=== PATIENT | female | born 1935 | race Caucasian/White ===

== ENCOUNTER → 2017-04-16 14:45 | Outpatient (CLI) | payer MEDICARE, OTHER, SELFPAY ==
[2017-04-16 14:51] LABS: Microscopic, Urine URINE MICROSCOPIC (MICROSCOPIC)
--- NOTE | 2017-04-16 15:05 | XR_ITS ---
XR acute abdomen series Ordering Physician: Sea Martinez Patient Age: 81 years: Female HISTORY: ITS.REASON: EPIGASTRIC PAIN, N/V/D TECHNIQUE: Flat and upright views of abdomen with upright chest COMPARISON :2 view chest October 2016. Also CT abdomen pelvis 12/14/2014 FINDINGS : CHEST: Lungs appears stable and clear with no active disease heart normal size previous median sternotomy. Tortuous aorta. Minimal linear scarring left CP angle. No free air beneath the diaphragm eventration towards the medial left hemidiaphragm again noted Abdomen FLAT AND UPRIGHT post surgical changes in region of stomach numerous clips and stable elements here. Reflect previous gastric stapling bypass surgery. Nonspecific bowel gas pattern. No bowel dilatation or obstruction. Only minimal gas in large and small bowel. Minimal stool throughout the colon. Postsurgical changes at pelvis likely from previous hysterectomy. Numerous phleboliths at the pelvis. Degenerative changes spine most evident L4/5 but no organomegaly. No significant renal calculi IMPRESSION: No acute findings Nonspecific bowel gas pattern. With minimal minimal gas large and small bowel Postsurgical changes region of stomach. Cholecystectomy. Hysterectomy. Lungs clear no active disease
[2017-04-16 15:15] LABS: Appearance,Urine CLEAR (Clear); Blood, Urine Negative (Negative); Color,Urine YELLOW (Yellow); Glucose,Urine (UA) Negative (Negative); Ketones,Urine 1+ (Negative); Leukocyte Esterase,Urine Negative (Negative); Nitrate,Urine Negative (Negative); Protein,Urine 1+ (Negative); Specific Gravity, Urine 1.025 (1.005-1.030)
[2017-04-16 15:17] LABS: Basophils % 0.2 % (0.1-2.0); Eosinophils # 0.2 K/mm3 (0.0-0.4); Eosinophils % 2.7 % (0.1-12.0); Hematocrit 41.5 % (37.0-47.0); Hemoglobin 13.8 g/dL (12.2-16.2); Lymphocytes # 1.4 K/mm3 (0.7-4.5); Lymphocytes % 24.9 K/mm3 (10-50); Mean Corpuscular HGB Conc 33.1 g/dL (31.8-35.4); Mean Corpuscular Hemoglobin 30.4 pg (27.0-31.2); Mean Corpuscular Volume 91.6 fl (81-99); Mean Platelet Volume 7.7 fl (7.4-10.4); Monocytes # 0.4 K/mm3 (0.1-1.0); Neutrophils # 3.7 K/mm3 (1.8-7.8); Neutrophils % 65.1 % (37.0-80.0); Platelet Count 308 K/mm3 (142-424); Red Blood Count 4.53 M/mm3 (4.20-5.40); Red Cell Distribution Width 13.9 % (11.5-17.5); White Blood Count 5.8 K/mm3 (4.8-10.8)
[2017-04-16 15:18] LABS: Bilirubin,Urine 2+ (Negative)
[2017-04-16 15:30] LABS: Anion Gap 13.7 mEq/L (5-15); Blood Urea Nitrogen 19 mg/dL (7-18); Carbon Dioxide 29 mmol/L (21.0-32.0); Chloride 102 mmol/L (98-107); Creatinine,Serum 1.26 mg/dL (0.55-1.02); Estimated Glomerular Filt Rate 41 ml/min (>60); GFR (African American) 50 ML/MIN (>60); Glucose 111 mg/dL (74-106); Potassium 4.7 mmoL/L (3.5-5.1); Sodium 140 mmol/L (136-145)
[2017-04-16 15:34] LABS: RBC,Urine Occasional #/hpf (0-3)
== END ==
PROVIDERS: PCP Internal Medicine; Visit Provider Internal Medicine
DX: R10.13 Epigastric pain (principal); R11.2 Nausea with vomiting, unspecified; R19.7 Diarrhea, unspecified
CPT/HCPCS: 36415; 74021; 80048; 81001; 85025

== ENCOUNTER → 2017-04-26 15:31 | Outpatient (POV) | payer MEDICARE, OTHER, SELFPAY | PROVIDERS: Family Provider Internal Medicine; PCP Internal Medicine; Visit Provider Dermatology | DX: Z00.00 Encounter for general adult medical examination without abnormal findings (principal) ==

== ENCOUNTER → 2017-06-19 12:06 | Outpatient (CLI) | payer MEDICARE, OTHER, SELFPAY ==
--- NOTE | 2017-06-19 12:29 | XR_ITS ---
XR chest 2V HISTORY: ITS.REASON: COUGH, SOA, CHEST PAIN ORDERING PHYSICIAN: Sea Martinez PATIENT AGE: 81 years COMPARISON: 11/10/2016 FINDINGS: Prior CABG. Normal heart size.. The lungs are clear without infiltrates, suspicious nodules, or pleural effusions. Minimal fibrotic changes are present in the left lung base No acute bony abnormalities. IMPRESSION: No change with no acute finding
[2017-06-19 12:30] LABS: Basophils % 0.6 % (0.1-2.0); Eosinophils # 0.2 K/mm3 (0.0-0.4); Eosinophils % 4.1 % (0.1-12.0); Hematocrit 38.4 % (37.0-47.0); Hemoglobin 12.1 g/dL (12.2-16.2); Lymphocytes # 1.2 K/mm3 (0.7-4.5); Lymphocytes % 21.6 K/mm3 (10-50); Mean Corpuscular HGB Conc 31.6 g/dL (31.8-35.4); Mean Corpuscular Hemoglobin 29.6 pg (27.0-31.2); Mean Corpuscular Volume 93.6 fl (81-99); Mean Platelet Volume 7.9 fl (7.4-10.4); Monocytes # 0.3 K/mm3 (0.1-1.0); Monocytes % 5.9 % (1.7-9.3); Neutrophils # 3.6 K/mm3 (1.8-7.8); Neutrophils % 67.7 % (37.0-80.0); Platelet Count 321 K/mm3 (142-424); Red Cell Distribution Width 14.2 % (11.5-17.5); White Blood Count 5.4 K/mm3 (4.8-10.8)
[2017-06-19 12:57] LABS: Troponin I < 0.02 ng/ml (0.00-0.06)
== END ==
PROVIDERS: Visit Provider Internal Medicine
DX: R05 Cough (principal); R06.02 Shortness of breath; R07.9 Chest pain, unspecified
CPT/HCPCS: 36415; 71046; 84484; 85025; 93005

== ENCOUNTER 2017-09-29 08:52 | Observation (INO) ==
[2017-09-29 09:09] LABS: Basophils % 0.5 % (0.1-2.0); Eosinophils # 0.2 K/mm3 (0.0-0.4); Eosinophils % 4.4 % (0.1-12.0); Hematocrit 33.9 % (37.0-47.0); Hemoglobin 10.8 g/dL (12.2-16.2); Lymphocytes # 1.7 K/mm3 (0.7-4.5); Mean Corpuscular HGB Conc 31.9 g/dL (31.8-35.4); Mean Corpuscular Hemoglobin 27.8 pg (27.0-31.2); Mean Corpuscular Volume 87.3 fl (81-99); Mean Platelet Volume 7.2 fl (7.4-10.4); Monocytes # 0.3 K/mm3 (0.1-1.0); Monocytes % 5.8 % (1.7-9.3); Neutrophils # 2.8 K/mm3 (1.8-7.8); Neutrophils % 55.4 % (37.0-80.0); Platelet Count 315 K/mm3 (142-424); Red Blood Count 3.88 M/mm3 (4.20-5.40); Red Cell Distribution Width 15.6 % (11.5-17.5); White Blood Count 5.1 K/mm3 (4.8-10.8)
--- NOTE | 2017-09-29 09:12 | Emergency Department Note ---
ED Disposition Clinical Impression: Unstable angina, CAD (coronary artery disease), Renal insufficiency Disposition: Still a Patient Condition on Discharge: Fair Referrals: Sea Martinez [Primary Care Provider] - - Critical Care Critical Care Time: No Attestation: On 09/29/17, the high probability of a clinically significant, sudden or life threatening deterioration of the following system(s) required my full and direct attention, intervention and personal management. The time I documented below is in addition to time spent performing reported procedures but includes the following listed in this critical care notation. Medical Decision Making - Robert Inquiry Pt receiving controlled substance: No Robert was queried for this patient: No Vital Signs: 09/29/17 08:52 09/29/17 09:14 09/29/17 09:56 Temperature 97.7 F Temperature Source Oral Pulse Rate [Apical] 94 H 86 82 Respiratory Rate 18 18 18 Blood Pressure [Left Arm] 134/72 137/73 126/71 Blood Pressure Mean [Left Arm] 92 94 89 Blood Pressure Source [Left Arm] Automatic Cuff Automatic Cuff Automatic Cuff Blood Pressure Position [Left Arm] Sitting Sitting Sitting 02 Sat by Pulse Oximetry 94 L 94 L 96 Oxygen Delivery Method Room Air Room Air Room Air 09/29/17 10:17 09/29/17 11:04 Temperature Temperature Source Pulse Rate [Apical] 88 83 Respiratory Rate 18 18 Blood Pressure [Left Arm] 131/76 128/72 Blood Pressure Mean [Left Arm] 94 90 Blood Pressure Source [Left Arm] Automatic Cuff Automatic Cuff Blood Pressure Position [Left Arm] Sitting Sitting 02 Sat by Pulse Oximetry 97 98 Oxygen Delivery Method Room Air Room Air - Lab Data Lab Results 09/29/17 08:50: WBC 5.1, RBC 3.88 L, Hgb 10.8 L, Hct 33.9 L, MCV 87.3, MCH 27.8 , MCHC 31.9, RDW 15.6, Plt Count 315, MPV 7.2 L, Neut % (Auto) 55.4, Lymph % ( Auto) 34.0, [place] % (Auto) 5.8, Eos % (Auto) 4.4, Baso % (Auto) 0.5, Neut # (Auto ) 2.8, Lymph # (Auto) 1.7, [place] # (Auto) 0.3, Eos # (Auto) 0.2, Baso # (Auto) 0.0 09/29/17 08:50: D-Dimer 1830 H* 09/29/17 08:50: Sodium 137, Potassium 4.3, Chloride 103, Carbon Dioxide 29, Anion Gap 5.0, BUN 16, Creatinine 1.26 H, Estimated Creat Clear 44, Estimated GFR 41 L, Est GFR ( Amer) 50 L, Glucose 116 H, Calcium 8.9, Total Bilirubin 0.4, AST 15, ALT 13, Alkaline Phosphatase 55, Total Creatine Kinase 34 , CK-MB (CK-2) 0.6, CK-MB (CK-2) Rel Index 1.8, Troponin I < 0.02, Total Protein 7.0, Albumin 2.9 L, Globulin 4.1 H, Albumin/Globulin Ratio 0.7 L 09/29/17 08:50: B-Natriuretic Peptide 231 H Result diagrams: 09/29/17 08:50 09/29/17 08:50 Orders (Tests/Meds): ED MEDICATIONS Discontinued Medications Generic Name Dose Route Start Last Admin Trade Name Waylonq PRN Reason Stop Dose Admin Enoxaparin Sodium 80 mg 09/29/17 09:04 09/29/17 09:10 Lovenox 80mg/0.8ml Syringe SQ 09/29/17 09:05 80 mg ONCE ONE Administration Famotidine 20 mg 09/29/17 09:04 09/29/17 09:10 Pepcid 20mg/2ml Vial IV 09/29/17 09:05 20 mg ONCE ONE Administration Sodium Chloride 1,000 mls @ 500 mls/hr 09/29/17 09:15 09/29/17 09:08 Sod Chlor 0.9% 1000ml Bag IV 09/29/17 11:14 500 mls/hr .Q2H LIZBET Administration Iopamidol 75 ml 09/29/17 10:50 09/29/17 10:50 [id number]; 75ml Vial IV 09/29/17 10:51 75 ml ONCE ONE Administration Nitroglycerin 0.5 gm 09/29/17 09:04 09/29/17 09:56 Nitroglycerin 1 Inch Oint Udp TD 09/29/17 09:05 0.5 gm ONCE ONE Administration Sodium Chloride 10 ml 09/29/17 10:50 09/29/17 10:50 Rad-Saline Flush 10ml Syringe IV 09/29/17 10:51 10 ml ONCE ONE Administration ORDERS Category Date Time Status ECG Request by /Nse Stat Y 09/29/17 09:00 Ordered - Radiology Data #1 Image(s): Chest Image Reviewed: Yes I reviewed the patient's radiology image Preliminary Findings: Abnormal Portable CXR: Postop changes bibasilar atelectasis versus infiltrates - CT Data CT Scan: Chest Time Received: 11:[address] Reviewed: Yes: I have viewed the radiologist's interpretation Preliminary Findings: Normal/NAD - ECG Data Tracing #1 Normal sinus rhythm 92/min left atrial enlargement right bundle branch block stable since the EKG done in this facility on November 10, 2016. ECG initial impression date: 09/29/17 ECG initial impression time: 08:55 Normal Sinus Rhythm: No Medical Decision Narrative: 919 Dr. Bergeron her illusionist was notified of her presence in the ED. the patient started on nitroglycerin paste and Lovenox with resolution of her chest pain. She underwent elevated d-dimer and she was given a CT scan with contrast that was negative for PE. I spoke with Dr. Bergeron regarding her receiving 2 doses of IV dye and her advanced did renal insufficiency. I spoke with Dr. Schwartz should be admitted for unstable angina and renal insufficiency. Chest Pain HPI - General Chief Complaint: Chest Pain Stated Complaint: chest pain Time Seen by Provider: 09/29/17 08:55 Mode of Arrival: EMS Limitations: No Limitations Description of Symptoms (Recalled from ER Triage Doc. by RN): Pt reports woke up with pressure like pain in middle of chest radiating to her back. Pt reports pain made her feel SOA. Pt reports she had a heart cath of this week and had [address] Bergeron. Pt reports also has a hx of a CABG. Pt reports she took 2 SL Nitroglycerin [employer] that pt reports helped her CP, states pain was initially a 10/10 but is now 2/10 - History of Present Illness HPI narrative: 81 years old white female with long-standing history of coronary artery disease she is status post CABG in 2001. September 26 she developed retrosternal chest pain she contacted her music manager Dr. Bergeron who brought her for a heart cath in September 27 with a stenting of the ostium of the left main due to interval loss of the left internal mammary artery to the LAD accompanied by severe ostial left main artery stenosis. The saphenous vein graft was patent and her ejection fraction was normal with normal left ventricular end-diastolic pressure. She was discharged with aspirin Brilinta and anti-hyperlipidemic drugs and recommendations for cardiac rehab. She started her aspirin Brilinta yesterday 09/28/17. Today she was awakened by retrosternal pressure type pain rated 8/10 radiating to her back associated with shortness of breath but no palpitations. She has no nausea no vomiting no hemoptysis or hematemesis, no coffee-ground emesis, no melanotic stool, no bleeding per rectum. She took her nitroglycerin with reduction of the pain to 2 /10 and resolution of the shortness of breath. EMS was contacted obtained an EKG with normal sinus left atrial enlargement right bundle branch block which seems unchanged from her prior EKG on November 10, 2016. I reviewed the patient cardiac catheterization reviewed her old EKG and started her on IV fluids 500 ml, Lovenox and nitroglycerin paste. MD complaint: chest pain indicative of cardiac Onset (ago): hour(s) (one hour ago.) Time: 08:00 Duration: constant Activity at onset: during rest, awoke with symptoms Pain location: substernal Severity: moderate Severity scale (1-10): 8 Quality: dull, similar to prior [place], other Pain radiation: back Relieving factors: nitroglycerin Exacerbating factors: nothing Context: recent surgery Associated symptoms: dyspnea Risk Factors for CAD: Hypertension, Hypercholesterolemia Treatments prior to or on arrival for Cardiac Chest Pain: aspirin, oxygen - Related Data Home Medications Medication Instructions Recorded Confirmed celecoxib 200 mg capsule 200 mg PO DAILY cap 09/26/17 levothyroxine 50 mcg tablet 50 mcg PO DAILY tab 09/26/17 lorazepam 1 mg tablet 1 mg PO TID PRN tab 09/26/17 melatonin 10 mg tablet 10 mg PO HS 09/26/17 pantoprazole 40 mg tablet,delayed 40 mg PO DAILY tab 09/26/17 release ranitidine 300 mg tablet 300 mg PO BID PRN tab 09/26/17 ranolazine ER 500 mg 500 mg PO BID tab 09/26/17 tablet,extended release,12 hr Previous Rx's Medication Instructions Recorded amlodipine 5 mg tablet 5 mg PO DAILY #30 tab 09/26/17 atorvastatin 40 mg tablet 40 mg PO DAILY #30 tab 09/26/17 ondansetron HCl 4 mg tablet 4 mg PO BID PRN #30 tab 09/28/17 Allergies Allergy/AdvReac Type Severity Reaction Status Date / Time meperidine Allergy Unknown Verified 09/29/17 09:05 Sulfa (Sulfonamide Allergy Unknown Verified 09/29/17 09:05 Antibiotics) trimethoprim Allergy Unknown Verified 09/29/17 09:05 [facility] History I have reviewed the patient's past medical history: Yes Medical History: Reports:: Anxiety, Gastroesophageal Reflux Disease(GERD), Hypertension Denies:: Cancer, Diabetes Mellitus Type 1, Diabetes Mellitus Type 2, Internal Pacemaker, MRSA, Seizures Other Medical History: Reports: Hypothyroidism Other Surgeries: Yes: Appendectomy, CABG (2004), Cholecystectomy, Tubal Ligation , Other (ankle sx). No: Pacemaker Amputation: No - Social History Smoking Status: Former smoker Tobacco Type: cigarettes Alcohol Intake: never Alcohol Intake Frequency:: other Substance Use Type: denies use Occupational Status: retired Housing: house Household Members: significant other - Psychiatric History Expresses thoughts of harming self/others: None Suicide Plan Description: No Plan Pschychiatric History:: Reports:: Anxiety Family Hx:: Coronary Artery Disease ROS Obtained: Yes All systems reviewed & no additional complaints Physical Exam - General General appearance: alert, in no apparent distress - Head Head exam: atraumatic, normocephalic, normal inspection - Eye Eye exam: Present: normal appearance, PERRL, EOMI. Absent: scleral icterus, nystagmus - ENT ENT exam: Present: normal exam, normal oropharynx, mucous membranes moist, TM's normal bilaterally, normal external ear exam - Neck Neck exam: Present: normal inspection, full ROM, trachea midline. Absent: meningismus, lymphadenopathy - Chest Chest inspection: Present: normal inspection, symmetric chest wall rise. Absent : tenderness - Respiratory Respiratory exam: Present: other (Fine bibasilar crepitations bilaterally, does not resolve by coughing, in no acute distress.). Absent: respiratory distress - Cardiovascular Cardiovascular exam: Present: regular rate, normal rhythm, normal heart sounds, other (Distant heart sounds.). Absent: JVD - Abdominal Exam Abdominal exam: Present: soft, normal bowel sounds, other (Normal right groin Angiocath side, with a strong bilateral femoral pulsations.). Absent: distention, tenderness, guarding, rebound, rigidity, Harley's sign, tenderness at McBurney's Point - External exam: Present: normal external exam - Extremities Exam Extremities exam: Present: normal inspection, full ROM, normal capillary refill , other (Equal bilateral dorsalis pedis pulsation.). Absent: tenderness, pedal edema, joint swelling, calf tenderness - Back Exam Back exam: Present: normal inspection. Absent: tenderness, CVA tenderness (R), CVA tenderness (L), vertebral tenderness - Neurological Exam Neurological exam: Present: alert, oriented X3, CN II-XII intact, motor sensory deficit, reflexes normal - Psychiatric Psychiatric exam: Present: normal affect, normal mood - Skin Skin exam: Present: warm, dry, intact, normal color - Lymphatic Lymphatic Findings: no adenopathy
[2017-09-29 09:21] LABS: Creatine Kinase 34 U/L (26-192); Sodium 137 mmol/L (136-145)
[2017-09-29 09:22] LABS: Alanine Aminotransferase 13 U/L (12-78); Albumin Level 2.9 gm/dL (3.4-5.0); Albumin/Globulin Ratio 0.7 (1.1-1.8); Alkaline Phosphatase 55 U/L (46-116); Aspartate Amino Transferase 15 U/L (15-37); Bilirubin,Total 0.4 mg/dL (0.2-1.0); Blood Urea Nitrogen 16 mg/dL (7-18); Calcium 8.9 mg/dL (8.5-10.1); Carbon Dioxide 29 mmol/L (21.0-32.0); Chloride 103 mmol/L (98-107); Globulin 4.1 gm/dl (1.3-3.2); Glucose 116 mg/dL (74-106); Potassium 4.3 mmoL/L (3.5-5.1)
--- NOTE | 2017-09-29 12:59 | History & Physical Report ---
*Admission Date: 09/29/17 *Chief complaint: chest pain *History of present illness: Ms. Floyd is a 81-year-old female with extensive medical history of coronary artery disease status post CABG in 2004, unstable angina, heart cath within the past 3 days, right bundle branch block, and obstructive sleep apnea who presents with episode of chest pain that woke her from sleep this morning. On initial presentation to the ER EKG is stable with comparison to old studies, troponins negative, chest pain resolved with nitroglycerin. He remained hemodynamically stable. Decision to admit based on need for serial troponins, history of renal insufficiency with significant contrast load over the past few days, and to assess for rebound angina. Cardiology consulted in the emergency room, following along. Of note, she was just seen in cardiology clinic on the first because of her unstable angina. She had not had any interventions since her CABG in 2004. She presented because she has been having chest pain, progressive dyspnea with exertion, and worsening exercise intolerance. [facility] History Medical History: Reports:: Anxiety, Gastroesophageal Reflux Disease(GERD), Hypertension Denies:: Cancer, Diabetes Mellitus Type 1, Diabetes Mellitus Type 2, Internal Pacemaker, MRSA, Seizures Other Medical History: Reports: Hypothyroidism Other Surgeries: Yes: Appendectomy, CABG (2004), Cholecystectomy, Tubal Ligation , Other (ankle sx). No: Pacemaker Amputation: No - *Social History Smoking Status: Former smoker Tobacco Type: cigarettes Alcohol Intake: never Alcohol Intake Frequency:: other Substance Use Type: denies use Occupational Status: retired Housing: house Household Members: significant other - Psychiatric History Expresses thoughts of harming self/others: None Suicide Plan Description: No Plan Pschychiatric History:: Reports:: Anxiety *Family Hx:: Coronary Artery Disease Review of Systems - Review of Systems Review of systems:: pertinent systems reviewed and negative unless documented below Meds Home Medications Medication Instructions Recorded Confirmed Type celecoxib 200 mg capsule 200 mg PO DAILY cap 09/26/17 09/29/17 History levothyroxine 50 mcg tablet 50 mcg PO DAILY tab 09/26/17 09/29/17 History lorazepam 1 mg tablet 1 mg PO TID PRN tab 09/26/17 09/29/17 History melatonin 10 mg tablet 10 mg PO HS 09/26/17 09/29/17 History pantoprazole 40 mg tablet,delayed 40 mg PO DAILY tab 09/26/17 09/29/17 History release ranitidine 300 mg tablet 300 mg PO BID PRN tab 09/26/17 09/29/17 History ranolazine ER 500 mg 500 mg PO BID tab 09/26/17 09/29/17 History tablet,extended release,12 hr Allergies Allergy/AdvReac Type Severity Reaction Status Date / Time meperidine Allergy Unknown Verified 09/29/17 09:05 Sulfa (Sulfonamide Allergy Unknown Verified 09/29/17 09:05 Antibiotics) trimethoprim Allergy Unknown Verified 09/29/17 09:05 Exam Vital signs and Labs for Last 24 Hours: Temp Pulse Resp BP Pulse Ox 98.1 F 91 H 18 172/66 94 L 09/29/17 12:55 09/29/17 12:55 09/29/17 12:55 09/29/17 12:55 09/29/17 12:55 Laboratory Results - last 24 hr 09/29/17 08:50: WBC 5.1, RBC 3.88 L, Hgb 10.8 L, Hct 33.9 L, MCV 87.3, MCH 27.8 , MCHC 31.9, RDW 15.6, Plt Count 315, MPV 7.2 L, Neut % (Auto) 55.4, Lymph % ( Auto) 34.0, [place] % (Auto) 5.8, Eos % (Auto) 4.4, Baso % (Auto) 0.5, Neut # (Auto ) 2.8, Lymph # (Auto) 1.7, [place] # (Auto) 0.3, Eos # (Auto) 0.2, Baso # (Auto) 0.0 09/29/17 08:50: D-Dimer 1830 H* 09/29/17 08:50: Sodium 137, Potassium 4.3, Chloride 103, Carbon Dioxide 29, Anion Gap 5.0, BUN 16, Creatinine 1.26 H, Estimated Creat Clear 44, Estimated GFR 41 L, Est GFR ( Amer) 50 L, Glucose 116 H, Calcium 8.9, Total Bilirubin 0.4, AST 15, ALT 13, Alkaline Phosphatase 55, Total Creatine Kinase 34 , CK-MB (CK-2) 0.6, CK-MB (CK-2) Rel Index 1.8, Troponin I < 0.02, Total Protein 7.0, Albumin 2.9 L, Globulin 4.1 H, Albumin/Globulin Ratio 0.7 L 09/29/17 08:50: B-Natriuretic Peptide 231 H I & O for Last 24 hours: Intake & Output 09/26/17 09/27/17 09/28/17 09/29/17 23:59 23:59 23:59 23:59 Weight 76.884 kg - *Routine HEENT Exam Head: Present: normocephalic, atraumatic Eye: Present: EOMI, PERRL ENT: Present: mucous membranes moist - *Routine Neck Exam Present: supple. Absent: JVD, lymphadenopathy - *Routine Respiratory Exam Present: CTA bilaterally. Absent: prolonged expiratory phase, rales - *Routine Cardiovascular Exam Present: RRR, Normal S1, Normal S2. Absent: murmur - *Routine Abdominal Exam Present: soft, normoactive bowel sounds. Absent: tenderness - *Routine Rectal Exam Patient deferred: visual exam - *Routine Exam Patient deferred: external exam - *Routine Extremities Exam Present: edema (1+ edema to knee bilaterally). Absent: cyanosis - *Routine Skin Exam Present: intact. Absent: cyanosis, erythema - *Routine Neurological Exam Present: alert, oriented X3, CN II-XII intact - Routine Psychiatric Exam Present: normal affect, cooperative H&P: Result - Labs Labs: Short CBC 09/29/17 Range/Units 08:50 WBC 5.1 (4.8-10.8) K/mm3 Hgb 10.8 L (12.2-16.2) g/dL Hct 33.9 L (37.0-47.0) % Plt Count 315 (142-424) K/mm3 BMP 09/29/17 08:50 Sodium 137 Potassium 4.3 Chloride 103 Carbon Dioxide 29 BUN 16 Creatinine 1.26 H Glucose 116 H Calcium 8.9 Cardiac Enzymes 09/29/17 Range/Units 08:50 Total Creatine Kinase 34 (26-192) U/L CK-MB (CK-2) 0.6 (0.0-3.6) ng/ml Troponin I < 0.02 (0.00-0.06) ng/ml Liver Function 09/29/17 Range/Units 08:50 Total Bilirubin 0.4 (0.2-1.0) mg/dL AST 15 (15-37) U/L ALT 13 (12-78) U/L Alkaline Phosphatase 55 (46-116) U/L Albumin 2.9 L (3.4-5.0) gm/dL Assessment and Plan (1) CAD (coronary artery disease) Current visit: Yes Status: Acute Category: Medical Code(s): I25.10 - Atherosclerotic heart disease of [place] coronary artery without angina pectoris (2) Renal insufficiency Current visit: Yes Status: Acute Category: Medical Code(s): N28.9 - Disorder of kidney and ureter, unspecified Monitor kidney function with morning labs, due to contrast loads over the past 3 days at risk for contrast-induced nephropathy/RAYO Gentle fluid rehydration (3) Unstable angina Current visit: Yes Status: Acute Category: Medical Code(s): I20.0 - Unstable angina Serial troponin Resume DAPT therapy Taking home medications, awaiting to bring to bedside Nitro as needed for chest pain Monitor on telemetry Cardiology consulted, appreciate recommendations (4) Obstructive sleep apnea Current visit: Yes Status: Acute Category: Medical Code(s): G47.33 - Obstructive sleep apnea (adult) (pediatric) Resume home CPAP, use home settings, while sleeping
--- NOTE | 2017-09-29 13:26 | Pharmacy Consult Notes ---
[facility] Pharmacy VTE Monitoring - Patient Demographics Admission date: 09/29/17 Report Date: 09/29/17 Time: 13:25 Allergies/Adverse Reactions: Patient Allergies meperidine Allergy (Unknown, Verified 09/29/17 09:05) Sulfa (Sulfonamide Antibiotics) Allergy (Unknown, Verified 09/29/17 09:05) trimethoprim Allergy (Unknown, Verified 09/29/17 09:05) Height: 1.52 m Weight: 76.884 kg Patient Problems: Current Active Problems Unstable angina (Acute) CAD (coronary artery disease) (Acute) Renal insufficiency (Acute) - VTE Risk Labs: VTE Related Lab Results Hgb 10.8 g/dL (12.2-16.2) L 09/29/17 08:50 Hct 33.9 % (37.0-47.0) L 09/29/17 08:50 Plt Count 315 K/mm3 (142-424) 09/29/17 08:50 BUN 16 mg/dL (7-18) 09/29/17 08:50 Creatinine 1.26 mg/dL (0.55-1.02) H 09/29/17 08:50 Estimated Creat Clear 44 mL/min (0-300) 09/29/17 08:50 - Prophylaxis VTE Prophylaxis Ordered?: Yes Types of VTE Prophylaxis: TEDS Knee High Location of Applied Device: Bilateral Lower Extremeties - VTE Diagnosis Confirmed Treatment or plan recommended: Continue Current Treatment
[2017-09-30 07:17] LABS: Anion Gap 12.7 mEq/L (5-15); Calcium 8.8 mg/dL (8.5-10.1); Potassium 4.7 mmoL/L (3.5-5.1)
[2017-09-30 07:18] LABS: Basophils % 0.5 % (0.1-2.0); Eosinophils # 0.2 K/mm3 (0.0-0.4); Eosinophils % 6.3 % (0.1-12.0); Hematocrit 30.6 % (37.0-47.0); Lymphocytes # 1.1 K/mm3 (0.7-4.5); Mean Corpuscular HGB Conc 32.7 g/dL (31.8-35.4); Mean Corpuscular Hemoglobin 28.2 pg (27.0-31.2); Mean Corpuscular Volume 86.4 fl (81-99); Mean Platelet Volume 7.2 fl (7.4-10.4); Monocytes # 0.3 K/mm3 (0.1-1.0); Neutrophils % 53.4 % (37.0-80.0); Platelet Count 255 K/mm3 (142-424); Red Blood Count 3.54 M/mm3 (4.20-5.40); Red Cell Distribution Width 15.6 % (11.5-17.5); White Blood Count 3.8 K/mm3 (4.8-10.8)
--- NOTE | 2017-09-30 11:16 | Discharge Summary ---
General - General Admission date:: 09/29/17 Discharge date: 09/30/17 HPI HPI: Ms. Floyd is a 81-year-old female with extensive medical history of coronary artery disease status post CABG in 2004, unstable angina, heart cath within the past 3 days, right bundle branch block, and obstructive sleep apnea who presents with episode of chest pain that woke her from sleep this morning. On initial presentation to the ER EKG is stable with comparison to old studies, troponins negative, chest pain resolved with nitroglycerin. He remained hemodynamically stable. Decision to admit based on need for serial troponins, history of renal insufficiency with significant contrast load over the past few days, and to assess for rebound angina. Cardiology consulted in the emergency room, following along. Of note, she was just seen in cardiology clinic on the first because of her unstable angina. She had not had any interventions since her CABG in 2004. She presented because she has been having chest pain, progressive dyspnea with exertion, and worsening exercise intolerance. Hospital Course Hospital Course: Ms. Floyd was admitted for observation and serial troponins. Over 24 hours she had no further episodes of angina. Troponins remained negative. She is monitored on telemetry with no events. Continued on her home medication regimen including her dual antiplatelet therapy. Remained hemodynamically stable. Discharged home with instructions to follow-up with cardiology this week. Given a refill of nitroglycerin in case acute episodes of angina occur. Objective Vital signs: Temp Pulse Resp BP Pulse Ox 97.8 F 89 20 146/68 94 L 09/30/17 08:00 09/30/17 08:00 09/30/17 08:00 09/30/17 08:00 09/30/17 08:00 - *Routine HEENT Exam Head: Present: normocephalic, atraumatic Eye: Present: EOMI ENT: Present: mucous membranes moist - *Routine Neck Exam Present: supple. Absent: lymphadenopathy - *Routine Respiratory Exam Present: CTA bilaterally. Absent: prolonged expiratory phase, rales, crackles - *Routine Cardiovascular Exam Present: RRR, Normal S1, Normal S2. Absent: murmur - *Routine Abdominal Exam Present: soft, normoactive bowel sounds. Absent: tenderness - *Routine Rectal Exam Patient deferred: visual exam - *Routine Exam Comments: Right groin with no bruit at site of recent heart cath sheath. No bleeding or erythema. - *Routine Extremities Exam Present: edema. Absent: cyanosis, clubbing - *Routine Skin Exam Present: intact. Absent: cyanosis - *Routine Neurological Exam Present: alert, oriented X3, CN II-XII intact - Routine Psychiatric Exam Present: normal affect, cooperative Results Labs on day of discharge: Labs from last 24 hours 09/30/17 09/30/17 09/30/17 06:15 06:15 00:25 WBC 3.8 L D RBC 3.54 L Hgb 10.0 L Hct 30.6 L MCV 86.4 MCH 28.2 MCHC 32.7 RDW 15.6 Plt Count 255 MPV 7.2 L Neut % (Auto) 53.4 Lymph % (Auto) 30.0 [place] % (Auto) 8.0 Eos % (Auto) 6.3 Baso % (Auto) 0.5 Neut # (Auto) 2.0 Lymph # (Auto) 1.1 [place] # (Auto) 0.3 Eos # (Auto) 0.2 Baso # (Auto) 0.0 Sodium 141 Potassium 4.7 Chloride 107 Carbon Dioxide 26 Anion Gap 12.7 BUN 11 D Creatinine 1.03 H Estimated Creat Clear 54 Estimated GFR 52 L Est GFR ( Amer) 63 D Glucose 93 Calcium 8.8 Troponin I < 0.02 09/29/17 09/29/17 18:20 13:15 WBC RBC Hgb Hct MCV MCH MCHC RDW Plt Count MPV Neut % (Auto) Lymph % (Auto) [place] % (Auto) Eos % (Auto) Baso % (Auto) Neut # (Auto) Lymph # (Auto) [place] # (Auto) Eos # (Auto) Baso # (Auto) Sodium Potassium Chloride Carbon Dioxide Anion Gap BUN Creatinine Estimated Creat Clear Estimated GFR Est GFR ( Amer) Glucose Calcium Troponin I < 0.02 < 0.02 DS: Diagnosis - Discharge Diagnosis (1) CAD (coronary artery disease) Status: Acute (2) Renal insufficiency Status: Acute (3) Unstable angina Status: Acute (4) Obstructive sleep apnea Status: Acute Discharge Plan - Patient Discharge Instructions ACTIVITY: Continue current activity, Ambulate as tolerated DIET: continue same diet - Follow up Plan Follow up with: Sea Martinez [Primary Care Provider] - 1 week Richard Bergeron MD [Staff Physician] - 1 week Disposition: Home, Self-Long Term Medications: Home Medications Medication Instructions Recorded Confirmed Type celecoxib 200 mg capsule 200 mg PO DAILYP PRN cap 09/26/17 09/30/17 History levothyroxine 50 mcg tablet 50 mcg PO DAILY tab 09/26/17 09/29/17 History lorazepam 1 mg tablet 1 mg PO TID PRN tab 09/26/17 09/29/17 History melatonin 10 mg tablet 10 mg PO HS 09/26/17 09/29/17 History pantoprazole 40 mg tablet,delayed 40 mg PO DAILY tab 09/26/17 09/29/17 History release ranolazine ER 500 mg 500 mg PO BID tab 09/26/17 09/29/17 History tablet,extended release,12 hr Prescriptions/Medication Reconciliation: New Aspirin [Aspirin 81mg chewable tab] 81 mg PO DAILY tab.chew Celecoxib [CeleBREX 100mg Capsule] 200 mg PO DAILY capsule Ticagrelor [Brilinta 90mg Tablet] 90 mg PO BID tablet Nitroglycerin [Nitrostat] 0.3 mg SL Q5MINP PRN 5 Days #30 tab.subl PRN Reason: Chest Pain Continue pantoprazole 40 mg tablet,delayed release 40 mg PO DAILY tab ranolazine ER 500 mg tablet,extended release,12 hr 500 mg PO BID tab melatonin 10 mg tablet 10 mg PO HS lorazepam 1 mg tablet 1 mg PO TID PRN tab PRN Reason: Anxiety amlodipine 5 mg tablet 5 mg PO DAILY #30 tab ondansetron HCl 4 mg tablet 4 mg PO BID PRN #30 tab PRN Reason: nausea and vomiting levothyroxine 50 mcg tablet 50 mcg PO DAILY tab atorvastatin 40 mg tablet 40 mg PO DAILY #30 tab Discontinued celecoxib 200 mg capsule 200 mg PO DAILYP PRN cap PRN Reason: ARTHRITIS - Additional Information Additional Information: If has further episodes of chest pain unresponsive to nitroglycerin please call 911 and come to the ER immediately.
== END 2017-09-30 13:00 | disposition home or self-care (01) ==
LOC: 2ND 08:52 → ER 08:52 → 2ND 12:40
PROVIDERS: ADMIT Internal Medicine Adolescent Medicine; ATTEND Internal Medicine Adolescent Medicine

== ENCOUNTER → 2017-10-08 12:09 | Outpatient (CLI) | payer MEDICARE, OTHER, SELFPAY | PROVIDERS: Visit Provider Physician Assistant | DX: R00.0 Tachycardia, unspecified (principal); I25.10 Atherosclerotic heart disease of native coronary artery without angina pectoris | CPT/HCPCS: 93225 ==

== ENCOUNTER → 2017-10-19 10:04 | Outpatient (CLI) | payer MEDICARE, OTHER, SELFPAY ==
--- NOTE | 2017-10-19 10:06 | US_ITS ---
US Arterial Ankle Brachial Ind History: ITS.REASON: Claudication claudication, rest pain, previous smoker ORDERING PHYSICIAN: Richard Bergeron MD PATIENT AGE: 81 years TECHNIQUE: Segmental pressures obtained of both right and left leg. These are compared to brachial blood pressure to yield index at each level sampled including summary ELISA. The data sheets from the procedure are available in PACS FINDINGS Rest study only performed today No prior studies available for comparison. Blood pressures reported are in millimeters mercury. RIGHT LEG ELISA = 1.0. RIGHT LEG TBI=.6 Brachial BP: 133 Thigh BP: 138 Calf BP: 135 Ankle PT: 127 Ankle DP : 133 Digit =77 LEFT LEG ELISA = 1.1 LEFT LEG TBI= .7 Brachial BPD: 128 Thigh BP: 128 Calf BP: 141 Ankle PT:139 Ankle DP: 123 Digit = 86 Pulses and waveforms: Normal IMPRESSION: The ABIs as reported above are within normal limits. Waveforms and pulses are also unremarkable. The TBIs are low which may indicate small vessel disease
== END ==
PROVIDERS: Family Provider Internal Medicine; PCP Internal Medicine; Visit Provider Internal Medicine
DX: I73.9 Peripheral vascular disease, unspecified (principal)
CPT/HCPCS: 93922

== ENCOUNTER → 2017-12-31 12:02 | Outpatient (CLI) | payer MEDICARE, OTHER, SELFPAY ==
[2017-12-31 12:20] LABS: Basophils % 0.7 % (0.1-2.0); Eosinophils # 0.2 K/mm3 (0.0-0.4); Eosinophils % 4.1 % (0.1-12.0); Hematocrit 35.3 % (37.0-47.0); Hemoglobin 10.6 g/dL (12.2-16.2); Lymphocytes # 1.2 K/mm3 (0.7-4.5); Mean Corpuscular HGB Conc 30.1 g/dL (31.8-35.4); Mean Corpuscular Hemoglobin 27.1 pg (27.0-31.2); Mean Platelet Volume 8.6 fl (7.4-10.4); Monocytes # 0.3 K/mm3 (0.1-1.0); Monocytes % 7.5 % (1.7-9.3); Neutrophils # 2.6 K/mm3 (1.8-7.8); Neutrophils % 60.8 % (37.0-80.0); Platelet Count 306 K/mm3 (142-424); Red Blood Count 3.92 M/mm3 (4.20-5.40); Red Cell Distribution Width 16.4 % (11.5-17.5); White Blood Count 4.3 K/mm3 (4.8-10.8)
[2017-12-31 14:39] LABS: Blood Urea Nitrogen 15 mg/dL (7-18); Calcium 8.7 mg/dL (8.5-10.1); Carbon Dioxide 29 mmol/L (21.0-32.0); Chloride 102 mmol/L (98-107); Estimated Glomerular Filt Rate 39 ml/min (>60); GFR (African American) 48 ML/MIN (>60); Glucose 127 mg/dL (74-106); Sodium 138 mmol/L (136-145)
[2018-01-02 12:37] LABS: Folate 10.8 ng/mL (>3.0)
[2018-01-04 09:25] LABS: Vitamin B1 99.8 nmol/L (66.5-200.0)
== END ==
PROVIDERS: Visit Provider Urology
DX: I25.118 Atherosclerotic heart disease of native coronary artery with other forms of angina pectoris (principal); R53.1 Weakness; R06.02 Shortness of breath
CPT/HCPCS: 36415; 80048; 82746; 84425; 85025

== ENCOUNTER → 2018-01-04 07:57 | Outpatient (CLI) | payer MEDICARE, OTHER, SELFPAY ==
--- NOTE | 2018-01-04 07:58 | CA_ITS ---
PROCEDURE: 2-D M-mode and color Doppler study INDICATIONS FOR THE TEST: Chest pain COPD Heart Murmur Tobacco Smoking Palpitations FatigueX Syncope Edema HypertensionXDiabetes Mellitus Rheumatic Fever SOBXDOE Obesity HyperlipidemiaX Family History HD Additional History CAD,CABG, PATIENT INFORMATION HEIGHT: 60 WEIGHT:164 GENDER: Female B/P:134/76 2-D/M-MODE INTERPRETATION: 2-D MEASUREMENTS OBSERVED VALUES IN CMS Right Ventricular Dimension (RVDd) 2.2 Interventricular Septum (Thickness)(IVsd) .9 Left Ventricular Internal Dimensions(LVIDd) 4.8 Left Ventricular Posterior Wall (Thickness)(LVPWd) 1.0 Aortic Root 3.5 Aortic Cusp Separation 1.9 Left Atrial Dimensions (LAD) 4.5 2D 1. Left atrium is mildly enlarged, left ventricle is normal size, visually estimated ejection fraction 50%, with no regional wall motion abnormality, there is abnormal septal motion. 2. The right atrium and right ventricle are mildly enlarged with normal contractility. 3. The aortic valve is minimally thickened and fibrosed. 4. The mitral and tricuspid valve leaflets are minimally thickened. 5. The pulmonic valve is poorly visualized. 6. No significant pericardial effusion noted. DOPPLER INTERROGATION: Doppler interrogation of the aortic, mitral and tricuspid valvular presence of mild mitral and tricuspid regurgitation, tricuspid regurgitation jet velocity is inadequate for calculation of the right ventricular systolic pressure, grade 1 diastolic dysfunction seen with tissue Doppler evidence of raised left atrial pressure. CONCLUSION: 1. Mildly enlarged left atrium, normal left ventricular size, visually estimated ejection fraction 50% with no regional wall motion abnormality, there is abnormal septal motion. Grade 1 diastolic dysfunction seen with tissue Doppler evidence of raised left atrial pressure. 2. Mildly enlarged right ventricle with normal contractility. 3. Mild mitral and tricuspid regurgitation 4. No significant pericardial effusion noted.
== END ==
PROVIDERS: PCP Internal Medicine; Visit Provider Internal Medicine
DX: R06.02 Shortness of breath (principal)
CPT/HCPCS: 93306

== ENCOUNTER → 2018-06-20 09:18 | Outpatient (CLI) | payer MEDICARE, OTHER, SELFPAY ==
[2018-06-20 09:48] LABS: Basophils % 0.4 % (0.1-2.0); Eosinophils # 0.2 K/mm3 (0.0-0.4); Eosinophils % 3.1 % (0.1-12.0); Hematocrit 31.4 % (37.0-47.0); Hemoglobin 9.5 g/dL (12.2-16.2); Lymphocytes # 1.2 K/mm3 (0.7-4.5); Lymphocytes % 18.5 % (10-50); Mean Corpuscular HGB Conc 30.2 g/dL (31.8-35.4); Mean Corpuscular Hemoglobin 24.9 pg (27.0-31.2); Mean Corpuscular Volume 82.6 fl (81-99); Mean Platelet Volume 7.5 fl (7.4-10.4); Monocytes # 0.4 K/mm3 (0.1-1.0); Monocytes % 6.8 % (1.7-9.3); Neutrophils # 4.6 K/mm3 (1.8-7.8); Neutrophils % 71.2 % (37.0-80.0); Platelet Count 316 K/mm3 (142-424); Red Blood Count 3.81 M/mm3 (4.20-5.40); Red Cell Distribution Width 17.6 % (11.5-17.5); White Blood Count 6.4 K/mm3 (4.8-10.8)
[2018-06-20 11:04] LABS: Alanine Aminotransferase 13 U/L (12-78); Albumin Level 3.2 gm/dL (3.4-5.0); Alkaline Phosphatase 57 U/L (46-116); Anion Gap 11.6 mEq/L (5-15); Aspartate Amino Transferase 13 U/L (15-37); Bilirubin,Total 0.3 mg/dL (0.2-1.0); Blood Urea Nitrogen 9 mg/dL (7-18); Calcium 9.3 mg/dL (8.5-10.1); Carbon Dioxide 30 mmol/L (21.0-32.0); Chloride 103 mmol/L (98-107); Creatinine,Serum 1.02 mg/dL (0.55-1.02); Estimated Glomerular Filt Rate 52 ml/min (>60); Ferritin 19 ng/mL (8-388); GFR (African American) 63 ML/MIN (>60); Globulin 3.3 gm/dl (1.3-3.2); Glucose 90 mg/dL (74-106); Potassium 4.6 mmoL/L (3.5-5.1); Sodium 140 mmol/L (136-145); Total Protein,Serum 6.5 gm/dL (6.4-8.2)
[2018-06-21 08:20] LABS: Iron 33 ug/dL (27-139); Iron Saturation 9 % (15-55); UIBC 339 ug/dL (118-369)
[2018-06-22 06:41] LABS: Folate >20.0 ng/mL (>3.0); Vitamin B12 370 pg/mL (232-1245)
[2018-06-22 06:42] LABS: Vitamin D 25 Hydroxy 26.3 ng/mL (30.0-100.0)
== END ==
PROVIDERS: Visit Provider Internal Medicine Medical Oncology
DX: D50.9 Iron deficiency anemia, unspecified (principal)
CPT/HCPCS: 36415; 80053; 82607; 82652; 82728; 82746; 83540; 83550; 83735; 85025

== ENCOUNTER 2018-07-01 11:49 | Outpatient (CLI) | payer MEDICARE, OTHER, SELFPAY ==
[2018-07-01 12:00] VITALS: BP 121/65; PULSE 65; RESP 18; TEMP 36.3; O2SAT 94
[2018-07-01 12:40] VITALS: BP 107/52; PULSE 77; RESP 16; TEMP 36.5; O2SAT 93
== END 2018-07-01 13:34 | disposition home or self-care (01) ==
LOC: INF 11:49
PROVIDERS: Visit Provider Internal Medicine Medical Oncology
DX: D50.9 Iron deficiency anemia, unspecified (principal)
CPT/HCPCS: 96365

== ENCOUNTER 2018-07-08 11:45 | Outpatient (CLI) | payer MEDICARE, OTHER, SELFPAY ==
[2018-07-08 11:58] VITALS: BP 132/81; PULSE 104; RESP 18
[2018-07-08 12:32] VITALS: BP 137/75; PULSE 99; RESP 18
== END 2018-07-08 12:34 | disposition home or self-care (01) ==
LOC: INF 11:45
PROVIDERS: Visit Provider Internal Medicine Medical Oncology
DX: D50.9 Iron deficiency anemia, unspecified (principal); T45.4X5A Adverse effect of iron and its compounds, initial encounter
CPT/HCPCS: 96365; J1439

== ENCOUNTER 2019-05-25 17:21 | Observation (INO) ==
[2019-05-25 18:08] LABS: Microscopic, Urine URINE MICROSCOPIC (MICROSCOPIC)
[2019-05-25 18:20] LABS: Basophils % 0.2 % (0.1-2.0); Eosinophils # 0.2 K/mm3 (0.0-0.4); Eosinophils % 1.1 % (0.1-12.0); Hemoglobin 13.3 g/dL (12.2-16.2); Lymphocytes # 1.3 K/mm3 (0.7-4.5); Lymphocytes % 9.2 % (10-50); Mean Corpuscular HGB Conc 32.5 g/dL (31.8-35.4); Mean Corpuscular Volume 92.5 fl (81-99); Monocytes # 0.5 K/mm3 (0.1-1.0); Monocytes % 3.5 % (1.7-9.3); Neutrophils # 12.3 K/mm3 (1.8-7.8); Neutrophils % 86.1 % (37.0-80.0); Platelet Count 242 K/mm3 (142-424); Red Blood Count 4.43 M/mm3 (4.20-5.40); Red Cell Distribution Width 14.1 % (11.5-17.5); White Blood Count 14.3 K/mm3 (4.8-10.8)
[2019-05-25 18:23] LABS: Albumin Level 3.8 g/dl (3.5-5.0); Albumin/Globulin Ratio 1.2 (1.1-1.8); Anion Gap 10.1 mEq/L (5-15); Bilirubin,Total 0.5 mg/dl (0.2-1.3); Calcium 9.5 mg/dl (8.4-10.2); Globulin 3.1 g/dL (1.3-3.2); Total Protein,Serum 6.9 g/dl (6.3-8.2)
[2019-05-25 18:39] LABS: Appearance,Urine CLEAR (Clear); Bilirubin,Urine Negative (Negative); Blood, Urine TRACE-I (Negative); Color,Urine YELLOW (Yellow); Glucose,Urine (UA) Negative (Negative); Ketones,Urine Negative (Negative); Leukocyte Esterase,Urine 1+ (Negative); PH,Urine 7.5 (5.0-8.5); Protein,Urine TRACE (Negative); Specific Gravity, Urine 1.015 (1.005-1.030)
[2019-05-25 18:43] LABS: WBC,Urine 50-100 #/hpf (0-3)
[2019-05-25 18:45] LABS: Eosinophils % 2 % (0-3); Lymphocytes % 7 % (10-50); Neutrophils % 82 % (42-76); RBC Morphology Normal; Total Cells Counted 100
--- NOTE | 2019-05-25 18:47 | Emergency Department Note ---
ED Disposition Clinical Impression: Weakness, SIRS (systemic inflammatory response syndrome) Fever Qualifiers: Fever type: unspecified Qualified Code(s): R50.9 - Fever, unspecified UTI (urinary tract infection) Qualifiers: Urinary tract infection type: site unspecified Hematuria presence: without hematuria Qualified Code(s): N39.0 - Urinary tract infection, site not specified Disposition: Admitted as Observation Condition on Discharge: Fair Referrals: Sea Martinez [Primary Care Provider] - Time of Disposition: 20:18 - Critical Care Critical Care Time: No Attestation: On 05/25/19, the high probability of a clinically significant, sudden or life threatening deterioration of the following system(s) required my full and direct attention, intervention and personal management. The time I documented below is in addition to time spent performing reported procedures but includes the following listed in this critical care notation. Medical Decision Making - Robert Inquiry Pt receiving controlled substance: No Vital Signs: 05/25/19 17:22 Temperature 100.1 F H Temperature Source Oral Pulse Rate [Left Radial] 127 H Respiratory Rate 18 Blood Pressure [Right Arm] 129/93 H Blood Pressure Mean [Right Arm] 105 Blood Pressure Position [Right Arm] Sitting 02 Sat by Pulse Oximetry 92 L Oxygen Delivery Method Room Air - Lab Data Lab results reviewed: Yes: I reviewed the patient's lab results. Lab Results 05/25/19 17:50: WBC 14.3 H, RBC 4.43, Hgb 13.3, Hct 41.0, MCV 92.5, MCH 30.0, MCHC 32.5, RDW 14.1, Plt Count 242, MPV 8.0, Neut % (Auto) 86.1 H, Lymph % (Auto) 9.2 L, [place] % (Auto) 3.5, Eos % (Auto) 1.1, Baso % (Auto) 0.2, Neut # (Auto) 12.3 H, Lymph # (Auto) 1.3, [place] # (Auto) 0.5, Eos # (Auto) 0.2, Baso # (Auto) 0.0, Total Counted 100, Neutrophils % (Manual) 82 H, Band Neutrophils % 9.0 H, Lymphocytes % (Manual) 7 L, Eosinophils % (Manual) 2, Platelet Estimate Normal, RBC Morphology Normal 05/25/19 17:50: Sodium 134 L, Potassium 4.1, Chloride 98, Carbon Dioxide 30, Anion Gap 10.1, BUN 11, Creatinine 1.00, Estimated Creat Clear 55, Estimated GFR 53 L, Est GFR ( Amer) 64, Glucose 144 H, Calcium 9.5, Total Bilirubin 0.5, AST 22, ALT 12, Alkaline Phosphatase 55, Total Protein 6.9, Albumin 3.8, Globulin 3.1, Albumin/Globulin Ratio 1.2, Amylase 59 05/25/19 17:50: Lactate 1.2 05/25/19 17:50: Urine Color Yellow, Urine Appearance Clear, Urine pH 7.5, Ur Specific [place] 1.015, Urine Protein Trace, Urine Glucose (UA) Negative, Urine Ketones Negative, Urine Blood Trace-i, Urine Nitrate Negative, Urine Bilirubin Negative, Urine Urobilinogen 1.0, Ur Leukocyte Esterase 1+ A, Urine RBC 3-5, Urine WBC 50-100 05/25/19 17:50: Troponin I 0.02, Lipase 171 05/25/19 17:50: Group A Strep Rapid Negative 05/25/19 17:50: Influenza Type A Ag Negative, Influenza Type B Ag Negative Result diagrams: 05/25/19 17:50 05/25/19 17:50 Orders (Tests/Meds): ED MEDICATIONS Generic Name Dose Route Start Last Admin Trade Name Freq PRN Reason Stop Dose Admin Sodium Chloride 1,000 mls @ 250 mls/hr 05/25/19 19:00 Sod Chlor 0.9% 1000ml Bag IV 06/24/19 18:59 .Q4H LIZBET Discontinued Medications Generic Name Dose Route Start Last Admin Trade Name Freq PRN Reason Stop Dose Admin Ceftriaxone Sodium 1 gm/ 50 mls @ 100 mls/hr 05/25/19 18:48 05/25/19 19:04 Sodium Chloride IV 05/25/19 19:17 100 mls/hr ONCE STA Administration Protocol Ioversol 75 ml 05/25/19 19:58 05/25/19 19:59 Rad-Optiray 350 150ml Vial IV 05/25/19 19:59 75 ml ONCE ONE Administration Ioversol 75 ml 05/25/19 19:58 Rad-Optiray 350 100ml Vial IV 05/25/19 19:59 ONCE ONE Protocol Sodium Chloride 10 ml 05/25/19 19:58 05/25/19 19:59 Rad-Saline Flush 10ml Syringe IV 05/25/19 19:59 10 ml ONCE ONE Administration Sodium Chloride 10 ml 05/25/19 19:58 Rad-Saline Flush 10ml Syringe IV 05/25/19 19:59 ONCE ONE ORDERS Category Date Time Status CT abdomen pelvis w con Stat Cat Scan 05/25/19 18:41 Taken Troponin I Q3H Lab 05/25/19 21:15 Ordered Troponin I Q3H Lab 05/26/19 00:15 Ordered Blood Culture Stat Micro 05/25/19 17:50 Received Strep Screen Confirmation Stat Micro 05/25/19 17:50 Received Urine Culture Stat Micro 05/25/19 17:50 Received - Radiology Data #1 Image(s): Chest Image Reviewed: Yes I reviewed the patient's radiology results XR CHEST PORTABLE CLINICAL HISTORY: cough and fever COMPARISON: [facility] CT angio chest from 09/29/2017 CXR1VP XR chest portable from 09/29/2017 CXR1VP XR chest portable from 09/30/2017 XR CHEST PORTABLE from 11/22/2018 FINDINGS: This is a somewhat poor inspiratory effort however lung cunningham are clear of infiltrate. There is aortic tortuosity but no cardiomegaly. There are sternal wire sutures seen likely from previous CABG. 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 IMPRESSION: No acute findings. Dictated by: Dr. Joel Cotton MD 05/25/2019 19:13 - ECG Data Tracing #1 EKG shows sinus tachycardia with a heart rate of 105 bpm, normal P waves, normal HI interval, wide QRS pattern, RBBB, nonspecific ST-T changes. - Physician Consults Physician Consulted: Dr. Keith Time: 20:00 Reason -: Admission Comment/Response: Discussed with Dr. Keith regarding the patient and plan to get the patient admitted to the floor for urinary tract infection/SIRS/Generalized weakness - Reevaluation(s) Time: 20:14 Reevaluation #1: She has been stable throughout the course of stay in the emergency department. Her heart rate decreased and temperature decreased. Discussed the lab findings and the x-ray finding with the patient. Plan to admit the patient to the floor for IV antibiotics and further management. General Adult HPI - General Chief complaint: Fever Stated complaint: fever,sore throat,cough,KAUFMAN,weakness Time Seen by Provider: 05/25/19 17:30 Mode of Arrival: Ambulatory Limitations: No Limitations Description of Symptoms (Recalled from ER Triage Doc. by RN): to ed per pvt car with c/o fever of 102, sorethroat, nausea, vomiting, abd pain, cough, generalized weakness x 2 days. pt denies sick contacts. cpta tylenol 30mins [employer] - History of Present Illness HPI narrative: 83-year-old female presents to the emergency department with chief complaint of having fever, sore throat, congestion, having some lower abdominal discomfort since yesterday. She states she was not feeling well last night when she was sleeping. She has a CPAP machine at night that she uses on a daily basis. She states she had to wake up in the middle of the night for shortness of breath. - Related Data Home Medications Medication Instructions Recorded Confirmed levothyroxine 50 mcg tablet 50 mcg PO DAILY tab 09/26/17 05/25/19 lorazepam 1 mg tablet 1 mg PO TID PRN tab 09/26/17 05/25/19 melatonin 10 mg tablet 10 mg PO HS 09/26/17 05/25/19 pantoprazole 40 mg tablet,delayed 40 mg PO DAILY tab 09/26/17 05/25/19 release Aspirin [Aspirin 81mg chewable 81 mg PO DAILY 07/01/18 05/25/19 tab] Isosorbide Mononitrate [Imdur 60mg 60 mg PO DAILY 05/25/19 05/25/19 ER tablet] Rosuvastatin Calcium 5 mg PO DAILY 05/25/19 05/25/19 Previous Rx's Medication Instructions Recorded ondansetron HCl 4 mg tablet 4 mg PO BID PRN #30 tab 09/28/17 Nitroglycerin [Nitrostat] 0.3 mg SL Q5MINP PRN 5 Days #30 09/30/17 tab.subl clopidogrel 75 mg tablet 75 mg PO AM #90 tab 10/01/18 metoprolol succinate 25 mg 25 mg PO DAILY #90 tab 10/01/18 tablet,extended release 24 hr Allergies Allergy/AdvReac Type Severity Reaction Status Date / Time meperidine Allergy Unknown Verified 04/28/19 13:45 Sulfa (Sulfonamide Allergy Unknown Verified 04/28/19 13:45 Antibiotics) trimethoprim Allergy Unknown Verified 04/28/19 13:45 carisoprodol [From Soma] Allergy Verified 04/28/19 13:45 atorvastatin [From Lipitor] AdvReac Intermediate stomach Verified 04/28/19 13:45 [facility] History - Hepatitis A Screen Drug use history?: No High risk sexual behaviors?: No History of sexually transmitted infection?: No Currently employed?: No Childcare worker?: No Do you have indoor plumbing?: Yes Do you have electricity?: Yes Attestation statement:: This patient has been screened for Hepatitis A risk factors. I have reviewed the patient's past medical history: Yes Medical History: Reports:: Anxiety, Coronary Artery Disease, Gastroesophageal Reflux Disease(GERD), Hypertension Denies:: Cancer, Diabetes Mellitus Type 1, Diabetes Mellitus Type 2, Internal Pacemaker, MRSA, Seizures Other Medical History: Reports: Hypothyroidism Other Surgeries: Yes: Appendectomy, CABG, Cardiac Catheterization, Cholecystectomy, Coronary Stent, Tubal Ligation, Other (ankle sx). No: Pacemaker Amputation: No Fractures: Yes (right ankle) - Social History Smoking Status: Former smoker Tobacco Type: cigarettes Alcohol Intake: never Alcohol Intake Frequency:: other Substance Use Type: denies use Occupational Status: other Housing: house Household Members: spouse - Psychiatric History Pschychiatric History:: Reports:: Anxiety Family Hx:: Coronary Artery Disease ROS Obtained: Yes All systems reviewed & no additional complaints Physical Exam - General General appearance: alert, in no apparent distress - Head Head exam: atraumatic, normocephalic, normal inspection - Eye Eye exam: Present: normal appearance, PERRL, EOMI - ENT ENT exam: Present: normal exam, normal oropharynx, mucous membranes moist, normal external ear exam - Neck Neck exam: Present: normal inspection, full ROM, trachea midline - Chest Chest inspection: Present: normal inspection, symmetric chest wall rise. Absent: tenderness - Respiratory Respiratory exam: Present: normal lung sounds bilaterally. Absent: respiratory distress - Cardiovascular Cardiovascular exam: Present: regular rate, normal rhythm. Absent: JVD - Abdominal Exam Abdominal exam: Present: soft, tenderness, normal bowel sounds. Absent: distention, guarding Abdominal tenderness: Present: LLQ, suprapubic, moderate - Extremities Exam Extremities exam: Present: normal inspection, full ROM, normal capillary refill. Absent: calf tenderness - Back Exam Back exam: Present: normal inspection, full ROM. Absent: tenderness - Neurological Exam Neurological exam: Present: alert, oriented X3, CN II-XII intact - Psychiatric Psychiatric exam: Present: normal affect, normal mood - Skin Skin exam: Present: warm, dry, intact, normal color
[2019-05-26 06:42] LABS: Basophils % 0.4 % (0.1-2.0); Eosinophils # 0.2 K/mm3 (0.0-0.4); Eosinophils % 4.5 % (0.1-12.0); Hematocrit 37.5 % (37.0-47.0); Lymphocytes # 1.4 K/mm3 (0.7-4.5); Lymphocytes % 27.5 % (10-50); Mean Corpuscular HGB Conc 32.1 g/dL (31.8-35.4); Mean Corpuscular Volume 94.4 fl (81-99); Mean Platelet Volume 7.8 fl (7.4-10.4); Monocytes # 0.3 K/mm3 (0.1-1.0); Monocytes % 5.3 % (1.7-9.3); Neutrophils # 3.3 K/mm3 (1.8-7.8); Neutrophils % 62.3 % (37.0-80.0); Platelet Count 203 K/mm3 (142-424); Red Blood Count 3.97 M/mm3 (4.20-5.40); Red Cell Distribution Width 14.3 % (11.5-17.5); White Blood Count 5.2 K/mm3 (4.8-10.8)
[2019-05-26 07:10] LABS: Anion Gap 6.8 mEq/L (5-15); Calcium 8.8 mg/dl (8.4-10.2)
--- NOTE | 2019-05-26 07:41 | Pharmacy Consult Notes ---
[facility] Pharmacy VTE Monitoring - Patient Demographics Admission date: 05/25/19 Report Date: 05/26/19 Time: 07:40 Allergies/Adverse Reactions: Patient Allergies meperidine Allergy (Unknown, Verified 04/28/19 13:45) Sulfa (Sulfonamide Antibiotics) Allergy (Unknown, Verified 04/28/19 13:45) trimethoprim Allergy (Unknown, Verified 04/28/19 13:45) carisoprodol [From Soma] Allergy (Verified 04/28/19 13:45) atorvastatin [From Lipitor] Adverse Reaction (Intermediate, Verified 04/28/19 13:45) stomach Height: 1.52 m Weight: 77.763 kg Patient Problems: Current Active Problems Fever (Acute) Weakness (Acute) UTI (urinary tract infection) (Acute) SIRS (systemic inflammatory response syndrome) (Acute) - VTE Risk Labs: VTE Related Lab Results Hgb 12.0 g/dL (12.2-16.2) L 05/26/19 06:28 Hct 37.5 % (37.0-47.0) 05/26/19 06:28 Plt Count 203 K/mm3 (142-424) 05/26/19 06:28 BUN 12 mg/dl (7-17) 05/26/19 06:28 Creatinine 0.90 mg/dl (0.52-1.04) 05/26/19 06:28 Estimated Creat Clear 54 mL/min (50-200) 05/26/19 06:28 Was VTE Risk Assessment Performed: Yes VTE Score: 7 VTE Risk Level: Moderate Risk Clinical Trial Participant: No - Prophylaxis VTE Prophylaxis Ordered?: Yes Types of VTE Prophylaxis: TEDS Knee High
--- NOTE | 2019-05-26 07:44 | History & Physical Report ---
*Admission Date: 05/26/19 *Chief complaint: Weakness and fever *History of present illness: 83-year-old white female who suffers from some functional decline issues and some chronic medical problems who over the past 3 or 4 days has had increasing fevers along with dysuria. The fevers and weakness became intolerable and she presented to the emergency department last night where she was diagnosed with urinary tract infection and minor criteria for Sirs. She was admitted to hospital for IV fluids and antibiotics. This morning she already says she feels better and wishes to be discharged home. [facility] History I have reviewed the patient's past medical history: Yes Medical History: Reports:: Anxiety, Coronary Artery Disease, Gastroesophageal Reflux Disease(GERD), Hypertension Denies:: Cancer, Diabetes Mellitus Type 1, Diabetes Mellitus Type 2, Internal Pacemaker, MRSA, Seizures *Have you ever received a pneumonia vaccine?: Yes *Have you received a flu vaccine this season?: Yes Other Medical History: Reports: Hypothyroidism, Thyroid Disease Laterality Cases: Right: Total Knee Replacement Other Surgeries: Yes: Appendectomy, CABG, Cardiac Catheterization, Cholecystectomy, Coronary Stent, Tubal Ligation, Other (ankle sx). No: Pacemaker Amputation: No Fractures: Yes (right ankle) - *Social History Educational Level: Completed High School Smoking Status: Former smoker Tobacco Type: cigarettes Smoking End Date: 30 YEARS AGO Alcohol Intake: never Alcohol Intake Frequency:: other Substance Use Type: denies use *Occupational Status:: retired Housing: apartment Household Members: significant other *Travel in the last 8 weeks: None - Psychiatric History Pschychiatric History:: Reports:: Anxiety Family Hx:: Heart Attack Review of Systems - Review of Systems Review of systems:: pertinent systems reviewed and negative unless documented b [employer] Home Medications Medication Instructions Recorded Confirmed Type levothyroxine 50 mcg tablet 50 mcg PO DAILY tab 09/26/17 05/25/19 History lorazepam 1 mg tablet 1 mg PO TID PRN tab 09/26/17 05/25/19 History melatonin 10 mg tablet 10 mg PO HS 09/26/17 05/25/19 History pantoprazole 40 mg tablet,delayed 40 mg PO DAILY tab 09/26/17 05/25/19 History release ondansetron HCl 4 mg tablet 4 mg PO BID PRN #30 tab 09/28/17 05/25/19 Rx Nitroglycerin [Nitrostat] 0.3 mg SL Q5MINP PRN 5 Days #30 09/30/17 05/25/19 Rx tab.subl Aspirin [Aspirin 81mg chewable 81 mg PO DAILY 07/01/18 05/25/19 History tab] clopidogrel 75 mg tablet 75 mg PO AM #90 tab 10/01/18 05/25/19 Rx metoprolol succinate 25 mg 25 mg PO DAILY #90 tab 10/01/18 05/25/19 Rx tablet,extended release 24 hr Isosorbide Mononitrate [Imdur 60mg 60 mg PO DAILY 05/25/19 05/25/19 History ER tablet] Rosuvastatin Calcium 5 mg PO DAILY 05/25/19 05/25/19 History Allergies Allergy/AdvReac Type Severity Reaction Status Date / Time meperidine Allergy Unknown Verified 04/28/19 13:45 Sulfa (Sulfonamide Allergy Unknown Verified 04/28/19 13:45 Antibiotics) trimethoprim Allergy Unknown Verified 04/28/19 13:45 carisoprodol [From Soma] Allergy Verified 04/28/19 13:45 atorvastatin [From Lipitor] AdvReac Intermediate stomach Verified 04/28/19 13:45 Exam Vital signs and Labs for Last 24 Hours: Temp Pulse Resp BP Pulse Ox 98.0 F 83 17 117/60 95 05/26/19 04:00 05/26/19 04:00 05/26/19 04:00 05/26/19 04:00 05/26/19 04:00 Laboratory Results - last 24 hr 05/25/19 17:50: WBC 14.3 H, RBC 4.43, Hgb 13.3, Hct 41.0, MCV 92.5, MCH 30.0, MCHC 32.5, RDW 14.1, Plt Count 242, MPV 8.0, Neut % (Auto) 86.1 H, Lymph % (Auto) 9.2 L, [place] % (Auto) 3.5, Eos % (Auto) 1.1, Baso % (Auto) 0.2, Neut # (Auto) 12.3 H, Lymph # (Auto) 1.3, [place] # (Auto) 0.5, Eos # (Auto) 0.2, Baso # (Auto) 0.0, Total Counted 100, Neutrophils % (Manual) 82 H, Band Neutrophils % 9.0 H, Lymphocytes % (Manual) 7 L, Eosinophils % (Manual) 2, Platelet Estimate Normal, RBC Morphology Normal 05/25/19 17:50: Sodium 134 L, Potassium 4.1, Chloride 98, Carbon Dioxide 30, Anion Gap 10.1, BUN 11, Creatinine 1.00, Estimated Creat Clear 55, Estimated GFR 53 L, Est GFR ( Amer) 64, Glucose 144 H, Calcium 9.5, Total Bilirubin 0.5, AST 22, ALT 12, Alkaline Phosphatase 55, Total Protein 6.9, Albumin 3.8, Globulin 3.1, Albumin/Globulin Ratio 1.2, Amylase 59 05/25/19 17:50: Lactate 1.2 05/25/19 17:50: Urine Color Yellow, Urine Appearance Clear, Urine pH 7.5, Ur Specific [place] 1.015, Urine Protein Trace, Urine Glucose (UA) Negative, Urine Ketones Negative, Urine Blood Trace-i, Urine Nitrate Negative, Urine Bilirubin Negative, Urine Urobilinogen 1.0, Ur Leukocyte Esterase 1+ A, Urine RBC 3-5, Urine WBC 50-100 05/25/19 17:50: Troponin I 0.02, Lipase 171 05/25/19 17:50: Group A Strep Rapid Negative 05/25/19 17:50: Influenza Type A Ag Negative, Influenza Type B Ag Negative 05/25/19 21:20: Troponin I 0.02 05/26/19 06:28: WBC 5.2 D, RBC 3.97 L, Hgb 12.0 L, Hct 37.5, MCV 94.4, MCH 30.3, MCHC 32.1, RDW 14.3, Plt Count 203, MPV 7.8, Neut % (Auto) 62.3, Lymph % (Auto) 27.5, [place] % (Auto) 5.3, Eos % (Auto) 4.5, Baso % (Auto) 0.4, Neut # (Auto) 3.3, Lymph # (Auto) 1.4, [place] # (Auto) 0.3, Eos # (Auto) 0.2, Baso # (Auto) 0.0 05/26/19 06:28: Sodium 137, Potassium 3.8, Chloride 102, Carbon Dioxide 32 H, Anion Gap 6.8, BUN 12, Creatinine 0.90, Estimated Creat Clear 54, Estimated GFR 60, Est GFR ( Amer) 73, Glucose 95 D, Calcium 8.8 I & O for Last 24 hours: Intake & Output 05/23/19 05/24/19 05/25/19 05/26/19 11:59 11:59 11:59 11:59 Intake Total 420 / 420 Output Total 300 / 300 Balance 120 / 120 Weight 171 lb 7 oz - *Routine HEENT Exam Head: Present: normocephalic Eye: Present: EOMI, PERRL ENT: Present: mucous membranes moist - *Routine Neck Exam Present: supple. Absent: lymphadenopathy - *Routine Respiratory Exam Present: CTA bilaterally - *Routine Cardiovascular Exam Present: RRR - *Routine Abdominal Exam Present: soft, normoactive bowel sounds. Absent: tenderness - *Routine Extremities Exam Present: edema (1+, at baseline per patient). Absent: cyanosis, clubbing - *Routine Skin Exam Present: warm. Absent: rash - *Routine Neurological Exam Present: alert, oriented X3 Assessment and Plan (1) SIRS (systemic inflammatory response syndrome) Current visit: Yes Status: Acute Category: Medical Code(s): R65.10 - Systemic inflammatory response syndrome (SIRS) of non-infectious origin without acute organ dysfunction (2) UTI (urinary tract infection) Current visit: Yes Status: Acute Qualifiers: Urinary tract infection type: site unspecified Hematuria presence: without hematuria Qualified Code(s): N39.0 - Urinary tract infection, site not specified Category: Medical Code(s): N39.0 - Urinary tract infection, site not specified - Assessment and plan all Dx Assessment and Plan for all problems:: Patient seems to be improving after 1 dose of Rocephin. Continue this therapy. PT/OT evaluation for home safety evaluation. Possible discharge this afternoon on empiric therapy if cleared by PT and OT.
--- NOTE | 2019-05-26 13:05 | Discharge Summary ---
General - General Admission date:: 05/25/19 Discharge date: 05/26/19 HPI HPI: 83-year-old white female who suffers from some functional decline issues and some chronic medical problems who over the past 3 or 4 days has had increasing fevers along with dysuria. The fevers and weakness became intolerable and she presented to the emergency department last night where she was diagnosed with urinary tract infection and minor criteria for Sirs. She was admitted to hospital for IV fluids and antibiotics. This morning she already says she feels better and wishes to be discharged home. Hospital Course Hospital Course: Patient was admitted, found to have urinary tract infection-culture pending at the time of discharge. Did very nicely with a dose of ceftriaxone. This morning she felt much better and wished to be discharged home. PT and OT evaluation were done and patient did well, but PT/OT did recommend that patient would be a good candidate for a home health evaluation. Patient be discharged home today with cephalosporin coverage for UTI while culture results are pending. 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 Objective Vital signs: Temp Pulse Resp BP Pulse Ox 98.0 F 87 20 104/57 L 94 L 05/26/19 08:00 05/26/19 08:00 05/26/19 08:00 05/26/19 08:00 05/26/19 08:00 no acute distress - *Routine HEENT Exam Head: Present: normocephalic Eye: Present: EOMI, PERRL ENT: Present: mucous membranes moist - *Routine Neck Exam Present: supple - *Routine Respiratory Exam Present: CTA bilaterally - *Routine Cardiovascular Exam Present: RRR - *Routine Abdominal Exam Present: soft, normoactive bowel sounds. Absent: tenderness - *Routine Extremities Exam Absent: cyanosis, clubbing, edema - *Routine Skin Exam Present: warm. Absent: rash - Detailed Eye Exam Eyelids: Bilateral normal inspection Results Labs on day of discharge: Labs from last 24 hours 05/26/19 05/26/19 05/25/19 06:28 06:28 21:20 WBC 5.2 D RBC 3.97 L Hgb 12.0 L Hct 37.5 MCV 94.4 MCH 30.3 MCHC 32.1 RDW 14.3 Plt Count 203 MPV 7.8 Neut % (Auto) 62.3 Lymph % (Auto) 27.5 [place] % (Auto) 5.3 Eos % (Auto) 4.5 Baso % (Auto) 0.4 Neut # (Auto) 3.3 Lymph # (Auto) 1.4 [place] # (Auto) 0.3 Eos # (Auto) 0.2 Baso # (Auto) 0.0 Total Counted Neutrophils % (Manual) Band Neutrophils % Lymphocytes % (Manual) Eosinophils % (Manual) Platelet Estimate RBC Morphology Sodium 137 Potassium 3.8 Chloride 102 Carbon Dioxide 32 H Anion Gap 6.8 BUN 12 Creatinine 0.90 Estimated Creat Clear 54 Estimated GFR 60 Est GFR ( Amer) 73 Glucose 95 D Lactate Calcium 8.8 Total Bilirubin AST ALT Alkaline Phosphatase Troponin I 0.02 Total Protein Albumin Globulin Albumin/Globulin Ratio Amylase Lipase Urine Color Urine Appearance Urine pH Ur Specific [place] Urine Protein Urine Glucose (UA) Urine Ketones Urine Blood Urine Nitrate Urine Bilirubin Urine Urobilinogen Ur Leukocyte Esterase Urine RBC Urine WBC Influenza Type A Ag Influenza Type B Ag Group A Strep Rapid 05/25/19 05/25/19 05/25/19 17:50 17:50 17:50 WBC RBC Hgb Hct MCV MCH MCHC RDW Plt Count MPV Neut % (Auto) Lymph % (Auto) [place] % (Auto) Eos % (Auto) Baso % (Auto) Neut # (Auto) Lymph # (Auto) [place] # (Auto) Eos # (Auto) Baso # (Auto) Total Counted Neutrophils % (Manual) Band Neutrophils % Lymphocytes % (Manual) Eosinophils % (Manual) Platelet Estimate RBC Morphology Sodium Potassium Chloride Carbon Dioxide Anion Gap BUN Creatinine Estimated Creat Clear Estimated GFR Est GFR ( Amer) Glucose Lactate Calcium Total Bilirubin AST ALT Alkaline Phosphatase Troponin I 0.02 Total Protein Albumin Globulin Albumin/Globulin Ratio Amylase Lipase 171 Urine Color Urine Appearance Urine pH Ur Specific [place] Urine Protein Urine Glucose (UA) Urine Ketones Urine Blood Urine Nitrate Urine Bilirubin Urine Urobilinogen Ur Leukocyte Esterase Urine RBC Urine WBC Influenza Type A Ag Negative Influenza Type B Ag Negative Group A Strep Rapid Negative 05/25/19 05/25/19 05/25/19 17:50 17:50 17:50 WBC RBC Hgb Hct MCV MCH MCHC RDW Plt Count MPV Neut % (Auto) Lymph % (Auto) [place] % (Auto) Eos % (Auto) Baso % (Auto) Neut # (Auto) Lymph # (Auto) [place] # (Auto) Eos # (Auto) Baso # (Auto) Total Counted Neutrophils % (Manual) Band Neutrophils % Lymphocytes % (Manual) Eosinophils % (Manual) Platelet Estimate RBC Morphology Sodium 134 L Potassium 4.1 Chloride 98 Carbon Dioxide 30 Anion Gap 10.1 BUN 11 Creatinine 1.00 Estimated Creat Clear 55 Estimated GFR 53 L Est GFR ( Amer) 64 Glucose 144 H Lactate 1.2 Calcium 9.5 Total Bilirubin 0.5 AST 22 ALT 12 Alkaline Phosphatase 55 Troponin I Total Protein 6.9 Albumin 3.8 Globulin 3.1 Albumin/Globulin Ratio 1.2 Amylase 59 Lipase Urine Color Yellow Urine Appearance Clear Urine pH 7.5 Ur Specific [place] 1.015 Urine Protein Trace Urine Glucose (UA) Negative Urine Ketones Negative Urine Blood Trace-i Urine Nitrate Negative Urine Bilirubin Negative Urine Urobilinogen 1.0 Ur Leukocyte Esterase 1+ A Urine RBC 3-5 Urine WBC 50-100 Influenza Type A Ag Influenza Type B Ag Group A Strep Rapid 05/25/19 17:50 WBC 14.3 H RBC 4.43 Hgb 13.3 Hct 41.0 MCV 92.5 MCH 30.0 MCHC 32.5 RDW 14.1 Plt Count 242 MPV 8.0 Neut % (Auto) 86.1 H Lymph % (Auto) 9.2 L [place] % (Auto) 3.5 Eos % (Auto) 1.1 Baso % (Auto) 0.2 Neut # (Auto) 12.3 H Lymph # (Auto) 1.3 [place] # (Auto) 0.5 Eos # (Auto) 0.2 Baso # (Auto) 0.0 Total Counted 100 Neutrophils % (Manual) 82 H Band Neutrophils % 9.0 H Lymphocytes % (Manual) 7 L Eosinophils % (Manual) 2 Platelet Estimate Normal RBC Morphology Normal Sodium Potassium Chloride Carbon Dioxide Anion Gap BUN Creatinine Estimated Creat Clear Estimated GFR Est GFR ( Amer) Glucose Lactate Calcium Total Bilirubin AST ALT Alkaline Phosphatase Troponin I Total Protein Albumin Globulin Albumin/Globulin Ratio Amylase Lipase Urine Color Urine Appearance Urine pH Ur Specific [place] Urine Protein Urine Glucose (UA) Urine Ketones Urine Blood Urine Nitrate Urine Bilirubin Urine Urobilinogen Ur Leukocyte Esterase Urine RBC Urine WBC Influenza Type A Ag Influenza Type B Ag Group A Strep Rapid DS: Diagnosis - Discharge Diagnosis (1) SIRS (systemic inflammatory response syndrome) Status: Resolved (2) UTI (urinary tract infection) Status: Acute Discharge Plan - Patient Discharge Instructions ACTIVITY: Continue current activity DIET: continue same diet Patient Instructions: DI for Urinary Tract Infection (UTI) - Follow up Plan Follow up with: Sea Martinez [Primary Care Provider] - 06/02/19 2:10 pm Unknown provider or service follow up:: 05/26/19 13:06 Recommended home health evaluation for PT/OT/nursing evaluation/home safety evaluation, [id number] evaluation date today, patient cannot leave the house except for significant difficulty because of balance issues and chronic pain Disposition: Home Health Service Home Medications: Home Medications Medication Instructions Recorded Confirmed Type lorazepam 1 mg tablet 1 mg PO TID PRN tab 09/26/17 05/25/19 History melatonin 10 mg tablet 10 mg PO HS 09/26/17 05/25/19 History pantoprazole 40 mg tablet,delayed 40 mg PO DAILY tab 09/26/17 05/25/19 History release ondansetron HCl 4 mg tablet 4 mg PO BID PRN #30 tab 09/28/17 05/25/19 Rx Nitroglycerin [Nitrostat] 0.3 mg SL Q5MINP PRN 5 Days #30 09/30/17 05/25/19 Rx tab.subl Aspirin [Aspirin 81mg chewable 81 mg PO DAILY 07/01/18 05/25/19 History tab] clopidogrel 75 mg tablet 75 mg PO AM #90 tab 10/01/18 05/25/19 Rx metoprolol succinate 25 mg 25 mg PO DAILY #90 tab 10/01/18 05/25/19 Rx tablet,extended release 24 hr Isosorbide Mononitrate [Imdur 60mg 60 mg PO HS 05/25/19 05/26/19 History ER tablet] Rosuvastatin Calcium 5 mg PO DAILY 05/25/19 05/25/19 History Cefdinir [Omnicef 300mg Capsule] 300 mg PO BID #14 cap 05/26/19 Rx Levothyroxine Sodium 75 mcg PO DAILY 05/26/19 05/26/19 History [Levothyroxine 75mcg (0.075mg) Tab] Prescriptions/Medication Reconciliation: New Cefdinir [Omnicef 300mg Capsule] 300 mg PO BID #14 cap Continued pantoprazole 40 mg tablet,delayed release 40 mg PO DAILY tab melatonin 10 mg tablet 10 mg PO HS lorazepam 1 mg tablet 1 mg PO TID PRN tab PRN Reason: Anxiety ondansetron HCl 4 mg tablet 4 mg PO BID PRN #30 tab PRN Reason: nausea and vomiting clopidogrel 75 mg tablet 75 mg PO AM #90 tab metoprolol succinate 25 mg tablet,extended release 24 hr 25 mg PO DAILY #90 tab Nitroglycerin [Nitrostat] 0.3 mg SL Q5MINP PRN 5 Days #30 tab.subl PRN Reason: Chest Pain Aspirin [Aspirin 81mg chewable tab] 81 mg PO DAILY Rosuvastatin Calcium 5 mg PO DAILY Isosorbide Mononitrate [Imdur 60mg ER tablet] 60 mg PO HS Levothyroxine Sodium [Levothyroxine 75mcg (0.075mg) Tab] 75 mcg PO DAILY - Problem Reconciliation Problems Reviewed?: Yes
--- NOTE | 2019-05-27 08:10 | Electrocardiograph Report ---
APPROVED REPORT Exam: Resting ECG HR:106 bpm ECG Measurements Heart Rate 106 AXES DE 130 P 20 QRSd 110 QRS -22 QT 346 T-4 QTc 459 <Conclusion> Sinus tachycardia with premature atrial complexes Right bundle branch block Inferior infarct, age undetermined Abnormal ECG Electronically signed by : Reagan Hsieh, 05/27/2019 08:10:25
== END 2019-05-26 13:48 | disposition home health service (06) ==
LOC: ER 17:21 → 2ND 17:21
PROVIDERS: ADMIT Emergency Medicine; ATTEND Internal Medicine Adolescent Medicine
CPT/HCPCS: 36415; 71010; 71045; 74177; 80048; 80053; 81001; 82150; 83605; 83690; 84484; 85007; 85025; 87040; 87086; 87275; 87276; 87430; 93005; 96374; 97162; 99285; G0378; Q9967

== ENCOUNTER → 2019-08-23 11:27 | Outpatient (CLI) | payer MEDICARE, OTHER, SELFPAY ==
[2019-08-23 12:23] LABS: Basophils % 0.5 % (0.1-2.0); Eosinophils # 0.3 K/mm3 (0.0-0.4); Eosinophils % 3.4 % (0.1-12.0); Hemoglobin 14.4 g/dL (12.2-16.2); Lymphocytes # 2.3 K/mm3 (0.7-4.5); Lymphocytes % 27.4 % (10-50); Mean Corpuscular HGB Conc 31.9 g/dL (31.8-35.4); Mean Corpuscular Hemoglobin 31.3 pg (27.0-31.2); Mean Corpuscular Volume 98.1 fl (81-99); Mean Platelet Volume 7.7 fl (7.4-10.4); Monocytes # 0.5 K/mm3 (0.1-1.0); Monocytes % 5.5 % (1.7-9.3); Neutrophils # 5.4 K/mm3 (1.8-7.8); Neutrophils % 63.1 % (37.0-80.0); Platelet Count 308 K/mm3 (142-424); Red Blood Count 4.59 M/mm3 (4.20-5.40); Red Cell Distribution Width 14.1 % (11.5-17.5); White Blood Count 8.5 K/mm3 (4.8-10.8)
[2019-08-23 13:15] LABS: Alanine Aminotransferase 12 U/L (12-78); Albumin/Globulin Ratio 1.4 (1.1-1.8); Alkaline Phosphatase 50 U/L (38-126); Anion Gap 10.5 mEq/L (5-15); Aspartate Amino Transferase 26 U/L (14-36); Bilirubin,Total 0.4 mg/dl (0.2-1.3); Blood Urea Nitrogen 15 mg/dl (7-17); Calcium 9.6 mg/dl (8.4-10.2); Carbon Dioxide 35 mmol/L (22.0-30.0); Chloride 94 mmol/L (98-107); Estimated Glomerular Filt Rate 48 ml/min (>60); GFR (African American) 58 ML/MIN (>60); Globulin 2.8 g/dL (1.3-3.2); Glucose 92 mg/dl (74-100); Potassium 4.5 mmoL/L (3.5-5.1); Sodium 135 mmol/L (136-145); Total Protein,Serum 6.8 g/dl (6.3-8.2)
[2019-08-23 13:45] LABS: Thyroid Stimulating Hormone 2.16 uIU/mL (0.465-4.68)
== END ==
PROVIDERS: Visit Provider Internal Medicine
DX: H81.10 Benign paroxysmal vertigo, unspecified ear (principal); I25.10 Atherosclerotic heart disease of native coronary artery without angina pectoris; E03.9 Hypothyroidism, unspecified; E78.5 Hyperlipidemia, unspecified; N39.0 Urinary tract infection, site not specified; D64.9 Anemia, unspecified
CPT/HCPCS: 80053; 84443; 85025

== ENCOUNTER 2019-10-17 15:25 | Emergency (ER) | payer MEDICARE, OTHER, SELFPAY ==
[2019-10-17 15:28] VITALS: BP 141/69; PULSE 90; RESP 17; TEMP 36.9; O2SAT 91; BMI 35.2
--- NOTE | 2019-10-17 15:42 | XR_ITS ---
PROCEDURE: XR CHEST 2V CLINICAL HISTORY: soa Shortness of air COMPARISON: CT AGCHEST CT angio chest from 09/29/2017 CR [id number] XR chest portable from 09/30/2017 CR XR CHEST PORTABLE from 11/22/2018 CR XR CHEST PORTABLE from 05/25/2019 FINDINGS: Prior CABG. Normal heart size. Atelectatic changes or fibrotic changes are present in the left lower lobe. The remaining lungs are clear. There is some eventration of the right hemidiaphragm anteriorly. No acute bony abnormalities. IMPRESSION: Chronic changes are present in the left lower lobe consistent with atelectasis versus fibrosis or chronic infiltrate Dictated by: Raul Tabor MD 10/17/2019 17:07 Raul Tabor MD in [place] 10/17/2019 17:07
[2019-10-17 16:23] LABS: Basophils % 0.5 % (0.1-2.0); Eosinophils # 0.3 K/mm3 (0.0-0.4); Eosinophils % 4.6 % (0.1-12.0); Hematocrit 40.1 % (37.0-47.0); Hemoglobin 13.3 g/dL (12.2-16.2); Lymphocytes # 2.3 K/mm3 (0.7-4.5); Lymphocytes % 37.8 % (10-50); Mean Corpuscular HGB Conc 33.3 g/dL (31.8-35.4); Mean Platelet Volume 7.5 fl (7.4-10.4); Monocytes # 0.3 K/mm3 (0.1-1.0); Monocytes % 5.7 % (1.7-9.3); Neutrophils # 3.1 K/mm3 (1.8-7.8); Neutrophils % 51.4 % (37.0-80.0); Platelet Count 274 K/mm3 (142-424); Red Blood Count 4.31 M/mm3 (4.20-5.40); Red Cell Distribution Width 14.3 % (11.5-17.5)
[2019-10-17 16:27] LABS: Chloride 99 mmol/L (98-107)
[2019-10-17 16:28] LABS: Potassium 4.1 mmoL/L (3.5-5.1); Sodium 137 mmol/L (136-145)
[2019-10-17 16:30] LABS: Alanine Aminotransferase 10 U/L (12-78); Alkaline Phosphatase 39 U/L (38-126); Aspartate Amino Transferase 25 U/L (14-36); Bilirubin,Total 0.4 mg/dl (0.2-1.3); Blood Urea Nitrogen 13 mg/dl (7-17); Creatinine Clearance Estimated 57 mL/min (50-200); Estimated Glomerular Filt Rate 53 ml/min (>60); GFR (African American) 64 ML/MIN (>60)
[2019-10-17 16:31] LABS: Albumin Level 3.8 g/dl (3.5-5.0); Albumin/Globulin Ratio 1.3 (1.1-1.8); Anion Gap 11.1 mEq/L (5-15); Calcium 9.9 mg/dl (8.4-10.2); Carbon Dioxide 31 mmol/L (22.0-30.0); Globulin 2.9 g/dL (1.3-3.2); Glucose 136 mg/dl (74-100); Lactic Acid 0.9 mmol/L (0.7-2.1); Total Protein,Serum 6.7 g/dl (6.3-8.2)
[2019-10-17 16:48] VITALS: BP 130/67; PULSE 80; O2SAT 93
[2019-10-17 16:49] LABS: Troponin I 0.01 ng/ml (0.00-0.034)
--- NOTE | 2019-10-17 17:26 | [facility].EDGENADL ---
ED Disposition Clinical Impression: Sinus pressure, Malaise, Atypical chest pain Dyspnea Qualifiers: Dyspnea type: unspecified Qualified Code(s): R06.00 - Dyspnea, unspecified Disposition: Home, Self-Care Condition on Discharge: Good Instructions: DI for Sinus Headache, DI for Atypical Chest Pain, DI for Shortness of Breath Additional Instructions: Call back to the emergency department in 2 days to get your COVID 19 test results. See your primary care doctor in the office, call Sunday to make appointment. See Dr. Bergeron, your softball umpire, as soon as possible. Call on Sunday to make appointment. Additional instructions for CHEST PAIN: See your physician as soon as possible for further evaluation. Return immediately if worsening chest pain, vomiting, shortness of breath, fever, coughing of blood. Additional instructions for SHORTNESS OF BREATH: See your physician as soon as possible for further evaluation. Return immediately if worsening shortness of breath or if vomiting, chest pain, fever, coughing of blood, or passing out. Prescriptions: predniSONE [Prednisone 20mg Tab] 20 mg PO BID #10 tab Transmission Status: Received by [facility] Referrals: Sea Martinez [Primary Care Provider] - - Critical Care Critical Care Time: No Attestation: On 10/17/19, the high probability of a clinically significant, sudden or life threatening deterioration of the following system(s) required my full and direct attention, intervention and personal management. The time I documented below is in addition to time spent performing reported procedures but includes the following listed in this critical care notation. Medical Decision Making - Medical Records Medical records reviewed: Yes: I reviewed the patient's medical records. - Robert Inquiry Pt receiving controlled substance: No Vital Signs: 10/17/19 15:28 10/17/19 16:48 10/17/19 18:27 Temperature 98.5 F 98.1 F Temperature Source Oral Pulse Rate 87 Pulse Rate [Right] 90 80 Respiratory Rate 17 17 Blood Pressure 123/87 Blood Pressure [Right Arm] 141/69 H 130/67 Blood Pressure Mean [Right Arm] 93 88 Blood Pressure Source [Right Arm] Automatic Cuff Blood Pressure Position [Right Arm] Supine 02 Sat by Pulse Oximetry 91 L 93 L Oxygen Delivery Method Room Air - Lab Data Lab results reviewed: Yes: I reviewed the patient's lab results. Lab Results 10/17/19 16:09: WBC 6.0, RBC 4.31, Hgb 13.3, Hct 40.1, MCV 93.0, MCH 31.0, MCHC 33.3, RDW 14.3, Plt Count 274, MPV 7.5, Neut % (Auto) 51.4, Lymph % (Auto) 37.8, [place] % (Auto) 5.7, Eos % (Auto) 4.6, Baso % (Auto) 0.5, Neut # (Auto) 3.1, Lymph # (Auto) 2.3, [place] # (Auto) 0.3, Eos # (Auto) 0.3, Baso # (Auto) 0.0 10/17/19 16:09: Sodium 137, Potassium 4.1, Chloride 99, Carbon Dioxide 31 H, Anion Gap 11.1, BUN 13, Creatinine 1.00, Estimated Creat Clear 57, Estimated GFR 53 L, Est GFR ( Amer) 64, Glucose 136 H, Calcium 9.9, Total Bilirubin 0.4, AST 25, ALT 10 L, Alkaline Phosphatase 39, Troponin I 0.01, Total Protein 6.7, Albumin 3.8, Globulin 2.9, Albumin/Globulin Ratio 1.3 10/17/19 16:09: Lactate 0.9 10/17/19 16:09: Urine Color Yellow, Urine Appearance Clear, Urine pH 5.5, Ur Specific [place] 1.025, Urine Protein Negative, Urine Glucose (UA) Negative, Urine Ketones Negative, Urine Blood Trace-i, Urine Nitrate Negative, Urine Bilirubin Negative, Urine Urobilinogen 0.2, Ur Leukocyte Esterase Negative, Urine RBC Occasional, Urine WBC None, Ur Squamous Epith Cells Occasional, Urine Bacteria None Result diagrams: 10/17/19 16:09 10/17/19 16:09 Orders (Tests/Meds): ED MEDICATIONS Discontinued Medications Generic Name Dose Route Start Last Admin Trade Name Freq PRN Reason Stop Dose Admin Methylprednisolone Sodium Succinate 125 mg 10/17/19 18:04 10/17/19 18:30 Solu-Medrol 125mg/2ml Vial IV 10/17/19 18:05 125 mg ONCE ONE Administration ORDERS Category Higinio
[2019-10-17 17:40] LABS: Microscopic, Urine URINE MICROSCOPIC (MICROSCOPIC)
[2019-10-17 17:41] LABS: Appearance,Urine CLEAR (Clear); Blood, Urine TRACE-I (Negative); Color,Urine YELLOW (Yellow); Glucose,Urine (UA) Negative (Negative); Ketones,Urine Negative (Negative); Leukocyte Esterase,Urine Negative (Negative); Nitrate,Urine Negative (Negative); PH,Urine 5.5 (5.0-8.5); Protein,Urine Negative (Negative); Specific Gravity, Urine 1.025 (1.005-1.030); Urobilinogen,Urine 0.2 EU/dl (0.2)
--- NOTE | 2019-10-17 17:42 | ECG_ITS ---
APPROVED REPORT Exam: Resting ECG HR:73 bpm ECG Measurements Heart Rate 73 AXES LA 132 P -15 QRSd 118 QRS -23 QT 408 T -15 QTc 449 <Conclusion> Normal sinus rhythm Right bundle branch block Cannot rule out Anterior infarct, age undetermined Abnormal ECG Electronically signed by : Reagan Hsieh, 10/18/2019 05:51:34
[2019-10-17 17:51] LABS: Bilirubin,Urine Negative (Negative); RBC,Urine Occasional #/hpf (0-3); Squamous Epithelial Cell,Urine Occasional #/hpf (0-5)
[2019-10-17 18:27] VITALS: BP 123/87; PULSE 87; RESP 17; TEMP 36.7; O2SAT 100
[2019-10-19 09:40] LABS: Covid-19 Nasal PCR Sendout UK Not Detected
== END 2019-10-17 18:27 | disposition home or self-care (01) ==
PROVIDERS: Emergency Provider Emergency Medicine; PCP Internal Medicine
DX: R07.89 Other chest pain (principal); R53.1 Weakness; Z95.1 Presence of aortocoronary bypass graft; I10 Essential (primary) hypertension; I25.10 Atherosclerotic heart disease of native coronary artery without angina pectoris; K21.9 Gastro-esophageal reflux disease without esophagitis; Z79.899 Other long term (current) drug therapy; Z90.49 Acquired absence of other specified parts of digestive tract; Z87.891 Personal history of nicotine dependence
CPT/HCPCS: 71046; 80053; 81001; 83605; 84484; 85025; 87040; 93005; 96374; 99284; U0003

== ENCOUNTER → 2019-10-28 13:55 | Outpatient (CLI) | payer MEDICARE, OTHER, SELFPAY ==
--- NOTE | 2019-10-28 14:03 | XR_ITS ---
PROCEDURE: XR CHEST 2V CLINICAL HISTORY: dyspnea, crackles in right lung COMPARISON: CT AGCHEST CT angio chest from 09/29/2017 CR XR CHEST PORTABLE from 11/22/2018 CR XR CHEST PORTABLE from 05/25/2019 CR XR CHEST 2V from 10/17/2019 FINDINGS: The cardiomediastinal silhouette and pulmonary vascularity are within normal limits. There has been a prior median sternotomy. Atelectatic changes are once again noted in the left lung base and slightly worse. There is some patchy density in the right infrahilar region suggesting an area of atelectasis or infiltrate. Mild thoracic kyphosis IMPRESSION: 1. Slight increased left basilar atelectasis.. 2. Patchy infiltrate in the right infrahilar region Dictated by: Raul Tabor MD 10/28/2019 15:20 Raul Tabor MD in [place] 10/28/2019 15:20
== END ==
PROVIDERS: PCP Internal Medicine; Visit Provider Physician Assistant
DX: G47.33 Obstructive sleep apnea (adult) (pediatric); I11.9 Hypertensive heart disease without heart failure; I25.118 Atherosclerotic heart disease of native coronary artery with other forms of angina pectoris; R06.02 Shortness of breath; R09.89 Other specified symptoms and signs involving the circulatory and respiratory systems; E78.49 Other hyperlipidemia
CPT/HCPCS: 71046

== ENCOUNTER 2019-12-09 15:12 | Emergency (ER) | payer MEDICARE, OTHER, SELFPAY ==
[2019-12-09 15:32] VITALS: BP 131/90; PULSE 96; RESP 19; TEMP 36.6; O2SAT 98; BMI 34.5
--- NOTE | 2019-12-09 15:40 | HMH.EDUTC ---
[facility] [place] Disposition Clinical Impression: Encounter for laboratory testing for COVID-19 virus Disposition: Home, Self-Care Condition on Discharge: Good Instructions: Preventing the Spread of Coronavirus Discharge Instructions Additional Instructions: You was tested for today for COVID19 your test result should be back later this evening, you may call back later this evening to see if your test results are back and the result You was given a handout with instructions for Self Quarantine and Self isolation for while you wait on test results and what to do if they are positive Follow up with Family Doctor if needed Straight to ER if any life threatening symptoms Referrals: Sea Martinez [Primary Care Provider] - As needed Time of Disposition: 15:42 Medical Decision Making - Robert Inquiry Pt receiving controlled substance: No Robert was queried for this patient: No Vital Signs: 12/09/19 15:32 Temperature 97.8 F Temperature Source Oral Pulse Rate [Right Brachial] 96 H Respiratory Rate 19 Blood Pressure [Right Arm] 131/90 Blood Pressure Mean [Right Arm] 103 Blood Pressure Source [Right Arm] Automatic Cuff Blood Pressure Position [Right Arm] Sitting 02 Sat by Pulse Oximetry 98 Oxygen Delivery Method Room Air Orders (Tests/Meds): ORDERS Category Date Time Status Covid-19 Nasal PCR ([facility]) Routine Lab 12/09/19 15:30 Received [facility] [place] HPI - General Stated complaint: cough,SOB,KAUFMAN Time Seen by Provider: 12/09/19 15:41 Mode of Arrival: Ambulatory Source of Information: Patient Limitations: No Limitations Description of Symptoms (Recalled from Triage Doc. by RN): PATIENT REQUESTING COVID TEST. 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 and they told her that she may need to get checked for the COVID so she came down to get checked States that she isnt having any symptoms other than her seasonal allergies but wanted to get checked to be safe - Related Data Home Medications Medication Instructions Recorded Confirmed lorazepam 1 mg tablet 1 mg PO TID PRN tab 09/26/17 12/09/19 melatonin 10 mg tablet 10 mg PO HS 09/26/17 12/09/19 pantoprazole 40 mg tablet,delayed 40 mg PO DAILY tab 09/26/17 12/09/19 release Aspirin [Aspirin 81mg chewable 81 mg PO DAILY 07/01/18 12/09/19 tab] Levothyroxine Sodium 75 mcg PO DAILY 05/26/19 12/09/19 [Levothyroxine 75mcg (0.075mg) Tab] meclizine 25 mg tablet 25 mg PO TID PRN tab 10/28/19 12/09/19 Previous Rx's Medication Instructions Recorded ondansetron HCl 4 mg tablet 4 mg PO BID PRN #30 tab 09/28/17 Nitroglycerin [Nitrostat] 0.3 mg SL Q5MINP PRN 5 Days #30 09/30/17 tab.subl metoprolol succinate 25 mg 25 mg PO DAILY #90 tab 06/25/19 tablet,extended release 24 hr clopidogrel 75 mg tablet 75 mg PO AM #90 tab 07/02/19 rosuvastatin 5 mg tablet 5 mg PO DAILY #90 tab 08/20/19 isosorbide mononitrate 60 mg 60 mg PO HS #90 tab 10/14/19 tablet,extended release 24 hr doxycycline hyclate 100 mg capsule 100 mg PO BID 10 Days #20 cap 12/09/19 methylprednisolone 4 mg tablets in See Rx Instructions PO PER PKG DIR 12/09/19 a dose pack #21 tab Allergies Allergy/AdvReac Type Severity Reaction Status Date / Time meperidine Allergy Unknown Verified 12/09/19 14:20 Sulfa (Sulfonamide Allergy Unknown Verified 12/09/19 14:20 Antibiotics) trimethoprim Allergy Unknown Verified 12/09/19 14:20 carisoprodol [From Soma] Allergy Verified 12/09/19 14:20 atorvastatin [From Lipitor] AdvReac Intermediate stomach Verified 12/09/19 14:20 - Worker's Comp Is this a Worker's Comp case?: No [facility] Histo
[2019-12-09 15:42] VITALS: BP 131/90; PULSE 96; RESP 19; TEMP 36.6; O2SAT 98
== END 2019-12-09 15:45 | disposition home or self-care (01) ==
PROVIDERS: Emergency Provider Nurse Practitioner; PCP Internal Medicine
DX: Z20.828 Contact with and (suspected) exposure to other viral communicable diseases (principal); I10 Essential (primary) hypertension; I25.2 Old myocardial infarction; K21.9 Gastro-esophageal reflux disease without esophagitis; F41.8 Other specified anxiety disorders; I25.10 Atherosclerotic heart disease of native coronary artery without angina pectoris; G43.709 Chronic migraine without aura, not intractable, without status migrainosus; E03.9 Hypothyroidism, unspecified; Z79.899 Other long term (current) drug therapy; Z87.891 Personal history of nicotine dependence
CPT/HCPCS: G0463; 99201; U0003

== ENCOUNTER 2019-12-11 17:17 | Inpatient (IN) | payer MEDICARE, OTHER, SELFPAY ==
[2019-12-11] VITALS (10 sets, daily range): BP systolic 96–156; BP diastolic 58–92; PULSE 83–144; RESP 16–22; TEMP 36.8–37.3; O2SAT 90–99; BMI 33.2; BMI 32.3; BMI 33.7
--- NOTE | 2019-12-11 17:46 | ECG_ITS ---
APPROVED REPORT Exam: Resting ECG HR:135 bpm ECG Measurements Heart Rate 135 AXES OR 144 P 0 QRSd 106 QRS -57 QT 300 T -1 QTc 450 Conclusion Sinus tachycardia Incomplete right bundle branch block Left anterior fascicular block ST & T wave abnormality, consider anterior ischemia Abnormal ECG Electronically signed by : Reagan Hsieh, 12/14/2019 09:43:51
--- NOTE | 2019-12-11 17:54 | HMH.EDGENADL ---
ED Disposition Clinical Impression: Pneumonia, community acquired Qualifiers: Laterality: right Lung location: upper lobe of lung Qualified Code(s): J18.9 - Pneumonia, unspecified organism Respiratory failure Qualifiers: Chronicity: acute Respiratory failure complication: hypoxia Qualified Code(s): J96.01 - Acute respiratory failure with hypoxia Urinary tract infection Qualifiers: Urinary tract infection type: acute cystitis Hematuria presence: without hematuria Qualified Code(s): N30.00 - Acute cystitis without hematuria Disposition: Admitted As Inpatient Condition on Discharge: Fair Referrals: Sea Martinez [Primary Care Provider] - - Critical Care Critical Care Time: Yes Attestation: On 12/11/19, the high probability of a clinically significant, sudden or life threatening deterioration of the following system(s) required my full and direct attention, intervention and personal management. The time I documented below is in addition to time spent performing reported procedures but includes the following listed in this critical care notation. Total Critical Care Time: 30 Vital system(s) involved:: Respiratory Failure My critical care processes included: Assessment & monitoring of V/S, Initial and Re-exams, Data Review/Interpretation, Coordinating Care, Medication Orders and management, Documentation Medical Decision Making - Robert Inquiry Pt receiving controlled substance: No Vital Signs: 12/11/19 17:26 12/11/19 17:52 12/11/19 18:11 Temperature 99.2 F Temperature Source Oral Pulse Rate [Radial] 144 H 135 H Respiratory Rate 22 22 Blood Pressure [Right Arm] 147/70 H 156/92 H Blood Pressure Mean [Right Arm] 95 113 Blood Pressure Source [Right Arm] Automatic Cuff Blood Pressure Position [Right Arm] Sitting Sitting 02 Sat by Pulse Oximetry 90 L 90 L 99 Oxygen Delivery Method Room Air Room Air Nasal Cannula Oxygen Flow Rate (LPM) 3 12/11/19 18:42 12/11/19 19:35 Temperature Temperature Source Pulse Rate [Radial] 102 H 93 H Respiratory Rate 21 Blood Pressure [Right Arm] 125/68 115/61 Blood Pressure Mean [Right Arm] 87 79 Blood Pressure Source [Right Arm] Automatic Cuff Blood Pressure Position [Right Arm] Sitting 02 Sat by Pulse Oximetry 98 97 Oxygen Delivery Method Nasal Cannula Oxygen Flow Rate (LPM) 2 - Lab Data Lab Results 12/11/19 17:45: Chlamy pneumoniae PCR Not detected, Adenovirus (PCR) Not detected, B. pertussis DNA (PCR) Not detected, Coronavirus OC43 (PCR) Not detected, Coronavirus HKU1 (PCR) Not detected, Coronavirus 229E (PCR) Not detected, SARS-CoV-2 (PCR) Not detected, Coronavirus NL63 (PCR) Not detected, Human Metapneumovir PCR Not detected, Influenza A (H1) PCR Not detected, Influ A (H1N1/) PCR Not detected, Influenza A (H3) PCR Not detected, Influenza Type A (PCR) Not detected, Influenza Type B (PCR) Not detected, M. pneumoniae (PCR) Not detected, Parainfluenza 1 (PCR) Not detected, Parainfluenza 2 (PCR) Not detected, Parainfluenza 3 (PCR) Not detected, Parainfluenza 4 (PCR) Not detected, RSV (PCR) Not detected, Entero/Rhino (PCR) Not detected 12/11/19 17:50: WBC 18.5 H, RBC 4.89, Hgb 14.3, Hct 44.5, MCV 90.9, MCH 29.2, MCHC 32.2, RDW 14.1, Plt Count 297, MPV 7.7, Neut % (Auto) 83.7 H, Lymph % (Auto) 10.5, Ed[place]ds % (Auto) 4.6, Eos % (Auto) 0.8, Baso % (Auto) 0.4, Neut # (Auto) 15.4 H, Lymph # (Auto) 1.9, Edmunds # (Auto) 0.9, Eos # (Auto) 0.2, Baso # (Auto) 0.1, Total Counted 100, Neutrophils % (Manual) 88 H, Lymphocytes % (Manual) 9 L, Monocytes % (Manual) 3, Platelet Estimate Normal, RBC Morphology Normal, Stomatocytes 1+ 12/11/19 17:50: Sodium 136, Potassium 4.5, Chloride 97 L, Carbon Dioxide 30, Anion Gap 13.5, BUN 20 H, Creatinine 1.10 H, Estimated Creat Clear 46, Estimated GFR 48 L, Est GFR ( Amer) 58 L, Glucose 145 H, Calcium 9.9, Total Bilirubin 0.4, AST 29, ALT 16, Alkaline Phosphatase 58, Total Protein 7.2, Albumin 4.1, Globulin 3.1, Albumin/Globulin Ratio 1.3
--- NOTE | 2019-12-11 17:57 | XR_ITS ---
PROCEDURE: XR CHEST PORTABLE CLINICAL HISTORY: sob Shortness of breath COMPARISON: CT AGCHEST CT angio chest from 09/29/2017 CR XR CHEST PORTABLE from 05/25/2019 CR XR CHEST 2V from 10/17/2019 CR XR CHEST 2V from 10/28/2019 FINDINGS: Prior CABG. Normal heart size. There are mild atelectatic changes in the left lung base somewhat improved from the previous exam. Increased markings in the right lower lobe felt to be vascular in nature. No acute bony abnormalities. IMPRESSION: Left basilar atelectasis slightly improved Dictated by: Raul Tabor MD 12/11/2019 20:05 Raul Tabor MD in [place] 12/11/2019 20:05
[2019-12-11 18:04] LABS: Adenovirus,PCR Not Detected (NotDetected); Bordetella Pertussis Not Detected (NotDetected); Chlamydophila Pneumoniae, PCR Not Detected (NotDetected); Coronavirus 19, PCR Not Detected (NotDetected); Coronavirus 229E Not Detected (NotDetected); Coronavirus NL63 Not Detected (NotDetected); Coronavirus OC43 Not Detected (NotDetected); Coronovirus HKU1,PCR Not Detected (NotDetected); Human Metapneumovirus Not Detected (NotDetected); Influenza A, PCR Not Detected (NotDetected); Influenza AH1, 2009 Not Detected (NotDetected); Influenza AH1, PCR Not Detected (NotDetected); Influenza AH3,PCR Not Detected (NotDetected); Influenza B, PCR Not Detected (NotDetected); Mycoplasma Pneumoniae, PCR Not Detected (NotDetected); Parainfluenza 1, PCR Not Detected (NotDetected); Parainfluenza 2, PCR Not Detected (NotDetected); Parainfluenza 3, PCR Not Detected (NotDetected); Parainfluenza 4, PCR Not Detected (NotDetected); Respiratory Syncytial Virus Not Detected (NotDetected); Rhinovirus/Enterovirus Not Detected (NotDetected)
[2019-12-11 18:08] LABS: Appearance,Urine CLEAR (Clear); Blood, Urine TRACE-L (Negative); Color,Urine YELLOW (Yellow); Glucose,Urine (UA) Negative (Negative); Ketones,Urine TRACE (Negative); Leukocyte Esterase,Urine 1+ (Negative); Microscopic, Urine URINE MICROSCOPIC (MICROSCOPIC); Nitrate,Urine Negative (Negative); PH,Urine 5.5 (5.0-8.5); Protein,Urine 1+ (Negative); Specific Gravity, Urine >= 1.030 (1.005-1.030); Urobilinogen,Urine 0.2 EU/dl (0.2)
[2019-12-11 18:09] LABS: Basophils # 0.1 K/mm3 (0-0.2); Basophils % 0.4 % (0.1-2.0); Eosinophils # 0.2 K/mm3 (0.0-0.4); Eosinophils % 0.8 % (0.1-12.0); Hematocrit 44.5 % (37.0-47.0); Hemoglobin 14.3 g/dL (12.2-16.2); Lymphocytes # 1.9 K/mm3 (0.7-4.5); Lymphocytes % 10.5 % (10-50); Mean Corpuscular HGB Conc 32.2 g/dL (31.8-35.4); Mean Corpuscular Hemoglobin 29.2 pg (27.0-31.2); Mean Corpuscular Volume 90.9 fl (81-99); Mean Platelet Volume 7.7 fl (7.4-10.4); Monocytes # 0.9 K/mm3 (0.1-1.0); Monocytes % 4.6 % (1.7-9.3); Neutrophils # 15.4 K/mm3 (1.8-7.8); Neutrophils % 83.7 % (37.0-80.0); Platelet Count 297 K/mm3 (142-424); Red Blood Count 4.89 M/mm3 (4.20-5.40); Red Cell Distribution Width 14.1 % (11.5-17.5); White Blood Count 18.5 K/mm3 (4.8-10.8)
[2019-12-11 18:10] LABS: MANUAL DIFFERENTIAL MANUAL DIFFERENTIAL (MANUAL DIFF)
[2019-12-11 18:12] LABS: Bilirubin,Urine Negative (Negative)
[2019-12-11 18:17] LABS: Lactic Acid 1.8 mmol/L (0.7-2.1)
[2019-12-11 18:18] LABS: Alanine Aminotransferase 16 U/L (12-78); Albumin Level 4.1 g/dl (3.5-5.0); Albumin/Globulin Ratio 1.3 (1.1-1.8); Alkaline Phosphatase 58 U/L (38-126); Anion Gap 13.5 mEq/L (5-15); Aspartate Amino Transferase 29 U/L (14-36); Bilirubin,Total 0.4 mg/dl (0.2-1.3); Blood Urea Nitrogen 20 mg/dl (7-17); Calcium 9.9 mg/dl (8.4-10.2); Carbon Dioxide 30 mmol/L (22.0-30.0); Chloride 97 mmol/L (98-107); Creatinine Clearance Estimated 46 mL/min (50-200); Estimated Glomerular Filt Rate 48 ml/min (>60); GFR (African American) 58 ML/MIN (>60); Globulin 3.1 g/dL (1.3-3.2); Glucose 145 mg/dl (74-100); Potassium 4.5 mmoL/L (3.5-5.1); Sodium 136 mmol/L (136-145); Total Protein,Serum 7.2 g/dl (6.3-8.2)
[2019-12-11 18:20] LABS: Bacteria,Urine 1+ /lpf
[2019-12-11 18:29] LABS: Lymphocytes % 9 % (10-50); Monocytes % 3 % (2-9); Neutrophils % 88 % (42-76); Platelet Estimate Normal; RBC Morphology Normal; Total Cells Counted 100
[2019-12-11 18:30] LABS: Stomatocytes 1+
--- NOTE | 2019-12-11 18:30 | CT_ITS ---
PROCEDURE: CT ANGIO CHEST CLINCIAL INDICATION: soa, hypoxia COMPARISON: No exams were available for comparison TECHNIQUE: IV Contrast: 70ML OPTIRAY 350 Axial images obtained with sagittal and coronal reformats. All CT scans at the facility use one or more dose reduction, viz: automated exposure control, ma/kV adjustment per patient size (including targeted exams where dose is matched to indication, i.e. head), or iterative reconstruction technique. FINDINGS: HEART AND MEDIASTINAL STRUCTURES: 1.5 cm right-sided thyroid nodule.. No mediastinal or hilar mass or adenopathy. No evidence of aortic aneurysm or dissection. No pulmonary embolus apparent. There is minimal dilatation the main pulmonary artery at 3 cm. LUNGS AND PLEURAL SPACES: Faint ground-glass attenuation present in the central aspect of the right upper lobe, right upper lobe posteriorly, right lower lobe with consolidation present in the right lung base posteriorly. BONY STRUCTURES: Degenerative changes thoracic spine UPPER ABDOMEN: There is thickening of the gastroesophageal junction. This is nonspecific and may only be due to nondistention. Neoplasm or esophagitis is also considered in the differential diagnosis. Barium swallow or upper endoscopy may provide further evaluation. The. Status post gastric bypass. Bilateral renal scarring ADDITIONAL FINDINGS: No other significant abnormalities. IMPRESSION: 1. No evidence of acute pulmonary embolus or aortic aneurysm or dissection. 2. Patchy ground-glass density right upper lobe and right lower lobe with consolidation in the right lower lobe posteriorly consistent with pneumonia. Consider atypical pneumonia, viral pneumonia/Covid 19 pneumonia Dictated by: Raul Tabor MD 12/12/2019 09:25 Raul Tabor MD in [place] 12/12/2019 09:25
[2019-12-11 18:35] LABS: Coronavirus 19 IgG Antibody Negative (Negative); Coronavirus 19 IgM Antibody Negative (Negative)
--- NOTE | 2019-12-11 18:35 | PC.NURSE ---
called rad for cta
[2019-12-11 19:38] LABS: Troponin I 0.01 ng/ml (0.00-0.034)
--- NOTE | 2019-12-11 19:52 | PC.NURSE ---
speaking with Dr. Lopez for admission
--- NOTE | 2019-12-11 20:58 | PC.NURSE ---
PT ARRIVED TO THE FLOOR VIA STRETCHER FROM ED W/.STAFF AT 2056
[2019-12-11 23:22] LABS: Troponin I 0.02 ng/ml (0.00-0.034)
[2019-12-12] VITALS (10 sets, daily range): BP systolic 109–150; BP diastolic 61–78; PULSE 60–91; RESP 18–20; TEMP 36.6–36.7; O2SAT 91–97; BMI 34.0
[2019-12-12 02:15] LABS: Troponin I 0.02 ng/ml (0.00-0.034)
--- NOTE | 2019-12-12 05:51 | PC.NURSE ---
shift summary, no acute changes since prior assessment, pt has rested well t/o shift, pt remains on 2L NC with O2 sats from 94-96%, HR has remained between 80-86, pt has had no complaints of SOA, chest pain, N/V, or diaphoresis, pt has ambulated to bathroom twice with standby assist, pt has walker at bedside from home
[2019-12-12 06:26] LABS: Basophils % 0.4 % (0.1-2.0); Eosinophils # 0.2 K/mm3 (0.0-0.4); Eosinophils % 1.9 % (0.1-12.0); Hematocrit 36.3 % (37.0-47.0); Lymphocytes # 2.2 K/mm3 (0.7-4.5); Lymphocytes % 26.3 % (10-50); Mean Corpuscular HGB Conc 31.9 g/dL (31.8-35.4); Mean Corpuscular Hemoglobin 29.7 pg (27.0-31.2); Mean Corpuscular Volume 92.9 fl (81-99); Mean Platelet Volume 7.9 fl (7.4-10.4); Monocytes # 0.5 K/mm3 (0.1-1.0); Monocytes % 6.4 % (1.7-9.3); Neutrophils # 5.5 K/mm3 (1.8-7.8); Red Blood Count 3.91 M/mm3 (4.20-5.40); Red Cell Distribution Width 14.4 % (11.5-17.5); White Blood Count 8.4 K/mm3 (4.8-10.8)
--- NOTE | 2019-12-12 07:27 | HMH.PHAVTE ---
[facility] Pharmacy VTE Monitoring - Patient Demographics Admission date: 12/11/19 Report Date: 12/12/19 Time: 07:27 Allergies/Adverse Reactions: Patient Allergies carisoprodol [From Soma] Allergy (Intermediate, Verified 12/11/19 22:39) itching meperidine Allergy (Intermediate, Verified 12/11/19 22:39) itching Sulfa (Sulfonamide Antibiotics) Allergy (Intermediate, Verified 12/11/19 22:39) itching trimethoprim Allergy (Intermediate, Verified 12/11/19 22:39) stomach atorvastatin [From Lipitor] Adverse Reaction (Intermediate, Verified 12/11/19 22:39) stomach Height: 1.52 m Weight: 78.528 kg Patient Problems: Current Active Problems UTI (urinary tract infection) (Acute) Pneumonia, community acquired (Acute) Respiratory failure (Acute) - VTE Risk Labs: VTE Related Lab Results Hgb 14.3 g/dL (12.2-16.2) 12/11/19 17:50 Hct 36.3 % (37.0-47.0) L 12/12/19 05:35 Plt Count 208 K/mm3 (142-424) D 12/12/19 05:35 BUN 20 mg/dl (7-17) H 12/11/19 17:50 Creatinine 1.10 mg/dl (0.52-1.04) H 12/11/19 17:50 Estimated Creat Clear 46 mL/min (50-200) 12/11/19 17:50 Was VTE Risk Assessment Performed: Yes VTE Score: 7 VTE Risk Level: Moderate Risk - Prophylaxis VTE Prophylaxis Ordered?: Yes Types of VTE Prophylaxis: TEDS Knee High Location of Applied Device: Bilateral Lower Extremeties
[2019-12-12 07:28] LABS: Hemoglobin 11.6 g/dL (12.2-16.2); Platelet Count 208 K/mm3 (142-424)
--- NOTE | 2019-12-12 08:17 | HMH.HP ---
*Admission Date: 12/11/19 <AlexanderJoela 12/12/19 08:34> *Chief complaint: Pneumonia and UTI <Samira Munoz 12/12/19 08:34> *History of present illness: Ms. Floyd is an 83yo white female with a history of CAD, [place], CABG, Coronary artery stenting, HTN, HLP, OA, hypothyroidism, GERD, and depression who sees Dr. Martinez for her primary care needs. She describes about a one week history of sinus and allergy problems including sinus congestion, sinus pressure, rhinorrhea, and sore throat. She saw her ENT Dr. Veronica about 4 days ago, had negative COVID-19 screening, and was started on doxycycline and steroids. She reports feeling worse after taking 3-4 doses of the antibiotic and steroid with developing cough and shortness of breath, as well as aches and chills, and some confusion. She also reports intermittent palpitations. She contacted Dr. Veronica's office yesterday and a new prescription was sent for amoxicillin, however, she describes progression of symptoms last night so sick I didn't know where I was and she was subsequently brought to the [facility] [place] for evaluation. Upon arrival, she was tachycardic with O2 sats 88-90% on RA. WBC was elevated at 18.5 and renal function was mildly decreased. EKG showed sinus tachycardia with RBB without evidence of ischemia. CXR revealed left basilar atelectasis with increased markings in the right lung base which were felt to be vascular in nature. CTA of the chest showed no evidence of PE. She was started on IVF as well as Rocephin and Zithromax and admitted for further evaluation and treatment. This morning, she is feeling marginally better. She denies pain. She denies SOB while nasal O2 is in place. She has been voiding qshift and was able to eat a small amount of breakfast this morning. <Samira Munoz 12/12/19 08:46> [facility] History Medical History: Reports:: Anxiety, Coronary Artery Disease, Depression, Gastroesophageal Reflux Disease(GERD), Hyperlipidemia, Hypertension, Migraine, Myocardial Infarction Denies:: Cancer, Diabetes Mellitus Type 1, Diabetes Mellitus Type 2, Internal Pacemaker, MRSA, Seizures <Samira Munoz 12/12/19 08:34> *Have you ever received a pneumonia vaccine?: No <Alexander12/12/19 08:34> *Have you received a flu vaccine this season?: No <Alexander12/12/19 08:34> Other Medical History: Reports: Anemia, Arthritis, Hypothyroidism, Thyroid Disease <12/12/19 08:34> Laterality Cases: Right: Other <12/12/19 08:34> Other Surgeries: Yes: Appendectomy, CABG, Cardiac Catheterization, Cholecystectomy, Coronary Stent, Hysterectomy-Total, Tubal Ligation, Other (ankle sx). No: Pacemaker <Alexander12/12/19 08:34> Amputation: No <12/12/19 08:34> Fractures: Yes (right ankle) <12/12/19 08:34> - *Social History Last grade of school completed: High school graduate <Alexander12/12/19 08:34> Smoking Status: Former smoker <12/12/19 08:34> Tobacco Type: cigarettes <12/12/19 08:34> # Packs/Day (cigarettes): 1 <Alexander12/12/19 08:34> Smoking End Date: 02/26/89 <Alexander12/12/19 08:34> Alcohol Intake: never <12/12/19 08:34> Alcohol Intake Frequency:: other <12/12/19 08:34> Substance Use Type: denies use <12/12/19 08:34> *Occupational Status:: disabled <Alexander12/12/19 08:34> Housing: apartment <Alexander12/12/19 08:34> Household Members: spouse <12/12/19 08:34> *Travel in the last 8 weeks: None <Alexander12/12/19 08:34> - Psychiatric History Pschychiatric History:: Reports:: Anxiety, Depression <Alexander12/12/19 08:34> Family Hx:: Diabetes, Heart Attack <Samira Munoz - 12/12/19 08:34> Review of Systems - Constitutional Reports body ache(s), Reports chills, Reports fatigue, Reports fever(s), Reports headache(s), Reports lack of energy, Reports weakness <Samira Munoz - 12/12/19 08:46> - Eyes Reports blurry vision, Re
--- NOTE | 2019-12-12 09:28 | HMH.PHAINT ---
MEDICATION RECONCILIATION COMPLETED ON PATIENT USING EXTERNAL FILL HISTORY FROM PHARMACY. -LIZZETH ELLIS, KASHMIRD
--- NOTE | 2019-12-12 13:53 | PC.NURSE ---
Went to Pt's room to induce for a sputum sample Pt actively vomiting. Will return.
--- NOTE | 2019-12-12 15:54 | PC.NURSE ---
A&OX4. PT HAS TOLERATED 2L NC WELL THROUGHOUT SHIFT. RESPIRATIONS REGULAR AND UNLABORED. LUNG SOUNDS WHEEZES NOTED IN BILATERAL LOWER BASES. OCCASIONAL DRY NONPRODUCTIVE COUGH NOTED. SPUTUM HAS TRIED TO BE OBTAINED THIS SHIFT BUT HAVEN'T HAD ANY LUCK YET. RESPIRATORY AWARE AND THEY SAID THEY WOULD TRY TO INDUCE IT. PT HAS VOMITED TWICE THIS SHIFT. PT RECEIVED ZOFRAN ONCE THIS SHIFT AND PHENERGRAN ONCE THIS SHIFT. ON REASSESSMENT BOTH TIMES, PT STATED HER NAUSEA HAD EASED. PT WALKS TO BATHROOM WITH STANDBY ASSIST. STEADY GAIT NOTED. PT TOLERATES WELL. CLEAR YELLOW URINE NOTED. NO BM THUS FAR. SOFT AND TENDER ABDOMEN,. ACTIVE BOWEL SOUNDS HEARD IN ALL 4 QUADRANTS. PT IS CURRENTLY LYING IN BED RESTING. BED IN LOWEST POSITION. CALL LIGHT WITHIN REACH. VSS. WILL CONTINUE TO MONITOR.
--- NOTE | 2019-12-12 18:38 | PC.NURSE ---
Pt's room air sat on room air = 975%
--- NOTE | 2019-12-12 19:20 | PC.NURSE ---
report given to marlen
--- NOTE | 2019-12-12 19:35 | PC.NURSE ---
RT gave sodium chloride neb treatment to pt to obtain SPT. SPT collected at 1830 and sent to lab from second floor.
[2019-12-13] VITALS (12 sets, daily range): BP systolic 117–133; BP diastolic 61–70; PULSE 70–100; RESP 18–20; TEMP 36.7–36.9; O2SAT 91–97; BMI 33.6
--- NOTE | 2019-12-13 05:41 | PC.NURSE ---
shift summary, no acute changes since prior nurse's assessment this shift, pt has rested well t/o shift, pt has had no complaints of SOA, chest pain, pt did complain of N/V during first part of shift on prior nurse but did not complain of this on this nurse, pt got up to chair around 0430 and was up an hour before requesting to go back to bed, room air sat this morning was 93% on NC 2L pt has been between 91-93%, pt HR has been between 76-91
[2019-12-13 06:39] LABS: Basophils # 0.1 K/mm3 (0-0.2); Basophils % 0.8 % (0.1-2.0); Chloride 102 mmol/L (98-107); Eosinophils # 0.4 K/mm3 (0.0-0.4); Eosinophils % 4.8 % (0.1-12.0); Hemoglobin 12.9 g/dL (12.2-16.2); Lymphocytes # 1.8 K/mm3 (0.7-4.5); Lymphocytes % 22.6 % (10-50); Mean Corpuscular HGB Conc 30.8 g/dL (31.8-35.4); Mean Corpuscular Hemoglobin 30.1 pg (27.0-31.2); Mean Corpuscular Volume 97.8 fl (81-99); Mean Platelet Volume 7.9 fl (7.4-10.4); Monocytes # 0.5 K/mm3 (0.1-1.0); Monocytes % 6.3 % (1.7-9.3); Neutrophils # 5.1 K/mm3 (1.8-7.8); Neutrophils % 65.6 % (37.0-80.0); Platelet Count 227 K/mm3 (142-424); Potassium 3.9 mmoL/L (3.5-5.1); Red Blood Count 4.29 M/mm3 (4.20-5.40); Red Cell Distribution Width 13.9 % (11.5-17.5); Sodium 140 mmol/L (136-145); White Blood Count 7.8 K/mm3 (4.8-10.8)
[2019-12-13 06:42] LABS: Anion Gap 10.9 mEq/L (5-15); Blood Urea Nitrogen 16 mg/dl (7-17); Calcium 9.4 mg/dl (8.4-10.2); Carbon Dioxide 31 mmol/L (22.0-30.0); Creatinine Clearance Estimated 54 mL/min (50-200); Estimated Glomerular Filt Rate 60 ml/min (>60); GFR (African American) 73 ML/MIN (>60); Glucose 97 mg/dl (74-100)
--- NOTE | 2019-12-13 09:17 | HMH.ACPN2 ---
Internal Medicine - PN: Subj *Date: 12/13/19 *Time: 09:17 Interval history: Pt feels a little better this morning. She has less nausea, states she takes acid blockers for her stomach and ativan for anxiety at home and would like to resume them now Exam Vital signs and Labs for Last 24 Hours: Temp Pulse Resp BP Pulse Ox 98.0 F 91 H 20 133/68 91 L 12/13/19 07:52 12/13/19 07:52 12/13/19 07:52 12/13/19 07:52 12/13/19 07:52 Laboratory Results - last 24 hr 12/13/19 06:10: WBC 7.8, RBC 4.29, Hgb 12.9, Hct 42.0, MCV 97.8, MCH 30.1, MCHC 30.8 L, RDW 13.9, Plt Count 227, MPV 7.9, Neut % (Auto) 65.6, Lymph % (Auto) 22.6, Mel[place] % (Auto) 6.3, Eos % (Auto) 4.8, Baso % (Auto) 0.8, Neut # (Auto) 5.1, Lymph # (Auto) 1.8, Mellette # (Auto) 0.5, Eos # (Auto) 0.4, Baso # (Auto) 0.1 12/13/19 06:10: Sodium 140, Potassium 3.9, Chloride 102, Carbon Dioxide 31 H, Anion Gap 10.9, BUN 16, Creatinine 0.90, Estimated Creat Clear 54, Estimated GFR 60, Est GFR ( Amer) 73 D, Glucose 97, Calcium 9.4 Vital Signs - 24 hr 12/12/19 12:00 12/12/19 16:00 12/12/19 18:37 Temperature 97.9 F Pulse Rate 60 70 88 Pulse Rate [Left Radial] 86 Respiratory Rate 18 Blood Pressure [Left Arm] 150/78 H 02 Sat by Pulse Oximetry 97 97 12/12/19 19:53 12/12/19 20:00 12/13/19 00:00 Temperature 97.8 F Pulse Rate 80 90 Pulse Rate [Left Radial] 91 H Respiratory Rate 18 Blood Pressure [Left Arm] 128/71 02 Sat by Pulse Oximetry 91 L 12/13/19 00:04 12/13/19 04:00 12/13/19 04:07 Temperature 98.0 F 98.5 F Pulse Rate 80 Pulse Rate [Left Radial] 91 H 76 Respiratory Rate 20 19 Blood Pressure [Left Arm] 129/70 129/61 02 Sat by Pulse Oximetry 94 L 93 L 12/13/19 07:52 Temperature 98.0 F Pulse Rate Pulse Rate [Left Radial] 91 H Respiratory Rate 20 Blood Pressure [Left Arm] 133/68 02 Sat by Pulse Oximetry 91 L I & O for Last 24 hours: Intake & Output 12/10/19 12/11/19 12/12/19 12/13/19 23:59 23:59 23:59 23:59 Intake Total 1175 / 1175 360 / 360 Output Total 250 / 250 1690 / 1690 300 / 300 Balance -250 / -150 -515 / -515 60 / 60 Weight 172 lb 9 oz 173 lb 2.008 oz 171 lb 5 oz Microbiology Reports for the Last 24 Hours: Microbiology 12/12/19 18:30 Sputum - Expectorated Sputum Gram Stain - Final 12/12/19 18:30 Sputum - Expectorated Sputum Sputum Culture - Preliminary 12/11/19 18:05 Urine,Clean Catch Urine Culture - Preliminary NO GROWTH AFTER 24 HOURS - Constitutional no acute distress - *Routine HEENT Exam Head: Present: normocephalic Eye: Present: EOMI, PERRL ENT: Present: mucous membranes moist - *Routine Neck Exam Present: supple. Absent: lymphadenopathy - *Routine Respiratory Exam Present: rales (bilateral), rhonchi (few) - *Routine Cardiovascular Exam Present: RRR - *Routine Abdominal Exam Present: soft, normoactive bowel sounds. Absent: tenderness - *Routine Extremities Exam Absent: cyanosis, clubbing, edema - *Routine Skin Exam Present: warm. Absent: rash - *Routine Neurological Exam Present: alert, oriented X3 Assessment and Plan (1) Pneumonia, community acquired Status: Acute Qualifiers: Laterality: right Lung location: upper lobe of lung Qualified Code(s): J18.9 - Pneumonia, unspecified organism Category: Medical Code(s): J18.9 - Pneumonia, unspecified organism (2) UTI (urinary tract infection) Status: Acute Qualifiers: Urinary tract infection type: acute cystitis Hematuria presence: without hematuria Qualified Code(s): N30.00 - Acute cystitis without hematuria Category: Medical Code(s): N39.0 - Urinary tract infection, site not specified (3) CAD (coronary artery disease) Status: Chronic Qualifiers: Coronary Disease-Associated Artery/Lesion type: y[place] dehe artery [place] vs. transplanted heart: [place] de[place] heart Associated angina: with other forms of angina Qualified Code(s): I25
--- NOTE | 2019-12-13 13:12 | PC.NURSE ---
A&OX4. PT HAS TOLERATED ROOM AIR WELL THROUGHOUT SHIFT. RESPIRATIONS REGULAR AND UNLABORED. HAND COTTON BAG SEWER EQUAL. +2 PULSES NOTED THROUGHOUT. CRACKLES NOTED IN LUNGS. OCCASIONAL DRY NONPRODUCTIVE COUGH NOTED. ACTIVE BOWEL SOUNDS HEARD IN ALL 4 QUADRANTS. SOFT AND NONTENDER ABDOMEN. NO BM THUS FAR. PT VOIDS PER BATHROOM WITH STANDBY ASSIST. NO REPORTS OF PAIN THUS FAR. PT REPORTED NAUSEA ONCE AND RECEIVED ZOFRAN. PT IS CURRENTLY LYING IN BED RESTING. CALL LIGHT WITHIN REACH. BED IN LOWEST POSITION. VSS. WILL CONTINUE TO MONITOR.
[2019-12-14] VITALS (11 sets, daily range): BP systolic 117–143; BP diastolic 57–69; PULSE 78–108; RESP 18–20; TEMP 36.6–37.1; O2SAT 91–96; BMI 34.0
--- NOTE | 2019-12-14 03:33 | PC.NURSE ---
Addendum entered by Raissa White RN 12/14/19 06:02: RA Sat obtained this shift: 88%. Pt brought back to 2L NC: 91% Original Note: Pt has slept intermittently this shift. Pt is A&O x4. +1 non-pitting edema on bilat ankles. Fine crackles are heard at BL bases upon auscultation. Skin remains CDI. Pt had one episode of anxiety this shift with N/V. PRN ativan was administered per APR. Pt is currently resting in bed with eyes closed. PIV in RAC remains patent and is infusing NS @ 50 ml/hr. Pt has ambulated to the bathroom multiple times this shift with standby assist. Pt's urine is clear, yellow with no odor noted. Call light remains in reach. No other complaints or acute changes at this time. Will continue to monitor for any changes.
--- NOTE | 2019-12-14 08:21 | HMH.ACPN2 ---
Internal Medicine - PN: Subj *Date: 12/14/19 *Time: 08:21 Interval history: Patient became anxious and hypoxic overnight. Supplemental O2 was resumed. Exam Vital signs and Labs for Last 24 Hours: Temp Pulse Resp BP Pulse Ox 98.7 F 96 H 18 134/66 94 L 12/14/19 07:44 12/14/19 07:44 12/14/19 07:44 12/14/19 07:44 12/14/19 07:44 Vital Signs - 24 hr 12/13/19 08:30 12/13/19 11:25 12/13/19 12:00 Temperature 98.2 F Pulse Rate 80 Pulse Rate [Left Radial] 87 Respiratory Rate 20 Blood Pressure [Left Arm] 129/61 Blood Pressure [Right Arm] 02 Sat by Pulse Oximetry 92 L 92 L 12/13/19 15:59 12/13/19 16:00 12/13/19 20:00 Temperature 98.4 F 98.2 F Pulse Rate 70 100 H Pulse Rate [Left Radial] 74 100 H Respiratory Rate 20 18 Blood Pressure [Left Arm] 117/69 Blood Pressure [Right Arm] 130/62 02 Sat by Pulse Oximetry 97 96 12/14/19 00:00 12/14/19 04:00 12/14/19 07:44 Temperature 98 F 98 F 98.7 F Pulse Rate 80 90 Pulse Rate [Left Radial] 78 89 96 H Respiratory Rate 19 18 18 Blood Pressure [Left Arm] 121/57 L 143/66 H 134/66 Blood Pressure [Right Arm] 02 Sat by Pulse Oximetry 94 L 96 94 L I & O for Last 24 hours: Intake & Output 12/11/19 12/12/19 12/13/19 12/14/19 23:59 23:59 23:59 23:59 Intake Total 1175 / 1175 560 / 560 360 / 360 Output Total 250 / 250 1690 / 1690 300 / 300 Balance -250 / -150 -515 / -515 260 / 260 360 / 360 Weight 172 lb 9 oz 173 lb 2.008 oz 171 lb 5 oz 173 lb 6 oz Microbiology Reports for the Last 24 Hours: Microbiology 12/12/19 18:30 Sputum - Expectorated Sputum Gram Stain - Final 12/12/19 18:30 Sputum - Expectorated Sputum Sputum Culture - Preliminary 12/11/19 18:05 Urine,Clean Catch Urine Culture - Final NO GROWTH AFTER 48 HOURS 12/11/19 17:50 Blood Blood Culture - Preliminary NO GROWTH AFTER 48 HOURS 12/11/19 17:50 Blood Blood Culture - Preliminary NO GROWTH AFTER 48 HOURS - Constitutional no acute distress - *Routine HEENT Exam Head: Present: normocephalic Eye: Present: EOMI ENT: Present: mucous membranes moist - *Routine Neck Exam Present: supple. Absent: lymphadenopathy - *Routine Respiratory Exam Present: rales (bilateral, right more than left) - *Routine Cardiovascular Exam Present: RRR - *Routine Abdominal Exam Present: soft, normoactive bowel sounds. Absent: tenderness - *Routine Extremities Exam Absent: cyanosis, clubbing, edema - *Routine Skin Exam Present: warm. Absent: rash - *Routine Neurological Exam Present: alert, oriented X3 Assessment and Plan (1) Pneumonia, community acquired Status: Acute Qualifiers: Laterality: right Lung location: upper lobe of lung Qualified Code(s): J18.9 - Pneumonia, unspecified organism Category: Medical Code(s): J18.9 - Pneumonia, unspecified organism (2) UTI (urinary tract infection) Status: Acute Qualifiers: Urinary tract infection type: acute cystitis Hematuria presence: without hematuria Qualified Code(s): N30.00 - Acute cystitis without hematuria Category: Medical Code(s): N39.0 - Urinary tract infection, site not specified (3) CAD (coronary artery disease) Status: Chronic Qualifiers: Coronary Disease-Associated Artery/Lesion type: [place] artery [place] vs. transplanted heart: [place] heart Associated angina: with other forms of angina Qualified Code(s): I25.118 - Atherosclerotic heart disease of [place] coronary artery with other forms of angina pectoris Category: Medical Code(s): I25.10 - Atherosclerotic heart disease of [place] coronary artery without angina pectoris (4) HHD (hypertensive heart disease) Status: Chronic Qualifiers: Heart failure presence: without heart failure Qualified Code(s): I11.9 - Hypertensive heart disease without heart failure Category: Medical Code(s): I11.9
--- NOTE | 2019-12-14 09:14 | XR_ITS ---
PROCEDURE: XR CHEST 2V CLINICAL HISTORY: pneumonia Pneumonia follow up COMPARISON: CR XR CHEST PORTABLE from 11/22/2018 CR XR CHEST PORTABLE from 12/11/2019 FINDINGS: There has been a prior median sternotomy. Normal heart size. Atelectatic changes are present in the left lower lobe inter somewhat worse from the previous exam. Slight increase in left basilar atelectasis. IMPRESSION: Increased left basilar atelectasis. Dictated by: Raul Tabor MD 12/14/2019 10:47 Raul Tabor MD in [facility] 12/14/2019 10:47
--- NOTE | 2019-12-14 14:59 | PC.NURSE ---
A&OX4. PT HAS TOLERATED 2L NC WELL THROUGHOUT SHIFT, BUT IS CURRENTLY ON ROOM AIR AND TOLERATING WELL. RESPIRATIONS REGULAR AND UNLABORED. FINE CRACKLES NOTED THROUGHOUT LUNGS. ACTIVE BOWEL SOUNDS HEARD IN ALL 4 QUADRANTS. SOFT AND TENDER ABDOMEN NOTED. PT REQUESTED SOMETHING TO HELP HER BOWELS MOVE BECAUSE SHE HADN'T HAD A BM SINCE SUNDAY OR SUNDAY. AFTER ADMINISTRATION OF SUPPOSITORY, PT WAS ABLE TO HAVE A MODERATE SIZED BM. NO REPORTS OF PAIN. PT HAS RECEIVED ATIVAN ONCE THUS FAR FOR ANXIETY. 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 +2 PULSES NOTED THROUGHOUT. PT HAS REMAINED ON TELE THROUGHOUT SHIFT. NSR NOTED. PT MOVES INDEPENDENTLY IN BED AND WALKS INDEPENDENTLY TO THE BATHROOM. STEADY GAIT NOTED. PT IS CURRENTLY LYING IN BED RESTING. BED IN LOWEST POSITION. CALL LIGHT WITHIN REACH. VSS. WILL CONTINUE TO MONITOR.
--- NOTE | 2019-12-14 21:09 | PC.NURSE ---
IV leaking very badly and tender, discontinued. Pt reports she is a hard stick and declines having another IV inserted.
[2019-12-15] VITALS: PULSE 80
--- NOTE | 2019-12-15 03:24 | PC.NURSE ---
Pt has rested quietly this shift, slept intermittently. Lung sounds continue to be diminished. Pt continues to decline IV, stating I'm going home in the morning. Denies pain/shortness of air. Pt did have headache earlier in shift, which was relieved with tylenol. Pt denies any difficulty with urination.
[2019-12-15 03:55] VITALS: BP 121/58; PULSE 94; RESP 19; TEMP 36.9; O2SAT 90
[2019-12-15 04:00] VITALS: PULSE 70
[2019-12-15 05:13] VITALS: BMI 34.2
[2019-12-15 06:27] LABS: Basophils % 0.4 % (0.1-2.0); Eosinophils # 0.4 K/mm3 (0.0-0.4); Eosinophils % 6.7 % (0.1-12.0); Hemoglobin 12.5 g/dL (12.2-16.2); Lymphocytes # 2.1 K/mm3 (0.7-4.5); Lymphocytes % 34.4 % (10-50); Mean Corpuscular HGB Conc 31.3 g/dL (31.8-35.4); Mean Corpuscular Hemoglobin 29.4 pg (27.0-31.2); Mean Platelet Volume 8.2 fl (7.4-10.4); Monocytes # 0.4 K/mm3 (0.1-1.0); Monocytes % 6.3 % (1.7-9.3); Neutrophils # 3.2 K/mm3 (1.8-7.8); Neutrophils % 52.2 % (37.0-80.0); Platelet Count 269 K/mm3 (142-424); Red Blood Count 4.26 M/mm3 (4.20-5.40); Red Cell Distribution Width 14.2 % (11.5-17.5); White Blood Count 6.2 K/mm3 (4.8-10.8)
[2019-12-15 06:33] LABS: Chloride 103 mmol/L (98-107); Sodium 138 mmol/L (136-145)
[2019-12-15 06:36] LABS: Blood Urea Nitrogen 11 mg/dl (7-17); Creatinine Clearance Estimated 55 mL/min (50-200); Estimated Glomerular Filt Rate 60 ml/min (>60); GFR (African American) 73 ML/MIN (>60)
[2019-12-15 06:37] LABS: Calcium 9.2 mg/dl (8.4-10.2); Carbon Dioxide 31 mmol/L (22.0-30.0); Glucose 111 mg/dl (74-100)
[2019-12-15 07:24] VITALS: BP 153/75; PULSE 76; RESP 20; TEMP 36.7; O2SAT 93
[2019-12-15 08:00] VITALS: PULSE 70
--- NOTE | 2019-12-15 08:40 | HMH.ACPN2 ---
Internal Medicine - PN: Subj *Date: 12/15/19 *Time: 08:40 Interval history: Patient feels better today, anxious to go home. Exam Vital signs and Labs for Last 24 Hours: Temp Pulse Resp BP Pulse Ox 98.0 F 76 20 153/75 H 93 L 12/15/19 07:24 12/15/19 07:24 12/15/19 07:24 12/15/19 07:24 12/15/19 07:24 Laboratory Results - last 24 hr 12/15/19 06:10: WBC 6.2, RBC 4.26, Hgb 12.5, Hct 40.0, MCV 94.0, MCH 29.4, MCHC 31.3 L, RDW 14.2, Plt Count 269, MPV 8.2, Neut % (Auto) 52.2, Lymph % (Auto) 34.4, [place] % (Auto) 6.3, Eos % (Auto) 6.7, Baso % (Auto) 0.4, Neut # (Auto) 3.2, Lymph # (Auto) 2.1, [place] # (Auto) 0.4, Eos # (Auto) 0.4, Baso # (Auto) 0.0 12/15/19 06:10: Sodium 138, Potassium 4.0, Chloride 103, Carbon Dioxide 31 H, Anion Gap 8.0, BUN 11 D, Creatinine 0.90, Estimated Creat Clear 55, Estimated GFR 60, Est GFR ( Amer) 73, Glucose 111 H, Calcium 9.2 Vital Signs - 24 hr 12/14/19 11:29 12/14/19 12:00 12/14/19 13:52 Temperature 98.8 F Pulse Rate 108 H Pulse Rate [Left Radial] 98 H Respiratory Rate 18 Blood Pressure [Left Arm] 119/59 L 02 Sat by Pulse Oximetry 93 L 92 L 12/14/19 15:18 12/14/19 16:00 12/14/19 20:00 Temperature 98.6 F 98.4 F Pulse Rate 103 H 100 H Pulse Rate [Left Radial] 87 96 H Respiratory Rate 20 20 Blood Pressure [Left Arm] 133/65 117/61 02 Sat by Pulse Oximetry 93 L 91 L 12/14/19 23:34 12/15/19 00:00 12/15/19 03:55 Temperature 98.4 F 98.4 F Pulse Rate 80 Pulse Rate [Left Radial] 78 94 H Respiratory Rate 20 19 Blood Pressure [Left Arm] 133/69 121/58 L 02 Sat by Pulse Oximetry 92 L 90 L 12/15/19 04:00 12/15/19 07:24 Temperature 98.0 F Pulse Rate 70 Pulse Rate [Left Radial] 76 Respiratory Rate 20 Blood Pressure [Left Arm] 153/75 H 02 Sat by Pulse Oximetry 93 L I & O for Last 24 hours: Intake & Output 12/12/19 12/13/19 12/14/19 12/15/19 23:59 23:59 23:59 23:59 Intake Total 1175 / 1175 560 / 560 1098 / 1098 240 / 240 Output Total 1690 / 1690 300 / 300 Balance -515 / -515 260 / 260 1098 / 1098 240 / 240 Weight 173 lb 2.008 oz 171 lb 5 oz 173 lb 6 oz 174 lb 6 oz Microbiology Reports for the Last 24 Hours: Microbiology 12/12/19 18:30 Sputum - Expectorated Sputum Gram Stain - Final 12/12/19 18:30 Sputum - Expectorated Sputum Sputum Culture - Preliminary - Constitutional no acute distress - *Routine HEENT Exam Head: Present: normocephalic Eye: Present: EOMI ENT: Present: mucous membranes moist - *Routine Neck Exam Present: supple. Absent: lymphadenopathy - *Routine Respiratory Exam Present: rales (right more than left) - *Routine Cardiovascular Exam Present: RRR - *Routine Abdominal Exam Present: soft, normoactive bowel sounds. Absent: tenderness - *Routine Extremities Exam Absent: cyanosis, clubbing, edema - *Routine Skin Exam Present: warm. Absent: rash - *Routine Neurological Exam Present: alert, oriented X3 Assessment and Plan (1) Pneumonia, community acquired Status: Acute Qualifiers: Laterality: right Lung location: upper lobe of lung Qualified Code(s): J18.9 - Pneumonia, unspecified organism Category: Medical Code(s): J18.9 - Pneumonia, unspecified organism (2) UTI (urinary tract infection) Status: Acute Qualifiers: Urinary tract infection type: acute cystitis Hematuria presence: without hematuria Qualified Code(s): N30.00 - Acute cystitis without hematuria Category: Medical Code(s): N39.0 - Urinary tract infection, site not specified (3) CAD (coronary artery disease) Status: Chronic Qualifiers: Coronary Disease-Associated Artery/Lesion type: [place] artery [place] vs. transplanted heart: [place] heart Associated angina: with other forms of angina Qualified Code(s): I25.118 - Atherosclerotic heart disease of [place] coronary artery with other forms of angina pectoris Category: Medical Code(s): I25.10 - Atherosclerotic heart
--- NOTE | 2019-12-18 06:00 | HMH.DCSUM ---
General - General Admission date:: 12/11/19 Discharge date: 12/15/19 HPI HPI: Ms. Floyd is an 83yo white female with a history of CAD, [place], CABG, Coronary artery stenting, HTN, HLP, OA, hypothyroidism, GERD, and depression who sees Dr. Martinez for her primary care needs. She described about a one week history of sinus and allergy problems including sinus congestion, sinus pressure, rhinorrhea, and sore throat. She saw her ENT Dr. Veronica about 4 days prior to admission, had negative COVID-19 screening, and was started on doxycycline and steroids. She reported feeling worse after taking 3-4 doses of the antibiotic and steroid with developing cough and shortness of breath, as well as aches and chills, and some confusion. She also reported intermittent palpitations. She contacted Dr. Veronica's office yesterday and a new prescription was sent for amoxicillin. However, she described progression of symptoms so sick I didn't know where I was and she was subsequently brought to the [facility] for evaluation. Upon arrival, she was tachycardic with O2 sats 88-90% on RA. WBC was elevated at 18.5 and renal function was mildly decreased. EKG showed sinus tachycardia with RBB without evidence of ischemia. CXR revealed left basilar atelectasis with increased markings in the right lung base which were felt to be vascular in nature. CTA of the chest showed no evidence of PE. She was started on IVF as well as Rocephin and Zithromax and admitted for further evaluation and treatment. The following morning, she was feeling marginally better. She denied pain. She denied SOB while nasal O2 was in place. She had been voiding qshift and was able to eat a small amount of breakfast. Hospital Course Hospital Course: Patient was started on IV fluids, Rocephin, and Zithromax on admission. She gradually began to feel better. She had less nausea. She was restarted back on her acid princess and her anxiety medicine. Patient did become anxious and hypoxic at one time and was restarted back on oxygen. 12/15/2019 oxygen again had been weaned. Patient was anxious to go home. She was feeling better. Sputum and blood cultures were negative. White blood cell count had normalized to 6200. See data for other lab and test results. On 12/15/2019 patient was discharged to home in stable and satisfactory condition. She was to continue with antibiotics of Ceftin and Zithromax. She was to follow-up with Dr. Mesa on 12/29/2019. Objective Vital signs: Temp Pulse Resp BP Pulse Ox 98.0 F 70 20 153/75 H 93 L 12/15/19 07:24 12/15/19 08:00 12/15/19 07:24 12/15/19 07:24 12/15/19 07:24 Narrative: Exam Vital signs and Labs for Last 24 Hours: Temp Pulse Resp BP Pulse Ox 98.0 F 76 20 153/75 H 93 L 12/15/19 07:24 12/15/19 07:24 12/15/19 07:24 12/15/19 07:24 12/15/19 07:24 Laboratory Results - last 24 hr 12/15/19 06:10: WBC 6.2, RBC 4.26, Hgb 12.5, Hct 40.0, MCV 94.0, MCH 29.4, MCHC 31.3 L, RDW 14.2, Plt Count 269, MPV 8.2, Neut % (Auto) 52.2, Lymph % (Auto) 34.4, [place] % (Auto) 6.3, Eos % (Auto) 6.7, Baso % (Auto) 0.4, Neut # (Auto) 3.2, Lymph # (Auto) 2.1, [place] # (Auto) 0.4, Eos # (Auto) 0.4, Baso # (Auto) 0.0 12/15/19 06:10: Sodium 138, Potassium 4.0, Chloride 103, Carbon Dioxide 31 H, Anion Gap 8.0, BUN 11 D, Creatinine 0.90, Estimated Creat Clear 55, Estimated GFR 60, Est GFR ( Amer) 73, Glucose 111 H, Calcium 9.2 Vital Signs - 24 hr 12/14/19 11:29 12/14/19 12:00 12/14/19 13:52 Temperature 98.8 F Pulse Rate 108 H Pulse Rate [Left Radial] 98 H Respiratory Rate 18 Blood Pressure [Left Arm] 119/59 L 02 Sat by Pulse Oximetry 93 L 92 L 12/14/19 15:18 12/14/19 16:00 12/14/19 20:00 Temperature 98.6 F 98.4 F Pulse Rate 103 H 100 H Pulse Rate [Left Radial] 87 96 H Respiratory Rate 20 20 Blood Pressure [Left Arm] 133/65 117/61 02 Sat by Pulse Oximetry 93 L 91 L 12/14/19 23:34 12/15/19 00:00 12/14
== END 2019-12-15 09:32 | disposition home or self-care (01) | DRG 194 ==
LOC: UTC 17:24 → ER 17:41 → 2ND 20:29
PROVIDERS: Admitting Provider Family Medicine; Emergency Provider Emergency Medicine; PCP Internal Medicine; Visit Provider Family Medicine
DX: J18.9 Pneumonia, unspecified organism (principal); N39.0 Urinary tract infection, site not specified; R65.10 Systemic inflammatory response syndrome (SIRS) of non-infectious origin without acute organ dysfunction; I25.10 Atherosclerotic heart disease of native coronary artery without angina pectoris; I11.9 Hypertensive heart disease without heart failure; G47.33 Obstructive sleep apnea (adult) (pediatric); E03.9 Hypothyroidism, unspecified; Z95.1 Presence of aortocoronary bypass graft; Z95.5 Presence of coronary angioplasty implant and graft; I25.2 Old myocardial infarction; Z87.891 Personal history of nicotine dependence; Z88.8 Allergy status to other drugs, medicaments and biological substances; Z88.2 Allergy status to sulfonamides; Z79.899 Other long term (current) drug therapy; Z79.82 Long term (current) use of aspirin
CPT/HCPCS: 36415; 71045; 71046; 71275; 80048; 80053; 81001; 83605; 84484; 85007; 85025; 86328; 87040; 87070; 87086; 87205; 87581; 87633; 87798; 93005; 94761; 96365; 96367; 99201; 99285; J0456; J2405; Q9967; U0003

== ENCOUNTER → 2019-12-22 15:07 | Outpatient (CLI) | payer MEDICARE, OTHER, SELFPAY ==
--- NOTE | 2019-12-22 15:15 | CT_ITS ---
PROCEDURE: CT SINUS WO CON CLINICAL HISTORY: chronic sinusitis no prior COMPARISON: No exams were available for comparison TECHNIQUE: Axial images obtained with sagittal and coronal reformats. All CT scans at the facility use one or more dose reduction, viz: automated exposure control, ma/kV adjustment per patient size (including targeted exams where dose is matched to indication, i.e. head), or iterative reconstruction technique. FINDINGS: The frontal, ethmoid, maxillary, and sphenoid sinuses have an unremarkable appearance. No mucosal thickening air-fluid levels or mass apparent. 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 No significant nasal septal deviation. There is some asymmetric mucosal thickening involving the inferior aspect of the right nasal canal along the inferior medial aspect of the inferior turbinate which could be due to a polyp. This measures 1.5 by 0.9 cm and lies along the superior aspect of the hard palate and lateral to the inferior aspect of the nasal septum. The The patient is edentulous. The orbits have an unremarkable appearance. Minimal osteoarthritic changes are present at the right TMJ. The mastoid sinuses are well aerated.. The middle ears are also aerated. There is some pneumatization of the petrous bone on both sides as a normal variant IMPRESSION: 1. Unremarkable CT of the sinuses. 2. Probable small polyp along the floor of the right nasal canal medially. Direct visualization may confirm. Dictated by: Raul Tabor MD 12/23/2019 07:09 Raul Tabor MD in [place] 12/23/2019 07:09
== END ==
PROVIDERS: PCP Internal Medicine; Visit Provider Otolaryngology
DX: J32.9 Chronic sinusitis, unspecified (principal); R09.82 Postnasal drip
CPT/HCPCS: 70486

== ENCOUNTER → 2020-01-16 14:16 | Outpatient (CLI) | payer MEDICARE, OTHER, SELFPAY | PROVIDERS: PCP Internal Medicine; Visit Provider Nurse Practitioner Family | DX: G47.33 Obstructive sleep apnea (adult) (pediatric) (principal) | CPT/HCPCS: 94762 ==

== ENCOUNTER → 2020-01-30 16:13 | Outpatient (CLI) | payer MEDICARE, OTHER, SELFPAY ==
--- NOTE | 2020-01-30 16:16 | XR_ITS ---
PROCEDURE: XR CHEST PORTABLE CLINICAL HISTORY: COVID OUTPATIENT Fever and cough COMPARISON: CR XR CHEST 2V from 10/28/2019 CR XR CHEST PORTABLE from 12/11/[address] ANGIO CHEST from 12/11/2019 CR XR CHEST 2V from 12/14/2019 FINDINGS: There has been a prior median sternotomy. Minimal atelectatic or fibrotic changes are present in the left lung base. There are low lung volumes. The remaining lungs are clear. No acute bony abnormalities. IMPRESSION: Minimal left basilar atelectasis or fibrosis otherwise negative Dictated by: Raul Tabor MD 01/30/2020 17:46 Raul Tabor MD in [facility] 01/30/2020 17:46
[2020-01-30 17:39] LABS: Basophils % 0.4 % (0.1-2.0); Eosinophils # 0.3 K/mm3 (0.0-0.4); Eosinophils % 2.2 % (0.1-12.0); Hematocrit 42.6 % (37.0-47.0); Hemoglobin 13.8 g/dL (12.2-16.2); Lymphocytes # 2.1 K/mm3 (0.7-4.5); Mean Corpuscular HGB Conc 32.4 g/dL (31.8-35.4); Mean Corpuscular Hemoglobin 29.9 pg (27.0-31.2); Mean Corpuscular Volume 92.2 fl (81-99); Mean Platelet Volume 8.4 fl (7.4-10.4); Monocytes # 0.6 K/mm3 (0.1-1.0); Monocytes % 4.7 % (1.7-9.3); Neutrophils # 8.7 K/mm3 (1.8-7.8); Neutrophils % 74.7 % (37.0-80.0); Platelet Count 320 K/mm3 (142-424); Red Blood Count 4.63 M/mm3 (4.20-5.40); Red Cell Distribution Width 14.2 % (11.5-17.5); White Blood Count 11.7 K/mm3 (4.8-10.8)
[2020-01-30 17:52] LABS: Chloride 98 mmol/L (98-107); Potassium 4.6 mmoL/L (3.5-5.1); Sodium 135 mmol/L (136-145)
[2020-01-30 17:55] LABS: Anion Gap 12.6 mEq/L (5-15); Blood Urea Nitrogen 16 mg/dl (7-17); Calcium 9.6 mg/dl (8.4-10.2); Carbon Dioxide 29 mmol/L (22.0-30.0); Estimated Glomerular Filt Rate 53 ml/min (>60); GFR (African American) 64 ML/MIN (>60); Glucose 145 mg/dl (74-100)
== END ==
PROVIDERS: PCP Family Medicine; Visit Provider Family Medicine
DX: Z03.818 Encounter for observation for suspected exposure to other biological agents ruled out (principal)
CPT/HCPCS: 36415; 71045; 80048; 85025; U0003

== ENCOUNTER → 2020-01-31 11:19 | Outpatient (CLI) | payer MEDICARE, OTHER, SELFPAY ==
[2020-01-31 11:22] LABS: Microscopic, Urine URINE MICROSCOPIC (MICROSCOPIC)
[2020-01-31 11:30] LABS: Appearance,Urine CLEAR (Clear); Bilirubin,Urine Negative (Negative); Blood, Urine TRACE-L (Negative); Color,Urine YELLOW (Yellow); Glucose,Urine (UA) Negative (Negative); Ketones,Urine Negative (Negative); Leukocyte Esterase,Urine Negative (Negative); Nitrate,Urine Negative (Negative); Protein,Urine Negative (Negative); Specific Gravity, Urine <= 1.005 (1.005-1.030); Urobilinogen,Urine 0.2 EU/dl (0.2)
== END ==
PROVIDERS: Visit Provider Family Medicine
DX: Z03.818 Encounter for observation for suspected exposure to other biological agents ruled out (principal); R05 Cough; R50.9 Fever, unspecified
CPT/HCPCS: 81001

== ENCOUNTER → 2020-05-11 14:30 | Outpatient (CLI) | payer MEDICARE, OTHER, SELFPAY ==
[2020-05-11 16:00] VITALS: PULSE 84; PULSE 88
--- NOTE | 2020-05-11 17:18 | XR_ITS ---
PROCEDURE: XR CHEST 2V CLINICAL HISTORY: eval Shortness of breath COMPARISON: CR XR CHEST PORTABLE from 12/11/[address] ANGIO CHEST from 12/11/2019 CR XR CHEST 2V from 12/14/2019 CR XR CHEST PORTABLE from 01/30/2020 FINDINGS: There has been a prior CABG. Heart size is normal. There are minimal atelectatic or fibrotic changes in the left lung base. There is some undulation of the hemidiaphragm on the right. No lobar consolidation or collapse. Coronary artery stents noted. No acute bony abnormalities. IMPRESSION: Mild left basilar atelectasis or fibrotic change. No acute finding. Dictated by: Raul Tabor MD 05/12/2020 13:05 Raul Tabor MD in [facility] 05/12/2020 13:05
== END ==
PROVIDERS: PCP Family Medicine; Visit Provider Specialist
DX: G47.33 Obstructive sleep apnea (adult) (pediatric) (principal); R05 Cough; R06.02 Shortness of breath; Z87.01 Personal history of pneumonia (recurrent)
CPT/HCPCS: 71046; 94060; 94618; 94640; 94726; 94729; 94762

== ENCOUNTER → 2020-05-13 16:14 | Outpatient (CLI) | payer MEDICARE, OTHER, SELFPAY ==
[2020-05-15 16:32] LABS: IgG, Subclass 1 405 mg/dL (248-810); IgG, Subclass 2 178 mg/dL (130-555); IgG, Subclass 3 61 mg/dL (15-102); Immunoglobulin G, Qn 716 mg/dL (586-1602)
[2020-05-15 17:25] LABS: IgG, Subclass 4 2 mg/dL (2-96)
[2020-05-18 23:42] LABS: Aspergillus flavus Negative (Neg:<1:1); Aspergillus fumigatus Negative (Neg:<1:1); Aspergillus niger Negative (Neg:<1:1)
[2020-05-19 05:18] LABS: Blastomyces Antibody Negative (Neg:<1:1)
== END ==
PROVIDERS: Visit Provider Internal Medicine Pulmonary Disease
DX: J84.10 Pulmonary fibrosis, unspecified (principal); Z87.891 Personal history of nicotine dependence
CPT/HCPCS: 36415; 82784; 82787; 86606; 86612

== ENCOUNTER → 2020-05-24 10:32 | Outpatient (CLI) | payer MEDICARE, OTHER, SELFPAY | PROVIDERS: Visit Provider Internal Medicine Pulmonary Disease | DX: J84.10 Pulmonary fibrosis, unspecified (principal) | CPT/HCPCS: 87070; 87116; 87186; 87205; 87206 ==

== ENCOUNTER → 2020-05-26 10:59 | Outpatient (CLI) | payer MEDICARE, OTHER, SELFPAY ==
--- NOTE | 2020-05-26 11:00 | FL_ITS ---
PROCEDURE: FL BARIUM SWALLOW MODIFIED CLINICAL INDICATION: Aspiration COMPARISON: No exams were available for comparison TECHNIQUE: Patient administered varying consistencies of barium contrast, while viewed in lateral position under real-time fluoroscopy with cine recording. FLUOROSCOPY TIME:2.22 minutes The study was performed in conjunction with speech pathologist. Please see that report & recommendations. FINDINGS: Patient was given varying consistencies of barium. Normal swallowing mechanism is noted on ingestion thin liquids via cup, pureed food, regular food and barium tablet.. High transient penetration is noted on ingestion of thin liquids with a straw. IMPRESSION: No evidence of penetration to the cords or aspiration. Please see speech pathologist report and recommendations. Dictated by: Nina Garcia 05/28/2020 11:12 Nina Garcia in [facility] 05/28/2020 11:12
--- NOTE | 2020-05-26 11:34 | HMH.SLMBS2 ---
Speech & Language Evaluation Speech/Language Mod Barium Swallow Start: 05/26/20 11:27 Freq: once Status: Complete Protocol: Document 05/26/20 11:27 KATHY (Rec: 05/26/20 11:33 KATHY [id number]) General Information General Current Food Consistancy Regular,Thin Liquids Dentition Upper & Lower Dentures Oxygen Status Room Air Facial Symmetry Symmetrical Patient Orientation Person,Place,Time Ability to Follow Directions Excellent Communication Ability No Impairment MBS Recommendations Diet Dietary Recommendations Regular,Thin Liquids Treatment/Strategies Strategy/Precaution Recommend Sitting Upright (90 deg),Small Bites and Sips,Alternate Liquids/Solids Mod Barium Swallow Impressions Summary and Impressions Oral Phase Impression No Impairment (WFL) Oral Phase Summary Ms. Floyd was given the following consistencies: thins via open cup and straw, pudding, pureed, mechanical soft, regular, and pill with thin wash. No oral phase impairments noted. Pharyngeal Phase Impression Minimal Impairment Pharyngeal Phase Summary Flash penetration noted with thin liquids via straw with repetitive boluses. Single bolus showed no flash penetration. Speech/Language MBS Assessment/Goals/Plan Assessment Date of Evaluation: 05/26/20 Evaluation Type Initial Certification Assessment/Problems Dysphagia Does Patient Qualify for Service No Qualify/Failure Comment Patient showed minimal impairment with thin liquids via straw and multiple boluses . Plan Pt/Guardian verbally ack understanding Yes of dx/prognosis/goals G -code Required No Mod Barium Swallow Setup Exam Setup Radiologist Raul Tabor Level of Consciousness Awake,Alert,Appropriate, Follows Commands Position (degrees) 90 Mod Barium Swallow-Lat View Textures Lateral View Food Presentation Thin Liquid via Cup,Thin Liquid via Straw,Pureed Food- Thick,Ground Food- Regular, Barium Tablet,Regular Food, Pudding Oral Phase Labial Closure No Impairment (WFL) Bolus Formation Pooling L/R No Impairment (WFL) Bolus Formation under Tongue No
== END ==
PROVIDERS: PCP Family Medicine; Visit Provider Internal Medicine Pulmonary Disease
DX: J18.9 Pneumonia, unspecified organism (principal); R09.02 Hypoxemia
CPT/HCPCS: 70371; 92611

== ENCOUNTER 2020-06-12 14:53 | Observation (INO) | payer MEDICARE, OTHER, SELFPAY ==
[2020-06-12] VITALS (10 sets, daily range): BP systolic 107–149; BP diastolic 53–98; PULSE 78–106; RESP 14–28; TEMP 36.4–38; O2SAT 92–96; BMI 33.2; BMI 34.2
--- NOTE | 2020-06-12 14:49 | ECG_ITS ---
APPROVED REPORT Exam: Resting ECG HR:106 bpm ECG Measurements Heart Rate 106 AXES NE 128 P -18 QRSd 112 QRS -65 QT 346 T -7 QTc 459 Conclusion Sinus tachycardia Right bundle branch block Left anterior fascicular block Bifascicular block Cannot rule out Inferior infarct (masked by fascicular block?), age undetermined Abnormal ECG Electronically signed by : Reagan Hsieh, 06/13/2020 07:24:49
--- NOTE | 2020-06-12 14:56 | XR_ITS ---
PROCEDURE: XR CHEST PORTABLE CLINICAL HISTORY: short of breath COMPARISON: CT CT ANGIO CHEST from 12/11/2019 CR XR CHEST 2V from 12/14/2019 CR XR CHEST PORTABLE from 01/30/2020 CR XR CHEST 2V from 05/11/2020 FINDINGS: Normal heart size. Prior CABG. There are low lung volumes. Increased markings left lung base suggesting atelectatic change. There is hypoexpansion with low lung volumes. No acute bony abnormalities. IMPRESSION: Left basilar atelectasis Dictated by: Raul Tabor MD 06/13/2020 07:30 Raul Tabor MD in [place] 06/13/2020 07:30
--- NOTE | 2020-06-12 14:58 | HMH.EDGENADL ---
ED Disposition Clinical Impression: Pneumonia Qualifiers: Pneumonia type: due to unspecified organism Laterality: left Lung location: lower lobe of lung Qualified Code(s): J18.9 - Pneumonia, unspecified organism CHF (congestive heart failure) Qualifiers: Heart failure type: unspecified Heart failure chronicity: acute on chronic Qualified Code(s): I50.9 - Heart failure, unspecified Respiratory failure with hypoxia Qualifiers: Chronicity: acute on chronic Qualified Code(s): J96.21 - Acute and chronic respiratory failure with hypoxia Disposition: Admitted As Inpatient Condition on Discharge: Fair Referrals: Sea Martinez [Primary Care Provider] - Time of Disposition: 16:30 - Critical Care Critical Care Time: Yes Attestation: On , the high probability of a clinically significant, sudden or life threatening deterioration of the following system(s) required my full and direct attention, intervention and personal management. The time I documented below is in addition to time spent performing reported procedures but includes the following listed in this critical care notation. Total Critical Care Time: 30 Vital system(s) involved:: Circulatory Failure, Respiratory Failure My critical care processes included: Assessment & monitoring of V/S, Initial and Re-exams, Data Review/Interpretation, Coordinating Care, Medication Orders and management, Documentation Medical Decision Making - Medical Records Medical records reviewed: Yes: I reviewed the patient's medical records. - Robert Inquiry Pt receiving controlled substance: No Vital Signs: 06/12/20 14:54 06/12/20 15:06 06/12/20 15:31 Temperature 100.4 F H Temperature Source Oral Pulse Rate 104 H 98 H Pulse Rate [Radial] 106 H Respiratory Rate 28 H 22 14 Blood Pressure 117/98 H 107/61 L Blood Pressure [Right Arm] 149/78 H Blood Pressure Mean [Right Arm] 101 Blood Pressure Position [Right Arm] Sitting 02 Sat by Pulse Oximetry 94 L 93 L 94 L Oxygen Delivery Method Nasal Cannula Nasal Cannula Nasal Cannula Oxygen Flow Rate (LPM) 2 2 2 - Lab Data Lab Results 06/12/20 15:00: WBC 15.4 H, RBC 4.32, Hgb 12.5, Hct 38.4, MCV 89.0, MCH 29.0, MCHC 32.6, RDW 14.4, Plt Count 327, MPV 7.6, Neut % (Auto) 87.8 H, Lymph % (Auto) 7.6 L, [place] % (Auto) 2.8, Eos % (Auto) 1.5, Baso % (Auto) 0.2, Neut # (Auto) 13.5 H, Lymph # (Auto) 1.2, [place] # (Auto) 0.4, Eos # (Auto) 0.2, Baso # (Auto) 0.0, Total Counted 100, Neutrophils % (Manual) 85 H, Lymphocytes % (Manual) 10, Monocytes % (Manual) 4, Eosinophils % (Manual) 1, Platelet Estimate Normal, RBC Morphology Normal 06/12/20 15:00: Sodium 134 L, Potassium 4.4, Chloride 97 L, Carbon Dioxide 31 H, Anion Gap 10.4, BUN 15, Creatinine 0.80, Estimated Creat Clear 53, Estimated GFR 69, Est GFR ( Amer) 83, Glucose 138 H, Calcium 9.5, Total Bilirubin 0.4, AST 26, ALT 10 L, Alkaline Phosphatase 57, Troponin I < 0.01, Total Protein 7.0, Albumin 3.9, Globulin 3.1, Albumin/Globulin Ratio 1.3 06/12/20 15:00: NT-Pro-B Natriuret Pep 2020 H 06/12/20 15:11: VBG pH 7.47 H, VBG pCO2 42.7, VBG pO2 186.3 H, VBG HCO3 30.0, VBG Total CO2 31.3 H, VBG O2 Saturation 99.3 H, VBG Base Excess 6.3 H Result diagrams: 06/12/20 15:00 06/12/20 15:00 Orders (Tests/Meds): ED MEDICATIONS Discontinued Medications Generic Name Dose Route Start Last Admin Trade Name Freq PRN Reason Stop Dose Admin Albuterol/Ipratropium 3 ml 06/12/20 14:57 06/12/20 15:46 Ipratropium/Albuterol 3 Ml Neb IH 06/12/20 14:58 3 ml ONCE ONE Administration Ceftriaxone Sodium 1 gm/ 50 mls @ 100 mls/hr 06/12/20 15:46 06/12/20 15:52 Sodium Chloride IV 06/12/20 16:15 100 mls/hr ONCE ONE Administration Protocol Azithromycin 500 mg/ Sodium 250 mls @ 250 mls/hr 06/12/20 15:48 Chloride IV 06/12/20 15:49 ONCE ONE Protocol Methylprednisolone Sodium Succinate 125 mg 06/12/20 14:57 06/12/20 15:04 Methylprednisolone Sod Succ 125mg Vial IV 04
[2020-06-12 15:12] LABS: Basophils % 0.2 % (0.1-2.0); Eosinophils # 0.2 K/mm3 (0.0-0.4); Eosinophils % 1.5 % (0.1-12.0); Hematocrit 38.4 % (37.0-47.0); Hemoglobin 12.5 g/dL (12.2-16.2); Lymphocytes # 1.2 K/mm3 (0.7-4.5); Lymphocytes % 7.6 % (10-50); Mean Corpuscular HGB Conc 32.6 g/dL (31.8-35.4); Mean Platelet Volume 7.6 fl (7.4-10.4); Monocytes # 0.4 K/mm3 (0.1-1.0); Monocytes % 2.8 % (1.7-9.3); Neutrophils # 13.5 K/mm3 (1.8-7.8); Neutrophils % 87.8 % (37.0-80.0); Platelet Count 327 K/mm3 (142-424); Red Blood Count 4.32 M/mm3 (4.20-5.40); Red Cell Distribution Width 14.4 % (11.5-17.5); White Blood Count 15.4 K/mm3 (4.8-10.8)
[2020-06-12 15:18] LABS: MANUAL DIFFERENTIAL MANUAL DIFFERENTIAL (MANUAL DIFF)
[2020-06-12 15:19] LABS: Chloride 97 mmol/L (98-107); Potassium 4.4 mmoL/L (3.5-5.1); Sodium 134 mmol/L (136-145)
[2020-06-12 15:21] LABS: Alanine Aminotransferase 10 U/L (12-78); Aspartate Amino Transferase 26 U/L (14-36); Blood Urea Nitrogen 15 mg/dl (7-17); Creatinine Clearance Estimated 53 mL/min (50-200); Estimated Glomerular Filt Rate 69 ml/min (>60); GFR (African American) 83 ML/MIN (>60)
[2020-06-12 15:22] LABS: Albumin Level 3.9 g/dl (3.5-5.0); Albumin/Globulin Ratio 1.3 (1.1-1.8); Alkaline Phosphatase 57 U/L (38-126); Anion Gap 10.4 mEq/L (5-15); Bilirubin,Total 0.4 mg/dl (0.2-1.3); Calcium 9.5 mg/dl (8.4-10.2); Carbon Dioxide 31 mmol/L (22.0-30.0); Globulin 3.1 g/dL (1.3-3.2); Glucose 138 mg/dl (74-100)
[2020-06-12 15:26] LABS: Eosinophils % 1 % (0-3); Lymphocytes % 10 % (10-50); Monocytes % 4 % (2-9); Neutrophils % 85 % (42-76); Total Cells Counted 100
[2020-06-12 15:27] LABS: Platelet Estimate Normal; RBC Morphology Normal
[2020-06-12 15:27] LABS: VBG Base Excess 6.3 mmol/L (-2.4-2.3); VBG Oxygen Saturation 99.3 % (50-70); VBG PCO2 42.7 mmol/L (35-51); VBG PH 7.47 mmol/L (7.31-7.41); VBG PO2 186.3 mmol/L (28-40); VBG Total CO2 31.3 mmol/L (23-27)
[2020-06-12 15:31] LABS: NT Pro Brain Natriuretic Pep. 2020 pg/mL (0-450)
[2020-06-12 15:35] LABS: Troponin I < 0.01 ng/ml (0.00-0.034)
--- NOTE | 2020-06-12 16:26 | PC.NURSE ---
Dr Efren michaud.
--- NOTE | 2020-06-12 16:28 | PC.NURSE ---
Dr Schwartz returned call.
[2020-06-12 16:34] LABS: Lactic Acid 1.4 mmol/L (0.7-2.1)
[2020-06-12 17:03] LABS: Procalcitonin 0.091 ng/mL (0.0-2.0)
[2020-06-12 17:07] LABS: Microscopic, Urine URINE MICROSCOPIC (MICROSCOPIC)
[2020-06-12 17:08] LABS: Appearance,Urine CLEAR (Clear); Blood, Urine Negative (Negative); Color,Urine YELLOW (Yellow); Glucose,Urine (UA) Negative (Negative); Ketones,Urine TRACE (Negative); Leukocyte Esterase,Urine Negative (Negative); Nitrate,Urine Negative (Negative); PH,Urine 7.5 (5.0-8.5); Protein,Urine TRACE (Negative); Specific Gravity, Urine 1.015 (1.005-1.030)
[2020-06-12 17:10] LABS: Bilirubin,Urine Negative (Negative)
[2020-06-12 17:23] LABS: Amorphous Sediment,Urine 1+ /lpf; WBC,Urine Occasional #/hpf (0-3)
--- NOTE | 2020-06-12 17:30 | PC.NURSE ---
PT GIVEN DIET TRAY
--- NOTE | 2020-06-12 17:59 | PC.NURSE ---
REPORT CALLED TO FLOOR
[2020-06-12 21:23] LABS: POC Glucose,Bedside 239 (70-110)
[2020-06-13] VITALS (8 sets, daily range): BP systolic 111–139; BP diastolic 54–82; PULSE 78–101; RESP 16–20; TEMP 36.4–36.8; O2SAT 87–97; BMI 33.9
[2020-06-13 05:03] LABS: POC Glucose,Bedside 119 (70-110)
--- NOTE | 2020-06-13 05:40 | PC.NURSE ---
PT admitted for CHF exercerbation, PNA and Resp failure. Patient received 20 mg IV of Lasix, Patient diuresed +/- 1000 mL. No issues with B/P, oxygenation, vitals signs or pain. Patient aware that this visit is a Medicare OBS and this RN and previous shift RN advised that if Rx was administered from this MAR, she would be charged. Pt stated Just charge me, I understand. Pt feels it would be difficult for to arrange transportation to bring said medication. Patient in no acute distress, will continue to monitor.
[2020-06-13 06:33] LABS: Basophils % 0.1 % (0.1-2.0); Eosinophils % 0.5 % (0.1-12.0); Hematocrit 36.4 % (37.0-47.0); Hemoglobin 12.1 g/dL (12.2-16.2); Lymphocytes # 0.9 K/mm3 (0.7-4.5); Lymphocytes % 9.9 % (10-50); Mean Corpuscular HGB Conc 33.2 g/dL (31.8-35.4); Mean Corpuscular Hemoglobin 29.4 pg (27.0-31.2); Mean Corpuscular Volume 88.5 fl (81-99); Mean Platelet Volume 7.5 fl (7.4-10.4); Monocytes # 0.1 K/mm3 (0.1-1.0); Monocytes % 1.5 % (1.7-9.3); Neutrophils # 7.7 K/mm3 (1.8-7.8); Platelet Count 276 K/mm3 (142-424); Red Blood Count 4.11 M/mm3 (4.20-5.40); Red Cell Distribution Width 14.3 % (11.5-17.5); White Blood Count 8.8 K/mm3 (4.8-10.8)
[2020-06-13 06:36] LABS: Chloride 97 mmol/L (98-107); Sodium 136 mmol/L (136-145)
[2020-06-13 06:37] LABS: Potassium 4.3 mmoL/L (3.5-5.1)
[2020-06-13 06:39] LABS: Blood Urea Nitrogen 19 mg/dl (7-17); Creatinine Clearance Estimated 52 mL/min (50-200); Estimated Glomerular Filt Rate 60 ml/min (>60); GFR (African American) 73 ML/MIN (>60)
[2020-06-13 06:40] LABS: Anion Gap 8.3 mEq/L (5-15); Calcium 9.6 mg/dl (8.4-10.2); Carbon Dioxide 35 mmol/L (22.0-30.0); Glucose 137 mg/dl (74-100)
[2020-06-13 07:04] LABS: MANUAL DIFFERENTIAL MANUAL DIFFERENTIAL (MANUAL DIFF)
[2020-06-13 08:20] LABS: Lymphocytes % 10 % (10-50); Monocytes % 2 % (2-9); Neutrophils % 88 % (42-76); Total Cells Counted 100
[2020-06-13 08:21] LABS: Platelet Estimate Normal; RBC Morphology Normal
--- NOTE | 2020-06-13 08:33 | HMH.PHAVTE ---
[facility] Pharmacy VTE Monitoring - Patient Demographics Admission date: 06/12/20 Report Date: 06/13/20 Time: 08:33 Allergies/Adverse Reactions: Patient Allergies carisoprodol [From Soma] Allergy (Intermediate, Verified 06/12/20 18:35) itching meperidine Allergy (Intermediate, Verified 06/12/20 18:35) itching Sulfa (Sulfonamide Antibiotics) Allergy (Intermediate, Verified 06/12/20 18:35) itching trimethoprim Allergy (Intermediate, Verified 06/12/20 18:35) stomach atorvastatin [From Lipitor] Adverse Reaction (Intermediate, Verified 06/12/20 18:35) stomach Height: 1.5 m Weight: 76.289 kg Patient Problems: Current Active Problems Pneumonia (Acute) CHF (congestive heart failure) (Acute) Respiratory failure with hypoxia (Acute) - VTE Risk Labs: VTE Related Lab Results Hgb 12.1 g/dL (12.2-16.2) L 06/13/20 06:16 Hct 36.4 % (37.0-47.0) L 06/13/20 06:16 Plt Count 276 K/mm3 (142-424) 06/13/20 06:16 BUN 19 mg/dl (7-17) H D 06/13/20 06:16 Creatinine 0.90 mg/dl (0.52-1.04) 06/13/20 06:16 Estimated Creat Clear 52 mL/min (50-200) 06/13/20 06:16 Was VTE Risk Assessment Performed: Yes VTE Score: 5 VTE Risk Level: Low Risk - Prophylaxis VTE Prophylaxis Ordered?: Yes Types of VTE Prophylaxis: TEDS Knee High Location of Applied Device: Bilateral Lower Extremeties
--- NOTE | 2020-06-13 09:28 | HMH.HPDC ---
General - General Admission date:: 06/12/20 Discharge date: 06/13/20 *Admission Date: 06/12/20 [facility] History I have reviewed the patient's past medical history: Yes Medical History: Reports:: Anxiety, Congestive Heart Failure, Coronary Artery Disease, Depression, Gastroesophageal Reflux Disease(GERD), Hyperlipidemia, Hypertension, Migraine, Myocardial Infarction Denies:: Cancer, Diabetes Mellitus Type 1, Diabetes Mellitus Type 2, Internal Pacemaker, MRSA, Seizures *Have you ever received a pneumonia vaccine?: Yes *Have you received a flu vaccine this season?: Yes Other Medical History: Reports: Anemia, Arthritis, Hypothyroidism, Thyroid Disease Laterality Cases: Right: Total Knee Replacement, Other Other Surgeries: Yes: Appendectomy, Bariatric Surgery, CABG, Cardiac Catheterization, Cholecystectomy, Coronary Stent, Hysterectomy-Total, Open Heart Surgery, Tubal Ligation, Other. No: Pacemaker Amputation: No Fractures: Yes (right ankle) - *Social History Last grade of school completed: High school graduate Smoking Status: Never smoker Tobacco Type: cigarettes # Packs/Day (cigarettes): 1 Alcohol Intake: never Alcohol Intake Frequency:: other Substance Use Type: denies use *Occupational Status:: retired Housing: apartment Household Members: spouse *Travel in the last 8 weeks: None - Psychiatric History Pschychiatric History:: Reports:: Anxiety, Depression Family Hx:: No significant family history Review of Systems - Review of Systems Review of systems:: pertinent systems reviewed and negative unless documented below - *Neurologic Reports weakness, Denies localized weakness, Denies headache(s) Exam Vital signs and Labs for Last 24 Hours: Temp Pulse Resp BP Pulse Ox 97.9 F 101 H 18 139/82 94 L 06/13/20 07:59 06/13/20 07:59 06/13/20 07:59 06/13/20 07:59 06/13/20 07:59 Laboratory Results - last 24 hr 06/12/20 15:00: WBC 15.4 H, RBC 4.32, Hgb 12.5, Hct 38.4, MCV 89.0, MCH 29.0, MCHC 32.6, RDW 14.4, Plt Count 327, MPV 7.6, Neut % (Auto) 87.8 H, Lymph % (Auto) 7.6 L, [place] % (Auto) 2.8, Eos % (Auto) 1.5, Baso % (Auto) 0.2, Neut # (Auto) 13.5 H, Lymph # (Auto) 1.2, [place] # (Auto) 0.4, Eos # (Auto) 0.2, Baso # (Auto) 0.0, Total Counted 100, Neutrophils % (Manual) 85 H, Lymphocytes % (Manual) 10, Monocytes % (Manual) 4, Eosinophils % (Manual) 1, Platelet Estimate Normal, RBC Morphology Normal 06/12/20 15:00: Sodium 134 L, Potassium 4.4, Chloride 97 L, Carbon Dioxide 31 H, Anion Gap 10.4, BUN 15, Creatinine 0.80, Estimated Creat Clear 53, Estimated GFR 69, Est GFR ( Amer) 83, Glucose 138 H, Calcium 9.5, Total Bilirubin 0.4, AST 26, ALT 10 L, Alkaline Phosphatase 57, Troponin I < 0.01, Total Protein 7.0, Albumin 3.9, Globulin 3.1, Albumin/Globulin Ratio 1.3 06/12/20 15:00: NT-Pro-B Natriuret Pep 2020 H 06/12/20 15:00: Lactate 1.4 06/12/20 15:00: Procalcitonin 0.091 06/12/20 15:11: VBG pH 7.47 H, VBG pCO2 42.7, VBG pO2 186.3 H, VBG HCO3 30.0, VBG Total CO2 31.3 H, VBG O2 Saturation 99.3 H, VBG Base Excess 6.3 H 06/12/20 17:01: Urine Color Yellow, Urine Appearance Clear, Urine pH 7.5, Ur Specific [place] 1.015, Urine Protein Trace, Urine Glucose (UA) Negative, Urine Ketones Trace, Urine Blood Negative, Urine Nitrate Negative, Urine Bilirubin Negative, Urine Urobilinogen 1.0, Ur Leukocyte Esterase Negative, Urine RBC None, Urine WBC Occasional, Ur Squamous Epith Cells 5-10, Amorphous Sediment 1+, Urine Bacteria None 06/12/20 21:15: POC Glucose 239 H 06/13/20 04:50: POC Glucose 119 H 06/13/20 06:16: WBC 8.8 D, RBC 4.11 L, Hgb 12.1 L, Hct 36.4 L, MCV 88.5, MCH 29.4, MCHC 33.2, RDW 14.3, Plt Count 276, MPV 7.5, Neut % (Auto) 88.0 H, Lymph % (Auto) 9.9 L, [place] % (Auto) 1.5 L, Eos % (Auto) 0.5, Baso % (Auto) 0.1, Neut # (Auto) 7.7, Lymph # (Auto) 0.9, [place] # (Auto) 0.1, Eos # (Auto) 0.0, Baso # (Auto) 0.0, Total Counted 100, Neutrophils % (Manual) 88 H, Lymphocytes % (Manual) 10, Monocytes % (Manual) 2, Platelet Estimate Normal, RBC Morpholo
[2020-06-13 11:39] LABS: POC Glucose,Bedside 122 (70-110)
--- NOTE | 2020-06-13 11:54 | CT_ITS ---
PROCEDURE: CT CHEST WO/W CON CLINCAL INDICATION: SOA, New O2 requirement, Lt sided crackles COMPARISON: CT CT ANGIO CHEST from 12/11/2019 TECHNIQUE: IV Contrast: 75ml Isovue 370 Axial images obtained with sagittal and coronal reformats. All CT scans at the facility use one or more dose reduction, viz: automated exposure control, ma/kV adjustment per patient size (including targeted exams where dose is matched to indication, i.e. head), or iterative reconstruction technique. FINDINGS: No evidence of pulmonary embolus aortic aneurysm or aortic dissection. There has been a prior CABG. Coronary artery stents are present. Fluid-filled mildly distended esophagus is noted. There is a small hiatal hernia. There has been prior gastric bypass surgery. Patchy areas of infiltrate are present in the left upper lobe posteriorly and left lower lobe with patchy ground-glass attenuation in the right perihilar region. Atelectatic and/or fibrotic changes noted in the lung bases posteriorly and within the lingula. Previously noted pneumonia and/or atelectatic change in the right lung base posteriorly has improved. No effusions. There is an old fracture of the left 4th rib laterally. Cortical scarring involves both kidneys. 14 mm hypodensity right kidney which may be due to a renal cyst. 11 mm hypodense nodule of the right thyroid gland noted. IMPRESSION: 1. No evidence of pulmonary embolus. 2. Patchy areas of ground-glass infiltrate in the left upper lobe, left lower lobe, and right perihilar region. 3. Distended esophagus is fluid-filled with hiatal hernia which may be due to reflux, soft guidance, or distal obstruction Dictated by: Raul Tabor MD 06/14/2020 06:59 Raul Tabor MD in [place] 06/14/2020 06:59
--- NOTE | 2020-06-13 12:02 | HMH.HP ---
*Admission Date: 06/12/20 *Chief complaint: short of breath, sick *History of present illness: Ms. Floyd is an 84yo white female with a history of CAD, CA, CABG, Coronary artery stenting, systolic CHF, HTN, HLP, OA, hypothyroidism, GERD, recent findings concerning for pulmonary hypertension, depression, and recurrent recent courses of steroids and antibiotics and admission approximately 6 months ago for similar presentation this admission. She sees Dr. Martinez for primary care in the outpatient setting. She presented to the ER last night due to worsening symptoms of feeling very sick . States she has had progressive dyspnea. Started on oxygen little over a week ago by pulmonology. Has had recent pulmonary function test showing asthma. Additionally has bifascicular block on her EKG on admission. Given findings on chest x-ray, elevated white count, and subjective fever, patient was admitted for concern for pneumonia versus CHF exacerbation versus other pulmonary process. On interview this morning she states she feels somewhat better but gives a long history of her protracted course for the past year with unclear answer from cardiology, pulmonology, her primary care as to what is going on with her lungs and her breathing. Remains mildly tachycardic this morning. Afebrile and normotensive. Reviewed labs, white cell count somewhat improved. As her BNP was elevated, received a dose of Lasix and initial dose of azithromycin and ceftriaxone. Increased her home dose of Lasix to 40 mg orally which she will receive this morning. Continued antibiotics for the time being. Sputum cultures obtained [facility] History I have reviewed the patient's past medical history: Yes Medical History: Reports:: Anxiety, Congestive Heart Failure, Coronary Artery Disease, Depression, Gastroesophageal Reflux Disease(GERD), Hyperlipidemia, Hypertension, Migraine, Myocardial Infarction Denies:: Cancer, Diabetes Mellitus Type 1, Diabetes Mellitus Type 2, Internal Pacemaker, MRSA, Seizures *Have you ever received a pneumonia vaccine?: Yes *Have you received a flu vaccine this season?: Yes Other Medical History: Reports: Anemia, Arthritis, Hypothyroidism, Thyroid Disease Laterality Cases: Right: Total Knee Replacement, Other Other Surgeries: Yes: Appendectomy, Bariatric Surgery, CABG, Cardiac Catheterization, Cholecystectomy, Coronary Stent, Hysterectomy-Total, Open Heart Surgery, Tubal Ligation, Other. No: Pacemaker Amputation: No Fractures: Yes (right ankle) - *Social History Last grade of school completed: High school graduate Smoking Status: Never smoker Tobacco Type: cigarettes # Packs/Day (cigarettes): 1 Alcohol Intake: never Alcohol Intake Frequency:: other Substance Use Type: denies use *Occupational Status:: retired Housing: apartment Household Members: spouse *Travel in the last 8 weeks: None - Psychiatric History Pschychiatric History:: Reports:: Anxiety, Depression Family Hx:: No significant family history Review of Systems - Review of Systems Review of systems:: pertinent systems reviewed and negative unless documented below (14 point review of systems performed, pertinent positives and negatives as per HPI) - *Neurologic Reports weakness, Denies localized weakness, Denies headache(s) Meds Home Medications Medication Instructions Recorded Confirmed Type lorazepam 1 mg tablet 1 mg PO TIDP PRN tab 09/26/17 06/12/20 History melatonin 10 mg tablet 10 mg PO HS 09/26/17 06/12/20 History pantoprazole 40 mg tablet,delayed 40 mg PO DAILY tab 09/26/17 06/12/20 History release Aspirin [Aspirin 81mg chewable 81 mg PO DAILY 07/01/18 06/12/20 History tab] Levothyroxine Sodium 75 mcg PO DAILY 05/26/19 06/12/20 History [Levothyroxine 75mcg (0.075mg) Tab] rosuvastatin 5 mg tablet 5 mg PO DAILY #90 tab 08/20/19 06/12/20 Rx meclizine 25 mg tablet 25 mg PO TIDP PRN tab 10/28/19 06/12/20 History Nitroglycerin 0.4 mg SL Q5MINP PRN 12/12/1905/27
--- NOTE | 2020-06-13 16:24 | PC.NURSE ---
Pt has been pleasant and cooperative this shift. A&O X4. No complaints of pain or SOA. Pt is currently receiving O2 via NC @ 2 LPM with sats. >90%. Lungs CTA. Generalized, non-pitting edema noted to BLE. Skin is C/D/I. Pt ambulates independently in the room and uses the BSC to void clear, yellow urine without issue. No BM this shift. 20 G peripheral IV in the RT AC is patent and SL. VSS. Call light within reach. Will continue to monitor.
[2020-06-14] VITALS (9 sets, daily range): BP systolic 105–136; BP diastolic 58–79; PULSE 76–96; RESP 20–22; TEMP 36.4–37.1; O2SAT 94–98; BMI 34.2
--- NOTE | 2020-06-14 01:30 | PC.NURSE ---
Report received from [employer].
--- NOTE | 2020-06-14 03:15 | PC.NURSE ---
No acute changes. Pt has had some anxiety this shift that she feels was caused by breathing Tx. Pt was medicated per mar by previous nurse. Pt stated that it helped. Pt has been tachycardic this shift. Other VSS. Pt remains on 2L O2 NC. Call light within reach. No concerns at this time. Will continue to monitor.
[2020-06-14 07:41] LABS: Basophils % 0.4 % (0.1-2.0); Eosinophils # 0.1 K/mm3 (0.0-0.4); Eosinophils % 0.7 % (0.1-12.0); Hematocrit 35.4 % (37.0-47.0); Hemoglobin 11.5 g/dL (12.2-16.2); Lymphocytes # 2.9 K/mm3 (0.7-4.5); Lymphocytes % 27.3 % (10-50); Mean Corpuscular HGB Conc 32.6 g/dL (31.8-35.4); Mean Corpuscular Hemoglobin 29.2 pg (27.0-31.2); Mean Corpuscular Volume 89.8 fl (81-99); Mean Platelet Volume 7.8 fl (7.4-10.4); Monocytes # 0.6 K/mm3 (0.1-1.0); Monocytes % 5.4 % (1.7-9.3); Neutrophils # 6.9 K/mm3 (1.8-7.8); Neutrophils % 66.1 % (37.0-80.0); Platelet Count 269 K/mm3 (142-424); Red Blood Count 3.95 M/mm3 (4.20-5.40); Red Cell Distribution Width 14.6 % (11.5-17.5); White Blood Count 10.5 K/mm3 (4.8-10.8)
[2020-06-14 07:47] LABS: Chloride 95 mmol/L (98-107); Potassium 3.5 mmoL/L (3.5-5.1); Sodium 135 mmol/L (136-145)
[2020-06-14 07:50] LABS: Alanine Aminotransferase 12 U/L (12-78); Albumin Level 3.4 g/dl (3.5-5.0); Albumin/Globulin Ratio 1.2 (1.1-1.8); Alkaline Phosphatase 45 U/L (38-126); Anion Gap 9.5 mEq/L (5-15); Aspartate Amino Transferase 26 U/L (14-36); Bilirubin,Total 0.3 mg/dl (0.2-1.3); Blood Urea Nitrogen 23 mg/dl (7-17); Carbon Dioxide 34 mmol/L (22.0-30.0); Creatinine Clearance Estimated 53 mL/min (50-200); Estimated Glomerular Filt Rate 53 ml/min (>60); GFR (African American) 64 ML/MIN (>60); Globulin 2.9 g/dL (1.3-3.2); Total Protein,Serum 6.3 g/dl (6.3-8.2)
[2020-06-14 07:51] LABS: Glucose 117 mg/dl (74-100)
--- NOTE | 2020-06-14 08:31 | HMH.ACPN2 ---
Internal Medicine - PN: Subj *Date: 06/14/20 *Time: 08:31 Interval history: Patient rested comfortably last night, feels somewhat better this morning. Wearing oxygen. No distress when she is resting. Notes that she becomes dyspneic when she gets up and moves around the room and is very weak. Exam Vital signs and Labs for Last 24 Hours: Temp Pulse Resp BP Pulse Ox 98.5 F 96 H 20 122/79 96 06/14/20 08:00 06/14/20 08:00 06/14/20 08:00 06/14/20 08:00 06/14/20 08:00 Laboratory Results - last 24 hr 06/13/20 11:32: POC Glucose 122 H 06/14/20 07:08: WBC 10.5, RBC 3.95 L, Hgb 11.5 L, Hct 35.4 L, MCV 89.8, MCH 29.2, MCHC 32.6, RDW 14.6, Plt Count 269, MPV 7.8, Neut % (Auto) 66.1, Lymph % (Auto) 27.3, [place] % (Auto) 5.4, Eos % (Auto) 0.7, Baso % (Auto) 0.4, Neut # (Auto) 6.9, Lymph # (Auto) 2.9, [place] # (Auto) 0.6, Eos # (Auto) 0.1, Baso # (Auto) 0.0 06/14/20 07:08: Sodium 135 L, Potassium 3.5, Chloride 95 L, Carbon Dioxide 34 H, Anion Gap 9.5, BUN 23 H, Creatinine 1.00, Estimated Creat Clear 53, Estimated GFR 53 L, Est GFR ( Amer) 64, Glucose 117 H, Calcium 9.0, Total Bilirubin 0.3, AST 26, ALT 12, Alkaline Phosphatase 45, Total Protein 6.3, Albumin 3.4 L, Globulin 2.9, Albumin/Globulin Ratio 1.2 I & O for Last 24 hours: Intake & Output 06/11/20 06/12/20 06/13/20 06/14/20 11:59 11:59 11:59 11:59 Intake Total 865 / 865 780 / 780 Output Total 1350 / 1350 1900 / 1900 Balance -485 / -485 -1120 / -1120 Weight 168 lb 3 oz 170 lb 1 oz Narrative: Scattered rhonchi in both lung [place] but good air movement. Heart rate regular. No murmurs. Abdomen soft nontender. Neurologically intact. ENT exam clear. No rashes. 1+ edema to mid [place]. Assessment and Plan (1) CHF (congestive heart failure) Status: Acute Qualifiers: Heart failure type: unspecified Heart failure chronicity: acute on chronic Qualified Code(s): I50.9 - Heart failure, unspecified Category: Medical Code(s): I50.9 - Heart failure, unspecified (2) Pneumonia Status: Acute Qualifiers: Pneumonia type: due to unspecified organism Laterality: left Lung location: lower lobe of lung Qualified Code(s): J18.9 - Pneumonia, unspecified organism Category: Medical Code(s): J18.9 - Pneumonia, unspecified organism (3) Respiratory failure with hypoxia Status: Acute Qualifiers: Chronicity: acute on chronic Qualified Code(s): J96.21 - Acute and chronic respiratory failure with hypoxia Category: Medical Code(s): J96.91 - Respiratory failure, unspecified with hypoxia (4) CAD (coronary artery disease) Status: Chronic Qualifiers: Coronary Disease-Associated Artery/Lesion type: [place] artery [place] vs. transplanted heart: [place] heart Associated angina: with other forms of angina Qualified Code(s): I25.118 - Atherosclerotic heart disease of [place] coronary artery with other forms of angina pectoris Category: Medical Code(s): I25.10 - Atherosclerotic heart disease of [place] coronary artery without angina pectoris (5) HHD (hypertensive heart disease) Status: Chronic Qualifiers: Heart failure presence: without heart failure Qualified Code(s): I11.9 - Hypertensive heart disease without heart failure Category: Medical Code(s): I11.9 - Hypertensive heart disease without heart failure (6) Obstructive sleep apnea Status: Chronic Category: Medical Code(s): G47.33 - Obstructive sleep apnea (adult) (pediatric) - Assessment and plan all Dx Assessment and Plan for all problems:: Constellation of worsening hypoxia, worsening lung function. CT scan report reviewed. Pulmonary evaluation today, echocardiogram today. If these are reasonably acceptable may consider discharge this afternoon, would recommend home health evaluation for PT/OT/home safety/medical management.
--- NOTE | 2020-06-14 11:06 | HMH.PTEV ---
Physical Therapy Evaluation Rehab PT IP Evaluation Start: 06/14/20 10:03 Freq: ONCE Status: Active Protocol: Document 06/14/20 11:00 [facility]ENRY (Rec: 06/14/20 11:06 [facility]ENRY [id number]) Subjective/History History History Ms. Floyd is an 84yo white female with a history of CAD, [place], CABG, Coronary artery stenting, systolic CHF, HTN, HLP, OA, hypothyroidism, GERD, recent findings concerning for pulmonary hypertension, depression, and recurrent recent courses of steroids and antibiotics and admission approximately 6 months ago for similar presentation this admission. She sees Dr. Martinez for primary care in the outpatient setting. She presented to the ER last night due to worsening symptoms of feeling very sick . States she has had progressive dyspnea. Started on oxygen little over a week ago by pulmonology. Has had recent pulmonary function test showing asthma. Additionally has bifascicular block on her EKG on admission. Given findings on chest x-ray, elevated white count, and subjective fever, patient was admitted for concern for pneumonia versus CHF exacerbation versus other pulmonary process Subjective Subjective pt reports she has had falls at home and is scared of falling again - pt reports no known reaseon for falls other than weakness in legs and tripping Rehab PT IP Eval Objective Appearance Patient Behavior Appropriate,Cooperative Patient Orientation Person,Place,Time Difficulty following instructions none Speech Pattern Clear,Appropriate Ambulation Patient Able to Ambulate Yes Ambulation Observation IP General Gait Pattern Observation No Deviations/Normal Ambulation Distance (feet) 30 Ambulation Assistive Device
--- NOTE | 2020-06-14 11:30 | HMH.OTEV ---
OT Inpatient Evaluation Rehab OT IP Evaluation Start: 06/14/20 10:03 Freq: ONCE Status: Complete Protocol: Document 06/14/20 11:24 [facility] (Rec: 06/14/20 11:30 [facility] [id number]) Rehab OT IP Assessment Subjective History Pt oriented x 3 on arrival. Pt agreeable to engage in therapy evaluation. Pt was admitted via ED on 06/12/20 due to fatigue and SOB. Pt has a past medical history of CAD, [place], CABG, CHF, HTN, HLP, OA, Hypothyroidism, GERD, and pulmonary hypertension. Pt reports prior to hospital she lived at home with her . Pt claims she was independent with dressing, feeding, and sponge bathing. Pt did continue to cook small meals, but usually her of someone she hired would do the cleaning. Pt used a rollator at all times during ambulation. pt was on oxygen at all times at home. Subjective I just don't want exposure to everyone. Objective Patient Orientation Person,Place,Birthday Upper Extremity Gross ROM WFL Transfer Training Sit/Stand Transfer Assist Level Contact Guard/Hand Hold Lower Body Dressing Ability Standby Assistance Upper Body Dressing Ability Standby Assistance Rehab OT IP prob,goals,plan Problems Date of Evaluation: 06/14/20 OT IP Problems Bed Mobility,Transfers,Gait, Balance,Self care,Safety Rehab Potential Rehab Potential Good Equipment Needs Assistive Devices Rolling / Wheeled Walker Plan OT intervention Plan Bed Mobility,Transfers,Gait, Balance,Self care,Safety, Therapeutic Exercise OT Plan Frequency BID Duration LOS Discharge Goals Bed Mobility Ability Standby Assistance Sit to Stand Chair Transfer Ability Supervision/Stand by Chair Transfer Ability Supervision/Stand by Chair Transfer Technique Sit to/from Ambulatory Chair Transfer Assistive Devices Rolling Walker Self care skills fully toilet trained,dressing/ undressing independently,uses utensils to feed self F
--- NOTE | 2020-06-14 11:58 | CA_ITS ---
APPROVED REPORT EXAM: Comprehensive 2D, Doppler, and color-flow Echocardiogram Utilization Review Nurse: GILLES Carr, RVS Ht: 4 ft 11 in Wt: 168lbs BSA: 1.71 BP: 134/76 mmHg Indications: CHF, pneumonia, CABG Echo Enhancing Agent Comments: Technically difficult exam due to body habitus 2D Dimensions IVSd 1.05 cm LVEF (Visual) 66.60 % PWd 1.04 cm LA Volume 60.60 mL LVDd 4.73 cm LA Volume Index 35.40 mL/m2 (M/F) 16-34 LVDs 2.99 cm Aortic Root 3.12 cm Left Atrium 4.37 cm LVOT 1.94 cm (M/F) 1.5-2.5 M-Mode Dimensions LA Diam 4.92 cm (1.9-4.0) Ao Diam 3.23 cm (2.0-3.7) EPSs 0.40 cm LV Diastology E Decel Time 180.00 (160-240 msec) E/A Ratio 0.79 MED E' 6.40 (< 7 cm/sec) MED A' 8.40 cm/s E'/MED E' Ratio 13.34 (>14) LAT E' 8.90 (<10 cm/sec) LAT A' 4.70 cm/s E/LAT E' Ratio 9.60 (>14) Aortic Valve LVOT Max 102.00 (70-110 cm/s) LVOT VTI 19.71 cm AoV Peak Tino. 138.00 (50-130 cm/s) AO Peak GR. 7.70 mmHg AO Mean GR. 3.80 (<5 mmHg) AO VTI 25.24 (18-25 cm) BIMAL (VTI) 2.31 (2.5-4.5 cm2) Mitral Valve MV E Max Tino. 85.00 (40-130 cm/s) MV A Velocity 108.00 (40-130 cm/s) E/A Ratio 0.79 MV Decel. Time 180.00 (160-240 ms) MV PHT 53.00 ms Pulmonary Valve PV Peak Velocity 38.00 (50-150 cm/s) Tricuspid Valve TR P. Velocity 228.00 cm/s RAP Estimate 10.00 mmHg RVSP 30.80 mmHg Left Ventricle Technically difficult study because of the patient factors and poor acoustic windows. Left atrium is moderately enlarged, left ventricle is normal size, mild concentric left ventricular hypertrophy, visually estimated ejection fraction 55% with no regional wall motion abnormality, endocardial surfaces are poorly visualized, diastolic parameters are inconclusive. Right Ventricle Right atrium and right ventricle are mildly enlarged with normal contractility. Aortic Valve Aortic valve is minimally thickened and fibrosed, there is no aortic stenosis or aortic insufficiency. Mitral Valve Mitral valve is grossly normal, there is mild mitral regurgitation. Tricuspid Valve Tricuspid grossly normal, there is mild tricuspid regurgitation, tricuspid regurgitation jet velocity is inadequate for calculation of the right ventricular systolic pressure. Pulmonic Valve Mitral valve is poorly visualized. Great Vessels Aortic root is normal size. Pericardium No significant pericardial effusion noted. Conclusion 1. Biatrial enlargement, normal left ventricular size, preserved left ventricular systolic function, visually estimated ejection fraction 55% with no regional wall motion abnormality, diastolic parameters are inconclusive. 2. Mildly enlarged right ventricle with normal contractility. 3. Mild mitral and tricuspid regurgitation. 4. No significant pericardial effusion noted. Electronically signed by : Lorenzo Hernandes, 06/14/2020 10:22:59
--- NOTE | 2020-06-14 13:01 | HMH.PULMCON ---
*Admission Date: 06/12/20 *Reason for consult:: COPD *History of present illness: Plan Ms. Floyd is a 84-year-old female never smoker recently presented to the pulmonary clinic complaining of multiple problems which include sore throat, chronic cough, shortness of breath, fatigue, frequent chills,feves, balance issues and urinary tract infections presented to ER complaining of worsening fatigue and shortness of breath.. Patient also complains of urinary tract infections. Denies any fevers or chills or worsening productive phlegm. Patient stopped using her Advair inhaler as she thought her urinary tract infection is a complication from her Advair inhaler. [facility] History Medical History: Reports:: Anxiety, Congestive Heart Failure, Coronary Artery Disease, Depression, Gastroesophageal Reflux Disease(GERD), Hyperlipidemia, Hypertension, Migraine, Myocardial Infarction Denies:: Cancer, Diabetes Mellitus Type 1, Diabetes Mellitus Type 2, Internal Pacemaker, MRSA, Seizures *Have you ever received a pneumonia vaccine?: Yes *Have you received a flu vaccine this season?: Yes Other Medical History: Reports: Anemia, Arthritis, Hypothyroidism, Thyroid Disease Laterality Cases: Right: Total Knee Replacement, Other Other Surgeries: Yes: Appendectomy, Bariatric Surgery, CABG, Cardiac Catheterization, Cholecystectomy, Coronary Stent, Hysterectomy-Total, Open Heart Surgery, Tubal Ligation, Other. No: Pacemaker Amputation: No Fractures: Yes (right ankle) - *Social History Last grade of school completed: High school graduate Smoking Status: Never smoker Tobacco Type: cigarettes # Packs/Day (cigarettes): 1 Alcohol Intake: never Alcohol Intake Frequency:: other Substance Use Type: denies use *Occupational Status:: retired Housing: apartment Household Members: spouse *Travel in the last 8 weeks: None - Psychiatric History Pschychiatric History:: Reports:: Anxiety, Depression Family Hx:: No significant family history ROS - Cons Reports anorexia, Reports body ache(s), Reports chills, Reports fatigue, Reports weight loss - Card Reports shortness of breath, Reports shortness of breath with activity - Resp Respiratory: Reports non-productive cough, Reports dyspnea on exertion, Denies excessive phlegm production, Reports cough with sputum production - GI Gastrointestingal: Denies: abdominal pain Meds Home Medications Medication Instructions Recorded Confirmed Type lorazepam 1 mg tablet 1 mg PO TIDP PRN tab 09/26/17 06/12/20 History melatonin 10 mg tablet 10 mg PO HS 09/26/17 06/12/20 History pantoprazole 40 mg tablet,delayed 40 mg PO DAILY tab 09/26/17 06/12/20 History release Aspirin [Aspirin 81mg chewable 81 mg PO DAILY 07/01/18 06/12/20 History tab] Levothyroxine Sodium 75 mcg PO DAILY 05/26/19 06/12/20 History [Levothyroxine 75mcg (0.075mg) Tab] rosuvastatin 5 mg tablet 5 mg PO DAILY #90 tab 08/20/19 06/12/20 Rx meclizine 25 mg tablet 25 mg PO TIDP PRN tab 10/28/19 06/12/20 History Nitroglycerin 0.4 mg SL Q5MINP PRN 12/12/19 06/12/20 History isosorbide mononitrate 60 mg 30 mg PO BID #90 tab 12/16/19 06/12/20 Rx tablet,extended release 24 hr Clopidogrel Bisulfate [Plavix] 75 mg PO DAILY 06/12/20 06/13/20 History Furosemide [Furosemide 20mg Tab*] 20 mg PO DAILY 06/12/20 06/12/20 History Metoprolol Succinate [Metoprolol 25 mg PO DAILY 06/12/20 06/12/20 History Succinate 25mg Tablet*] Potassium Chloride [K-Tab ER 10 10 meq PO DAILY 06/12/20 06/12/20 History mEq] Albuterol Sulfate [Ventolin HFA 1 - 2 puffs IH QID 06/13/20 06/13/20 History Inhaler] Fluticasone Propion/Salmeterol 1 puff IH BID 06/13/20 06/13/20 History [Fluticasone-Salmeterol 100-50] Allergies Allergy/AdvReac Type Severity Reaction Status Date / Time carisoprodol [From [facility]] Allergy Intermediate itching Verified 06/12/20 18:35 meperidine Allergy Intermediate itching Verified 06/12/20 18:35 Sulfa (Sulfonamide Allergy Intermediate itchin
--- NOTE | 2020-06-14 13:36 | HMH.DCSUM ---
General - General Admission date:: 06/12/20 Discharge date: 06/14/20 HPI HPI: Ms. Floyd is an 84yo white female with a history of CAD, NV, CABG, Coronary artery stenting, systolic CHF, HTN, HLP, OA, hypothyroidism, GERD, recent findings concerning for pulmonary hypertension, depression, and recurrent recent courses of steroids and antibiotics and admission approximately 6 months ago for similar presentation this admission. She sees Dr. Martinez for primary care in the outpatient setting. She presented to the ER last night due to worsening symptoms of feeling very sick . States she has had progressive dyspnea. Started on oxygen little over a week ago by pulmonology. Has had recent pulmonary function test showing asthma. Additionally has bifascicular block on her EKG on admission. Given findings on chest x-ray, elevated white count, and subjective fever, patient was admitted for concern for pneumonia versus CHF exacerbation versus other pulmonary process. On interview this morning she states she feels somewhat better but gives a long history of her protracted course for the past year with unclear answer from cardiology, pulmonology, her primary care as to what is going on with her lungs and her breathing. Remains mildly tachycardic this morning. Afebrile and normotensive. Reviewed labs, white cell count somewhat improved. As her BNP was elevated, received a dose of Lasix and initial dose of azithromycin and ceftriaxone. Increased her home dose of Lasix to 40 mg orally which she will receive this morning. Continued antibiotics for the time being. Sputum cultures obtained Hospital Course Hospital Course: Patient was admitted, plan as executed in HPI noted. Patient did well with antibiotics and steroids. CT scan of chest showed scattered/patchy groundglass infiltrates but no evidence of lobar pneumonia. No evidence of pulmonary embolism or cardiac enlargement, and echocardiogram also showed no significant evidence of pulmonary hypertension. Pulmonary consultation obtained, appreciated-recommended de-escalating antibiotics to Levaquin, home on steroids and oxygen, follow-up with pulmonary in 1 week. Please see discharge medicine list for details. PT and OT evaluated patient. They recommended home health evaluation for PT and OT. Based on my saqa-ax-kwog examination today of her weakness, dyspnea and difficult ambulatory status I have recommended physical therapy/OT/home safety/medicine evaluation but via home health service. Objective Vital signs: Temp Pulse Resp BP Pulse Ox 98.7 F 84 20 131/77 98 06/14/20 11:47 06/14/20 13:10 06/14/20 13:10 06/14/20 11:47 06/14/20 12:55 mild distress - *Routine HEENT Exam Head: Present: normocephalic Eye: Present: EOMI, PERRL ENT: Present: mucous membranes moist - *Routine Neck Exam Present: supple - *Routine Respiratory Exam Present: rales, rhonchi Comments: Air movement is symmetric bilaterally, patchy rhonchi but good air movement - *Routine Cardiovascular Exam Present: RRR - *Routine Abdominal Exam Present: soft, normoactive bowel sounds. Absent: tenderness - *Routine Extremities Exam Absent: cyanosis, clubbing, edema - *Routine Skin Exam Present: warm. Absent: rash - Detailed Eye Exam Eyelids: Bilateral normal inspection Results Labs on day of discharge: Labs from last 24 hours 06/14/20 06/14/20 07:08 07:08 WBC 10.5 RBC 3.95 L Hgb 11.5 L Hct 35.4 L MCV 89.8 MCH 29.2 MCHC 32.6 RDW 14.6 Plt Count 269 MPV 7.8 Neut % (Auto) 66.1 Lymph % (Auto) 27.3 Roosevelt % (Auto) 5.4 Eos % (Auto) 0.7 Baso % (Auto) 0.4 Neut # (Auto) 6.9 Lymph # (Auto) 2.9 Roosevelt # (Auto) 0.6 Eos # (Auto) 0.1 Baso # (Auto) 0.0 Sodium 135 L Potassium 3.5 Chloride 95 L Carbon Dioxide 34 H Anion Gap 9.5 BUN 23 H Creatinine 1.00 Estimated Creat Clear 53 Estimated GFR 53 L Est GFR
[2020-06-14 14:11] LABS: Adenovirus,PCR Not Detected (NotDetected); Bordetella Pertussis Not Detected (NotDetected); Chlamydophila Pneumoniae, PCR Not Detected (NotDetected); Coronavirus 229E Not Detected (NotDetected); Coronavirus NL63 Not Detected (NotDetected); Coronavirus OC43 Not Detected (NotDetected); Coronovirus HKU1,PCR Not Detected (NotDetected); Human Metapneumovirus Not Detected (NotDetected); Influenza A, PCR Not Detected (NotDetected); Influenza AH1, 2009 Not Detected (NotDetected); Influenza AH1, PCR Not Detected (NotDetected); Influenza AH3,PCR Not Detected (NotDetected); Influenza B, PCR Not Detected (NotDetected); Mycoplasma Pneumoniae, PCR Not Detected (NotDetected); Parainfluenza 1, PCR Not Detected (NotDetected); Parainfluenza 2, PCR Not Detected (NotDetected); Parainfluenza 3, PCR Not Detected (NotDetected); Parainfluenza 4, PCR Not Detected (NotDetected); Respiratory Syncytial Virus Not Detected (NotDetected); Rhinovirus/Enterovirus Not Detected (NotDetected)
--- NOTE | 2020-06-14 14:14 | PC.NURSE ---
1400 pt started to c/o of chest pain. Pt does have notable anxiety. Pt requested to have a nitro out of purse, this RN got VS and they are 151/74, HR 109, 99% on 2 L and RR 28. This RN obtained stat EKG and it showed ST with a R BBB. Dr. Hsieh also ordered 0.5 mg IV ativan. Have given as ordered and pt states pain is calming down at this time.
--- NOTE | 2020-06-14 14:15 | ECG_ITS ---
APPROVED REPORT Exam: Resting ECG HR:108 bpm ECG Measurements Heart Rate 108 AXES IN 134 P 18 QRSd 116 QRS -32 QT 378 T -6 QTc 506 Conclusion Sinus tachycardia Left axis deviation Right bundle branch block Abnormal ECG Electronically signed by : Reagan Hsieh, 06/16/2020 17:37:23
--- NOTE | 2020-06-14 14:41 | PC.NURSE ---
Dr. Hsieh made aware of EKG results and wants to recheck pt in one hour.
--- NOTE | 2020-06-14 16:32 | PC.NURSE ---
Verified after pt's episode of anxiety that Dr. Hsieh still wanted to to dc and he did. Pt was d/cd home at approx 1600.
[2020-06-15 13:10] LABS: Body Fluid Culture, Sterile Not indicated. (.); Organism ID Not indicated. (.); Specimen Source Urine (.); Streptococcus pneumoniae Ag Negative (Negative)
[2020-06-15 17:06] LABS: Legionella pneumophila Urinary Negative (Negative)
== END 2020-06-14 16:00 | disposition home health service (06) ==
LOC: ER 16:30 → 2ND 16:37
PROVIDERS: Internal Medicine Pulmonary Disease; Admitting Provider Internal Medicine Adolescent Medicine; Emergency Provider Emergency Medicine; PCP Internal Medicine; Visit Provider Internal Medicine Adolescent Medicine
DX: I11.0 Hypertensive heart disease with heart failure (principal); I50.23 Acute on chronic systolic (congestive) heart failure; J18.9 Pneumonia, unspecified organism; I25.10 Atherosclerotic heart disease of native coronary artery without angina pectoris; I25.2 Old myocardial infarction; Z95.1 Presence of aortocoronary bypass graft; Z95.0 Presence of cardiac pacemaker; E78.5 Hyperlipidemia, unspecified; J96.21 Acute and chronic respiratory failure with hypoxia; G47.33 Obstructive sleep apnea (adult) (pediatric); E03.9 Hypothyroidism, unspecified; Z88.2 Allergy status to sulfonamides; Z88.8 Allergy status to other drugs, medicaments and biological substances; Z79.02 Long term (current) use of antithrombotics/antiplatelets; Z79.51 Long term (current) use of inhaled steroids
CPT/HCPCS: 71045; 71270; 80048; 80053; 81001; 82803; 82962; 83605; 83880; 84145; 84484; 85007; 85025; 87040; 87486; 87581; 87633; 87798; 87899; 93005; 93306; 94640; 94760; 96365; 96367; 96375; 97110; 97116; 97161; 97166; 99284; G0378; J0456; Q9967; U0003

== ENCOUNTER → 2020-06-21 11:54 | Outpatient (CLI) | payer MEDICARE, OTHER, SELFPAY ==
--- NOTE | 2020-06-21 | CA_ITS ---
APPROVED REPORT Exam: Pharmacologic Technologist: Louisa Heller, Ht: 5 ft 0 in Wt: 172 lbs BSA: 1.75 m2 HR: 74 bpm BP: 122/68 mmHg Medical History Medical History: HTN, Hyperlipidemia Medications: Levothyroxine,,,,, Aspirin,,,,, Metoprolol,,,,, Albuterol,,,,, ADVAIR,,,,, Meclazine,,,,, CloPIdogrel,,,,, Nitroglycerin,,,,, MeLATONIN,,,,, IsosoBIDE,,,,, LorEAZEPAM,,,,, MonONITRATE,,,,, Stress Test Details Test: LEXISCAN HR Resting HR: 74 bpm Max Heart Rate (APMHR): 138 bpm Max HR Achieved: 99 bpm Target HR (85% APMHR): 117 bpm % of APMHR: 71 Recovery HR: 96 bpm BP Resting BP: 122/68 mmHg Max BP: 122/68 mmHg Recovery BP: 75.0/40.0 mmHg ECG Clinical Exercise duration: 04:17 min Highest Stage Achieved: Stress ECG Conclusion During lexiscan pt experinced SOA, chest pressure, nausea, and jaw pain. Arrthymias/ectopy: none. <1.5mm ST segment changes. Electronically signed by : Lorenzo Hernandes, 06/21/2020 19:20:12
--- NOTE | 2020-06-21 11:55 | NM_ITS ---
APPROVED REPORT Exam: Nuclear Stress Test Indication: Chest pain, Angina, SOB, Palpitaitons, Syncope, HTN, High cholesterol, CABG, CAD Patient Location: Outpatient Stress Tech: Chanell Quiroga NM Tech:Jaky Ames, ARRT, RT (R)(N) Ht: 4 ft 11 in Wt: 170 lbs Bra Size: DD HR: 74 bpm BP: 122/68 mmHg BSA: 1.72 m2 BMI: 34.3 History: Chest pain, Angina, SOB, Palpitaitons, Syncope, HTN, High cholesterol, CABG, CAD Procedure: Patient received a 0.4 mg of intravenous Lexiscan, resting heart rate 74 bpm, resting blood pressure 122/68 mmHg, with Lexiscan maximum heart rate achived was 92 bpm which is Less than 85 % of the maximum predicted heart rate and blood pressure was 72/40 mmHg. Electrocardiogram Resting electrocardiogram showed sinus rhythm right bundle branch block, with Lexiscan there is less than 1.[address] segment depression noted from the baseline EKG. The EKG portion of the Lexiscan is nondiagnostic. Cardiac Stress and Resting SPECT Images: Cardiac Stress and Resting SPECT images were obtained using technetium 99m Myoview 30.8 mCi stress and 10.01 mCi at rest. Patient was unable to roll over on stomach for the prone images do to limited mobility. Gated SPECT for analysis of segmental wall motion and calculation of the ejection fraction also done. Cardiac stress and resting SPECT images show uniform myocardial activity without segmental perfusion abnormality, computer derived ejection fraction is 56% with no regional wall motion abnormality, right ventricle is normal size and contractility. Conclusion: 1. The EKG portion of the Lexiscan is nondiagnostic. 2. No scintigraphic evidence of reversible ischemia seen, computer derived ejection fraction is 56% with no regional wall motion abnormality, right ventricle is normal size and contractility. 3. Normal Lexiscan Myoview study. Electronically signed by : Lorenzo Hernandes, 06/21/2020 19:28:12
--- NOTE | 2020-06-21 13:52 | HMH.ITSHM ---
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 []FUROSEMIDE POTASSIUM FLUTICASONE ALBUTEROL LEVAQUIN PREDNISONE PROTONIX LORAZEPAM ASA LEVOTHYROXINE MECLIZINE NITRO ISOSORBIDE METOPROLOL PLAVIX
== END ==
PROVIDERS: PCP Internal Medicine; Visit Provider Physician Assistant
DX: I11.9 Hypertensive heart disease without heart failure; I25.118 Atherosclerotic heart disease of native coronary artery with other forms of angina pectoris; Z95.1 Presence of aortocoronary bypass graft; E78.49 Other hyperlipidemia
CPT/HCPCS: 78452; 93017; A9502; J2785

== ENCOUNTER 2020-06-22 14:56 | Observation (INO) | payer MEDICARE, OTHER, SELFPAY ==
[2020-06-22] VITALS (26 sets, daily range): BP systolic 74–163; BP diastolic 33–73; PULSE 68–86; RESP 12–24; TEMP 36.4–36.6; O2SAT 94–100; BMI 39.8; BMI 28.8
--- NOTE | 2020-06-22 15:00 | ECG_ITS ---
APPROVED REPORT Exam: Resting ECG HR:88 bpm ECG Measurements Heart Rate 88 AXES WV 134 P 21 QRSd 114 QRS -25 QT 370 T 0 QTc 447 Conclusion Normal sinus rhythm Right bundle branch block Minimal voltage criteria for LVH, may be normal variant Possible Lateral infarct, age undetermined Inferior infarct, age undetermined Abnormal ECG Electronically signed by : Reagan Hsieh, 06/24/2020 21:24:24
--- NOTE | 2020-06-22 15:06 | HMH.EDGENADL ---
ED Disposition Clinical Impression: Hypotension Qualifiers: Hypotension type: unspecified hypotension type Qualified Code(s): I95.9 - Hypotension, unspecified Chest pain Qualifiers: Chest pain type: unspecified Qualified Code(s): R07.9 - Chest pain, unspecified Disposition: Admitted as Observation Condition on Discharge: Fair - Critical Care Critical Care Time: Yes Attestation: On , the high probability of a clinically significant, sudden or life threatening deterioration of the following system(s) required my full and direct attention, intervention and personal management. The time I documented below is in addition to time spent performing reported procedures but includes the following listed in this critical care notation. Total Critical Care Time: 45 Vital system(s) involved:: Circulatory Failure My critical care processes included: Assessment & monitoring of V/S, Initial and Re-exams, Data Review/Interpretation, Coordinating Care, Medication Orders and management, Documentation Medical Decision Making - Medical Records Medical records reviewed: Yes: I reviewed the patient's medical records. MR Comment: Reviewed results of recent Lexiscan Myoview, echocardiogram, and CT scan of chest with and without contrast. See below. Reviewed most recent heart cath result, see below. Reviewed most recent cardiology office visits 06/01/2020 and today. Patient also had been admitted on 06/12/2020 through 06/14/2020 for congestive heart failure and pneumonia. Reviewed discharge summary. Noted that she has been seeing pulmonary and was started on oxygen about a week prior to that admission. - Robert Inquiry Pt receiving controlled substance: No Vital Signs: 06/22/20 14:57 06/22/20 15:42 06/22/20 15:49 Temperature 97.6 F Temperature Source Oral Pulse Rate 72 74 Pulse Rate [Left Radial] 72 Respiratory Rate 18 13 13 Blood Pressure 108/69 L 78/57 L Blood Pressure [Right Arm] 163/73 H Blood Pressure Mean 82 64 Blood Pressure Mean [Right Arm] 103 Blood Pressure Source [Right Arm] Automatic Cuff Blood Pressure Position Sitting Sitting Blood Pressure Position [Right Arm] Sitting 02 Sat by Pulse Oximetry 96 97 97 Oxygen Delivery Method Room Air Nasal Cannula Oxygen Flow Rate (LPM) 06/22/20 15:53 06/22/20 15:55 06/22/20 16:00 Temperature Temperature Source Pulse Rate 81 78 78 Pulse Rate [Left Radial] Respiratory Rate 19 Blood Pressure 90/56 L 99/60 L 91/52 L Blood Pressure [Right Arm] Blood Pressure Mean 69 76 74 Blood Pressure Mean [Right Arm] Blood Pressure Source [Right Arm] Blood Pressure Position Sitting Blood Pressure Position [Right Arm] 02 Sat by Pulse Oximetry 95 94 L 96 Oxygen Delivery Method Oxygen Flow Rate (LPM) 06/22/20 16:02 06/22/20 16:05 06/22/20 16:06 Temperature Temperature Source Pulse Rate 73 73 76 Pulse Rate [Left Radial] Respiratory Rate 22 18 Blood Pressure 90/49 L 100/53 L 100/53 L Blood Pressure [Right Arm] Blood Pressure Mean 62 71 Blood Pressure Mean [Right Arm] Blood Pressure Source [Right Arm] Blood Pressure Position Sitting Blood Pressure Position [Right Arm] 02 Sat by Pulse Oximetry 97 98 96 Oxygen Delivery Method Nasal Cannula Oxygen Flow Rate (LPM) 2 06/22/20 16:19 06/22/20 16:30 06/22/20 16:32 Temperature Temperature Source Pulse Rate 76 77 Pulse Rate [Left Radial] Respiratory Rate 18 18 19 Blood Pressure 92/56 L 87/51 L 88/54 L Blood Pressure [Right Arm] Blood Pressure Mean 64 59 67 Blood Pressure Mean [Right Arm] Blood Pressure Source [Right Arm] Blood Pressure Position Blood Pressure Position [Right Arm] 02 Sat by Pulse Oximetry 100 99 99 Oxygen Delivery Method Oxygen Flow Rate (LPM) 06/22/20 16:33 06/22/20 16:38 06/22/20 16:39 Temperature Temperature Source Pulse Rate 78 Pulse Rate [Left Radial] Respiratory Rate 12 12 Blood Pressure
--- NOTE | 2020-06-22 15:15 | XR_ITS ---
PROCEDURE: XR CHEST PORTABLE CLINICAL HISTORY: CP COMPARISON: CR XR CHEST PORTABLE from 01/30/2020 CR XR CHEST 2V from 05/11/2020 CR XR CHEST PORTABLE from 06/12/[address] CHEST WO/W CON from 06/13/2020 FINDINGS: Prior median sternotomy. There are low lung volumes with left basilar atelectasis. The remaining lungs are clear. No acute bony abnormalities. IMPRESSION: Left basilar atelectasis not significantly changed Dictated by: Raul Tabor MD 06/22/2020 16:11 Raul Tabor MD in OV 06/22/2020 16:11
[2020-06-22 15:25] LABS: Chloride 91 mmol/L (98-107)
[2020-06-22 15:26] LABS: Potassium 4.5 mmoL/L (3.5-5.1); Sodium 132 mmol/L (136-145)
[2020-06-22 15:27] LABS: Basophils # 0.1 K/mm3 (0-0.2); Basophils % 0.3 % (0.1-2.0); Eosinophils # 0.3 K/mm3 (0.0-0.4); Eosinophils % 1.8 % (0.1-12.0); Hematocrit 42.3 % (37.0-47.0); Hemoglobin 13.6 g/dL (12.2-16.2); Lymphocytes # 2.9 K/mm3 (0.7-4.5); Lymphocytes % 15.6 % (10-50); Mean Corpuscular HGB Conc 32.2 g/dL (31.8-35.4); Mean Corpuscular Hemoglobin 28.9 pg (27.0-31.2); Mean Corpuscular Volume 89.7 fl (81-99); Mean Platelet Volume 7.8 fl (7.4-10.4); Monocytes # 0.6 K/mm3 (0.1-1.0); Monocytes % 3.1 % (1.7-9.3); Neutrophils # 14.8 K/mm3 (1.8-7.8); Neutrophils % 79.2 % (37.0-80.0); Platelet Count 314 K/mm3 (142-424); Red Blood Count 4.71 M/mm3 (4.20-5.40); Red Cell Distribution Width 14.9 % (11.5-17.5); White Blood Count 18.7 K/mm3 (4.8-10.8)
[2020-06-22 15:29] LABS: Anion Gap 10.5 mEq/L (5-15); Blood Urea Nitrogen 27 mg/dl (7-17); Calcium 9.5 mg/dl (8.4-10.2); Carbon Dioxide 35 mmol/L (22.0-30.0); Creatinine Clearance Estimated 70 mL/min (50-200); Estimated Glomerular Filt Rate 53 ml/min (>60); GFR (African American) 64 ML/MIN (>60); Glucose 117 mg/dl (74-100); MANUAL DIFFERENTIAL MANUAL DIFFERENTIAL (MANUAL DIFF)
--- NOTE | 2020-06-22 15:31 | PC.NURSE ---
Rad at bedside.
[2020-06-22 15:41] LABS: Troponin I 0.02 ng/ml (0.00-0.034)
[2020-06-22 15:47] LABS: Eosinophils % 2 % (0-3); Lymphocytes % 10 % (10-50); Monocytes % 4 % (2-9); Neutrophils % 76 % (42-76); Platelet Estimate Normal; RBC Morphology Normal; Total Cells Counted 100
[2020-06-22 18:55] LABS: Troponin I 0.02 ng/ml (0.00-0.034)
--- NOTE | 2020-06-22 19:58 | PC.NURSE ---
patient started complain of chest pain. Repeat EKG ordered by dr. boyle and has been completed.
--- NOTE | 2020-06-22 19:58 | ECG_ITS ---
APPROVED REPORT Exam: Resting ECG HR:68 bpm ECG Measurements Heart Rate 68 AXES CA 130 P 14 QRSd 126 QRS -25 QT 410 T -14 QTc 435 Conclusion Normal sinus rhythm Right bundle branch block Moderate voltage criteria for LVH, may be normal variant Lateral infarct, age undetermined Abnormal ECG Electronically signed by : Reagan Hsieh, 06/24/2020 21:22:28
[2020-06-22 19:59] LABS: Lactic Acid 1.2 mmol/L (0.7-2.1)
--- NOTE | 2020-06-22 20:27 | HMH.HP ---
*Admission Date: 06/22/20 *Chief complaint: chest pain *History of present illness: this pt presented to the ed with chest pain - pt with recent admit and was seen by card but had persistent chest pain and had low bp -e patient is sent from Dr. Martinez's office. She developed chest pain while in their office, approximately 10 minutes ago. She says she needed a nitroglycerin, but they would not give her 1 in the office, they told her she needed to come to the emergency room to get one. She did not have her nitroglycerin with her. She says this pain is typical of her angina for which she takes nitroglycerin. Says she has been having increased episodes of angina over the past 3 weeks. Associated with shortness of breath, nausea and vomiting. Denies diaphoresis. States that her chest pain is almost completely gone, it just hurts in her ears. She just has a mild heaviness in her chest, however says she still feels like she could use a nitroglycerin. She just had a stress test yesterday for evaluation of recent chest pain, had follow-up with cardiology today in the office prior to seeing Dr. Martinez. She has recently been on prednisone prescribed at discharge from recent admission. Last taken yesterday. Says she is now finished with her prednisone. pt admitted at this time [facility] History I have reviewed the patient's past medical history: Yes Medical History: Reports:: Anxiety, Congestive Heart Failure, Coronary Artery Disease, Depression, Gastroesophageal Reflux Disease(GERD), Hyperlipidemia, Hypertension, Migraine, Myocardial Infarction Denies:: Cancer, Diabetes Mellitus Type 1, Diabetes Mellitus Type 2, Internal Pacemaker, MRSA, Seizures *Have you ever received a pneumonia vaccine?: No *Have you received a flu vaccine this season?: No Other Medical History: Reports: Anemia, Arthritis, Hypothyroidism, Thyroid Disease Laterality Cases: Right: Other Other Surgeries: Yes: Appendectomy, Bariatric Surgery, CABG, Cardiac Catheterization, Cholecystectomy, Coronary Stent, Hysterectomy-Total, Open Heart Surgery, Tubal Ligation, Other. No: Pacemaker Amputation: No Fractures: Yes (right ankle) - *Social History Smoking Status: Never smoker Tobacco Type: cigarettes # Packs/Day (cigarettes): 1 Alcohol Intake: never Alcohol Intake Frequency:: other Substance Use Type: denies use *Occupational Status:: retired Housing: apartment Household Members: spouse *Travel in the last 8 weeks: None - Psychiatric History Pschychiatric History:: Reports:: Anxiety, Depression Family Hx:: No significant family history Review of Systems - Review of Systems Review of systems:: pertinent systems reviewed and negative unless documented below - Constitutional Denies fever(s) - Eyes Denies change in vision - ENT Denies headache(s) - *Cardiovascular Reports chest pain, Reports shortness of breath - *Respiratory Denies cough - *Gastrointestinal Denies abdominal pain - *Genitourinary Denies blood in urine - *Musculoskeletal Denies joint pain - Integumentary/Breasts Denies rash - *Neurologic Denies localized weakness, Denies headache(s), Denies seizure-like activity - Psychiatric Denies depression Meds Home Medications Medication Instructions Recorded Confirmed Type lorazepam 1 mg tablet 1 mg PO TIDP PRN tab 09/26/17 06/22/20 History melatonin 10 mg tablet 10 mg PO HS 09/26/17 06/22/20 History pantoprazole 40 mg tablet,delayed 40 mg PO DAILY tab 09/26/17 06/22/20 History release Aspirin [Aspirin 81mg chewable 81 mg PO DAILY 07/01/18 06/22/20 History tab] Levothyroxine Sodium 75 mcg PO DAILY 05/26/19 06/22/20 History [Levothyroxine 75mcg (0.075mg) Tab] rosuvastatin 5 mg tablet 5 mg PO DAILY #90 tab 08/20/19 06/23/20 Rx meclizine 25 mg tablet 25 mg PO TIDP PRN tab 10/28/19 06/22/20 History Nitroglycerin 0.4 mg SL Q5MINP PRN 12/12/19 06/22/20 History isosorbide mononitrate 60 mg 30 mg PO BID #90 tab 12/16/19 06/22/20 Rx
[2020-06-22 20:54] LABS: Adenovirus,PCR Not Detected (NotDetected); Bordetella Pertussis Not Detected (NotDetected); Chlamydophila Pneumoniae, PCR Not Detected (NotDetected); Coronavirus 19, PCR Not Detected (NotDetected); Coronavirus 229E Not Detected (NotDetected); Coronavirus NL63 Not Detected (NotDetected); Coronavirus OC43 Not Detected (NotDetected); Coronovirus HKU1,PCR Not Detected (NotDetected); Human Metapneumovirus Not Detected (NotDetected); Influenza A, PCR Not Detected (NotDetected); Influenza AH1, 2009 Not Detected (NotDetected); Influenza AH1, PCR Not Detected (NotDetected); Influenza AH3,PCR Not Detected (NotDetected); Influenza B, PCR Not Detected (NotDetected); Mycoplasma Pneumoniae, PCR Not Detected (NotDetected); Parainfluenza 1, PCR Not Detected (NotDetected); Parainfluenza 2, PCR Not Detected (NotDetected); Parainfluenza 3, PCR Not Detected (NotDetected); Parainfluenza 4, PCR Not Detected (NotDetected); Respiratory Syncytial Virus Not Detected (NotDetected); Rhinovirus/Enterovirus Not Detected (NotDetected)
[2020-06-22 21:26] LABS: Microscopic, Urine URINE MICROSCOPIC (MICROSCOPIC)
[2020-06-22 21:28] LABS: Appearance,Urine SL CLOUDY (Clear); Bilirubin,Urine Negative (Negative); Blood, Urine Negative (Negative); Color,Urine YELLOW (Yellow); Glucose,Urine (UA) Negative (Negative); Ketones,Urine Negative (Negative); Leukocyte Esterase,Urine TRACE (Negative); Nitrate,Urine Negative (Negative); Protein,Urine Negative (Negative); Specific Gravity, Urine 1.015 (1.005-1.030); Urobilinogen,Urine 0.2 EU/dl (0.2)
--- NOTE | 2020-06-22 21:35 | PC.NURSE ---
patient up to floor at 21:00.
[2020-06-22 21:37] LABS: RBC,Urine Occasional #/hpf (0-3)
[2020-06-22 21:38] LABS: Bacteria,Urine Trace /lpf
[2020-06-22 21:50] LABS: Troponin I 0.02 ng/ml (0.00-0.034)
[2020-06-22 22:09] LABS: Lipase 522 U/L (23-300)
[2020-06-23] VITALS (7 sets, daily range): BP systolic 95–127; BP diastolic 54–71; PULSE 63–100; RESP 16–20; TEMP 36.4–36.6; O2SAT 88–100; BMI 29.1
--- NOTE | 2020-06-23 03:48 | PC.NURSE ---
No acute changes since pt has arrived to floor. Pt has not c/o any CP or any other discomfort. VSS. Pt is currently on O2 2L NC. Pt states she is on 2L at home. Pt has ambulated to BR with assist x1. Pt tolerated fair. Call light within reach. No other concerns. Will continue to monitor.
--- NOTE | 2020-06-23 07:10 | P.CONPHA_ITS ---
[facility] Pharmacy VTE Monitoring - Patient Demographics Admission date: 06/22/20 Report Date: 06/23/20 Time: 07:10 Allergies/Adverse Reactions: Patient Allergies carisoprodol [From Soma] Allergy (Intermediate, Verified 06/22/20 13:41) itching meperidine Allergy (Intermediate, Verified 06/22/20 13:41) itching Sulfa (Sulfonamide Antibiotics) Allergy (Intermediate, Verified 06/22/20 13:41) itching trimethoprim Allergy (Intermediate, Verified 06/22/20 13:41) stomach atorvastatin [From Lipitor] Adverse Reaction (Intermediate, Verified 06/22/20 13:41) stomach Height: 1.6 m Weight: 74.531 kg Patient Problems: Current Active Problems Hypotension (Acute) Chest pain (Acute) - VTE Risk Labs: VTE Related Lab Results Hgb 13.6 g/dL (12.2-16.2) 06/22/20 15:10 Hct 42.3 % (37.0-47.0) 06/22/20 15:10 Plt Count 314 K/mm3 (142-424) 06/22/20 15:10 BUN 27 mg/dl (7-17) H 06/22/20 15:10 Creatinine 1.00 mg/dl (0.52-1.04) 06/22/20 15:10 Estimated Creat Clear 70 mL/min (50-200) 06/22/20 15:10 VTE Score: 9 VTE Risk Level: Moderate Risk - Prophylaxis VTE Prophylaxis Ordered?: Yes Types of VTE Prophylaxis: TEDS Knee High Location of Applied Device: Bilateral Lower Extremeties
--- NOTE | 2020-06-23 07:28 | HMH.PHAINT ---
MEDICATION RECONCILIATION COMPLETED USING EXTERNAL FILL HISTORY AND RECENT DISCHARGE SUMMARY
[2020-06-23 07:45] LABS: Basophils % 0.5 % (0.1-2.0); Eosinophils # 0.3 K/mm3 (0.0-0.4); Eosinophils % 4.8 % (0.1-12.0); Hematocrit 38.2 % (37.0-47.0); Lymphocytes % 30.6 % (10-50); Mean Corpuscular HGB Conc 31.6 g/dL (31.8-35.4); Mean Corpuscular Hemoglobin 29.1 pg (27.0-31.2); Mean Platelet Volume 7.6 fl (7.4-10.4); Monocytes # 0.3 K/mm3 (0.1-1.0); Monocytes % 5.2 % (1.7-9.3); Neutrophils # 3.8 K/mm3 (1.8-7.8); Platelet Count 221 K/mm3 (142-424); Red Blood Count 4.15 M/mm3 (4.20-5.40); Red Cell Distribution Width 14.9 % (11.5-17.5); White Blood Count 6.4 K/mm3 (4.8-10.8)
[2020-06-23 07:51] LABS: Chloride 100 mmol/L (98-107); Sodium 136 mmol/L (136-145)
[2020-06-23 07:52] LABS: Potassium 4.5 mmoL/L (3.5-5.1)
[2020-06-23 07:55] LABS: Anion Gap 6.5 mEq/L (5-15); Blood Urea Nitrogen 22 mg/dl (7-17); Carbon Dioxide 34 mmol/L (22.0-30.0); Creatinine Clearance Estimated 51 mL/min (50-200); Estimated Glomerular Filt Rate 69 ml/min (>60); GFR (African American) 83 ML/MIN (>60); Glucose 98 mg/dl (74-100)
[2020-06-23 07:57] LABS: Calcium 8.5 mg/dl (8.4-10.2)
[2020-06-23 08:08] LABS: Hemoglobin 12.1 g/dL (12.2-16.2)
[2020-06-23 08:17] LABS: Lipase 504 U/L (23-300)
--- NOTE | 2020-06-23 09:15 | HMH.CNCARD ---
History of Present Illness Consult date: 06/23/20 Requesting physician: Yung Keith Consult reason: chest pain Chief complaint: chest pain History of present illness: This is an 84-year-old white female who presented to the emergency department with complaints of chest pain. The patient was seen in cardiology clinic yesterday and denied any complaints of chest pain. She did complain of some shortness of breath and fatigue since having her Lexiscan Myoview stress test. Following her cardiology appointment the patient went to see her primary care provider, Dr. Martinez, and the patient states that she developed chest pain while in their office. This was a heaviness in the center of her chest. She states that the pain was severe. It lasted approximately 10 minutes and she stated that she needed nitroglycerin. The patient was then sent to the emergency department. She was treated with nitroglycerin and she became significantly hypotensive. Her chest pain was associated with shortness of breath, nausea and vomiting. She denied any diaphoresis. After being treated with nitroglycerin her chest pain completely subsided but she was having pain in her ears. She was also given a GI cocktail yesterday when her chest pain recurred and since then her chest pain has resolved. She denies any fever, chills, diarrhea, PND or orthopnea. [facility] History I have reviewed the patient's past medical history: Yes Medical History: Reports:: Anxiety, Congestive Heart Failure, Coronary Artery Disease, Depression, Gastroesophageal Reflux Disease(GERD), Hyperlipidemia, Hypertension, Migraine, Myocardial Infarction Denies:: Cancer, Diabetes Mellitus Type 1, Diabetes Mellitus Type 2, Internal Pacemaker, MRSA, Seizures *Have you ever received a pneumonia vaccine?: Yes *Have you received a flu vaccine this season?: Yes Other Medical History: Reports: Anemia, Arthritis, Hypothyroidism, Thyroid Disease Laterality Cases: Right: Other Other Surgeries: Yes: Appendectomy, Bariatric Surgery, CABG, Cardiac Catheterization, Cholecystectomy, Coronary Stent, Hysterectomy-Total, Open Heart Surgery, Tubal Ligation, Other. No: Pacemaker Amputation: No Fractures: Yes (right ankle) - *Social History Smoking Status: Never smoker Tobacco Type: cigarettes # Packs/Day (cigarettes): 1 Alcohol Intake: never Alcohol Intake Frequency:: other Substance Use Type: denies use *Occupational Status:: retired Housing: apartment Household Members: spouse *Travel in the last 8 weeks: None - Psychiatric History Pschychiatric History:: Reports:: Anxiety, Depression Family Hx:: Cancer, Coronary Artery Disease, Heart Attack, Hyperlipidemia, Hypertension, Thyroid Disorder Meds Home Medications Medication Instructions Recorded Confirmed Type lorazepam 1 mg tablet 1 mg PO TIDP PRN tab 09/26/17 06/22/20 History melatonin 10 mg tablet 10 mg PO HS 09/26/17 06/23/20 History pantoprazole 40 mg tablet,delayed 40 mg PO DAILY tab 09/26/17 06/22/20 History release Aspirin [Aspirin 81mg chewable 81 mg PO DAILY 07/01/18 06/22/20 History tab] Levothyroxine Sodium 75 mcg PO DAILY 05/26/19 06/22/20 History [Levothyroxine 75mcg (0.075mg) Tab] rosuvastatin 5 mg tablet 5 mg PO DAILY #90 tab 08/20/19 06/23/20 Rx meclizine 25 mg tablet 25 mg PO TIDP PRN tab 10/28/19 06/23/20 History Nitroglycerin 0.4 mg SL Q5MINP PRN 12/12/19 06/22/20 History isosorbide mononitrate 60 mg 30 mg PO BID #90 tab 12/16/19 06/22/20 Rx tablet,extended release 24 hr Clopidogrel Bisulfate [Plavix] 75 mg PO DAILY 06/12/20 06/22/20 History Furosemide [Furosemide 20mg Tab*] 20 mg PO DAILY 06/12/20 06/22/20 History Metoprolol Succinate [Metoprolol 25 mg PO DAILY 06/12/20 06/22/20 History Succinate 25mg Tablet*] Potassium Chloride [K-Tab ER 10 10 meq PO DAILY 06/12/20 06/22/20 History mEq] Albuterol Sulfate [Ventolin HFA 1 - 2 puffs IH QID 06/13/20 06/22/20 History Inhaler] Fluticasone/Salmeterol [Advair 1 puff
--- NOTE | 2020-06-23 13:02 | SW/DCPLANNER ---
LATE ENTRY: I SAT A PATIENT UP LAST WEEK WITH [facility] HOME, SHE WENT HOME WITH HOME HEALTH PT/OT MED MANAGEMENT AND [facility]... THIS WAS DONE ON SUNDAY AFTERNOON.... HOME HEALTH WAS TO SEE THE PATIENT ON SUNDAY...
--- NOTE | 2020-06-23 13:02 | SW/DCPLANNER ---
Addendum entered by Angela Long 06/23/20 13:43: CORRECTION: this patient will discharge home today. Addendum entered by Angela Long 06/23/20 13:31: This patient will no longer discharge home today. Original Note: I have spoke with this patient regarding discharge plans. Patient stated that she resides at home with her . Patient is agreeable to home health services at time of discharge: recently set up with [facility]. Patient also has home oxygen through [facility]. Patient may discharge home later today. Home Health services will be set up at time of discharge.
[2020-06-23 13:03] LABS: Lipase 666 U/L (23-300)
--- NOTE | 2020-06-23 13:11 | PC.NURSE ---
reported to md office that patient lipase was 666. tyson valle rn took result.
--- NOTE | 2020-06-23 13:41 | HMH.DCSUM ---
General - General Admission date:: 06/22/20 Discharge date: 06/23/20 HPI HPI: this pt presented to the ed with chest pain - pt with recent admit and was seen by card but had persistent chest pain and had low bp -e patient is sent from Dr. Martinez's office. She developed chest pain while in their office, approximately 10 minutes ago. She says she needed a nitroglycerin, but they would not give her 1 in the office, they told her she needed to come to the emergency room to get one. She did not have her nitroglycerin with her. She says this pain is typical of her angina for which she takes nitroglycerin. Says she has been having increased episodes of angina over the past 3 weeks. Associated with shortness of breath, nausea and vomiting. Denies diaphoresis. States that her chest pain is almost completely gone, it just hurts in her ears. She just has a mild heaviness in her chest, however says she still feels like she could use a nitroglycerin. She just had a stress test yesterday for evaluation of recent chest pain, had follow-up with cardiology today in the office prior to seeing Dr. Martinez. She has recently been on prednisone prescribed at discharge from recent admission. Last taken yesterday. Says she is now finished with her prednisone. pt admitted at this time Hospital Course Hospital Course: this pt presented to the ed with chest pain - pt with recent admit and was seen by card but had persistent chest pain and had low bp -e patient is sent from Dr. Martinez's office. She developed chest pain while in their office, approximately 10 minutes ago. She says she needed a nitroglycerin, but they would not give her 1 in the office, they told her she needed to come to the emergency room to get one. She did not have her nitroglycerin with her. She says this pain is typical of her angina for which she takes nitroglycerin. Says she has been having increased episodes of angina over the past 3 weeks. Associated with shortness of breath, nausea and vomiting. Denies diaphoresis. States that her chest pain is almost completely gone, it just hurts in her ears. She just has a mild heaviness in her chest, however says she still feels like she could use a nitroglycerin. She just had a stress test yesterday for evaluation of recent chest pain, had follow-up with cardiology today in the office prior to seeing Dr. Martinez. She has recently been on prednisone prescribed at discharge from recent admission. Last taken yesterday. Says she is now finished with her prednisone. pt admitted at this time Troponins negative x3, lipase 06/22/20 CXR: FINDINGS: Prior median sternotomy. There are low lung volumes with left basilar atelectasis. The remaining lungs are clear. No acute bony abnormalities. IMPRESSION: Left basilar atelectasis not significantly changed Dictated by: Sandy Tabor has seen and rec: plan: 1. The patient was admitted to the hospital with chest pain. Her chest pain improved with nitroglycerin but she became hypotensive and that is why she was admitted. She is ruled out for an TN. The patient had a stress test 2 days ago that showed no evidence of ischemia. No plans for invasive cardiac testing at this time. 2. Because of her hypotension we will stop her metoprolol. 3. I did recommend stopping her isosorbide due to her hypotension. The patient does not want to stop this medication as she states that it really does help with her chest pain. We will decrease the dose to 30 mg daily due to her hypotension. 4. We will add Ranexa 500 mg p.o. twice daily for angina in hopes of being able to stop her isosorbide on an outpatient basis after she has reached steady state on the Ranexa. The patient has verbalized understanding. 5. The patient was given a GI cocktail and her symptoms resolved. Her primary care provider will make sure she goes home on reflux medications and will have an outpatient GI referral. 6. She does sapp
== END 2020-06-23 14:58 | disposition home or self-care (01) ==
LOC: ER 19:36 → 2ND 19:39
PROVIDERS: Nurse Practitioner Family; Admitting Provider Emergency Medicine; Emergency Provider Emergency Medicine; PCP Internal Medicine; Visit Provider Emergency Medicine
DX: R07.9 Chest pain, unspecified (principal); I11.0 Hypertensive heart disease with heart failure; I50.9 Heart failure, unspecified; I95.9 Hypotension, unspecified
CPT/HCPCS: 36415; 71045; 80048; 81001; 83605; 83690; 84484; 85007; 85025; 87040; 87581; 87633; 87798; 93005; 94640; 96365; 96375; 99284; G0378; J2405

== ENCOUNTER 2020-06-24 10:21 | Inpatient (IN) | payer MEDICARE, OTHER, SELFPAY ==
[2020-06-24] VITALS (11 sets, daily range): BP systolic 103–133; BP diastolic 40–75; PULSE 70–130; RESP 16–20; TEMP 36.7–37.8; O2SAT 91–98; BMI 35.3; BMI 33.8
--- NOTE | 2020-06-24 10:27 | ECG_ITS ---
APPROVED REPORT Exam: Resting ECG HR:122 bpm ECG Measurements Heart Rate 122 AXES NH 124 P 22 QRSd 114 QRS -37 QT 334 T 11 QTc 475 Conclusion Sinus tachycardia Possible Left atrial enlargement Left axis deviation Right bundle branch block Abnormal ECG Electronically signed by : Reagan Hsieh, 06/25/2020 10:39:47
--- NOTE | 2020-06-24 10:33 | XR_ITS ---
PROCEDURE: XR CHEST PORTABLE CLINICAL HISTORY: weakness COMPARISON: CR XR CHEST 2V from 05/11/2020 CR XR CHEST PORTABLE from 06/12/[address] CHEST WO/W CON from 06/13/2020 CR XR CHEST PORTABLE from 06/22/2020 FINDINGS: Prior CABG. Normal heart size. Increased density is present in the left lower lobe consistent with atelectasis and/or pneumonia. Patchy density is also present in the right lung base. Focal opacity is noted in the right perihilar region at 2.4 cm. This was not present on previous exam and is likely related to an area of atelectasis or patchy infiltrate. No acute bony abnormalities. IMPRESSION: Worsening left basilar airspace disease consistent with pneumonia and or atelectatic change also with new opacity in the right perihilar region and right lower lobe medially suggesting an area of atelectasis or pneumonia Dictated by: Raul Tabor MD 06/24/2020 11:49 Raul Tabor MD in [place] 06/24/2020 11:49
[2020-06-24 10:41] LABS: Microscopic, Urine URINE MICROSCOPIC (MICROSCOPIC)
[2020-06-24 10:43] LABS: Appearance,Urine CLEAR (Clear); Bilirubin,Urine Negative (Negative); Blood, Urine Negative (Negative); Color,Urine YELLOW (Yellow); Glucose,Urine (UA) Negative (Negative); Ketones,Urine Negative (Negative); Leukocyte Esterase,Urine TRACE (Negative); Nitrate,Urine Negative (Negative); Protein,Urine TRACE (Negative); Urobilinogen,Urine 0.2 EU/dl (0.2)
[2020-06-24 10:44] LABS: Basophils % 0.1 % (0.1-2.0); Eosinophils # 0.3 K/mm3 (0.0-0.4); Eosinophils % 1.2 % (0.1-12.0); Hematocrit 37.8 % (37.0-47.0); Hemoglobin 12.2 g/dL (12.2-16.2); Lymphocytes # 0.8 K/mm3 (0.7-4.5); Lymphocytes % 3.7 % (10-50); Mean Corpuscular HGB Conc 32.4 g/dL (31.8-35.4); Mean Corpuscular Hemoglobin 29.5 pg (27.0-31.2); Mean Platelet Volume 7.6 fl (7.4-10.4); Monocytes # 0.6 K/mm3 (0.1-1.0); Monocytes % 2.9 % (1.7-9.3); Neutrophils # 18.8 K/mm3 (1.8-7.8); Neutrophils % 92.1 % (37.0-80.0); Platelet Count 240 K/mm3 (142-424); Red Blood Count 4.15 M/mm3 (4.20-5.40); White Blood Count 20.5 K/mm3 (4.8-10.8)
--- NOTE | 2020-06-24 10:44 | CT_ITS ---
PROCEDURE: CT ABDOMEN PELVIS W CON CLINICAL INDICATION: abdominal pain COMPARISON: CT CT ABDOMEN PELVIS W CON from 05/25/2019 TECHNIQUE: IV Contrast: 75ML Isovue 370 Oral Contrast None Axial images obtained with sagittal and coronal reformats. All CT scans at the facility use one or more dose reduction, viz: automated exposure control, ma/kV adjustment per patient size (including targeted exams where dose is matched to indication, i.e. head), or iterative reconstruction technique. FINDINGS: LOWER THORAX: There is consolidation in the left lower lobe posteriorly. Patchy density is also present within the lingula. There is a small to medium-sized hiatal hernia. Fluid is present in the distal esophagus/hiatal hernia minimal atelectatic change right lung base with a pneumatocele in the right lung base posteriorly at 3.6 cm. ABDOMEN & PELVIS: Prior gastric bypass surgery. Prior cholecystectomy. No focal liver lesions. The spleen, adrenal glands, and pancreas have an unremarkable appearance. There is bilateral renal cortical scarring. 15 mm hypodense lesion of the right kidney consistent with a renal cyst. There is a small umbilical hernia containing a loop of small bowel. No evidence of bowel obstruction. There are post hysterectomy changes. There is colonic diverticulosis. No evidence of diverticulitis. The cecum is flipped and resides in the left upper quadrant. The appendix is not clearly delineated. No evidence of appendicitis. No intra-abdominal or pelvic mass adenopathy or abscess apparent. No acute bony findings. IMPRESSION: 1. Left lower lobe and lingular consolidation suggesting pneumonia and/or volume loss. 2. Hiatal hernia with fluid within the hernia and distal esophagus which may be due to reflux 3. Postsurgical changes of the stomach. 4. Colonic diverticulosis. No evidence of diverticulitis. The cecum resides in the left upper quadrant. 5. Small umbilical hernia containing a loop of small bowel without evidence of obstruction. Dictated by: Raul Tabor MD 06/24/2020 11:46 Raul Tabor MD in [facility] 06/24/2020 11:46
[2020-06-24 10:45] LABS: Chloride 98 mmol/L (98-107); Potassium 3.9 mmoL/L (3.5-5.1); Sodium 134 mmol/L (136-145)
[2020-06-24 10:47] LABS: Alanine Aminotransferase 13 U/L (12-78); Aspartate Amino Transferase 26 U/L (14-36); Blood Urea Nitrogen 17 mg/dl (7-17); Creatinine Clearance Estimated 54 mL/min (50-200); Estimated Glomerular Filt Rate 60 ml/min (>60); GFR (African American) 73 ML/MIN (>60)
[2020-06-24 10:48] LABS: Albumin Level 3.5 g/dl (3.5-5.0); Albumin/Globulin Ratio 1.3 (1.1-1.8); Alkaline Phosphatase 53 U/L (38-126); Anion Gap 8.9 mEq/L (5-15); Bilirubin,Total 0.7 mg/dl (0.2-1.3); Calcium 8.9 mg/dl (8.4-10.2); Carbon Dioxide 31 mmol/L (22.0-30.0); Globulin 2.7 g/dL (1.3-3.2); Glucose 124 mg/dl (74-100); Total Protein,Serum 6.2 g/dl (6.3-8.2)
[2020-06-24 10:49] LABS: MANUAL DIFFERENTIAL MANUAL DIFFERENTIAL (MANUAL DIFF)
--- NOTE | 2020-06-24 10:50 | HMH.EDGENADL ---
ED Disposition Clinical Impression: Pneumonia, Leukocytosis Disposition: Admitted As Inpatient Condition on Discharge: Good Referrals: Sea Martinez [Primary Care Provider] - - Critical Care Critical Care Time: No Attestation: On 06/24/20, the high probability of a clinically significant, sudden or life threatening deterioration of the following system(s) required my full and direct attention, intervention and personal management. The time I documented below is in addition to time spent performing reported procedures but includes the following listed in this critical care notation. Medical Decision Making - Medical Records Medical records reviewed: Yes: I reviewed the patient's medical records. - Robert Inquiry Pt receiving controlled substance: No Vital Signs: 06/24/20 10:22 06/24/20 10:30 06/24/20 11:31 Temperature 100.1 F H Temperature Source Oral Pulse Rate 123 H 130 H Pulse Rate [Right] 128 H Respiratory Rate 18 18 18 Blood Pressure 125/75 107/61 L Blood Pressure [Right Arm] 133/69 Blood Pressure Mean 97 76 Blood Pressure Mean [Right Arm] 90 Blood Pressure Source [Right Arm] Automatic Cuff Blood Pressure Position [Right Arm] Sitting 02 Sat by Pulse Oximetry 94 L 95 96 Oxygen Delivery Method Nasal Cannula Oxygen Flow Rate (LPM) 2 - Lab Data Lab Results 06/24/20 10:10: Urine Color Yellow, Urine Appearance Clear, Urine pH 6.0, Ur Specific Walton 1.020, Urine Protein Trace, Urine Glucose (UA) Negative, Urine Ketones Negative, Urine Blood Negative, Urine Nitrate Negative, Urine Bilirubin Negative, Urine Urobilinogen 0.2, Ur Leukocyte Esterase Trace, Urine RBC Occasional, Urine WBC 3-5, Ur Squamous Epith Cells Occasional, Ur Transition Epith Cell 3-5, Urine Bacteria 2+ 06/24/20 10:10: WBC 20.5 H* D, RBC 4.15 L, Hgb 12.2, Hct 37.8, MCV 91.0, MCH 29.5, MCHC 32.4, RDW 15.0, Plt Count 240, MPV 7.6, Neut % (Auto) 92.1 H, Lymph % (Auto) 3.7 L, Delta % (Auto) 2.9, Eos % (Auto) 1.2, Baso % (Auto) 0.1, Neut # (Auto) 18.8 H, Lymph # (Auto) 0.8, Delta # (Auto) 0.6, Eos # (Auto) 0.3, Baso # (Auto) 0.0, Total Counted 100, Neutrophils % (Manual) 90 H, Lymphocytes % (Manual) 6 L, Monocytes % (Manual) 4, Platelet Estimate Normal, RBC Morphology Normal 06/24/20 10:10: Sodium 134 L, Potassium 3.9, Chloride 98, Carbon Dioxide 31 H, Anion Gap 8.9, BUN 17, Creatinine 0.90, Estimated Creat Clear 54, Estimated GFR 60, Est GFR ( Amer) 73, Glucose 124 H, Calcium 8.9, Total Bilirubin 0.7, AST 26, ALT 13, Alkaline Phosphatase 53, Troponin I 0.04 H, Total Protein 6.2 L, Albumin 3.5, Globulin 2.7, Albumin/Globulin Ratio 1.3 06/24/20 10:10: Lipase 306 H 06/24/20 10:37: Lactate 1.4 Result diagrams: 06/24/20 10:10 06/24/20 10:10 Orders (Tests/Meds): ED MEDICATIONS Generic Name Dose Route Start Last Admin Trade Name Freq PRN Reason Stop Dose Admin Vancomycin HCl 1,500 mg/ 250 mls @ 125 mls/hr 06/24/20 12:28 Sodium Chloride IV 06/24/20 14:13 ONCE ONE Protocol Discontinued Medications Generic Name Dose Route Start Last Admin Trade Name Freq PRN Reason Stop Dose Admin Cefepime HCl 2 gm/ Sodium 100 mls @ 200 mls/hr 06/24/20 12:14 06/24/20 13:04 Chloride IV 06/24/20 12:43 200 mls/hr ONCE ONE Administration Protocol Iopamidol 75 ml 06/24/20 11:18 06/24/20 11:18 Iopamidol-370 (76%);100ml Bottle IV 06/24/20 11:19 75 ml ONCE ONE Administration Sodium Chloride 10 ml 06/24/20 11:18 06/24/20 11:18 Sodium Chloride 0.9% 10ml Syr (Rad Only) IV 06/24/20 11:19 10 ml ONCE ONE Administration ORDERS Category Date Time Status Troponin I Q3H Lab 06/24/20 13:45 Ordered Troponin I Q3H Lab 06/24/20 16:45 Ordered Blood Culture Stat Micro 06/24/20 10:37 Received Urine Culture Stat Micro 06/24/20 10:10 Received Medical Decision Narrative: 82-year-old female presents again with generalized weakness and fever. She was in mild distress initially. She
--- NOTE | 2020-06-24 10:56 | PC.NURSE ---
PT going to CT scan
[2020-06-24 10:57] LABS: Lactic Acid 1.4 mmol/L (0.7-2.1)
[2020-06-24 11:00] LABS: Troponin I 0.04 ng/ml (0.00-0.034)
[2020-06-24 11:03] LABS: Lymphocytes % 6 % (10-50); Monocytes % 4 % (2-9); Neutrophils % 90 % (42-76); Platelet Estimate Normal; RBC Morphology Normal; Total Cells Counted 100
[2020-06-24 11:09] LABS: Bacteria,Urine 2+ /lpf; RBC,Urine Occasional #/hpf (0-3); Squamous Epithelial Cell,Urine Occasional #/hpf (0-5)
--- NOTE | 2020-06-24 11:34 | PC.NURSE ---
PT resting at this time. No new needs
[2020-06-24 12:01] LABS: Lipase 306 U/L (23-300)
--- NOTE | 2020-06-24 12:12 | PC.NURSE ---
Dr. Naseem michaud
--- NOTE | 2020-06-24 12:15 | PC.NURSE ---
Dr Jiménez speaking with Dr Gusman
--- NOTE | 2020-06-24 12:20 | PC.NURSE ---
Dr Gusman requested we call Dr Raymundo since they saw the pt and released her yesterday.
--- NOTE | 2020-06-24 12:27 | PC.NURSE ---
Notified pharmacy needs for medications
--- NOTE | 2020-06-24 13:11 | PC.NURSE ---
Dr Jiménez speaking with Dr Raymundo
--- NOTE | 2020-06-24 13:13 | PC.NURSE ---
placed call to care management for admission
--- NOTE | 2020-06-24 13:33 | PC.NURSE ---
Called floor to let them know admission was ready
--- NOTE | 2020-06-24 13:48 | PC.NURSE ---
PT swabbed for covid at this time and sent to lab.
--- NOTE | 2020-06-24 13:54 | HMH.PHAINT ---
MEDICATION RECONCILIATION COMPLETED USING DISCHARGE MEDICATION LIST
--- NOTE | 2020-06-24 13:57 | HMH.PHAVTE ---
[facility] Pharmacy VTE Monitoring - Patient Demographics Admission date: 06/24/20 Report Date: 06/24/20 Time: 13:57 Allergies/Adverse Reactions: Patient Allergies carisoprodol [From Soma] Allergy (Intermediate, Verified 06/24/20 10:32) itching meperidine Allergy (Intermediate, Verified 06/24/20 10:32) itching Sulfa (Sulfonamide Antibiotics) Allergy (Intermediate, Verified 06/24/20 10:32) itching trimethoprim Allergy (Intermediate, Verified 06/24/20 10:32) stomach atorvastatin [From Lipitor] Adverse Reaction (Intermediate, Verified 06/24/20 10:32) stomach Height: 1.5 m Weight: 79.379 kg Patient Problems: Current Active Problems Pneumonia (Acute) Leukocytosis (Acute) - VTE Risk Labs: VTE Related Lab Results Hgb 12.2 g/dL (12.2-16.2) 06/24/20 10:10 Hct 37.8 % (37.0-47.0) 06/24/20 10:10 Plt Count 240 K/mm3 (142-424) 06/24/20 10:10 BUN 17 mg/dl (7-17) 06/24/20 10:10 Creatinine 0.90 mg/dl (0.52-1.04) 06/24/20 10:10 Estimated Creat Clear 54 mL/min (50-200) 06/24/20 10:10 - Prophylaxis VTE Prophylaxis Ordered?: Yes Types of VTE Prophylaxis: TEDS Knee High Location of Applied Device: Bilateral Lower Extremeties
[2020-06-24 14:22] LABS: Troponin I 0.04 ng/ml (0.00-0.034)
--- NOTE | 2020-06-24 15:42 | HMH.PHACONS ---
- Pharmacy Consult Date: 06/24/20 Time: 15:42 Referring provider: DR. STUART Reason for Consult:: VANCOMYCIN DOSING Allergies and ADEs:: Allergies Allergy/AdvReac Type Severity Reaction Status Date / Time carisoprodol [From Soma] Allergy Intermediate itching Verified 06/24/20 10:32 meperidine Allergy Intermediate itching Verified 06/24/20 10:32 Sulfa (Sulfonamide Allergy Intermediate itching Verified 06/24/20 10:32 Antibiotics) trimethoprim Allergy Intermediate stomach Verified 06/24/20 10:32 atorvastatin [From Lipitor] AdvReac Intermediate stomach Verified 06/24/20 10:32 Home Medications:: Home Medications Medication Instructions Recorded Confirmed Type lorazepam 1 mg tablet 1 mg PO TIDP PRN tab 09/26/17 06/24/20 History melatonin 10 mg tablet 10 mg PO HS 09/26/17 06/24/20 History pantoprazole 40 mg tablet,delayed 40 mg PO DAILY tab 09/26/17 06/24/20 History release Aspirin [Aspirin 81mg chewable 81 mg PO DAILY 07/01/18 06/24/20 History tab] Levothyroxine Sodium 75 mcg PO DAILY 05/26/19 06/24/20 History [Levothyroxine 75mcg (0.075mg) Tab] rosuvastatin 5 mg tablet 5 mg PO DAILY #90 tab 08/20/19 06/24/20 Rx meclizine 25 mg tablet 25 mg PO TIDP PRN tab 10/28/19 06/24/20 History Nitroglycerin 0.4 mg SL Q5MINP PRN 12/12/19 06/24/20 History Clopidogrel Bisulfate [Plavix] 75 mg PO DAILY 06/12/20 06/24/20 History Furosemide [Furosemide 20mg Tab*] 20 mg PO DAILY 06/12/20 06/24/20 History Potassium Chloride [K-Tab ER 10 10 meq PO DAILY 06/12/20 06/24/20 History mEq] Albuterol Sulfate [Ventolin HFA 1 - 2 puffs IH QID 06/13/20 06/24/20 History Inhaler] Fluticasone/Salmeterol [Advair 1 puff IH BID 06/22/20 06/24/20 History 250/50mcg Diskus] Tiotropium [place] [Spiriva 2 puff IH DAILY 06/23/20 06/24/20 History Respimat] Isosorbide Mononitrate [Imdur 30mg 30 mg PO DAILY 06/24/20 06/24/20 History ER tablet] Ranolazine [Ranexa 500mg ER tablet] 500 mg PO BID 06/24/20 06/24/20 History Height: 1.5 m Weight: 79.379 kg Laboratory Results:: Laboratory Results - last 24 hr 06/24/20 10:10: Urine Color Yellow, Urine Appearance Clear, Urine pH 6.0, Ur Specific [place] 1.020, Urine Protein Trace, Urine Glucose (UA) Negative, Urine Ketones Negative, Urine Blood Negative, Urine Nitrate Negative, Urine Bilirubin Negative, Urine Urobilinogen 0.2, Ur Leukocyte Esterase Trace, Urine RBC Occasional, Urine WBC 3-5, Ur Squamous Epith Cells Occasional, Ur Transition Epith Cell 3-5, Urine Bacteria 2+ 06/24/20 10:10: WBC 20.5 H* D, RBC 4.15 L, Hgb 12.2, Hct 37.8, MCV 91.0, MCH 29.5, MCHC 32.4, RDW 15.0, Plt Count 240, MPV 7.6, Neut % (Auto) 92.1 H, Lymph % (Auto) 3.7 L, [place] % (Auto) 2.9, Eos % (Auto) 1.2, Baso % (Auto) 0.1, Neut # (Auto) 18.8 H, Lymph # (Auto) 0.8, [place] # (Auto) 0.6, Eos # (Auto) 0.3, Baso # (Auto) 0.0, Total Counted 100, Neutrophils % (Manual) 90 H, Lymphocytes % (Manual) 6 L, Monocytes % (Manual) 4, Platelet Estimate Normal, RBC Morphology Normal 06/24/20 10:10: Sodium 134 L, Potassium 3.9, Chloride 98, Carbon Dioxide 31 H, Anion Gap 8.9, BUN 17, Creatinine 0.90, Estimated Creat Clear 54, Estimated GFR 60, Est GFR ( Amer) 73, Glucose 124 H, Calcium 8.9, Total Bilirubin 0.7, AST 26, ALT 13, Alkaline Phosphatase 53, Troponin I 0.04 H, Total Protein 6.2 L, Albumin 3.5, Globulin 2.7, Albumin/Globulin Ratio 1.3 06/24/20 10:10: Lipase 306 H 06/24/20 10:37: Lactate 1.4 06/24/20 13:34: Troponin I 0.04 H Medical History: Reports:: Anxiety, Congestive Heart Failure, Coronary Artery Disease, Depression, Gastroesophageal Reflux Disease(GERD), Hyperlipidemia, Hypertension, Migraine, Myocardial Infarction Denies:: Cancer, Diabetes Mellitus Type 1, Diabetes Mellitus Type 2, Internal Pacemaker, MRSA, Seizures Assessment and Plan - Assessment and plan all Dx Assessment and Plan for all problems:: Age: 84 yo Serum creatinine: 1 mg/dL Height: 59.1 Inches Weight (kg): 79.4 Assessment: =
--- NOTE | 2020-06-24 15:44 | PC.NURSE ---
CALLED LAB AND THEY STATED THE COVID SWAB FAILED THE INITIAL ATTEMPT. STATED IT WILL TAKE ANOTHER HOUR TO RESULT
--- NOTE | 2020-06-24 15:51 | PC.NURSE ---
PT up to restroom, no other needs. Waiting on covid results due to test failing the first time
[2020-06-24 16:45] LABS: Adenovirus,PCR Not Detected (NotDetected); Bordetella Pertussis Not Detected (NotDetected); Chlamydophila Pneumoniae, PCR Not Detected (NotDetected); Coronavirus 19, PCR Not Detected (NotDetected); Coronavirus 229E Not Detected (NotDetected); Coronavirus NL63 Not Detected (NotDetected); Coronavirus OC43 Not Detected (NotDetected); Coronovirus HKU1,PCR Not Detected (NotDetected); Human Metapneumovirus Not Detected (NotDetected); Influenza A, PCR Not Detected (NotDetected); Influenza AH1, 2009 Not Detected (NotDetected); Influenza AH1, PCR Not Detected (NotDetected); Influenza AH3,PCR Not Detected (NotDetected); Influenza B, PCR Not Detected (NotDetected); Mycoplasma Pneumoniae, PCR Not Detected (NotDetected); Parainfluenza 1, PCR Not Detected (NotDetected); Parainfluenza 2, PCR Not Detected (NotDetected); Parainfluenza 3, PCR Not Detected (NotDetected); Parainfluenza 4, PCR Not Detected (NotDetected); Respiratory Syncytial Virus Not Detected (NotDetected); Rhinovirus/Enterovirus Not Detected (NotDetected)
--- NOTE | 2020-06-24 17:01 | PC.NURSE ---
called report to Ana
[2020-06-24 17:03] LABS: Troponin I 0.04 ng/ml (0.00-0.034)
--- NOTE | 2020-06-24 17:11 | PC.NURSE ---
Pt arrived to the floor at this time.
--- NOTE | 2020-06-24 18:51 | PC.NURSE ---
PATIENT DOES NOT KNOW WHAT MEDICATIONS SHE TAKES, REQUESTED THIS RN TO LOOK AT PREVIOUS LIST. THIS RN COMPLETED MED LIST BY REFERRING TO EXTERNAL MEDICATIONS.
--- NOTE | 2020-06-24 20:19 | PC.NURSE ---
[employer] page [employer] [address] Schwartz, new orders received.
[2020-06-25] VITALS (9 sets, daily range): BP systolic 104–167; BP diastolic 45–79; PULSE 80–110; RESP 16–18; TEMP 36.8; O2SAT 94–97; BMI 33.5; BMI 33.7
--- NOTE | 2020-06-25 04:42 | PC.NURSE ---
trash pulled and ice water passed at this time
--- NOTE | 2020-06-25 06:35 | PC.NURSE ---
shift summary pts lung sounds are diminished with sats maintained 94% or above on 2Lpm via NC, with a rate ranging from 16-18. pt is alert and oriented X4. pt complained of pain once during the shift which was relieved with Tylenol. pt is able to use bedside toilet with assist X1.
[2020-06-25 07:53] LABS: Basophils % 0.4 % (0.1-2.0); Eosinophils # 0.3 K/mm3 (0.0-0.4); Eosinophils % 4.8 % (0.1-12.0); Hematocrit 33.6 % (37.0-47.0); Lymphocytes # 1.3 K/mm3 (0.7-4.5); Lymphocytes % 18.3 % (10-50); Mean Corpuscular HGB Conc 32.8 g/dL (31.8-35.4); Mean Corpuscular Hemoglobin 29.5 pg (27.0-31.2); Mean Corpuscular Volume 90.1 fl (81-99); Mean Platelet Volume 8.3 fl (7.4-10.4); Monocytes # 0.3 K/mm3 (0.1-1.0); Monocytes % 4.6 % (1.7-9.3); Neutrophils # 5.1 K/mm3 (1.8-7.8); Neutrophils % 71.9 % (37.0-80.0); Platelet Count 208 K/mm3 (142-424); Red Blood Count 3.73 M/mm3 (4.20-5.40)
[2020-06-25 08:03] LABS: Chloride 102 mmol/L (98-107); Potassium 3.7 mmoL/L (3.5-5.1); Sodium 136 mmol/L (136-145)
[2020-06-25 08:06] LABS: Anion Gap 7.7 mEq/L (5-15); Blood Urea Nitrogen 16 mg/dl (7-17); Carbon Dioxide 30 mmol/L (22.0-30.0); Cholesterol 126 mg/dl (140-200); Creatinine Clearance Estimated 52 mL/min (50-200); Estimated Glomerular Filt Rate 69 ml/min (>60); GFR (African American) 83 ML/MIN (>60); Triglycerides 79 mg/dl (30-150); VLDL Cholesterol 16 mg/dL (0-40)
[2020-06-25 08:07] LABS: Calcium 8.7 mg/dl (8.4-10.2); Chol/HDL Ratio 2.3 (1-3.5); Glucose 88 mg/dl (74-100); HDL Cholesterol 54 mg/dl (40-60); Magnesium 2.1 mg/dl (1.6-2.3)
[2020-06-25 08:18] LABS: Direct LDL Cholesterol 46.65 mg/dL (100-129)
--- NOTE | 2020-06-25 09:03 | HMH.HP ---
*Admission Date: 06/24/20 *Chief complaint: soa *History of present illness: 84-year-old female presents to the ED with c/o generalized weakness,chills,fever and feeling tired. Patient states she was just recently admitted to the hospital for chest pain and she was discharged on new meds. Chest pain is improved, Pt had temperature to 100.0 in ed.Pt states the day it started she had a episode where she was shaking uncontrollable and could not get warm. Pt states she called 911 and they came and checked her out but she did not want to go to ed. Pt states later that day she called 911 again due to the shaking and weakness. Pt admitted to [facility] for pneumonia. [facility] History I have reviewed the patient's past medical history: Yes Medical History: Reports:: Anxiety, Congestive Heart Failure, Coronary Artery Disease, Depression, Gastroesophageal Reflux Disease(GERD), Hyperlipidemia, Hypertension, Migraine, Myocardial Infarction Denies:: Cancer, Diabetes Mellitus Type 1, Diabetes Mellitus Type 2, Internal Pacemaker, MRSA, Seizures *Have you ever received a pneumonia vaccine?: Yes *Have you received a flu vaccine this season?: Yes Other Medical History: Reports: Anemia, Arthritis, Hypothyroidism, Thyroid Disease Laterality Cases: Right: Other Other Surgeries: Yes: Appendectomy, Bariatric Surgery, CABG, Cardiac Catheterization, Cholecystectomy, Coronary Stent, Hysterectomy-Total, Open Heart Surgery, Tubal Ligation, Other. No: Pacemaker Amputation: No Fractures: Yes (right ankle) - *Social History Smoking Status: Never smoker Tobacco Type: cigarettes # Packs/Day (cigarettes): 1 Alcohol Intake: never Alcohol Intake Frequency:: other Substance Use Type: denies use *Occupational Status:: retired Housing: house Household Members: significant other *Travel in the last 8 weeks: None - Psychiatric History Pschychiatric History:: Reports:: Anxiety, Depression Family Hx:: Cancer, Coronary Artery Disease, Heart Attack, Hyperlipidemia, Hypertension, Thyroid Disorder Review of Systems - Review of Systems Review of systems:: pertinent systems reviewed and negative unless documented below - Constitutional Reports chills, Reports fatigue, Reports fever(s), Reports malaise, Denies body ache(s) - Eyes Denies dry eyes - ENT Denies change in voice - *Cardiovascular Denies chest pain at rest, Denies excessive sweating - *Respiratory Denies change in phlegm color - *Gastrointestinal Denies abdominal pain, Denies bright, red blood in stools, Denies vomiting - *Genitourinary Denies urinary urgency - *Musculoskeletal Denies joint pain - Integumentary/Breasts Denies rash - *Neurologic Denies dizziness, Denies headache(s), Denies numbness, Denies weakness - Psychiatric Denies lack of enjoyment - Endocrine Denies increased thirst - Hematologic/Lymphatic Denies easy bruising - Allergic/Immunologic Denies itchy eyes Meds Home Medications Medication Instructions Recorded Confirmed Type lorazepam 1 mg tablet 1 mg PO TIDP PRN tab 09/26/17 06/24/20 History melatonin 10 mg tablet 10 mg PO HS 09/26/17 06/24/20 History pantoprazole 40 mg tablet,delayed 40 mg PO DAILY tab 09/26/17 06/24/20 History release Aspirin [Aspirin 81mg chewable 81 mg PO DAILY 07/01/18 06/24/20 History tab] Levothyroxine Sodium 75 mcg PO DAILY 05/26/19 06/24/20 History [Levothyroxine 75mcg (0.075mg) Tab] rosuvastatin 5 mg tablet 5 mg PO DAILY #90 tab 08/20/19 06/24/20 Rx meclizine 25 mg tablet 25 mg PO TIDP PRN tab 10/28/19 06/24/20 History Nitroglycerin 0.4 mg SL Q5MINP PRN 12/12/19 06/24/20 History Clopidogrel Bisulfate [Plavix] 75 mg PO DAILY 06/12/20 06/24/20 History Furosemide [Furosemide 20mg Tab*] 20 mg PO DAILY 06/12/20 06/24/20 History Potassium Chloride [K-Tab ER 10 10 meq PO DAILY 06/12/20 06/24/20 History mEq] Albuterol Sulfate [Ventolin HFA 1 - 2 puffs IH QID 06/13/20 06/24/20 History Inhaler] Fluticasone/Salmeterol [Adv
--- NOTE | 2020-06-25 09:32 | SW/DCPLANNER ---
Addendum entered by Angela Long 06/28/20 11:06: Yudy has confirmed that services will begin Sunday for this patient. Addendum entered by Angela Long 06/28/20 10:05: This patient will discharge home today. Patient information/order has been faxed to Yudy with [facility]. I will follow up with Yudy once patient information is reviewed. Patient had no further needs at this time. Original Note: This patient currently receives services from [facility]. I have spoke with Yudy at [facility] and informed her that this patient is currently admitted and will follow up with Yudy once patient is medically stable for discharge. This patient also receives home O2 from [facility]. I will continue to follow up with this patient until medically stable for discharge.
--- NOTE | 2020-06-25 10:16 | PC.NURSE ---
Pt with non productive cough, unable to produce sputum at this time. Specimen cup at bedside.
[2020-06-25 10:33] LABS: POC Glucose,Bedside 252 (70-110)
--- NOTE | 2020-06-25 17:58 | PC.NURSE ---
Pt is alert and oriented x3. Lungs with faint wheezes. She remains on 2L NC with O2 sats > 92%. She has ambulated to the bathroom with assist x1 due to needing assistance with her IV pole. She refused teds. She denies being sob and denies pain. Home meds are locked in medication drawer. Sputum cup at bedside. Pt still unable to produce specimen. Will continue to monitor.
--- NOTE | 2020-06-25 21:47 | PC.NURSE ---
RA SATS WERE 90% RETURNED BACK TO 2L NC
[2020-06-26] VITALS (9 sets, daily range): BP systolic 105–140; BP diastolic 59–72; PULSE 86–102; RESP 16–20; TEMP 36.5–37.1; O2SAT 92–97; BMI 29.0
--- NOTE | 2020-06-26 03:06 | PC.NURSE ---
A&OX4. PT TOLERATING 2LNC T/O SHIFT. PT DID HAVE A BM. PT HAS NOT C/O ANY PAIN OR SOA THUS FAR. PT IS WEAK AND WALKS TO AND FROM BATHROOM WITH X1 ASSIST. PT HAS INTERMITTENT NON PRODUCTIVE COUGH. PT IS ANXIOUS AND REQUIRED PRN ANXIETY PILL. ON REASSESSMENT PT RESTING IN BED. NO OTHER C/O THUS FAR, VSS WILL CONTINUE TO MONITOR.
[2020-06-26 08:25] LABS: Basophils % 0.3 % (0.1-2.0); Eosinophils # 0.4 K/mm3 (0.0-0.4); Eosinophils % 5.6 % (0.1-12.0); Hematocrit 35.6 % (37.0-47.0); Hemoglobin 11.6 g/dL (12.2-16.2); Lymphocytes # 1.5 K/mm3 (0.7-4.5); Lymphocytes % 19.7 % (10-50); Mean Corpuscular HGB Conc 32.5 g/dL (31.8-35.4); Mean Corpuscular Hemoglobin 29.2 pg (27.0-31.2); Mean Corpuscular Volume 90.1 fl (81-99); Mean Platelet Volume 7.7 fl (7.4-10.4); Monocytes # 0.4 K/mm3 (0.1-1.0); Monocytes % 4.8 % (1.7-9.3); Neutrophils # 5.3 K/mm3 (1.8-7.8); Neutrophils % 69.4 % (37.0-80.0); Platelet Count 233 K/mm3 (142-424); Red Blood Count 3.96 M/mm3 (4.20-5.40); Red Cell Distribution Width 14.8 % (11.5-17.5); White Blood Count 7.6 K/mm3 (4.8-10.8)
[2020-06-26 08:33] LABS: Anion Gap 6.9 mEq/L (5-15); Blood Urea Nitrogen 13 mg/dl (7-17); Calcium 8.7 mg/dl (8.4-10.2); Carbon Dioxide 32 mmol/L (22.0-30.0); Chloride 102 mmol/L (98-107); Creatinine Clearance Estimated 45 mL/min (50-200); Estimated Glomerular Filt Rate 60 ml/min (>60); GFR (African American) 73 ML/MIN (>60); Glucose 102 mg/dl (74-100); Potassium 3.9 mmoL/L (3.5-5.1); Sodium 137 mmol/L (136-145)
--- NOTE | 2020-06-26 09:15 | HMH.ACPN2 ---
Internal Medicine - PN: Subj *Date: 06/27/20 *Time: 07:12 Interval history: doing better - uses 2l at all times - Exam Vital signs and Labs for Last 24 Hours: Temp Pulse Resp BP Pulse Ox 98.3 F 90 16 125/68 92 L 06/26/20 07:41 06/26/20 07:41 06/26/20 07:41 06/26/20 07:41 06/26/20 07:41 Laboratory Results - last 24 hr 06/25/20 10:09: POC Glucose 252 H 06/26/20 08:20: WBC 7.6, RBC 3.96 L, Hgb 11.6 L, Hct 35.6 L, MCV 90.1, MCH 29.2, MCHC 32.5, RDW 14.8, Plt Count 233, MPV 7.7, Neut % (Auto) 69.4, Lymph % (Auto) 19.7, [place] % (Auto) 4.8, Eos % (Auto) 5.6, Baso % (Auto) 0.3, Neut # (Auto) 5.3, Lymph # (Auto) 1.5, [place] # (Auto) 0.4, Eos # (Auto) 0.4, Baso # (Auto) 0.0 06/26/20 08:20: Sodium 137, Potassium 3.9, Chloride 102, Carbon Dioxide 32 H, Anion Gap 6.9, BUN 13, Creatinine 0.90, Estimated Creat Clear 45, Estimated GFR 60, Est GFR ( Amer) 73, Glucose 102 H, Calcium 8.7 I & O for Last 24 hours: Intake & Output 06/23/20 06/24/20 06/25/20 06/26/20 11:59 11:59 11:59 11:59 Intake Total 360 / 360 2827 / 2827 Balance 360 / 360 2827 / 2827 Weight 175 lb 166 lb 9 oz 144 lb 4 oz Microbiology Reports for the Last 24 Hours: Microbiology 06/24/20 10:10 Urine,Clean Catch Urine Culture - Final Multiple organisms, suggests contamination. 06/25/20 19:10 Sputum - Expectorated Sputum Gram Stain - Final - Constitutional no acute distress, obese - *Routine HEENT Exam Head: Present: normocephalic Eye: Present: EOMI, PERRL ENT: Present: mucous membranes dry - *Routine Neck Exam Present: supple - *Routine Respiratory Exam Present: CTA bilaterally - *Routine Cardiovascular Exam Present: RRR, murmur - *Routine Abdominal Exam Present: soft - *Routine Extremities Exam Absent: calf tenderness - *Routine Skin Exam Present: intact - *Routine Neurological Exam Present: alert, CN II-XII intact - Routine Psychiatric Exam Present: normal affect Assessment and Plan (1) Pneumonia Status: Acute Category: Medical Code(s): J18.9 - Pneumonia, unspecified organism (2) Fever Status: Acute Qualifiers: Fever type: unspecified Qualified Code(s): R50.9 - Fever, unspecified Category: Medical Code(s): R50.9 - Fever, unspecified (3) Obesity (BMI 30-39.9) Status: Acute Category: Medical Code(s): E66.9 - Obesity, unspecified (4) History of coronary artery bypass graft Status: Chronic Category: Surgical Code(s): Z95.1 - Presence of aortocoronary bypass graft
--- NOTE | 2020-06-26 15:38 | PC.NURSE ---
Pt has been pleasant and cooperative this shift. A&O X4. No complaints of pain or SOA. Pt is receiving O2 via NC @ 2 LPM with sats. >90%. Lungs CTA. Generalized, non-pitting edema noted to BLE. Skin is C/D/I. Telemetry reveals NSR. Pt ambulates with stand-by assistance to/from the bathroom and throughout the room. Pt uses the toilet to void clear, yellow urine without issue. No BM today. 22 G peripheral IV in the RT forearm is patent and infusing NS @ 50 ML/HR. VSS. Call light within reach. Will continue to monitor.
[2020-06-27] VITALS (11 sets, daily range): BP systolic 108–142; BP diastolic 56–84; PULSE 80–112; RESP 16–22; TEMP 36.8–37; O2SAT 93–97; BMI 34.5
--- NOTE | 2020-06-27 03:57 | PC.NURSE ---
Patient admitted for PNA and is on Abx therapy. Administered Cefepime and Vancomycin this shift. Patient on 2 L of O2, at home as well. Pt oriented X 4. Will continue to monitor for any acute changes.
--- NOTE | 2020-06-27 05:25 | PC.NURSE ---
Mrs. montes weight from the previous way was almost 30lbs difference and i told the nurse and staff and we went in and reweighed the patient and was only a few ounces off of what i had originally got and thats bc patient was moving in the bed
[2020-06-27 07:19] LABS: Basophils % 0.3 % (0.1-2.0); Eosinophils # 0.3 K/mm3 (0.0-0.4); Eosinophils % 4.2 % (0.1-12.0); Hematocrit 32.9 % (37.0-47.0); Hemoglobin 10.7 g/dL (12.2-16.2); Lymphocytes # 1.2 K/mm3 (0.7-4.5); Lymphocytes % 18.2 % (10-50); Mean Corpuscular HGB Conc 32.7 g/dL (31.8-35.4); Mean Corpuscular Hemoglobin 29.4 pg (27.0-31.2); Mean Platelet Volume 7.5 fl (7.4-10.4); Monocytes # 0.4 K/mm3 (0.1-1.0); Monocytes % 5.4 % (1.7-9.3); Neutrophils # 4.6 K/mm3 (1.8-7.8); Neutrophils % 71.8 % (37.0-80.0); Platelet Count 215 K/mm3 (142-424); Red Blood Count 3.65 M/mm3 (4.20-5.40); White Blood Count 6.4 K/mm3 (4.8-10.8)
[2020-06-27 07:30] LABS: Anion Gap 5.8 mEq/L (5-15); Blood Urea Nitrogen 9 mg/dl (7-17); Calcium 8.4 mg/dl (8.4-10.2); Carbon Dioxide 32 mmol/L (22.0-30.0); Chloride 103 mmol/L (98-107); Creatinine Clearance Estimated 53 mL/min (50-200); Estimated Glomerular Filt Rate 69 ml/min (>60); GFR (African American) 83 ML/MIN (>60); Glucose 108 mg/dl (74-100); Potassium 3.8 mmoL/L (3.5-5.1); Sodium 137 mmol/L (136-145)
--- NOTE | 2020-06-27 08:42 | XR_ITS ---
PROCEDURE INFORMATION: Exam: XR Chest Exam date and time: 06/27/2020 8:42 AM Age: 84 years old Clinical indication: Shortness of breath; Additional info: Pneumonia TECHNIQUE: Imaging protocol: XR of the chest. Views: 1 view. COMPARISON: CR XR CHEST PORTABLE 06/24/2020 11:05 AM FINDINGS: Lungs: Hypoinflation with mildly improved basilar airspace disease. Pleural spaces: No significant pleural effusion. Heart/Mediastinum: Borderline cardiomegaly. Vasculature: Calcification of the thoracic aorta. Diaphragm: Scalloping of the right hemidiaphragm. Bones/joints: Median sternotomy. Degenerative change. IMPRESSION: Hypoinflation with mildly improved basilar airspace disease.
--- NOTE | 2020-06-27 08:50 | HMH.ACPN2 ---
Internal Medicine - PN: Subj *Date: 06/27/20 *Time: 08:50 Interval history: Patient relays an uneventful night. She remains on O2 per nasal cannula, maintaining decent saturations. Her IV regimen includes cefepime and vancomycin. Sputum cultures are growing a gram-positive cocci. Blood cultures negative urine cultures negative. The last hemoglobin was 10.7, unremarkable white count. Vital signs have been stable. She was imaged with a CT of the abdomen, this showed a left lower lobe, left lingular infiltrative process. Subsequent studies of the chest have also suggested a right lower lobe process. We will get a stat portable x-ray this morning to reassess. Patient has a history of coronary bypass, stable from a cardiovascular standpoint. I am concerned about her being deconditioned, will have her up in the chair and have physical therapy start working with her. She has some scattered crackles but no active wheezing. She does use home O2. She is not wheezing this morning and is in no respiratory distress. She however does not feel like she is strong enough or ready to go home today. Exam Vital signs and Labs for Last 24 Hours: Temp Pulse Resp BP Pulse Ox 98.2 F 90 16 108/59 L 97 06/27/20 07:45 06/27/20 07:45 06/27/20 07:45 06/27/20 07:45 06/27/20 07:45 Laboratory Results - last 24 hr 06/27/20 07:00: WBC 6.4, RBC 3.65 L, Hgb 10.7 L, Hct 32.9 L, MCV 90.0, MCH 29.4, MCHC 32.7, RDW 15.0, Plt Count 215, MPV 7.5, Neut % (Auto) 71.8, Lymph % (Auto) 18.2, [place] % (Auto) 5.4, Eos % (Auto) 4.2, Baso % (Auto) 0.3, Neut # (Auto) 4.6, Lymph # (Auto) 1.2, [place] # (Auto) 0.4, Eos # (Auto) 0.3, Baso # (Auto) 0.0 06/27/20 07:00: Sodium 137, Potassium 3.8, Chloride 103, Carbon Dioxide 32 H, Anion Gap 5.8, BUN 9 D, Creatinine 0.80, Estimated Creat Clear 53, Estimated GFR 69, Est GFR ( Amer) 83, Glucose 108 H, Calcium 8.4 I & O for Last 24 hours: Intake & Output 06/24/20 06/25/20 06/26/20 06/27/20 23:59 23:59 23:59 23:59 Intake Total 2275 / 6 2141 / 1 1070 / 1070 Balance 2275 / 2515 2140 / 2140 1070 / 1070 Weight 167 lb 8 oz 167 lb 8.821 oz 144 lb 4 oz 171 lb 9 oz Microbiology Reports for the Last 24 Hours: Microbiology 06/25/20 19:10 Sputum - Expectorated Sputum Gram Stain - Final 06/25/20 19:10 Sputum - Expectorated Sputum Sputum Culture - Preliminary Gram Positive Cocci 06/24/20 10:37 Blood Blood Culture - Preliminary NO GROWTH AFTER 48 HOURS 06/24/20 10:37 Blood Blood Culture - Preliminary NO GROWTH AFTER 48 HOURS 06/24/20 10:10 Urine,Clean Catch Urine Culture - Final Multiple organisms, suggests contamination. - Constitutional no acute distress, chronically ill appearing - *Routine HEENT Exam Head: Present: normocephalic Eye: Present: EOMI, PERRL. Absent: conjunctival icterus ENT: Present: mucous membranes moist - *Routine Neck Exam Present: supple. Absent: lymphadenopathy - *Routine Respiratory Exam Present: decreased breath sounds, rhonchi, crackles. Absent: accessory muscle use, prolonged expiratory phase, respiratory distress, wheezes - *Routine Cardiovascular Exam Present: RRR Comments: Status post coronary bypass - *Routine Abdominal Exam Present: soft, normoactive bowel sounds. Absent: tenderness - *Routine Extremities Exam Absent: cyanosis, clubbing, edema - *Routine Skin Exam Present: warm. Absent: rash - *Routine Neurological Exam Present: alert, oriented X3 Assessment and Plan (1) Pneumonia Status: Acute Category: Medical Code(s): J18.9 - Pneumonia, unspecified organism (2) Fever Status: Acute Qualifiers: Fever type: unspecified Qualified Code(s): R50.9 - Fever, unspecified Category: Medical Code(s): R50.9 - Fever, unspecified (3) Obesity (BMI 30-39.9) Status: Acute Category: Medical Code(
--- NOTE | 2020-06-27 10:31 | P.PN_ITS ---
Internal Medicine - PN: Subj *Date: 06/27/20 *Time: 10:31 Exam Vital signs and Labs for Last 24 Hours: Temp Pulse Resp BP Pulse Ox 98.2 F 90 16 108/59 L 97 06/27/20 07:45 06/27/20 07:45 06/27/20 07:45 06/27/20 07:45 06/27/20 07:45 Laboratory Results - last 24 hr 06/27/20 07:00: WBC 6.4, RBC 3.65 L, Hgb 10.7 L, Hct 32.9 L, MCV 90.0, MCH 29.4, MCHC 32.7, RDW 15.0, Plt Count 215, MPV 7.5, Neut % (Auto) 71.8, Lymph % (Auto) 18.2, [place] % (Auto) 5.4, Eos % (Auto) 4.2, Baso % (Auto) 0.3, Neut # (Auto) 4.6, Lymph # (Auto) 1.2, [place] # (Auto) 0.4, Eos # (Auto) 0.3, Baso # (Auto) 0.0 06/27/20 07:00: Sodium 137, Potassium 3.8, Chloride 103, Carbon Dioxide 32 H, Anion Gap 5.8, BUN 9 D, Creatinine 0.80, Estimated Creat Clear 53, Estimated GFR 69, Est GFR ( Amer) 83, Glucose 108 H, Calcium 8.4 I & O for Last 24 hours: Intake & Output 06/24/20 06/25/20 06/26/20 06/27/20 23:59 23:59 23:59 23:59 Intake Total 2275 / 2140 1070 / 1070 Balance 2275 1070 / 1070 Weight 75.977 kg 76 kg 65.431 kg 77.819 kg Microbiology Reports for the Last 24 Hours: Microbiology 06/25/20 19:10 Sputum - Expectorated Sputum Gram Stain - Final 06/25/20 19:10 Sputum - Expectorated Sputum Sputum Culture - Preliminary Gram Positive Cocci 06/24/20 10:37 Blood Blood Culture - Preliminary NO GROWTH AFTER 48 HOURS 06/24/20 10:37 Blood Blood Culture - Preliminary NO GROWTH AFTER 48 HOURS Assessment and Plan (1) Pneumonia Status: Acute Category: Medical Code(s): J18.9 - Pneumonia, unspecified organism (2) Fever Status: Acute Qualifiers: Fever type: unspecified Qualified Code(s): R50.9 - Fever, unspecified Category: Medical Code(s): R50.9 - Fever, unspecified (3) Obesity (BMI 30-39.9) Status: Acute Category: Medical Code(s): E66.9 - Obesity, unspecified (4) History of coronary artery bypass graft Status: Chronic Category: Surgical Code(s): Z95.1 - Presence of aortocoronary bypass graft The patient's infection will respond to the chosen ABx?: Yes Is the patient receiving the right drug, dose, and route?: Yes Could a more targeted ABx be ordered?: No (SPUTUM GROWING GRAM + COCCI)
--- NOTE | 2020-06-27 13:04 | HMH.PTEV ---
Physical Therapy Evaluation Rehab PT IP Evaluation Start: 06/27/20 08:55 Freq: ONCE Status: Active Protocol: Document 06/27/20 12:38 [email or web address] (Rec: 06/27/20 13:03 [email or web address] [id number]) Subjective/History History History Pt. is a 84 year old female who presented to the ER( according to Physician report) secondary to pneumonia exacerbation and generalized weakness. Pt. reports, this is the 4th time I'm here this month for this condition. Pt. reports increased anxiety and weakness w/ activities at home and felt it was necessary for her to admit herself back to the ER. Pt. denies having a mean of self-transportation and relies on her ex-. Pt. reports she lives in a one story home w/ her ex- w/ no stairs for entry nor on the inside. Pt. reports ADL function independently w/ rollator at home prior to ER admittance. Pt. reports requiring some assistance with bathing, states selling her shower chair a few months ago, but states I can acquire another one if need be. PMH includes Anxiety disorder, CAD , CABG, CHF, GERD, Hyperlipidemia, Hypertension, Depression disorder, SD, Cholecystectomy, Appendectomy, Cardiac Catheterization, Coronary Stent, and a Hysterectomy. Pt. denies having a pacemaker. Current medications include, but not limited to, Lorazepam, Pantoprazole, Levothyroxine, Clopidogrel, and furosemide. Subjective Subjective Pt. was seated upright in chair and eating lunch upon entering into the room, pt. agreed to participate in PT inpatient eval. this date. Pt. reports,
--- NOTE | 2020-06-27 15:56 | PC.NURSE ---
PT IS SITTING UP IN THE CHAIR. NO COMPLAINTS OF DISCOMFORT, ALERT AND ORIENTED X4. PT AMBULATED IN THE ROOM WITH PHYSICAL THERAPY THIS SHIFT AND HAS AMBULATED TO THE BATHROOM WITH NURSING STAFF. O2 SATURATION HAS MAINTAINED >90% ON 2 L NC. LUNG SOUNDS HAVE SCATTERED RHONCHI WITH FINE CRACKLES IN THE RLL. ABDOMEN SOFT/NON TENDER WITH ACTIVE BOWEL SOUNDS. VSS. EATING AND DRINKING WELL. WILL CONTINUE TO MONITOR.
[2020-06-28] VITALS: PULSE 90
[2020-06-28 03:33] VITALS: BP 105/49; PULSE 87; RESP 22; TEMP 36.8; O2SAT 94
[2020-06-28 04:00] VITALS: PULSE 80
[2020-06-28 05:00] VITALS: BMI 33.9
--- NOTE | 2020-06-28 05:35 | PC.NURSE ---
Pt has slept at intervals this shift. C/O soa x2 this shift after ambulating to toilet with assist x1. Pt remains on 2L O2 NC as she is at home. O2 sats in mid 90s. Has requested rescue inhaler this shift. VSS. No other concerns. Will continue to monitor.
--- NOTE | 2020-06-28 06:08 | PC.NURSE ---
Pt requests to wait temporarily on taking advair.
[2020-06-28 07:50] LABS: Basophils % 0.3 % (0.1-2.0); Eosinophils # 0.3 K/mm3 (0.0-0.4); Hematocrit 31.7 % (37.0-47.0); Hemoglobin 10.5 g/dL (12.2-16.2); Lymphocytes # 1.2 K/mm3 (0.7-4.5); Mean Corpuscular HGB Conc 33.1 g/dL (31.8-35.4); Mean Corpuscular Hemoglobin 29.6 pg (27.0-31.2); Mean Corpuscular Volume 89.4 fl (81-99); Mean Platelet Volume 7.8 fl (7.4-10.4); Monocytes # 0.3 K/mm3 (0.1-1.0); Monocytes % 4.8 % (1.7-9.3); Neutrophils # 4.6 K/mm3 (1.8-7.8); Neutrophils % 71.9 % (37.0-80.0); Platelet Count 227 K/mm3 (142-424); Red Blood Count 3.54 M/mm3 (4.20-5.40); Red Cell Distribution Width 15.1 % (11.5-17.5); White Blood Count 6.4 K/mm3 (4.8-10.8)
[2020-06-28 07:55] LABS: Anion Gap 4.8 mEq/L (5-15); Blood Urea Nitrogen 9 mg/dl (7-17); Calcium 8.5 mg/dl (8.4-10.2); Carbon Dioxide 32 mmol/L (22.0-30.0); Chloride 103 mmol/L (98-107); Creatinine Clearance Estimated 52 mL/min (50-200); Estimated Glomerular Filt Rate 69 ml/min (>60); GFR (African American) 83 ML/MIN (>60); Glucose 94 mg/dl (74-100); Potassium 3.8 mmoL/L (3.5-5.1); Sodium 136 mmol/L (136-145)
[2020-06-28 08:00] VITALS: BP 125/64; PULSE 83; PULSE 88; RESP 20; TEMP 36.6; O2SAT 94
--- NOTE | 2020-06-28 09:14 | HMH.DCSUM ---
General - General Admission date:: 06/24/20 Discharge date: 06/28/20 HPI HPI: 84-year-old female presents to the ED with c/o generalized weakness,chills,fever and feeling tired. Patient states she was just recently admitted to the hospital for chest pain and she was discharged on new meds. Chest pain is improved, Pt had temperature to 100.0 in ed.Pt states the day it started she had a episode where she was shaking uncontrollable and could not get warm. Pt states she called 911 and they came and checked her out but she did not want to go to ed. Pt states later that day she called 911 again due to the shaking and weakness. Pt admitted to [facility] for pneumonia. Hospital Course Hospital Course: Laboratory Tests 06/24/20 06/24/20 06/24/20 10:10 10:10 10:10 WBC 20.5 H* D RBC 4.15 L Hgb 12.2 Hct 37.8 MCV 91.0 MCH 29.5 MCHC 32.4 RDW 15.0 Plt Count 240 MPV 7.6 Neut % (Auto) 92.1 H Lymph % (Auto) 3.7 L [place] % (Auto) 2.9 Eos % (Auto) 1.2 Baso % (Auto) 0.1 Neut # (Auto) 18.8 H Lymph # (Auto) 0.8 [place] # (Auto) 0.6 Eos # (Auto) 0.3 Baso # (Auto) 0.0 Total Counted 100 Neutrophils % (Manual) 90 H Lymphocytes % (Manual) 6 L Monocytes % (Manual) 4 Platelet Estimate Normal RBC Morphology Normal Sodium 134 L Potassium 3.9 Chloride 98 Carbon Dioxide 31 H Anion Gap 8.9 BUN 17 Creatinine 0.90 Estimated Creat Clear 54 Estimated GFR 60 Est GFR ( Amer) 73 Glucose 124 H POC Glucose Lactate Calcium 8.9 Phosphorus Magnesium Total Bilirubin 0.7 AST 26 ALT 13 Alkaline Phosphatase 53 Troponin I 0.04 H Total Protein 6.2 L Albumin 3.5 Globulin 2.7 Albumin/Globulin Ratio 1.3 Triglycerides Cholesterol LDL Cholesterol Direct VLDL Cholesterol HDL Cholesterol Cholesterol/HDL Ratio Lipase Urine Color Yellow Urine Appearance Clear Urine pH 6.0 Ur Specific [place] 1.020 Urine Protein Trace Urine Glucose (UA) Negative Urine Ketones Negative Urine Blood Negative Urine Nitrate Negative Urine Bilirubin Negative Urine Urobilinogen 0.2 Ur Leukocyte Esterase Trace Urine RBC Occasional Urine WBC 3-5 Ur Squamous Epith Cells Occasional Ur Transition Epith Cell 3-5 Urine Bacteria 2+ Chlamy pneumoniae PCR Adenovirus (PCR) B. pertussis DNA (PCR) Coronavirus OC43 (PCR) Coronavirus HKU1 (PCR) Coronavirus 229E (PCR) SARS-CoV-2 (PCR) Coronavirus NL63 (PCR) Human Metapneumovir PCR Influenza A (H1) PCR Influ A (H1N1/09) PCR Influenza A (H3) PCR Influenza Type A (PCR) Influenza Type B (PCR) M. pneumoniae (PCR) Parainfluenza 1 (PCR) Parainfluenza 2 (PCR) Parainfluenza 3 (PCR) Parainfluenza 4 (PCR) RSV (PCR) Entero/Rhino (PCR) 06/24/20 06/24/20 06/24/20 10:10 10:37 13:34 WBC RBC Hgb Hct MCV MCH MCHC RDW Plt Count MPV Neut % (Auto) Lymph % (Auto) [place] % (Auto) Eos % (Auto) Baso % (Auto) Neut # (Auto) Lymph # (Auto) [place] # (Auto) Eos # (Auto) Baso # (Auto) Total Counted Neutrophils % (Manual) Lymphocytes % (Manual) Monocytes % (Manual) Platelet Estimate RBC Morphology Sodium Potassium Chloride Carbon Dioxide Anion Gap BUN Creatinine Estimated Creat Clear Estimated GFR Est GFR ( Amer) Glucose POC Glucose Lactate 1.4 Calcium Phosphorus Magnesium Total Bilirubin AST ALT Alkaline Phosphatase Troponin I 0.04 H Total Protein Albumin Globulin Albumin/Globulin Ratio Triglycerides Cholesterol LDL Cholesterol Direct VLDL Cholesterol HDL Cholesterol Cholesterol/HDL Ratio Lipase 306 H Urine Color Urine Appearance Urine pH U
== END 2020-06-28 11:55 | disposition home health service (06) | DRG 194 ==
LOC: ER 12:13 → 2ND 13:35
PROVIDERS: Nurse Practitioner Family; Admitting Provider Family Medicine; Emergency Provider Emergency Medicine; PCP Internal Medicine; Visit Provider Family Medicine
DX: J18.9 Pneumonia, unspecified organism (principal); I50.32 Chronic diastolic (congestive) heart failure; I11.0 Hypertensive heart disease with heart failure; Z88.2 Allergy status to sulfonamides; Z88.8 Allergy status to other drugs, medicaments and biological substances; Z20.822 Contact with and (suspected) exposure to COVID-19; F41.9 Anxiety disorder, unspecified; I25.10 Atherosclerotic heart disease of native coronary artery without angina pectoris; Z95.1 Presence of aortocoronary bypass graft; Z95.5 Presence of coronary angioplasty implant and graft; I25.2 Old myocardial infarction; M19.90 Unspecified osteoarthritis, unspecified site; Z96.659 Presence of unspecified artificial knee joint; K21.9 Gastro-esophageal reflux disease without esophagitis; E66.9 Obesity, unspecified; E03.9 Hypothyroidism, unspecified; E78.5 Hyperlipidemia, unspecified; Z79.02 Long term (current) use of antithrombotics/antiplatelets; Z68.34 Body mass index [BMI] 34.0-34.9, adult
CPT/HCPCS: 36415; 71045; 74177; 78452; 80048; 80053; 80061; 81001; 82962; 83605; 83690; 83735; 84100; 84484; 85007; 85025; 87040; 87070; 87077; 87086; 87205; 87581; 87633; 87798; 93005; 93017; 94640; 94761; 96365; 96367; 96375; 97161; 99284; A9502; G0378; J2405; J2785; J3370; Q9967

== ENCOUNTER → 2020-08-12 15:38 | Outpatient (CLI) | payer MEDICARE, OTHER, SELFPAY ==
--- NOTE | 2020-08-12 15:39 | XR_ITS ---
PROCEDURE: XR CHEST 2V CLINICAL HISTORY: SOA COMPARISON: CT CT CHEST WO/W CON from 06/13/2020 CR XR CHEST PORTABLE from 06/22/2020 CR XR CHEST PORTABLE from 06/24/2020 CR XR CHEST PORTABLE from 06/27/2020 FINDINGS: Lung volumes are mildly low. There is patchy left basilar scar/atelectasis versus less likely infiltrate. Partial eventration of the right hemidiaphragm. No pleural effusion or pneumothorax. Mild right basilar scar versus atelectasis. Heart size normal. Prior median sternotomy and CABG surgery. No acute bony abnormality. Cholecystectomy clips noted. IMPRESSION: Patchy left basilar scar/atelectasis versus less likely infiltrate with mild right basilar scar versus atelectasis. Mildly low lung volumes. Dictated by: Erick Bishop MD 08/12/2020 16:12 Erick Bishop MD in [place] 08/12/2020 16:12
== END ==
PROVIDERS: PCP Emergency Medicine; Visit Provider Nurse Practitioner Family
DX: R06.02 Shortness of breath (principal)
CPT/HCPCS: 71046

== ENCOUNTER 2020-08-25 17:57 | Observation (INO) | payer MEDICARE, OTHER, SELFPAY ==
[2020-08-25] VITALS (7 sets, daily range): BP systolic 98–125; BP diastolic 42–74; PULSE 78–85; RESP 18–22; TEMP 36.8–37.2; O2SAT 92–97; BMI 69.2; BMI 31.4; BMI 32.8
--- NOTE | 2020-08-25 18:17 | HMH.EDGENADL ---
ED Disposition Clinical Impression: Pneumonia, Hypotension, Chronic CHF Disposition: Admitted As Inpatient Condition on Discharge: Good Referrals: Juan Carlos Hand APRN [Primary Care Provider] - - Critical Care Critical Care Time: No Attestation: On , the high probability of a clinically significant, sudden or life threatening deterioration of the following system(s) required my full and direct attention, intervention and personal management. The time I documented below is in addition to time spent performing reported procedures but includes the following listed in this critical care notation. Medical Decision Making - Medical Records MR Comment: Patient has left upper lobe pneumonia. She has leukocytosis with no fever. She has a history of congestive heart failure in combination with pneumonia causing shortness of breath. Blood culture was ordered and she started on Rocephin. Her primary care physician was informed and he agreed to admission, Dr Evans. - Robert Inquiry Pt receiving controlled substance: Mary Jones was queried for this patient: No Vital Signs: 08/25/20 18:05 Temperature 98.9 F Temperature Source Oral Pulse Rate [Right] 85 Respiratory Rate 22 Blood Pressure [Right Arm] 108/42 L Blood Pressure Mean [Right Arm] 64 Blood Pressure Source [Right Arm] Automatic Cuff Blood Pressure Position [Right Arm] Sitting 02 Sat by Pulse Oximetry 92 L Oxygen Delivery Method Room Air - Lab Data Lab Results 08/25/20 18:25: Sodium 134 L, Potassium 4.8, Chloride 95 L, Carbon Dioxide 33 H, Anion Gap 10.8, BUN 17, Creatinine 1.10 H, Estimated Creat Clear 45, Estimated GFR 48 L, Est GFR ( Amer) 58 L, Glucose 126 H, Calcium 8.9, Total Bilirubin 0.7, AST 23, ALT 13, Alkaline Phosphatase 41, Troponin I 0.06 H, NT-Pro-B Natriuret Pep 4600 H, Total Protein 6.0 L, Albumin 3.5, Globulin 2.5, Albumin/Globulin Ratio 1.4 08/25/20 18:53: WBC 22.0 H*, RBC 3.52 L, Hgb 10.5 L, Hct 32.5 L, MCV 92.3, MCH 29.9, MCHC 32.4, RDW 15.9, Plt Count 259, MPV 7.6, Neut % (Auto) 86.5 H, Lymph % (Auto) 8.2 L, [place] % (Auto) 3.2, Eos % (Auto) 2.0, Baso % (Auto) 0.2, Neut # (Auto) 19.1 H, Lymph # (Auto) 1.8, [place] # (Auto) 0.7, Eos # (Auto) 0.4, Baso # (Auto) 0.0, Total Counted 100, Neutrophils % (Manual) 84 H, Lymphocytes % (Manual) 11, Monocytes % (Manual) 5, Platelet Estimate Normal, RBC Morphology Normal Result diagrams: 08/25/20 18:53 08/25/20 18:25 Orders (Tests/Meds): ED MEDICATIONS Generic Name Dose Route Start Last Admin Trade Name Freq PRN Reason Stop Dose Admin Azithromycin 500 mg/ Sodium 250 mls @ 250 mls/hr 08/25/20 19:45 Chloride IV 09/08/20 19:44 [id number] Protocol Discontinued Medications Generic Name Dose Route Start Last Admin Trade Name Freq PRN Reason Stop Dose Admin Ceftriaxone Sodium 1 gm 08/25/20 19:40 Ceftriaxone 1gm Vial IM 08/25/20 19:41 ONCE ONE Protocol Lidocaine HCl 0 ml 08/25/20 19:40 Lidocaine 1% 5ml Pf Vial IM 08/25/20 19:41 ONCE ONE ORDERS Category Date Time Status Complete Blood Count Auto Diff Stat Lab 08/25/20 19:34 Ordered Comprehensive Metabolic Panel Stat Lab 08/25/20 19:34 Ordered Lactic Acid Stat Lab 08/25/20 19:25 Ordered Procalcitonin Stat Lab 08/25/20 19:25 Ordered Prothrombin Time INR Stat Lab 08/25/20 19:36 Ordered Urinalysis and Microscopic Stat Lab 08/25/20 19:29 Ordered Blood Culture Stat Micro 08/25/20 19:25 Ordered ECG Request by /Nse Stat Y 08/25/20 19:34 Ordered General Adult HPI - General Chief complaint: Shortness of Breath/Dyspnea Stated complaint: low blood pressure/ Klaber wants patient seen Time Seen by Provider: 08/25/20 18:18 - History of Present Illness HPI narrative: Female walked to the emergency room complaining of low blood pressure. She checked her blood pressure daily and she noticed that her blood pressure is low today. She has a history of chronic congestive heart failure.
--- NOTE | 2020-08-25 18:32 | XR_ITS ---
PROCEDURE INFORMATION: Exam: XR Chest Exam date and time: 08/25/2020 6:32 PM Age: 84 years old Clinical indication: Shortness of breath; Patient HX: Sob---. Chf TECHNIQUE: Imaging protocol: XR of the chest. Views: 1 view. Total images: 1 COMPARISON: CR XR CHEST 2V 08/12/2020 3:51 PM FINDINGS: Lungs: Low lung volumes. Question mild central vascular congestion. Left-sided alveolar opacities in the perihilar and basilar distribution concerning for pneumonia. The sparing on the right is atypical for pulmonary edema. Pleural spaces: No pneumothorax. Heart/Mediastinum: Heart size within normal limits for portable AP technique. No tracheal/mediastinal shift. Vasculature: Mild aortic ectasia/tortuosity and mild calcific atherosclerosis. Diaphragm: Mild eventration of the right hemidiaphragm again noted. Bones/joints: No acute osseous abnormalities are identified. Osteopenia. Other findings: No gross effusions. IMPRESSION: Left-sided airspace disease concerning for pneumonia. The distribution is atypical for pulmonary edema, considered less likely.
[2020-08-25 18:44] LABS: Chloride 95 mmol/L (98-107)
[2020-08-25 18:45] LABS: Potassium 4.8 mmoL/L (3.5-5.1); Sodium 134 mmol/L (136-145)
[2020-08-25 18:47] LABS: Alanine Aminotransferase 13 U/L (12-78); Alkaline Phosphatase 41 U/L (38-126); Aspartate Amino Transferase 23 U/L (14-36); Bilirubin,Total 0.7 mg/dl (0.2-1.3); Blood Urea Nitrogen 17 mg/dl (7-17); Creatinine Clearance Estimated 45 mL/min (50-200); Estimated Glomerular Filt Rate 48 ml/min (>60); GFR (African American) 58 ML/MIN (>60)
[2020-08-25 18:48] LABS: Albumin Level 3.5 g/dl (3.5-5.0); Albumin/Globulin Ratio 1.4 (1.1-1.8); Anion Gap 10.8 mEq/L (5-15); Calcium 8.9 mg/dl (8.4-10.2); Carbon Dioxide 33 mmol/L (22.0-30.0); Globulin 2.5 g/dL (1.3-3.2); Glucose 126 mg/dl (74-100)
[2020-08-25 18:57] LABS: NT Pro Brain Natriuretic Pep. 4600 pg/mL (0-450)
[2020-08-25 19:01] LABS: Troponin I 0.06 ng/ml (0.00-0.034)
[2020-08-25 19:05] LABS: Basophils % 0.2 % (0.1-2.0); Eosinophils # 0.4 K/mm3 (0.0-0.4); Hematocrit 32.5 % (37.0-47.0); Hemoglobin 10.5 g/dL (12.2-16.2); Lymphocytes # 1.8 K/mm3 (0.7-4.5); Lymphocytes % 8.2 % (10-50); Mean Corpuscular HGB Conc 32.4 g/dL (31.8-35.4); Mean Corpuscular Hemoglobin 29.9 pg (27.0-31.2); Mean Corpuscular Volume 92.3 fl (81-99); Mean Platelet Volume 7.6 fl (7.4-10.4); Monocytes # 0.7 K/mm3 (0.1-1.0); Monocytes % 3.2 % (1.7-9.3); Neutrophils # 19.1 K/mm3 (1.8-7.8); Neutrophils % 86.5 % (37.0-80.0); Platelet Count 259 K/mm3 (142-424); Red Blood Count 3.52 M/mm3 (4.20-5.40); Red Cell Distribution Width 15.9 % (11.5-17.5)
[2020-08-25 19:09] LABS: MANUAL DIFFERENTIAL MANUAL DIFFERENTIAL (MANUAL DIFF)
--- NOTE | 2020-08-25 19:14 | PC.NURSE ---
phone call from lab, white count 22.0 info verified
[2020-08-25 19:23] LABS: Lymphocytes % 11 % (10-50); Monocytes % 5 % (2-9); Neutrophils % 84 % (42-76); Platelet Estimate Normal; RBC Morphology Normal; Total Cells Counted 100
[2020-08-25 19:53] LABS: Appearance,Urine CLEAR (Clear); Bilirubin,Urine Negative (Negative); Blood, Urine Negative (Negative); Color,Urine YELLOW (Yellow); Glucose,Urine (UA) Negative (Negative); Ketones,Urine Negative (Negative); Leukocyte Esterase,Urine TRACE (Negative); Microscopic, Urine URINE MICROSCOPIC (MICROSCOPIC); Nitrate,Urine Negative (Negative); PH,Urine 8.5 (5.0-8.5); Protein,Urine TRACE (Negative); Urobilinogen,Urine 0.2 EU/dl (0.2)
[2020-08-25 20:29] LABS: Lactic Acid 1.1 mmol/L (0.7-2.1)
[2020-08-25 20:37] LABS: Coronavirus 19, PCR Not Detected (NotDetected); Influenza A, PCR Not Detected (NotDetected); Influenza B, PCR Not Detected (NotDetected)
[2020-08-25 20:47] LABS: Procalcitonin 3.78 ng/mL (0.0-2.0)
--- NOTE | 2020-08-25 21:21 | HMH.HP ---
*Admission Date: 08/25/20 *Chief complaint: weakness *History of present illness: this pt presented to [facility] ed with She checked her blood pressure daily and she noticed that her blood pressure is low today. She has a history of chronic congestive heart failure. Also she has some increased shortness of breath. She denies any chest pain. Shortness of breath with exertion and also orthopnea. She denies any fever or chills. She denies any nausea or vomiting.pt with feeling of chills and was noted to have pneumonia on xray and was started on iv abx and resp treatment [facility] History I have reviewed the patient's past medical history: Yes Medical History: Reports:: Anxiety, Congestive Heart Failure, Coronary Artery Disease, Depression, Gastroesophageal Reflux Disease(GERD), Hyperlipidemia, Hypertension, Migraine, Myocardial Infarction Denies:: Cancer, Diabetes Mellitus Type 1, Diabetes Mellitus Type 2, Internal Pacemaker, MRSA, Seizures *Have you ever received a pneumonia vaccine?: No *Have you received a flu vaccine this season?: No Other Medical History: Reports: Anemia, Arthritis, Hypothyroidism, Thyroid Disease Laterality Cases: Right: Arthroscopy Knee, Other Other Surgeries: Yes: Appendectomy, Bariatric Surgery, CABG, Cardiac Catheterization, Cardiac Surgery, Cholecystectomy, Coronary Stent, Hysterectomy-Total, Open Heart Surgery, Tubal Ligation, Other. No: Pacemaker Amputation: No Fractures: Yes (right ankle) - *Social History Smoking Status: Never smoker Tobacco Type: cigarettes # Packs/Day (cigarettes): 1 Alcohol Intake: never Alcohol Intake Frequency:: other Substance Use Type: denies use *Occupational Status:: retired Housing: house Household Members: significant other *Travel in the last 8 weeks: None - Psychiatric History Pschychiatric History:: Reports:: Anxiety, Depression Family Hx:: Cancer, Coronary Artery Disease, Heart Attack, Hyperlipidemia, Hypertension, Thyroid Disorder Review of Systems - Review of Systems Review of systems:: pertinent systems reviewed and negative unless documented below - Constitutional Reports chills, Reports weakness, Denies fever(s) - Eyes Denies change in vision - ENT Reports dry mouth - *Cardiovascular Denies chest pain with activity - *Respiratory Reports cough, Reports shortness of breath, Denies coughing up blood - *Gastrointestinal Denies abdominal pain, Denies nausea, Denies vomiting - *Genitourinary Denies blood in urine - *Musculoskeletal Denies joint pain, Denies neck pain - Integumentary/Breasts Denies rash - *Neurologic Denies dizziness, Denies headache(s), Denies seizure-like activity - Psychiatric Denies anxiety Meds Home Medications Medication Instructions Recorded Confirmed Type lorazepam 1 mg tablet 1 mg PO TIDP PRN tab 09/26/17 08/25/20 History melatonin 10 mg tablet 10 mg PO HS 09/26/17 08/25/20 History Aspirin [Aspirin 81mg chewable 81 mg PO DAILY 07/01/18 08/25/20 History tab] Levothyroxine Sodium 75 mcg PO DAILY 05/26/19 08/25/20 History [Levothyroxine 75mcg (0.075mg) Tab] meclizine 25 mg tablet 25 mg PO TIDP PRN tab 10/28/19 08/25/20 History Nitroglycerin 0.4 mg SL Q5MINP PRN 12/12/19 08/25/20 History Furosemide [Furosemide 20mg Tab*] 20 mg PO DAILY 06/12/20 08/25/20 History pantoprazole 40 mg tablet,delayed 40 mg PO DAILY #90 tab 07/13/20 08/25/20 Rx release albuterol sulfate 90 mcg/actuation 1 inh INHALATION QID PRN #8.5 g 07/20/20 08/25/20 Rx aerosol inhaler cetirizine 10 mg capsule 5 mg PO HS PRN #30 cap 07/20/20 08/25/20 Rx ipratropium 0.5 mg-albuterol 3 mg 3 ml INHALATION Q6H PRN #90 ml 07/20/20 08/25/20 Rx (2.5 mg base)/3 mL nebulization soln benzonatate 100 mg capsule 100 mg PO TID PRN #20 cap 08/13/20 08/25/20 Rx Clopidogrel Bisulfate [Plavix] See Rx Instructions .ROUTE .COMPLEX 08/25/20 08/25/20 History Fluticasone/Salmeterol [Advair 1 inh INHALATION BID 08/25/20 08/25/20 History 250/50mcg Diskus
--- NOTE | 2020-08-25 22:58 | PC.NURSE ---
PT TO SECOND FLOOR VIA STRETCHER FROM ED AT 22:10.
[2020-08-26] VITALS (22 sets, daily range): BP systolic 92–131; BP diastolic 48–72; PULSE 62–85; RESP 16–18; TEMP 36.7–36.9; O2SAT 92–98; BMI 32.9
--- NOTE | 2020-08-26 | IR_ITS ---
APPROVED REPORT Patient Location: Inpatient PROCEDURES Left heart catheterization Left ventriculogram Selective coronary angiogram Selective engagement of the saphenous vein graft to the circumflex artery INDICATION Coronary disease, History of coronary bypass surgery, Elevated troponin Informed consent was obtained prior to the procedure. COMPLICATIONS NONE Estimated Blood Loss: LESS THAN 10 ML TECHNIQUE One percent lidocaine used to anesthetize the right groin. The right femoral artery was accessed via the Seldinger technique and a 5 [place] sheath was placed in the right femoral artery. A JL 4, JR4 catheter were used to perform left heart catheterization, left ventriculogram selective coronary angiography as well as selective engagement of the 2 vein grafts and the left internal mammary artery. At the end of the procedure the patient was transferred to the postop holding area in stable condition for sheath removal. ANGIOGRAPHIC RESULTS The left main artery Has a stent in the ostial segment which is widely patent free of in-stent restenosis with excellent proximal distal transitioning The left anterior descending artery Has an ostial hazy 10 to 20% stenosis with remaining vessel widely patent. There is tortuosity throughout the LAD with no stenosis greater than 10% The circumflex artery Gives rise to a high first obtuse marginal artery ramus intermedius which is occluded. The remaining circumflex artery has mild atheromatous 10 to 20% plaque The right coronary artery Small nondominant vestigial normal The CAREY ventriculogram reveals Normal 65% The left ventricular end-diastolic pressure 15 to 20 mmHg Saphenous vein graft to ramus intermedius/first high obtuse marginal arteries widely patent IMPRESSION Adequate coronary revascularization as described above Probable diastolic dysfunction as etiology for elevated LVEDP and elevated troponin PLAN 1. Treatment of diastolic dysfunction 2. Medical management of coronary disease Electronically signed by : Richard Bergeron, 08/27/2020 13:11:28
[2020-08-26 01:10] LABS: Troponin I 0.04 ng/ml (0.00-0.034)
[2020-08-26 04:27] LABS: Troponin I 0.05 ng/ml (0.00-0.034)
[2020-08-26 07:20] LABS: Basophils % 0.2 % (0.1-2.0); Eosinophils # 0.2 K/mm3 (0.0-0.4); Eosinophils % 1.8 % (0.1-12.0); Hematocrit 27.7 % (37.0-47.0); Lymphocytes # 2.4 K/mm3 (0.7-4.5); Lymphocytes % 26.7 % (10-50); Mean Corpuscular HGB Conc 33.2 g/dL (31.8-35.4); Mean Corpuscular Hemoglobin 30.3 pg (27.0-31.2); Mean Corpuscular Volume 91.2 fl (81-99); Mean Platelet Volume 7.6 fl (7.4-10.4); Monocytes # 0.5 K/mm3 (0.1-1.0); Monocytes % 5.9 % (1.7-9.3); Neutrophils # 5.8 K/mm3 (1.8-7.8); Neutrophils % 65.4 % (37.0-80.0); Platelet Count 202 K/mm3 (142-424); Red Blood Count 3.04 M/mm3 (4.20-5.40); Red Cell Distribution Width 15.9 % (11.5-17.5); White Blood Count 8.9 K/mm3 (4.8-10.8)
[2020-08-26 07:25] LABS: Chloride 101 mmol/L (98-107); Sodium 137 mmol/L (136-145)
[2020-08-26 07:28] LABS: Blood Urea Nitrogen 17 mg/dl (7-17); Carbon Dioxide 33 mmol/L (22.0-30.0); Creatinine Clearance Estimated 51 mL/min (50-200); Estimated Glomerular Filt Rate 60 ml/min (>60); GFR (African American) 73 ML/MIN (>60)
[2020-08-26 07:29] LABS: Calcium 8.5 mg/dl (8.4-10.2); Glucose 87 mg/dl (74-100); Magnesium 1.8 mg/dl (1.6-2.3)
--- NOTE | 2020-08-26 07:42 | HMH.PHAVTE ---
[facility] Pharmacy VTE Monitoring - Patient Demographics Admission date: 08/25/20 Report Date: 08/26/20 Time: 07:42 Allergies/Adverse Reactions: Patient Allergies carisoprodol [From Soma] Allergy (Intermediate, Verified 08/12/20 14:50) itching meperidine Allergy (Intermediate, Verified 08/12/20 14:50) itching Sulfa (Sulfonamide Antibiotics) Allergy (Intermediate, Verified 08/12/20 14:50) itching trimethoprim Allergy (Intermediate, Verified 08/12/20 14:50) stomach atorvastatin [From Lipitor] Adverse Reaction (Intermediate, Verified 08/12/20 14:50) stomach Height: 1.5 m Weight: 74.134 kg Patient Problems: Current Active Problems Pneumonia (Acute) Hypotension (Acute) Chronic CHF (Acute) - VTE Risk Labs: VTE Related Lab Results Hgb 10.5 g/dL (12.2-16.2) L 08/25/20 18:53 Hct 27.7 % (37.0-47.0) L 08/26/20 07:11 Plt Count 202 K/mm3 (142-424) 08/26/20 07:11 BUN 17 mg/dl (7-17) 08/26/20 07:11 Creatinine 0.90 mg/dl (0.52-1.04) 08/26/20 07:11 Estimated Creat Clear 51 mL/min (50-200) 08/26/20 07:11 Clinical Trial Participant: No - Prophylaxis VTE Prophylaxis Ordered?: Yes Types of VTE Prophylaxis: TEDS Knee High
[2020-08-26 07:52] LABS: Hemoglobin 9.2 g/dL (12.2-16.2)
[2020-08-26 08:28] LABS: Procalcitonin 4.05 ng/mL (0.0-2.0)
--- NOTE | 2020-08-26 08:56 | HMH.PTEV ---
Physical Therapy Evaluation Rehab PT IP Evaluation Start: 08/26/20 07:59 Freq: ONCE Status: Active Protocol: Document 08/26/20 08:53 HENRY (Rec: 08/26/20 08:56 [email or web address] [id number]) Subjective/History History History This is the initial IP PT evalaution for Nery Floyd . Pt is an 84 y/o female admitted to [facility] thru thr ED. Pt was at home w/ HHPT and noticed her blood pressure was low and had increased c/o SOA . Pt went to ED and was admitted for observation Subjective Subjective no complaints from pt - pt reports living in apartment w/ and using rollator at home Rehab PT IP Eval Objective Appearance Patient Behavior Appropriate,Cooperative Patient Orientation Person,Place,Time,Situation Difficulty following instructions none Speech Pattern Clear,Appropriate Ambulation Patient Able to Ambulate Yes Ambulation Observation IP General Gait Pattern Observation Shuffling Step Ambulation Distance (feet) 10 Ambulation Assistive Device None Ambulation Ability Contact Guard/Hand Hold Balance Ability to Arise Able, uses arms to help Sitting Balance Steady, safe Standing Balance Steady, wide stance Dynamic Sitting Balance Ability Normal Dynamic Standing Balance Ability Good Transfers Bed Transfer Ability Independent Chair Transfer Ability Independent Sit to Stand Bed Transfer Ability Supervision/Stand by Sit to Stand Chair Transfer Ability Supervision/Stand by ROM All Extremities PT ROM Status WFL MMT All Extremities PT MMT WFL Rehab PT IP prob,goals,plan Problems Date of Evaluation: 08/26/20 PT IP Problems Gait,Self care Rehab Potential Rehab Potential Good Equipment Needs Assistive Devices Rolling / Wheeled Walker Plan PT Intervention Plan Transfers,Gait,Safety, Therapeutic Exercise PT Plan Frequency BID Duration LOS Discharge Goals Bed Transfer Ability Independent Sit to Stand Chair Transfer Ability Supervision/Stand by Ambulation Assistive Device Rolling Walker Ambulation Distance (feet) 50 Discharge Plan PT Discharge Plan Pt safe to return home once medically stable and continue w/ HHPT for improved f
--- NOTE | 2020-08-26 09:14 | HMH.CNCARD ---
History of Present Illness Consult date: 08/26/20 Requesting physician: Yung Keith Consult reason: congestive heart failure, shortness of breath Chief complaint: SOA History of present illness: This is an 84-year-old white female who presented to the emergency department due to low blood pressure. She states that she checked her blood pressure and other vital signs daily and her blood pressure was low at 90/40s. The patient states that she has been having shortness of breath. She states that this is with rest and exertion. It is worse with exertion and does get better with rest. She states that this has been ongoing for quite some time. It is associated with orthopnea, fatigue and weakness. She states that she was attributing her shortness of breath to not using her inhalers as frequently because she was trying to wean off of them. She denies any chest pain or pressure. She denies any fever, chills, nausea, vomiting, diarrhea. The patient has been diagnosed with pneumonia and has been started on IV antibiotics. [facility] History I have reviewed the patient's past medical history: Yes Medical History: Reports:: Anxiety, Congestive Heart Failure, Coronary Artery Disease, Depression, Gastroesophageal Reflux Disease(GERD), Hyperlipidemia, Hypertension, Migraine, Myocardial Infarction Denies:: Cancer, Diabetes Mellitus Type 1, Diabetes Mellitus Type 2, Internal Pacemaker, MRSA, Seizures *Have you ever received a pneumonia vaccine?: Yes *Have you received a flu vaccine this season?: No Other Medical History: Reports: Anemia, Arthritis, Hypothyroidism, Thyroid Disease Laterality Cases: Right: Arthroscopy Knee, Other Other Surgeries: Yes: Appendectomy, Bariatric Surgery, CABG, Cardiac Catheterization, Cardiac Surgery, Cholecystectomy, Coronary Stent, Hysterectomy-Total, Open Heart Surgery, Tubal Ligation, Other. No: Pacemaker Amputation: No Fractures: Yes (right ankle) - *Social History Smoking Status: Never smoker Tobacco Type: cigarettes # Packs/Day (cigarettes): 1 Alcohol Intake: never Alcohol Intake Frequency:: other Substance Use Type: denies use *Occupational Status:: retired Housing: house Household Members: significant other *Travel in the last 8 weeks: None - Psychiatric History Pschychiatric History:: Reports:: Anxiety, Depression Family Hx:: No significant family history Meds Home Medications Medication Instructions Recorded Confirmed Type lorazepam 1 mg tablet 1 mg PO TIDP PRN tab 09/26/17 08/25/20 History melatonin 10 mg tablet 10 mg PO HS 09/26/17 08/25/20 History Aspirin [Aspirin 81mg chewable 81 mg PO DAILY 07/01/18 08/25/20 History tab] Levothyroxine Sodium 75 mcg PO DAILY 05/26/19 08/25/20 History [Levothyroxine 75mcg (0.075mg) Tab] meclizine 25 mg tablet 25 mg PO TIDP PRN tab 10/28/19 08/25/20 History Nitroglycerin 0.4 mg SL Q5MINP PRN 12/12/19 08/25/20 History Furosemide [Furosemide 20mg Tab*] 20 mg PO DAILY 06/12/20 08/25/20 History pantoprazole 40 mg tablet,delayed 40 mg PO DAILY #90 tab 07/13/20 08/25/20 Rx release albuterol sulfate 90 mcg/actuation 1 inh INHALATION QID PRN #8.5 g 07/20/20 08/25/20 Rx aerosol inhaler cetirizine 10 mg capsule 5 mg PO HS PRN #30 cap 07/20/20 08/25/20 Rx ipratropium 0.5 mg-albuterol 3 mg 3 ml INHALATION Q6H PRN #90 ml 07/20/20 08/25/20 Rx (2.5 mg base)/3 mL nebulization soln benzonatate 100 mg capsule 100 mg PO TID PRN #20 cap 08/13/20 08/25/20 Rx Clopidogrel Bisulfate [Plavix] 75 mg PO DAILY 08/25/20 08/26/20 History Fluticasone/Salmeterol [Advair 1 inh INHALATION BID 08/25/20 08/25/20 History 250/50mcg Diskus] Ranolazine [Ranolazine ER] 500 mg PO BID 08/25/20 08/26/20 History Rosuvastatin Calcium 5 mg PO DAILY 08/25/20 08/26/20 History Tiotropium [place] [Spiriva 2 inh INHALATION DAILY 08/25/20 08/25/20 History Respimat] bisoproloL fumarate [Bisoprolol 5 mg PO DAILY 08/25/20 08/25/20 History Fumarate] Isosorbide Mononitrate [Isosorbid
--- NOTE | 2020-08-26 09:24 | HMH.OTEV ---
OT Inpatient Evaluation Rehab OT IP Evaluation Start: 08/26/20 08:00 Freq: ONCE Status: Complete Protocol: Document 08/26/20 09:09 DEBRA (Rec: 08/26/20 09:24 DEBRA [id number]) Rehab OT IP Assessment Subjective History *Admission Date: 08/25/20 *Chief complaint: weakness *History of present illness: this pt presented to [facility] ed with She checked her blood pressure daily and she noticed that her blood pressure is low today. She has a history of chronic congestive heart failure. Also she has some increased shortness of breath. She denies any chest pain. Shortness of breath with exertion and also orthopnea. She denies any fever or chills . She denies any nausea or vomiting.pt with feeling of chills and was noted to have pneumonia on xray and was started on iv abx and resp treatment [facility] History I have reviewed the patient's past medical history: Yes Medical History: Reports:: Anxiety, Congestive Heart Failure, Coronary Artery Disease, Depression, Gastroesophageal Reflux Disease(GERD), Hyperlipidemia, Hypertension, Migraine, Myocardial Infarction. Patient lives in 1 story apartment with 1 [address] with family member. Patient verbalize being independent with ADL and fx'l mobility as with usage of rollator at home. Family member assist with meal prep and transportation. Subjective I can get up. Instructed Patient on safety awareness to complete sit-> stand transfer and dynamic standing task from recliner. Patient required CGA to complete functional transfers
--- NOTE | 2020-08-26 09:32 | ECG_ITS ---
APPROVED REPORT Exam: Resting ECG HR:78 bpm ECG Measurements Heart Rate 78 AXES [place] 128 P 30 QRSd 122 QRS 0 QT 410 T -10 QTc 467 Conclusion Normal sinus rhythm Right bundle branch block Abnormal ECG Electronically signed by : Reagan Hsieh, 08/26/2020 17:00:40
--- NOTE | 2020-08-26 12:41 | HMH.ACPN2 ---
Internal Medicine - PN: Subj *Date: 08/26/20 *Time: 19:25 Interval history: 84-year-old female patient sitting up in bed resting quietly with eyes open, she reports she had a good evening last night less shortness of breath than during the day and feeling much better this morning. Oxygen saturation 94% on 2 L per nasal cannula, white blood cell count from 22-8.9 this morning. Exam Vital signs and Labs for Last 24 Hours: Temp Pulse Resp BP Pulse Ox 98.4 F 70 18 92/50 L 93 L 08/26/20 07:36 08/26/20 08:00 08/26/20 07:36 08/26/20 07:36 08/26/20 07:36 Laboratory Results - last 24 hr 08/25/20 18:25: Sodium 134 L, Potassium 4.8, Chloride 95 L, Carbon Dioxide 33 H, Anion Gap 10.8, BUN 17, Creatinine 1.10 H, Estimated Creat Clear 45, Estimated GFR 48 L, Est GFR ( Amer) 58 L, Glucose 126 H, Calcium 8.9, Total Bilirubin 0.7, AST 23, ALT 13, Alkaline Phosphatase 41, Troponin I 0.06 H, NT-Pro-B Natriuret Pep 4600 H, Total Protein 6.0 L, Albumin 3.5, Globulin 2.5, Albumin/Globulin Ratio 1.4 08/25/20 18:53: WBC 22.0 H*, RBC 3.52 L, Hgb 10.5 L, Hct 32.5 L, MCV 92.3, MCH 29.9, MCHC 32.4, RDW 15.9, Plt Count 259, MPV 7.6, Neut % (Auto) 86.5 H, Lymph % (Auto) 8.2 L, [place] % (Auto) 3.2, Eos % (Auto) 2.0, Baso % (Auto) 0.2, Neut # (Auto) 19.1 H, Lymph # (Auto) 1.8, [place] # (Auto) 0.7, Eos # (Auto) 0.4, Baso # (Auto) 0.0, Total Counted 100, Neutrophils % (Manual) 84 H, Lymphocytes % (Manual) 11, Monocytes % (Manual) 5, Platelet Estimate Normal, RBC Morphology Normal 08/25/20 19:29: Urine Color Yellow, Urine Appearance Clear, Urine pH 8.5, Ur Specific [place] 1.010, Urine Protein Trace, Urine Glucose (UA) Negative, Urine Ketones Negative, Urine Blood Negative, Urine Nitrate Negative, Urine Bilirubin Negative, Urine Urobilinogen 0.2, Ur Leukocyte Esterase Trace, Urine RBC None, Urine WBC None, Ur Squamous Epith Cells None, Urine Bacteria None 08/25/20 20:00: Lactate 1.1 08/25/20 20:00: Procalcitonin 3.78 H 08/25/20 20:05: SARS-CoV-2 (PCR) Not detected, Influenza A Untype (PCR) Not detected, Influenza Type B (PCR) Not detected 08/26/20 00:42: Troponin I 0.04 H 08/26/20 03:26: Troponin I 0.05 H 08/26/20 07:11: WBC 8.9 D, RBC 3.04 L, Hgb 9.2 L D, Hct 27.7 L, MCV 91.2, MCH 30.3, MCHC 33.2, RDW 15.9, Plt Count 202, MPV 7.6, Neut % (Auto) 65.4, Lymph % (Auto) 26.7, [place] % (Auto) 5.9, Eos % (Auto) 1.8, Baso % (Auto) 0.2, Neut # (Auto) 5.8, Lymph # (Auto) 2.4, [place] # (Auto) 0.5, Eos # (Auto) 0.2, Baso # (Auto) 0.0 08/26/20 07:11: Sodium 137, Potassium 4.0, Chloride 101, Carbon Dioxide 33 H, Anion Gap 7.0, BUN 17, Creatinine 0.90, Estimated Creat Clear 51, Estimated GFR 60, Est GFR ( Amer) 73 D, Glucose 87 D, Calcium 8.5, Magnesium 1.8 08/26/20 07:11: Procalcitonin 4.05 H I & O for Last 24 hours: Intake & Output 08/23/20 08/24/20 08/25/20 08/26/20 23:59 23:59 23:59 23:59 Intake Total 720 / 720 Balance 720 / 720 Weight 162 lb 5 oz 163 lb 7 oz - Constitutional no acute distress - *Routine HEENT Exam Head: Present: normocephalic Eye: Present: EOMI ENT: Present: mucous membranes moist - *Routine Neck Exam Present: trachea midline. Absent: tracheal deviation - *Routine Respiratory Exam Present: rales. Absent: accessory muscle use Comments: Rales left lower lobe - *Routine Cardiovascular Exam Present: RRR - *Routine Abdominal Exam Present: soft, normoactive bowel sounds. Absent: tenderness, guarding - *Routine Extremities Exam Present: full ROM, pulses intact. Absent: cyanosis, clubbing, calf tenderness - *Routine Skin Exam Present: intact, dry, warm. Absent: cyanosis, erythema - *Routine Neurological Exam Present: alert, oriented X3. Absent: motor deficit, altered mental status Assessment and Plan (1) Elevated troponin Status: Acute Category: Medical Code(s): R77.8 - Other specified abnormalities of plasma proteins (2) Atypical angina Status: Acute Category: Medical Code(s): I20.8 - Othe
--- NOTE | 2020-08-26 14:10 | SW/DCPLANNER ---
This patient currently resides at home with [facility] home health services. I will follow up with [facility] once patient is medically stable for discharge.
--- NOTE | 2020-08-26 16:02 | PC.NURSE ---
Pt had hypertonic saline neb treatment with no results. Cup left at bedside.
--- NOTE | 2020-08-26 16:37 | PC.NURSE ---
PT IS RESTING IN BED. NO COMPLAINTS OF DISCOMFORT. SINCE PT HAS ARRIVED BACK TO THE FLOOR FROM THE POULTRY VACCINATOR HER O2 SATURATION HAS MAINTAINED 91-95% ON ROOM AIR. PT TOLERATED SITTING UP IN THE CHAIR FOR A FEW HOURS THIS MORNING. DRESSING TO THE FEMORAL CATH SITE C/D/I. NO HEMATOMA NOTED. LUNG SOUNDS DIMINISHED WITH FINE CRACKLES NOTED IN THE BILATERAL BASES. EATING AND DRINKING WELL. PT HAS AMBULATED TO THE BATHROOM WITH 1 ASSIST. VSS. WILL CONTINUE TO MONITOR.
[2020-08-27] VITALS (8 sets, daily range): BP systolic 101–120; BP diastolic 49–61; PULSE 70–100; RESP 17–19; TEMP 36.6–36.9; O2SAT 93–96; BMI 32.9
--- NOTE | 2020-08-27 05:26 | PC.NURSE ---
Patient is A&Ox4. Patient has fine crackles noted during lung auscultation. Patient had some complaints of a burning sensation, nausea and sour taste half way through her azithromycin infusion. Infusion was stopped and zofran was administered per APR. Patient was given some saltine crackers and water in attempts to rid the taste in her mouth. Patient did not want to continue the antibiotic infusion. Patient then had an emesis episode approximately 1 hours after the zofran administration. At around 0100, patient had complaints of shortness of breath and her breathing was short and rapid. She was encouraged to breath slowly inhaling through her nose and out her mouth. HOB was elevated to fowlers, patient readjusted herself in the bed and stated she was starting to feel better. Oxygen saturation did not drop below 97%. Patient then rested good throughout the rest of the night. Call light within reach, bed in lowest position. Will continue to monitor.
--- NOTE | 2020-08-27 06:00 | XR_ITS ---
PROCEDURE INFORMATION: Exam: XR Chest Exam date and time: 08/27/2020 6:00 AM Age: 84 years old Clinical indication: Wheezing; Additional info: Pneumonia TECHNIQUE: Imaging protocol: XR of the chest. Views: 1 view. COMPARISON: CR XR CHEST PORTABLE 08/25/2020 6:42 PM FINDINGS: Lungs: There are improving mild perihilar and basilar infiltrates. Pleural spaces: There is blunting of the left costophrenic angle consistent with pleural reactive changes versus scarring versus a trace pleural effusion. There is no pneumothorax. Heart/Mediastinum: There is hypoinflation with crowding of the mediastinal structures and bronchovascular bundles. The cardiomegaly has improved. Status post CABG. Bones/joints: The bones are demineralized. IMPRESSION: 1. Hypoinflation with improving cardiomegaly and perihilar/basilar infiltrates. 2. Pleural reactive changes versus scarring versus a trace pleural effusion blunting the left costophrenic angle. 3. Status post CABG.
[2020-08-27 06:11] LABS: Basophils % 0.2 % (0.1-2.0); Eosinophils # 0.2 K/mm3 (0.0-0.4); Eosinophils % 2.5 % (0.1-12.0); Hemoglobin 9.5 g/dL (12.2-16.2); Lymphocytes # 1.6 K/mm3 (0.7-4.5); Lymphocytes % 21.1 % (10-50); Mean Corpuscular HGB Conc 32.7 g/dL (31.8-35.4); Mean Corpuscular Hemoglobin 29.9 pg (27.0-31.2); Mean Corpuscular Volume 91.5 fl (81-99); Mean Platelet Volume 7.9 fl (7.4-10.4); Monocytes # 0.5 K/mm3 (0.1-1.0); Monocytes % 6.1 % (1.7-9.3); Neutrophils # 5.3 K/mm3 (1.8-7.8); Neutrophils % 70.1 % (37.0-80.0); Platelet Count 223 K/mm3 (142-424); Red Blood Count 3.17 M/mm3 (4.20-5.40); White Blood Count 7.6 K/mm3 (4.8-10.8)
[2020-08-27 06:39] LABS: Anion Gap 8.4 mEq/L (5-15); Blood Urea Nitrogen 18 mg/dl (7-17); Calcium 8.4 mg/dl (8.4-10.2); Carbon Dioxide 33 mmol/L (22.0-30.0); Chloride 100 mmol/L (98-107); Creatinine Clearance Estimated 46 mL/min (50-200); Estimated Glomerular Filt Rate 48 ml/min (>60); GFR (African American) 58 ML/MIN (>60); Glucose 92 mg/dl (74-100); Potassium 4.4 mmoL/L (3.5-5.1); Sodium 137 mmol/L (136-145)
[2020-08-27 08:47] LABS: Procalcitonin 3.16 ng/mL (0.0-2.0)
--- NOTE | 2020-08-27 11:56 | SW/DCPLANNER ---
Addendum entered by Yudy Torrse 08/27/20 14:18: CORRECTION...PATIENT IS ESTABLISHED WITH [facility] AT HOME.. SENT THE REFERRAL FOR RESUMPTION... Original Note: SENT UPDATES TO [facility] FOR RESUMPTION OF CARE FOR THIS PATIENT: SHE WILL DISCHARGE LATER IN THE DAY AND HOME HEALTH SERVICES TO START THE FIRST OF NEXT WEEK...
--- NOTE | 2020-08-27 12:14 | HMH.DCSUM ---
General - General Admission date:: 08/25/20 Discharge date: 08/27/20 HPI HPI: this pt presented to [facility] ed with She checked her blood pressure daily and she noticed that her blood pressure is low today. She has a history of chronic congestive heart failure. Also she has some increased shortness of breath. She denies any chest pain. Shortness of breath with exertion and also orthopnea. She denies any fever or chills. She denies any nausea or vomiting.pt with feeling of chills and was noted to have pneumonia on xray and was started on iv abx and resp treatment Hospital Course Hospital Course: Laboratory Tests 08/25/20 08/25/20 08/25/20 18:25 18:53 19:29 WBC 22.0 H* RBC 3.52 L Hgb 10.5 L Hct 32.5 L MCV 92.3 MCH 29.9 MCHC 32.4 RDW 15.9 Plt Count 259 MPV 7.6 Neut % (Auto) 86.5 H Lymph % (Auto) 8.2 L [place] % (Auto) 3.2 Eos % (Auto) 2.0 Baso % (Auto) 0.2 Neut # (Auto) 19.1 H Lymph # (Auto) 1.8 [place] # (Auto) 0.7 Eos # (Auto) 0.4 Baso # (Auto) 0.0 Total Counted 100 Neutrophils % (Manual) 84 H Lymphocytes % (Manual) 11 Monocytes % (Manual) 5 Platelet Estimate Normal RBC Morphology Normal Sodium 134 L Potassium 4.8 Chloride 95 L Carbon Dioxide 33 H Anion Gap 10.8 BUN 17 Creatinine 1.10 H Estimated Creat Clear 45 Estimated GFR 48 L Est GFR ( Amer) 58 L Glucose 126 H Lactate Calcium 8.9 Magnesium Total Bilirubin 0.7 AST 23 ALT 13 Alkaline Phosphatase 41 Troponin I 0.06 H NT-Pro-B Natriuret Pep 4600 H Total Protein 6.0 L Albumin 3.5 Globulin 2.5 Albumin/Globulin Ratio 1.4 Procalcitonin Urine Color Yellow Urine Appearance Clear Urine pH 8.5 Ur Specific [place] 1.010 Urine Protein Trace Urine Glucose (UA) Negative Urine Ketones Negative Urine Blood Negative Urine Nitrate Negative Urine Bilirubin Negative Urine Urobilinogen 0.2 Ur Leukocyte Esterase Trace Urine RBC None Urine WBC None Ur Squamous Epith Cells None Urine Bacteria None SARS-CoV-2 (PCR) Influenza A Untype (PCR) Influenza Type B (PCR) 08/25/20 08/25/20 08/25/20 20:00 20:00 20:05 WBC RBC Hgb Hct MCV MCH MCHC RDW Plt Count MPV Neut % (Auto) Lymph % (Auto) [place] % (Auto) Eos % (Auto) Baso % (Auto) Neut # (Auto) Lymph # (Auto) [place] # (Auto) Eos # (Auto) Baso # (Auto) Total Counted Neutrophils % (Manual) Lymphocytes % (Manual) Monocytes % (Manual) Platelet Estimate RBC Morphology Sodium Potassium Chloride Carbon Dioxide Anion Gap BUN Creatinine Estimated Creat Clear Estimated GFR Est GFR ( Amer) Glucose Lactate 1.1 Calcium Magnesium Total Bilirubin AST ALT Alkaline Phosphatase Troponin I NT-Pro-B Natriuret Pep Total Protein Albumin Globulin Albumin/Globulin Ratio Procalcitonin 3.78 H Urine Color Urine Appearance Urine pH Ur Specific [place] Urine Protein Urine Glucose (UA) Urine Ketones Urine Blood Urine Nitrate Urine Bilirubin Urine Urobilinogen Ur Leukocyte Esterase Urine RBC Urine WBC Ur Squamous Epith Cells Urine Bacteria SARS-CoV-2 (PCR) Not detected Influenza A Untype (PCR) Not detected Influenza Type B (PCR) Not detected 08/26/20 08/26/20 08/26/20 00:42 03:26 07:11 WBC 8.9 D RBC 3.04 L Hgb 9.2 L D Hct 27.7 L MCV 91.2 MCH 30.3 MCHC 33.2 RDW 15.9 Plt Count 202 MPV 7.6 Neut % (Auto) 65.4 Lymph % (Auto) 26.7 [place] % (Auto) 5.9 Eos % (Auto) 1.8 Baso % (Auto) 0.2 Neut # (Auto) 5.8 Lymph # (Auto) 2.4 [place] # (Auto) 0.5 Eos # (Auto) 0.2 Baso # (Auto) 0.0 Total Counted Neutrophils %
== END 2020-08-27 14:05 | disposition home or self-care (01) ==
LOC: ER 19:40 → 2ND 22:45
PROVIDERS: Internal Medicine; Nurse Practitioner Family; Admitting Provider Emergency Medicine; Emergency Provider Internal Medicine; PCP Nurse Practitioner Family; Visit Provider Emergency Medicine
DX: J18.9 Pneumonia, unspecified organism (principal); Z79.02 Long term (current) use of antithrombotics/antiplatelets; Z95.1 Presence of aortocoronary bypass graft; Z95.5 Presence of coronary angioplasty implant and graft; I21.4 Non-ST elevation (NSTEMI) myocardial infarction; I11.0 Hypertensive heart disease with heart failure; I50.9 Heart failure, unspecified; I25.10 Atherosclerotic heart disease of native coronary artery without angina pectoris; Z79.899 Other long term (current) drug therapy
CPT/HCPCS: 71045; 80048; 80053; 81001; 83605; 83735; 83880; 84145; 84484; 85007; 85025; 87040; 87077; 87186; 93005; 93459; 94640; 96365; 96366; 96375; 97161; 97165; 97535; 99152; 99284; 99291; C1725; C1769; C1894; G0378; J0456; J1644; J2405; Q9967; U0003

== ENCOUNTER 2020-09-21 14:56 | Emergency (ER) | payer MEDICARE, OTHER, SELFPAY ==
[2020-09-21 14:57] VITALS: BP 136/66; PULSE 109; RESP 18; TEMP 37.8; O2SAT 97; BMI 30.2
--- NOTE | 2020-09-21 15:07 | ECG_ITS ---
APPROVED REPORT Exam: Resting ECG HR:109 bpm ECG Measurements Heart Rate 109 AXES [place] 130 P 12 QRSd 128 QRS -33 QT 350 T 1 QTc 471 Conclusion Sinus tachycardia Possible Left atrial enlargement Left axis deviation Right bundle branch block Abnormal ECG Electronically signed by : Reagan Hsieh, 09/22/2020 21:03:17
--- NOTE | 2020-09-21 15:28 | HMH.EDWEAK ---
ED Disposition Clinical Impression: Acute diarrhea Pneumonia Qualifiers: Pneumonia type: due to unspecified organism Laterality: bilateral Lung location: lower lobe of lung Qualified Code(s): J18.9 - Pneumonia, unspecified organism Disposition: Home, Self-Care Condition on Discharge: Good Instructions: Pneumonia-Adult Additional Instructions: Return to the ED for any new or worsening symptoms. Recommend daily weight checks with increased oral hydration while still having loose stools. Prescriptions: Doxycycline Hyclate [Doxycycline 100mg Capsule] 100 mg PO BID 10 Days #20 cap Transmission Status: Received by [id number] Doxycycline Hyclate [Doxycycline 100mg Capsule] 100 mg PO BID 10 Days #20 cap Transmission Status: Pending to [facility] predniSONE [Prednisone 20mg Tab] 40 mg PO DAILY 4 Days #8 tab Transmission Status: Pending to [facility] Benzonatate [Tessalon Perle 100mg Cap*] 100 mg PO TID PRN #12 cap PRN Reason: Cough Transmission Status: Pending to [facility] Ondansetron [Zofran 4mg ODT] 4 mg PO TIDP PRN #9 tab PRN Reason: Nausea Transmission Status: Received by [id number] Ondansetron [Zofran 4mg ODT] 4 mg PO TIDP PRN #9 tab PRN Reason: Nausea Transmission Status: Pending to [facility] Referrals: Yung Keith MD [Primary Care Provider] - - Critical Care Critical Care Time: No Attestation: On 09/21/20, the high probability of a clinically significant, sudden or life threatening deterioration of the following system(s) required my full and direct attention, intervention and personal management. The time I documented below is in addition to time spent performing reported procedures but includes the following listed in this critical care notation. Medical Decision Making - Robert Inquiry Pt receiving controlled substance: No Vital Signs: 09/21/20 14:57 09/21/20 16:01 Temperature 100.1 F H 99.8 F H Temperature Source Oral Oral Pulse Rate 99 H Pulse Rate [Right] 109 H Respiratory Rate 18 18 Blood Pressure 132/81 Blood Pressure [Right Arm] 136/66 Blood Pressure Mean [Right Arm] 89 02 Sat by Pulse Oximetry 97 98 Oxygen Delivery Method Nasal Cannula Room Air Oxygen Flow Rate (LPM) 2 2 - Lab Data Lab Results 09/21/20 15:20: WBC 11.2 H, RBC 3.59 L, Hgb 10.6 L, Hct 32.5 L, MCV 90.4, MCH 29.4, MCHC 32.6, RDW 15.4, Plt Count 247, MPV 7.7, Neut % (Auto) 85.5 H, Lymph % (Auto) 10.8, [place] % (Auto) 2.6, Eos % (Auto) 0.8, Baso % (Auto) 0.2, Neut # (Auto) 9.6 H, Lymph # (Auto) 1.2, [place] # (Auto) 0.3, Eos # (Auto) 0.1, Baso # (Auto) 0.0, Total Counted 100, Neutrophils % (Manual) 84 H, Lymphocytes % (Manual) 9 L, Monocytes % (Manual) 5, Eosinophils % (Manual) 2, Platelet Estimate Normal, Hypochromasia 1+ 09/21/20 15:20: Sodium 133 L, Potassium 4.1, Chloride 96 L, Carbon Dioxide 31 H, Anion Gap 10.1, BUN 11, Creatinine 0.90, Estimated Creat Clear 48, Estimated GFR 60, Est GFR ( Amer) 73, Glucose 151 H, Calcium 9.2, Total Bilirubin 0.5, AST 20, ALT 9 L, Alkaline Phosphatase 46, Total Protein 6.5, Albumin 3.7, Globulin 2.8, Albumin/Globulin Ratio 1.3, Lipase 43 09/21/20 15:33: VBG pH 7.42 H, VBG pCO2 43.3, VBG pO2 57.2 H, VBG HCO3 27.1, VBG Total CO2 28.5 H, VBG O2 Saturation 90.1 H, VBG Base Excess 2.6 H 09/21/20 15:58: Urine Color Yellow, Urine Appearance Sl cloudy, Urine pH 6.0, Ur Specific [place] 1.025, Urine Protein 1+, Urine Glucose (UA) Negative, Urine Ketones Negative, Urine Blood Negative, Urine Nitrate Negative, Urine Bilirubin 1+ A, Urine Urobilinogen 1.0, Ur Leukocyte Esterase Negative, Urine RBC None, Urine WBC None, Ur Squamous Epith Cells 3-5, Urine Bacteria None Result diagrams: 09/21/20 15:20 09/21/20 15:20 Orders (Tests/Meds): ED MEDICATIONS Generic Name Dose Route Start Last Admin Trade Name Freq PRN Reason Stop Dose Admin Sodium Chloride 10 ml 09/21/20 15:3
--- NOTE | 2020-09-21 15:33 | CT_ITS ---
PROCEDURE INFORMATION: Exam: CT Abdomen And Pelvis With Contrast Exam date and time: 09/21/2020 3:33 PM Age: 84 years old Clinical indication: Abdominal pain; Generalized; Prior surgery TECHNIQUE: Imaging protocol: Computed tomography of the abdomen and pelvis with contrast. Radiation optimization: All CT scans at this facility use at least one of these dose optimization techniques: automated exposure control; mA and/or kV adjustment per patient size (includes targeted exams where dose is matched to clinical indication); or iterative reconstruction. Contrast material: ISOVUE; Contrast volume: 75 ml; Contrast route: IV; COMPARISON: CT ABDOMEN PELVIS W CON 06/24/2020 11:04 AM FINDINGS: Lungs: Mild bilateral patchy airspace opacities are seen. Collapse/consolidation seen in the right posterior lobe. Heart: Mild cardiac enlargement. Mediastinal space: Moderate hiatal hernia. Findings are similar to prior. Liver: Normal. No mass. Gallbladder and bile ducts: Status post cholecystectomy. Pancreas: Normal. No ductal dilation. Spleen: Normal. No splenomegaly. Adrenal glands: Normal. No mass. Kidneys and ureters: Slightly lobular appears to the kidneys and small hypodensities which are too small to further characterize, but no hydronephrosis. Stomach and bowel: Postsurgical changes seen related to the proximal stomach. There is fluid in the distal esophagus. Appendix: No evidence of appendicitis. Intraperitoneal space: Unremarkable. No free air. No significant fluid collection. Vasculature: Unremarkable. No abdominal aortic aneurysm. Lymph nodes: Unremarkable. No enlarged lymph nodes. Urinary bladder: Unremarkable as visualized. Reproductive: Status post hysterectomy. Bones/joints: Unremarkable. No acute fracture. Soft tissues: Small ventral hernia contains a loop of bowel. This is seen just above the umbilicus. No substantial change. IMPRESSION: 1. Moderate hiatal hernia and postsurgical changes again noted. Significant fluid in the distal esophagus. Question possible obstruction or reflux. 2. Right greater than left bibasilar pulmonary opacities may represent aspiration and/or pneumonia.
--- NOTE | 2020-09-21 15:33 | XR_ITS ---
PROCEDURE: XR CHEST PORTABLE CLINICAL HISTORY: dyspnea COMPARISON: CT CT CHEST WO/W CON from 06/13/2020 CR XR CHEST 2V from 08/12/2020 CR XR CHEST PORTABLE from 08/25/2020 CR XR CHEST PORTABLE from 08/27/2020 FINDINGS: Mild cardiomegaly. Prior CABG. No evidence of CHF. There is an area of eventration involving the right hemidiaphragm medially. Mild atelectatic changes are present in the lung bases. Upper lobes are clear. There are low lung volumes. No acute bony abnormalities. IMPRESSION: Mild bibasilar atelectasis Dictated by: Raul Tabor MD 09/22/2020 09:51 Raul Tabor MD in [place] 09/22/2020 09:51
[2020-09-21 15:41] LABS: Basophils % 0.2 % (0.1-2.0); Chloride 96 mmol/L (98-107); Eosinophils # 0.1 K/mm3 (0.0-0.4); Eosinophils % 0.8 % (0.1-12.0); Hematocrit 32.5 % (37.0-47.0); Hemoglobin 10.6 g/dL (12.2-16.2); Lymphocytes # 1.2 K/mm3 (0.7-4.5); Lymphocytes % 10.8 % (10-50); Mean Corpuscular HGB Conc 32.6 g/dL (31.8-35.4); Mean Corpuscular Hemoglobin 29.4 pg (27.0-31.2); Mean Corpuscular Volume 90.4 fl (81-99); Mean Platelet Volume 7.7 fl (7.4-10.4); Monocytes # 0.3 K/mm3 (0.1-1.0); Monocytes % 2.6 % (1.7-9.3); Neutrophils # 9.6 K/mm3 (1.8-7.8); Neutrophils % 85.5 % (37.0-80.0); Platelet Count 247 K/mm3 (142-424); Red Blood Count 3.59 M/mm3 (4.20-5.40); Red Cell Distribution Width 15.4 % (11.5-17.5); White Blood Count 11.2 K/mm3 (4.8-10.8)
[2020-09-21 15:42] LABS: Potassium 4.1 mmoL/L (3.5-5.1); Sodium 133 mmol/L (136-145)
--- NOTE | 2020-09-21 15:42 | PC.NURSE ---
RT aware of VBG being ordered
[2020-09-21 15:44] LABS: Alanine Aminotransferase 9 U/L (12-78); Alkaline Phosphatase 46 U/L (38-126); Anion Gap 10.1 mEq/L (5-15); Aspartate Amino Transferase 20 U/L (14-36); Bilirubin,Total 0.5 mg/dl (0.2-1.3); Blood Urea Nitrogen 11 mg/dl (7-17); Carbon Dioxide 31 mmol/L (22.0-30.0); Creatinine Clearance Estimated 48 mL/min (50-200); Estimated Glomerular Filt Rate 60 ml/min (>60); GFR (African American) 73 ML/MIN (>60); Lipase 43 U/L (23-300)
[2020-09-21 15:45] LABS: Albumin Level 3.7 g/dl (3.5-5.0); Albumin/Globulin Ratio 1.3 (1.1-1.8); Calcium 9.2 mg/dl (8.4-10.2); Globulin 2.8 g/dL (1.3-3.2); Glucose 151 mg/dl (74-100); MANUAL DIFFERENTIAL MANUAL DIFFERENTIAL (MANUAL DIFF); Total Protein,Serum 6.5 g/dl (6.3-8.2)
[2020-09-21 15:50] LABS: VBG Base Excess 2.6 mmol/L (-2.4-2.3); VBG HCO3 27.1 mmol/L (23-30); VBG Oxygen Saturation 90.1 % (50-70); VBG PCO2 43.3 mmol/L (35-51); VBG PH 7.42 mmol/L (7.31-7.41); VBG PO2 57.2 mmol/L (28-40); VBG Total CO2 28.5 mmol/L (23-27)
[2020-09-21 16:01] VITALS: BP 132/81; PULSE 99; RESP 18; TEMP 37.7; O2SAT 98
[2020-09-21 16:04] LABS: Microscopic, Urine URINE MICROSCOPIC (MICROSCOPIC)
[2020-09-21 16:07] LABS: Appearance,Urine SL CLOUDY (Clear); Blood, Urine Negative (Negative); Color,Urine YELLOW (Yellow); Glucose,Urine (UA) Negative (Negative); Ketones,Urine Negative (Negative); Leukocyte Esterase,Urine Negative (Negative); Nitrate,Urine Negative (Negative); Protein,Urine 1+ (Negative); Specific Gravity, Urine 1.025 (1.005-1.030)
[2020-09-21 16:10] LABS: Eosinophils % 2 % (0-3); Hypochromasia 1+; Lymphocytes % 9 % (10-50); Monocytes % 5 % (2-9); Neutrophils % 84 % (42-76); Total Cells Counted 100
[2020-09-21 16:11] LABS: Platelet Estimate Normal
[2020-09-21 16:13] LABS: Bilirubin,Urine 1+ (Negative)
[2020-09-21 18:25] VITALS: BP 122/71; PULSE 81; RESP 18; TEMP 36.8; O2SAT 99
== END 2020-09-21 18:45 | disposition home or self-care (01) ==
PROVIDERS: Emergency Provider Student in an Organized Health Care Education/Training Program; PCP Emergency Medicine
DX: J18.9 Pneumonia, unspecified organism (principal); J44.9 Chronic obstructive pulmonary disease, unspecified; I25.10 Atherosclerotic heart disease of native coronary artery without angina pectoris; I25.2 Old myocardial infarction; Z79.899 Other long term (current) drug therapy
CPT/HCPCS: 71045; 74177; 80053; 81001; 82803; 83690; 85007; 85025; 93005; 99283; Q9967

== ENCOUNTER → 2021-02-09 18:57 | Outpatient (CLI) | payer MEDICARE, OTHER, SELFPAY ==
[2021-02-09 18:59] LABS: Microscopic, Urine URINE MICROSCOPIC (MICROSCOPIC)
[2021-02-09 19:44] LABS: Appearance,Urine CLEAR (Clear); Bilirubin,Urine Negative (Negative); Blood, Urine 2+ (Negative); Color,Urine YELLOW (Yellow); Glucose,Urine (UA) Negative (Negative); Ketones,Urine Negative (Negative); Leukocyte Esterase,Urine 1+ (Negative); Nitrate,Urine Negative (Negative); Protein,Urine 1+ (Negative); Urobilinogen,Urine 0.2 EU/dl (0.2)
[2021-02-09 20:05] LABS: Bacteria,Urine 2+ /lpf
== END ==
PROVIDERS: Visit Provider Nurse Practitioner Family
DX: N39.0 Urinary tract infection, site not specified (principal); R50.9 Fever, unspecified; B96.20 Unspecified Escherichia coli [E. coli] as the cause of diseases classified elsewhere
CPT/HCPCS: 81001; 87086; 87088; 87186

== ENCOUNTER → 2021-03-09 14:49 | Outpatient (CLI) | payer MEDICARE, OTHER, SELFPAY ==
--- NOTE | 2021-03-09 15:19 | XR_ITS ---
FINAL REPORT CLINICAL HISTORY: cough, congestion COMPARISON: September 21, 2020 FINDINGS: Two views of the chest were obtained. There is been median sternotomy. The heart size and pulmonary vascularity are within normal limits. The mediastinum is normal. There is worsening left lung base atelectasis or pneumonia.. There is no pneumothorax. The bony thorax is intact. IMPRESSION: Worsening left lung base atelectasis or pneumonia. Reviewed, Interpreted and Dictated by Elias Cuba III, MD Transcribed by Camila Jackson Authenticated by Elias Cuba III, MD on 03/09/2021 04:44:25 PM [facility]
== END ==
PROVIDERS: PCP Emergency Medicine; Visit Provider Nurse Practitioner Family
DX: R00.0 Tachycardia, unspecified (principal); R06.00 Dyspnea, unspecified; R60.9 Edema, unspecified; R05.9 Cough, unspecified
CPT/HCPCS: 71046; 87086; 93270

== ENCOUNTER → 2021-03-09 18:17 | Outpatient (CLI) | payer MEDICARE, OTHER, SELFPAY | PROVIDERS: Visit Provider Emergency Medicine | DX: R50.9 Fever, unspecified (principal); R69 Illness, unspecified | CPT/HCPCS: 87086 ==

== ENCOUNTER → 2021-11-29 16:00 | Outpatient (CLI) | payer MEDICARE, OTHER, SELFPAY ==
[2021-11-29 19:15] LABS: Alanine Aminotransferase 8 U/L (12-78); Albumin Level 3.8 g/dl (3.5-5.0); Albumin/Globulin Ratio 1.4 (1.1-1.8); Alkaline Phosphatase 41 U/L (38-126); Aspartate Amino Transferase 20 U/L (14-36); Blood Urea Nitrogen 14 mg/dl (7-17); Calcium 9.2 mg/dl (8.4-10.2); Carbon Dioxide 33 mmol/L (22.0-30.0); Chloride 93 mmol/L (98-107); Estimated Glomerular Filt Rate 60 ml/min (>60); GFR (African American) 72 ML/MIN (>60); Globulin 2.7 g/dL (1.3-3.2); Glucose 91 mg/dl (74-100); Sodium 135 mmol/L (136-145); Total Protein,Serum 6.5 g/dl (6.3-8.2)
[2021-11-29 19:22] LABS: Bilirubin,Total < 0.1 mg/dl (0.2-1.3)
[2021-11-29 19:44] LABS: Thyroid Stimulating Hormone 1.14 uIU/mL (0.465-4.68)
[2021-11-29 20:03] LABS: Vitamin B12 509 pg/mL (239-931)
[2021-11-29 20:55] LABS: Iron 20 ug/dL (37-170)
[2021-11-29 21:05] LABS: Total Iron Binding Capacity 392 ug/dL (265-497)
== END ==
PROVIDERS: PCP Family Medicine; Visit Provider Family Medicine
DX: R42 Dizziness and giddiness (principal); R50.9 Fever, unspecified; I50.9 Heart failure, unspecified
CPT/HCPCS: 80053; 82607; 83540; 83550; 84443

== ENCOUNTER 2021-12-07 13:40 | Observation (INO) | payer MEDICARE, OTHER, SELFPAY ==
[2021-12-07] VITALS (30 sets, daily range): BP systolic 109–135; BP diastolic 40–92; PULSE 65–96; RESP 14–24; TEMP 36.8–37.2; O2SAT 94–100; BMI 23.8; BMI 32.3
--- NOTE | 2021-12-07 13:35 | ECG_ITS ---
APPROVED REPORT Exam: Resting ECG HR:84 bpm ECG Measurements Heart Rate 84 AXES QRSd 124 QRS -34 QT 374 T 7 QTc 415 Conclusion Sinus rhythm with atrial abnormality RIGHT BUNDLE BRANCH BLOCK [120+ ms QRS DURATION, UPRIGHT V1, 40+ ms S IN I/aVL/V4/V5/V6] POSSIBLE ANTERIOR MYOCARDIAL INFARCTION , OF INDETERMINATE AGE [30 ms Q WAVE IN V3/V4, OR R < 0.2 mV IN V4] ABNORMAL ECG UNCONFIRMED REPORT Electronically signed by : Reagan Hsieh MD 12/08/2021 20:08:09
--- NOTE | 2021-12-07 13:48 | XR_ITS ---
FINAL REPORT CLINICAL HISTORY: weakness COMPARISON: March 09, 2021 FINDINGS: A single portable view of the chest was obtained. There are postoperative changes from median sternotomy. The heart size and pulmonary vascularity are within normal limits. The mediastinum is within normal limits. There is mild left lung base atelectasis or scarring. The right lung is clear. The bony thorax is intact. IMPRESSION: Mild left lung base atelectasis or scarring. Reviewed, Interpreted and Dictated by Elias Cuba III, MD Transcribed by Camila Jackson Authenticated and [facility]
--- NOTE | 2021-12-07 13:49 | HMH.EDGENADL ---
Discharge Plan Disposition Patient Disposition: Admitted As Inpatient Condition: Fair Chief Complaint: Weakness Prescriptions Prescriptions: No Action melatonin 10 mg tablet 10 mg PO HS Flovent Diskus 250 mcg/actuation blister with device 1 inh INHALATION BID fluticasone propionate [Flonase Allergy Relief] 50 mcg/actuation spray,suspension 1 spray INTRANASAL DAILY 90 Days Qty: 16 3RF Rx Instructions: administer into each nostril azelastine 137 mcg (0.1 %) aerosol,spray 2 spray INTRANASAL BID 90 Days Qty: 30 3RF Rx Instructions: administer into each nostril Antivert 50 mg tablet 50 mg PO BID PRN (Reason: dizziness) Qty: 30 2RF cefdinir 300 mg capsule 300 mg PO BID 10 Days Qty: 20 0RF albuterol sulfate 90 mcg/actuation HFA aerosol inhaler 1 inh INHALATION QID PRN (Reason: shortness of breath or wheezing) Qty: 8.5 12RF Zyrtec 10 mg capsule 5 mg PO HS PRN (Reason: allergy symptoms) Qty: 30 0RF triamcinolone acetonide 0.1 % cream 1 applic TOPICAL BID Qty: 15 0RF potassium chloride 10 mEq tablet extended release See Rx Instructions .ROUTE .COMPLEX Qty: 30 5RF Dose Instruction: TAKE ONE TABLET BY MOUTH ONCE A DAY Rx Instructions: TAKE ONE TABLET BY MOUTH ONCE A DAY rosuvastatin 5 mg tablet See Rx Instructions .ROUTE .COMPLEX Qty: 30 5RF Dose Instruction: TAKE ONE TABLET BY MOUTH ONCE A DAY FOR CHOLESTEROL Rx Instructions: TAKE ONE TABLET BY MOUTH ONCE A DAY FOR CHOLESTEROL clopidogrel 75 mg tablet See Rx Instructions .ROUTE .COMPLEX Qty: 30 5RF Dose Instruction: TAKE ONE TABLET BY MOUTH EVERY MORNING FOR BLOOD THINNER Rx Instructions: TAKE ONE TABLET BY MOUTH EVERY MORNING FOR BLOOD THINNER furosemide 20 mg tablet See Rx Instructions .ROUTE .COMPLEX Qty: 30 4RF Dose Instruction: TAKE ONE TABLET BY MOUTH ONCE A DAY Rx Instructions: TAKE ONE TABLET BY MOUTH ONCE A DAY pantoprazole 40 mg tablet,delayed release (DR/EC) See Rx Instructions .ROUTE .COMPLEX Qty: 60 3RF Dose Instruction: TAKE ONE TABLET BY MOUTH 2 TIMES A DAY FOR ACID REFLUX Rx Instructions: TAKE ONE TABLET BY MOUTH 2 TIMES A DAY FOR ACID REFLUX metoprolol succinate 50 mg tablet extended release 24 hr See Rx Instructions .ROUTE .COMPLEX Qty: 30 5RF Dose Instruction: TAKE ONE TABLET BY MOUTH ONCE A DAY Rx Instructions: TAKE ONE TABLET BY MOUTH ONCE A DAY lorazepam 1 mg tablet 1 mg PO TIDP PRN (Reason: Anxiety) Qty: 90 2RF levothyroxine 75 mcg tablet See Rx Instructions .ROUTE .COMPLEX Qty: 90 3RF Dose Instruction: TAKE ONE TABLET BY MOUTH ONCE A DAY Rx Instructions: TAKE ONE TABLET BY MOUTH ONCE A DAY isosorbide mononitrate 30 mg tablet extended release 24 hr See Rx Instructions .ROUTE .COMPLEX Qty: 90 3RF Dose Instruction: TAKE ONE TABLET BY MOUTH ONCE A DAY Rx Instructions: TAKE ONE TABLET BY MOUTH ONCE A DAY ranolazine 500 mg tablet extended release 12 hr See Rx Instructions .ROUTE .COMPLEX Qty: 180 3RF Dose Instruction: TAKE ONE TABLET BY MOUTH 2 TIMES A DAY Rx Instructions: TAKE ONE TABLET BY MOUTH 2 TIMES A DAY levofloxacin 250 mg tablet 250 mg PO DAILY 10 Days Qty: 10 0RF tiotropium bromide 4 GM mist 2 inh INHALATION DAILY aspirin 81 MG tablet,chewable 81 mg PO DAILY nitroglycerin 0.4 MG tablet, sublingual 0.4 mg SL Q5MINP PRN (Reason: Chest Pain) Referrals Follow up/Referrals: Provider,Referral, MD [Referring] - See instructions Clinical Impressions Clinical Impression: Symptomatic anemia Discharge ED Provider: Fito Dean Adult HPI General Chief complaint: Weakness Stated complaint: chest pain Time Seen by Provider: 12/07/21 13:49 Mode of Arrival: Wheelchair Source of Information: Patient Limitations: No Limitations Description of Symptoms (Recalled from ER Tri[facility]
--- NOTE | 2021-12-07 13:59 | PC.NURSE ---
daughter at bedside
[2021-12-07 14:17] LABS: Basophils % 0.4 % (0.1-2.0); Eosinophils # 0.1 K/mm3 (0.0-0.4); Eosinophils % 1.8 % (0.1-12.0); Hematocrit 22.4 % (37.0-47.0); Lymphocytes # 1.3 K/mm3 (0.7-4.5); Lymphocytes % 19.4 % (10-50); Mean Corpuscular HGB Conc 30.4 g/dL (31.8-35.4); Mean Corpuscular Hemoglobin 21.9 pg (27.0-31.2); Mean Platelet Volume 8.4 fl (7.4-10.4); Monocytes # 0.4 K/mm3 (0.1-1.0); Monocytes % 5.7 % (1.7-9.3); Neutrophils # 4.7 K/mm3 (1.8-7.8); Neutrophils % 72.6 % (37.0-80.0); Platelet Count 465 K/mm3 (142-424); Red Blood Count 3.11 M/mm3 (4.20-5.40); Red Cell Distribution Width 18.5 % (11.5-17.5); White Blood Count 6.5 K/mm3 (4.8-10.8)
[2021-12-07 14:20] LABS: Chloride 96 mmol/L (98-107); Sodium 135 mmol/L (136-145)
[2021-12-07 14:22] LABS: Blood Urea Nitrogen 17 mg/dl (7-17); Creatinine Clearance Estimated 44 mL/min (50-200); Estimated Glomerular Filt Rate 60 ml/min (>60); GFR (African American) 72 ML/MIN (>60); Hemoglobin 6.8 g/dL (12.2-16.2)
[2021-12-07 14:23] LABS: Alanine Aminotransferase 9 U/L (12-78); Albumin Level 3.4 g/dl (3.5-5.0); Albumin/Globulin Ratio 1.3 (1.1-1.8); Alkaline Phosphatase 36 U/L (38-126); Aspartate Amino Transferase 25 U/L (14-36); Calcium 8.5 mg/dl (8.4-10.2); Carbon Dioxide 32 mmol/L (22.0-30.0); Globulin 2.6 g/dL (1.3-3.2); Glucose 110 mg/dl (74-100)
--- NOTE | 2021-12-07 14:23 | PC.NURSE ---
notified ER MD of critical hbg and hct results ER MD gave verbal order for typle and screen on pt, lab staff notified
[2021-12-07 14:25] LABS: Bilirubin,Total < 0.1 mg/dl (0.2-1.3)
[2021-12-07 14:35] LABS: Troponin I 0.02 ng/ml (0.00-0.034)
--- NOTE | 2021-12-07 14:44 | PC.NURSE ---
lab called for blood collection
--- NOTE | 2021-12-07 14:57 | PC.NURSE ---
on the phone with
[2021-12-07 15:05] LABS: Coronavirus 19, PCR Not Detected (NotDetected); Influenza A, PCR Not Detected (NotDetected); Influenza B, PCR Not Detected (NotDetected)
[2021-12-07 15:32] LABS: Occult Blood,Stool Positive (Negative)
--- NOTE | 2021-12-07 15:45 | PC.NURSE ---
dr. de la torre at BS
--- NOTE | 2021-12-07 16:00 | EXP.HP ---
History of Present Illness *Admission Date: 12/07/21 *Reason for visit:: Anemia, dizziness, fatigue *History of present illness: Patient is an 85-year-old woman with a past medical history of CAD, CHF, chronic anemia, hypertension, and hyperlipidemia who comes to the ER for chest pain, fatigue, and dizziness for the last 3 weeks. She reports having left lower lobe pneumonia recently and she has completed a course of Levaquin for this. Patient's dizziness is worse with turning her head and she was diagnosed with vertigo. As symptoms seem to worsen and progress she came to her PCP on 11/29 where CBC, CMP, and iron studies were ordered. She was told her iron levels were low and scheduled to have an iron infusion, however as dizziness and lightheadedness seem to worsen she came to the ER today where hemoglobin was found to be 6.8. [facility] PF[facility] Medical History Cough Hiatal hernia Scattered respiratory crackles of right lung SOB (shortness of breath) Tachycardia Social History Smoking Status: Never smoker second hand exposure: No alcohol intake: never substance use type: denies use current occupational status: retired Travel in the last 8 weeks: None household members: significant other housing: house current occupational exposures/hazards: No caffeine: Yes Review of Systems Constitutional Constitutional: Denies chills, Reports fatigue, Denies fever(s) and Reports lethargy Eyes Eyes: Denies change in vision ENT Ears, Nose, Mouth, and Throat: Reports dizziness *Cardiovascular Cardiovascular: Reports chest pain, Reports chest pain with activity, Reports dyspnea, Reports dyspnea on exertion, Denies edema and Denies palpitations *Respiratory Respiratory: Reports dyspnea and Reports dyspnea on exertion *Gastrointestinal Gastrointestinal: Denies abdominal pain, Denies constipation, Denies hematemesis, Denies hematochezia, Denies melena and Denies vomiting *Genitourinary Genitourinary: Denies dysuria *Musculoskeletal Musculoskeletal: Reports arthralgias and Denies limited range of motion *Neurologic Neurologic: Reports system reviewed and no additional complaints, except as documented, Denies abnormal movements, Denies abnormal speech, Denies confusion and Reports dizziness Psychiatric Psychiatric: Denies confusion, Denies depression, Denies hopelessness and Denies panic attacks Endocrine Endocrine: Reports fatigue and Denies palpitations Meds Home Medications and Allergies Home Medications Medication Instructions Recorded Confirmed Type melatonin 10 mg tablet 10 mg PO HS sleep 09/26/17 11/29/21 History aspirin 81 mg chewable tablet 81 mg PO DAILY Blood thinner 07/01/18 11/29/21 History nitroglycerin 0.4 mg sublingual 0.4 mg sublingual Q5MINP PRN Chest 12/12/19 11/29/21 History tablet Pain albuterol sulfate 90 mcg/actuation 1 inh inhalation QID PRN shortness 07/20/20 11/29/21 Rx aerosol inhaler of breath or wheezing #8.5 grams cetirizine 10 mg capsule (Zyrtec) 5 mg PO HS PRN allergy symptoms 07/20/20 11/29/21 Rx #30 caps tiotropium bromide 2.5 2 inh inhalation DAILY Breathing 08/25/20 11/29/21 History mcg/actuation mist for inhalation problems potassium chloride 10 mEq See Rx Instructions .Route 09/13/20 11/29/21 Rx tablet,extended release .COMPLEX #30 tabs fluticasone propionate 250 1 inh inhalation BID 10/19/20 11/29/21 History mcg/actuation blister powder for inhalation (Flovent Diskus) fluticasone propionate 50 1 spray intranasal DAILY 90 days 10/19/20 11/29/21 Rx mcg/actuation nasal #16 grams spray,suspension (Flonase Allergy Relief) azelastine 137 mcg (0.1 %) nasal 2 spray intranasal BID 90 days #30 10/20/20 11/29/21 Rx spray aerosol mL triamcinolone acetonide 0.1 % 1 applic topical BID #15 grams 06/21/21 11/29/21 Rx topical cream rosuvastatin 5 mg tablet See Rx Instructions
--- NOTE | 2021-12-07 16:05 | PC.NURSE ---
Addendum entered by Starla Saldivar CNA 12/07/21 17:03: notified juan francisco bloom Original Note: Lab called stating 2 units are ready in lab
--- NOTE | 2021-12-07 16:24 | PC.NURSE ---
Addendum entered by Sue Sutherland RN 12/07/21 17:24: *Late entry reported to receiving nurse that lab reported blood was ready for picker tender helper in lab. Original Note: called report to karen gross rn on the floor
--- NOTE | 2021-12-07 17:30 | PC.NURSE ---
liliana in lab unable to collect blood. lab called for machine sole leveler to attempt blood draw
--- NOTE | 2021-12-07 18:05 | PC.NURSE ---
Spoke with Dr. Woo about pts blood. He stated that he wants her to get 2 units of blood, and then do 2 hr post H&H.
[2021-12-07 19:03] LABS: Troponin I 0.02 ng/ml (0.00-0.034)
[2021-12-07 20:45] LABS: Troponin I 0.02 ng/ml (0.00-0.034)
--- NOTE | 2021-12-07 21:16 | PC.NURSE ---
Spoke with Brittany hospitalist and stated that if was fine to give laxative medication after blood infusions.
--- NOTE | 2021-12-07 21:27 | INFXCTL.NOTE ---
Pt is A/ox4. She came up to the floor and I needed to obtain consent for blood. When down to get blood for transfusion. Pt stated that she wanted to be a DNI, and got consent signed waiting for hospitalist to sign. She tolerated cardiac diet well. She did stated that she has trouble chewing tough meat. She has tolerated blood transfusion fine. She is RA. She also stated that she wanted O2 at bedside just in case she needs it. She stated that she has it at home when she needs it. I explained that when she was sating 99% on RA I didn't want to put it on her because of her existing COPD. I educated patient on COPD and what would happen if I gave her to much o2. She verbalized she understood. I told her that her pulse ox would let us know if she dropped, and that o2 was set up just in case she needed it. She stated that she was okay with that and it made her feel better.
[2021-12-08 00:10] VITALS: BP 128/69; PULSE 75; RESP 18; TEMP 37.1; O2SAT 97
[2021-12-08 01:10] VITALS: BP 137/74; PULSE 86; RESP 18; TEMP 37; O2SAT 95
--- NOTE | 2021-12-08 02:17 | PC.NURSE ---
CALLED HOSPITALIST TO NOTIFY HER THAT WE ONLY HAD 3 PACKETS OF MIRALAX AND PT WAS ORDERED 14 PACKETS. HOSPITALIST STATED TO GIVE WHAT I COULD AND SHE WOULD NOTIFY DAY SHIFT MD.
[2021-12-08 02:27] LABS: Hematocrit 32.5 % (37.0-47.0)
[2021-12-08 02:30] LABS: Hemoglobin 10.4 g/dL (12.2-16.2)
[2021-12-08 04:00] VITALS: BP 155/65; PULSE 97; RESP 18; TEMP 36.7; O2SAT 94
--- NOTE | 2021-12-08 04:06 | PC.NURSE ---
PT HAD ONE EPISODE OF NAUSEA WITH VOMITING AFTER MIRALAX. MEDICATED PER APR FOR NAUSEA
[2021-12-08 05:00] VITALS: BMI 32.2
--- NOTE | 2021-12-08 05:10 | PC.NURSE ---
NO ACUTE CHANGES. PT HAS RESTED INTERMITTENTLY THIS SHIFT. LUNG SOUNDS DIMINISHED. TOLERATING ROOM AIR WELL. PT RECEIVED TWO UNITS OF PRBC'S THIS SHIFT AND TOLERATED WELL. NO SIGNS OR SYMPTOMS OF TRANSFUSION REACTION. PT HAS HAD ONE EPISODE OF NAUSEA AND VOMITING THIS SHIFT AND WAS MEDICATED PER MAR FOR NAUSEA/VOMITING. PT HAS ALSO BEEN MEDICATED FOR ANXIETY X2. VSS.
[2021-12-08 07:16] LABS: Troponin I 0.02 ng/ml (0.00-0.034)
[2021-12-08 08:00] VITALS: BP 128/65; PULSE 108; RESP 14; TEMP 36.8; O2SAT 94
[2021-12-08 08:11] LABS: Basophils % 0.5 % (0.1-2.0); Eosinophils # 0.2 K/mm3 (0.0-0.4); Eosinophils % 2.8 % (0.1-12.0); Hematocrit 31.4 % (37.0-47.0); Hemoglobin 10.2 g/dL (12.2-16.2); Lymphocytes # 1.4 K/mm3 (0.7-4.5); Lymphocytes % 19.9 % (10-50); Mean Corpuscular HGB Conc 32.5 g/dL (31.8-35.4); Mean Corpuscular Hemoglobin 25.7 pg (27.0-31.2); Mean Corpuscular Volume 78.9 fl (81-99); Monocytes # 0.5 K/mm3 (0.1-1.0); Neutrophils # 4.9 K/mm3 (1.8-7.8); Neutrophils % 69.8 % (37.0-80.0); Platelet Count 388 K/mm3 (142-424); Red Blood Count 3.99 M/mm3 (4.20-5.40); Red Cell Distribution Width 20.4 % (11.5-17.5)
[2021-12-08 08:12] LABS: Chloride 101 mmol/L (98-107); Potassium 3.9 mmoL/L (3.5-5.1); Sodium 137 mmol/L (136-145)
[2021-12-08 08:15] LABS: Alanine Aminotransferase 7 U/L (12-78); Albumin Level 3.3 g/dl (3.5-5.0); Albumin/Globulin Ratio 1.3 (1.1-1.8); Alkaline Phosphatase 34 U/L (38-126); Anion Gap 11.9 mEq/L (5-15); Aspartate Amino Transferase 25 U/L (14-36); Blood Urea Nitrogen 15 mg/dl (7-17); Calcium 8.6 mg/dl (8.4-10.2); Carbon Dioxide 28 mmol/L (22.0-30.0); Creatinine Clearance Estimated 44 mL/min (50-200); Estimated Glomerular Filt Rate 69 ml/min (>60); GFR (African American) 83 ML/MIN (>60); Globulin 2.5 g/dL (1.3-3.2); Glucose 101 mg/dl (74-100); Magnesium 1.8 mg/dl (1.6-2.3); Total Protein,Serum 5.8 g/dl (6.3-8.2)
[2021-12-08 08:16] LABS: Lactic Acid 0.6 mmol/L (0.7-2.1)
[2021-12-08 08:21] LABS: Bilirubin,Total < 0.1 mg/dl (0.2-1.3)
[2021-12-08 12:50] LABS: Occult Blood,Stool Positive (Negative)
[2021-12-08 13:37] VITALS: BMI 32.2
--- NOTE | 2021-12-08 14:03 | EXP.PN ---
Subjective *Date: 12/08/21 *Time: 14:03 Interval history: Patient reports she does not feel well but has difficulty explaining in what way. She feels tired and not very hungry. Exam Data for Last 24 hours Vital signs and Labs for Last 24 Hours: Temp Pulse Resp BP Pulse Ox 98.3 F 108 H 14 128/65 94 L 12/08/21 08:00 12/08/21 08:00 12/08/21 08:00 12/08/21 08:00 12/08/21 08:00 Laboratory Results - last 24 hr 12/07/21 14:06: WBC 6.5, RBC 3.11 L, Hgb 6.8 L*, Hct 22.4 L, MCV 72.0 L, MCH 21.9 L, MCHC 30.4 L, RDW 18.5 H, Plt Count 465 H, MPV 8.4, Neut % (Auto) 72.6, Lymph % (Auto) 19.4, [place] % (Auto) 5.7, Eos % (Auto) 1.8, Baso % (Auto) 0.4, Neut # (Auto) 4.7, Lymph # (Auto) 1.3, [place] # (Auto) 0.4, Eos # (Auto) 0.1, Baso # (Auto) 0.0 12/07/21 14:06: Sodium 135 L, Potassium 4.0, Chloride 96 L, Carbon Dioxide 32 H, Anion Gap 11.0, BUN 17, Creatinine 0.90, Estimated Creat Clear 44, Estimated GFR 60, Est GFR ( Amer) 72, Glucose 110 H, Calcium 8.5, Total Bilirubin < 0.1 L, AST 25, ALT 9 L, Alkaline Phosphatase 36 L, Troponin I 0.02, Total Protein 6.0 L, Albumin 3.4 L, Globulin 2.6, Albumin/Globulin Ratio 1.3 12/07/21 14:06: Blood Type Confirm A Positive 12/07/21 14:50: Blood Type A Positive, Antibody Screen Negative, Crossmatch (AHG) See Detail 12/07/21 14:50: SARS-CoV-2 (PCR) Not detected, Influenza A Untype (PCR) Not detected, Influenza Type B (PCR) Not detected 12/07/21 15:12: Stool Occult Blood Positive A 12/07/21 18:12: Troponin I 0.02 12/07/21 20:16: Troponin I 0.02 12/08/21 02:15: Hgb 10.4 L D, Hct 32.5 L 12/08/21 06:47: Sodium 137, Potassium 3.9, Chloride 101, Carbon Dioxide 28, Anion Gap 11.9, BUN 15, Creatinine 0.80, Estimated Creat Clear 44, Estimated GFR 69, Est GFR ( Amer) 83, Glucose 101 H, Calcium 8.6, Magnesium 1.8, Total Bilirubin < 0.1 L, AST 25, ALT 7 L, Alkaline Phosphatase 34 L, Total Protein 5.8 L, Albumin 3.3 L, Globulin 2.5, Albumin/Globulin Ratio 1.3 12/08/21 06:47: Troponin I 0.02 12/08/21 06:47: Lactate 0.6 L 12/08/21 07:40: WBC 7.0, RBC 3.99 L D, Hgb 10.2 L, Hct 31.4 L, MCV 78.9 L, MCH 25.7 L, MCHC 32.5, RDW 20.4 H, Plt Count 388, MPV 8.0, Neut % (Auto) 69.8, Lymph % (Auto) 19.9, Galax % (Auto) 7.0, Eos % (Auto) 2.8, Baso % (Auto) 0.5, Neut # (Auto) 4.9, Lymph # (Auto) 1.4, [place] # (Auto) 0.5, Eos # (Auto) 0.2, Baso # (Auto) 0.0 12/08/21 12:37: Stool Occult Blood Positive A I & O for Last 24 hours: Intake & Output 12/05/21 12/06/21 12/07/21 12/08/21 23:59 23:59 23:59 23:59 Intake Total 610 / 610 250 / 250 Output Total 0 / 0 200 / 200 Balance 610 / 610 50 / 50 Weight 65.317 kg 65 kg Constitutional Constitutional: no acute distress and cooperative *Routine HEENT Exam Head: Present normocephalic and atraumatic Eye: Present EOMI and PERRL ENT: Present mucous membranes moist and oropharynx clear *Routine Neck Exam Neck: Present supple and full ROM *Routine Respiratory Exam Respiratory: Present crackles (scant diffuse crackles); Absent accessory muscle use or respiratory distress *Routine Cardiovascular Exam Cardiovascular: Present RRR, Normal S1 and Normal S2; Absent murmur *Routine Abdominal Exam Abdominal: Present soft, normoactive bowel sounds and tenderness (mild diffuse tenderness ); Absent distended, rebound or guarding *Routine Extremities Exam Extremities: Present full ROM, pulses intact and normal capillary refill; Absent edema or tenderness *Routine Neurological Exam Neurological: Present alert, oriented X3, CN II-XII intact, moving all extremities, normal tone and normal speech; Absent sensory deficit or motor deficit Routine Psychiatric Exam Psychiatric: Present normal affect, normal thought process, cooperative, good insight and good judgment Assessment and Plan *Assessment and plan (1) HLD (hyperlipidemia): Status: Chronic Qualifiers: Hyperlipidemia type: mixed hyperlipidemia Qualified Code(s): E78.2 - Mixed hyperlipidemia Category: Medical
[2021-12-08 14:18] LABS: Basophils % 0.5 % (0.1-2.0); Eosinophils # 0.2 K/mm3 (0.0-0.4); Eosinophils % 2.4 % (0.1-12.0); Hematocrit 31.9 % (37.0-47.0); Hemoglobin 10.4 g/dL (12.2-16.2); Lymphocytes # 1.5 K/mm3 (0.7-4.5); Lymphocytes % 21.5 % (10-50); Mean Corpuscular HGB Conc 32.6 g/dL (31.8-35.4); Mean Corpuscular Hemoglobin 25.7 pg (27.0-31.2); Mean Corpuscular Volume 78.9 fl (81-99); Mean Platelet Volume 8.2 fl (7.4-10.4); Monocytes # 0.5 K/mm3 (0.1-1.0); Monocytes % 6.9 % (1.7-9.3); Neutrophils # 4.7 K/mm3 (1.8-7.8); Neutrophils % 68.7 % (37.0-80.0); Platelet Count 429 K/mm3 (142-424); Red Blood Count 4.04 M/mm3 (4.20-5.40); Red Cell Distribution Width 20.2 % (11.5-17.5); White Blood Count 6.8 K/mm3 (4.8-10.8)
[2021-12-08 15:43] VITALS: BP 137/67; PULSE 78; RESP 16; TEMP 36.9; O2SAT 98
--- NOTE | 2021-12-08 18:40 | PC.NURSE ---
aox4, able to make needs known to staff, she has not required o2 support this shift. she has had multiple episodes of diarrhea this shift. stool occult blood positive. aware.
[2021-12-08 20:00] VITALS: BP 133/76; PULSE 85; RESP 17; TEMP 36.5; O2SAT 98
[2021-12-09] VITALS (14 sets, daily range): BP systolic 100–130; BP diastolic 49–65; PULSE 87–105; RESP 18–20; TEMP 36.7–37.2; O2SAT 91–100; BMI 32.5
--- NOTE | 2021-12-09 05:16 | PC.NURSE ---
NO ACUTE CHANGES SINCE PREVIOUS ASSESSMENT. PT HAS RESTED INTERMITTENTLY THIS SHIFT. LUNG SOUNDS ARE CLEAR BILATERALLY. PT DID DESAT INTO THE LOW 80'S THIS AM AND TOLD STAFF THAT SHE WEARS 3L WHILE SHE SLEEPS AT HOME. PT CURRENTLY ON 3L NASAL CANNULA AND IS TOLERATING WELL WITH SATS IN THE MID 90'S. PT HAS HAD SEVERAL LOOSE, DARK BM'S THIS SHIFT. UP TO BEDSIDE COMMODE WITH STANDBY ASSIST. NO C/O NAUSEA OR VOMITING THIS SHIFT. MEDICATED X1 PER MAR FOR ANXIETY. VSS.
--- NOTE | 2021-12-09 06:23 | EXP.SURG.CON ---
History of Present Illness *Admission Date: 12/07/21 *Reason for visit:: Possible upper gastrointestinal hemorrhage *History of present illness: This is an 85-year-old female seen in consultation from the hospital service for evaluation regarding possible upper gastrointestinal hemorrhage. Please see HPI forwarded from admission history and physical below. She has responded exceptionally well to a 2 unit packed red blood cell transfusion. No definitive evidence of ongoing blood loss. Forwarded from admission history and physical : Patient is an 85-year-old woman with a past medical history of CAD, CHF, chronic anemia, hypertension, and hyperlipidemia who comes to the ER for chest pain, fatigue, and dizziness for the last 3 weeks. She reports having left lower lobe pneumonia recently and she has completed a course of Levaquin for this. Patient's dizziness is worse with turning her head and she was diagnosed with vertigo. As symptoms seem to worsen and progress she came to her PCP on 11/29 where CBC, CMP, and iron studies were ordered. She was told her iron levels were low and scheduled to have an iron infusion, however as dizziness and lightheadedness seem to worsen she came to the ER today where hemoglobin was found to be 6.8. PFSH PFSH Medical History (Updated 12/08/21 @ 14:08 by Virgil Woo MD) Ankle fracture Cataract COPD (chronic obstructive pulmonary disease) Cough Hiatal hernia History of anemia History of cataract History of heart attack Hypertension Hypothyroid Osteoarthritis Scattered respiratory crackles of right lung Sleep apnea SOB (shortness of breath) Tachycardia Surgical History H/O gastric bypass History of cholecystectomy History of hysterectomy History of knee replacement Family History Family history of cancer Family history of Alzheimer's disease Family history of diabetes mellitus type II Family history of myocardial infarction Family history of cataracts Social History (Updated 12/07/21 @ 18:42 by Yumiko Jackson RN) Smoking Status: Never smoker second hand exposure: No alcohol intake: never substance use type: denies use current occupational status: retired Travel in the last 8 weeks: None household members: significant other housing: house current occupational exposures/hazards: No caffeine: Yes Review of Systems ENT Ears, Nose, Mouth, and Throat: Reports dizziness *Neurologic Neurologic: Reports system reviewed and no additional complaints, except as documented, Denies abnormal movements, Denies abnormal speech, Denies confusion and Reports dizziness Psychiatric Psychiatric: Denies confusion Meds Home Medications and Allergies Home Medications Medication Instructions Recorded Confirmed Type melatonin 10 mg tablet 10 mg PO HS sleep 09/26/17 12/08/21 History aspirin 81 mg chewable tablet 81 mg PO DAILY heart health 07/01/18 12/08/21 History nitroglycerin 0.4 mg sublingual 0.4 mg sublingual Q5MINP PRN Chest 12/12/19 12/08/21 History tablet Pain albuterol sulfate 90 mcg/actuation 1 inh inhalation QID PRN shortness 07/20/20 12/08/21 Rx aerosol inhaler of breath or wheezing #8.5 grams cetirizine 10 mg capsule (Zyrtec) 5 mg PO HS PRN allergy symptoms 07/20/20 12/08/21 Rx #30 caps tiotropium bromide 2.5 2 inh inhalation DAILY Breathing 08/25/20 12/08/21 History mcg/actuation mist for inhalation problems fluticasone propionate 50 1 spray intranasal DAILY 90 days 10/19/20 12/08/21 Rx mcg/actuation nasal #16 grams spray,suspension (Flonase Allergy Relief) azelastine 137 mcg (0.1 %) nasal 2 spray intranasal BID 90 days #30 10/20/20 12/08/21 Rx spray aerosol mL lorazepam 1 mg tablet 1 mg PO TIDP PRN Anxiety #90 tabs 10/05/21 12/08/21 Rx clopidogrel
[2021-12-09 06:55] LABS: Basophils # 0.1 K/mm3 (0-0.2); Basophils % 0.4 % (0.1-2.0); Eosinophils # 0.3 K/mm3 (0.0-0.4); Eosinophils % 2.1 % (0.1-12.0); Hematocrit 32.8 % (37.0-47.0); Hemoglobin 10.6 g/dL (12.2-16.2); Lymphocytes # 1.1 K/mm3 (0.7-4.5); Lymphocytes % 8.6 % (10-50); Mean Corpuscular HGB Conc 32.3 g/dL (31.8-35.4); Mean Corpuscular Hemoglobin 25.6 pg (27.0-31.2); Mean Corpuscular Volume 79.3 fl (81-99); Mean Platelet Volume 8.2 fl (7.4-10.4); Monocytes # 0.5 K/mm3 (0.1-1.0); Monocytes % 3.6 % (1.7-9.3); Neutrophils # 10.8 K/mm3 (1.8-7.8); Neutrophils % 85.4 % (37.0-80.0); Platelet Count 439 K/mm3 (142-424); Red Blood Count 4.14 M/mm3 (4.20-5.40); Red Cell Distribution Width 20.6 % (11.5-17.5); White Blood Count 12.7 K/mm3 (4.8-10.8)
[2021-12-09 06:59] LABS: MANUAL DIFFERENTIAL MANUAL DIFFERENTIAL (MANUAL DIFF)
[2021-12-09 07:17] LABS: Chloride 102 mmol/L (98-107); Sodium 137 mmol/L (136-145)
[2021-12-09 07:18] LABS: Potassium 3.8 mmoL/L (3.5-5.1)
[2021-12-09 07:20] LABS: Alanine Aminotransferase 8 U/L (12-78); Albumin Level 3.4 g/dl (3.5-5.0); Albumin/Globulin Ratio 1.4 (1.1-1.8); Alkaline Phosphatase 36 U/L (38-126); Anion Gap 12.8 mEq/L (5-15); Aspartate Amino Transferase 26 U/L (14-36); Bilirubin,Total 0.6 mg/dl (0.2-1.3); Blood Urea Nitrogen 14 mg/dl (7-17); Calcium 8.6 mg/dl (8.4-10.2); Carbon Dioxide 26 mmol/L (22.0-30.0); Creatinine Clearance Estimated 44 mL/min (50-200); Estimated Glomerular Filt Rate 80 ml/min (>60); GFR (African American) 97 ML/MIN (>60); Globulin 2.4 g/dL (1.3-3.2); Glucose 86 mg/dl (74-100); Total Protein,Serum 5.8 g/dl (6.3-8.2)
[2021-12-09 07:21] LABS: Magnesium 1.6 mg/dl (1.6-2.3)
--- NOTE | 2021-12-09 07:25 | EXP.ANES.CKL ---
PFSH PFS Medical History (Updated 12/08/21 @ 14:08 by Virgil Woo MD) Ankle fracture Cataract COPD (chronic obstructive pulmonary disease) Cough Hiatal hernia History of anemia History of cataract History of heart attack Hypertension Hypothyroid Osteoarthritis Scattered respiratory crackles of right lung Sleep apnea SOB (shortness of breath) Tachycardia Surgical History H/O gastric bypass History of cholecystectomy History of hysterectomy History of knee replacement Family History Other Family history of Alzheimer's disease Family history of cancer Family history of cataracts Family history of diabetes mellitus type II Family history of myocardial infarction Social History (Updated 12/07/21 @ 18:42 by Yumiko Jackson, RN) Smoking Status: Never smoker second hand exposure: No alcohol intake: never substance use type: denies use current occupational status: retired Travel in the last 8 weeks: None household members: significant other housing: house current occupational exposures/hazards: No caffeine: Yes [facility] Anesthesia Checklist Patient Identification Patient Identification: Arm Band Structural Data Admitted From: Inpatient Planned Operative Procedure/s: egd Consent for Planned Operative Procedure(s) Verified: Yes Verified Documents: Surgical Consent and History and Physical NPO Status Verified Time NPO: 00:00 Additional verifications Anesthesia Reactions: No Airway Assessment C-Spine Mobility Assessed: Yes TMJ Mobility Assessed: Yes Dentition: Edentulous Neurological Assessment Level of Consciousness: Awake and Alert Anesthesia Plan Anesthesia Risk discussed: Yes Anesthesia Plan: Verified ASA Class: III Anesthesia Type: MAC
[2021-12-09 07:27] LABS: Anisocytosis 1+; Hypochromasia 1+; Lymphocytes % 10 % (10-50); Macrocytosis 1+; Monocytes % 3 % (2-9); Neutrophils % 87 % (42-76); Platelet Estimate Normal; Total Cells Counted 100
--- NOTE | 2021-12-09 07:30 | HMH.SCOPE ---
Procedure: Date: 12/09/21 Patient Date of :: 1935 Procedure Performed:: Esophagogastroduodenoscopy Indications:: Upper gastrointestinal hemorrhage Performing Provider:: Beny Paz MD Referring Provider:: . Sedation:: Monitored anesthesia care Procedure:: After informed consent was obtained the patient was taken to the endoscopy suite. Sedation ensued after the patient was transferred to the left lateral decubitus position. Pulse, blood pressure, and oxygen saturation were monitored throughout the procedure. The endoscope was advanced beyond the duodenal bulb. Retroflexion within the gastric lumen was accomplished. The gastroscope was carefully removed and the patient was transferred to recovery in stable condition. Please see findings and specimens below for detail. Findings:: Patulous esophagus Large volume food particles within distal esophagus and proximal gastric body Surgical disruption abnormal gastric anatomy secondary to prior bypass Tiny shallow ulceration in distal gastric body Pylorus and duodenum intact with no definitive abnormality Small bowel anastomosis with no evidence of active or recent hemorrhage Sliding hiatal hernia confirmed Specimens:: None Recommendations:: Continue proton pump inhibition barium swallow/UGI/SBFT in near future would likely be beneficial to better ascertain postoperative anatomy and any potential disruption of bypass H. pylori breath test is a consideration; however, a repeat EGD in 6-8 weeks warranted secondary to small ulceration (biopsy can be obtained at that time) Complications:: No immediate Estimated blood obtained (mL): 0
--- NOTE | 2021-12-09 10:37 | EXP.DC.SUM ---
General Admission date:: 12/07/21 Discharge date: 12/09/21 HPI HPI HPI: Patient is an 85-year-old woman with a past medical history of CAD, CHF, chronic anemia, hypertension, and hyperlipidemia who comes to the ER for chest pain, fatigue, and dizziness for the last 3 weeks. She reports having left lower lobe pneumonia recently and she has completed a course of Levaquin for this. Patient's dizziness is worse with turning her head and she was diagnosed with vertigo. As symptoms seem to worsen and progress she came to her PCP on 11/29 where CBC, CMP, and iron studies were ordered. She was told her iron levels were low and scheduled to have an iron infusion, however as dizziness and lightheadedness seem to worsen she came to the ER today where hemoglobin was found to be 6.8. Exam Data for Last 24 hours Vital signs and Labs for Last 24 Hours: Temp Pulse Resp BP Pulse Ox 98.0 F 96 H 18 126/62 98 12/09/21 07:33 12/09/21 07:53 12/09/21 07:53 12/09/21 07:53 12/09/21 07:53 Laboratory Results - last 24 hr 12/08/21 12:37: Stool Occult Blood Positive A 12/08/21 14:00: WBC 6.8, RBC 4.04 L, Hgb 10.4 L, Hct 31.9 L, MCV 78.9 L, MCH 25.7 L, MCHC 32.6, RDW 20.2 H, Plt Count 429 H, MPV 8.2, Neut % (Auto) 68.7, Lymph % (Auto) 21.5, [place] % (Auto) 6.9, Eos % (Auto) 2.4, Baso % (Auto) 0.5, Neut # (Auto) 4.7, Lymph # (Auto) 1.5, [place] # (Auto) 0.5, Eos # (Auto) 0.2, Baso # (Auto) 0.0 12/09/21 06:35: WBC 12.7 H D, RBC 4.14 L, Hgb 10.6 L, Hct 32.8 L, MCV 79.3 L, MCH 25.6 L, MCHC 32.3, RDW 20.6 H, Plt Count 439 H, MPV 8.2, Neut % (Auto) 85.4 H, Lymph % (Auto) 8.6 L, [place] % (Auto) 3.6, Eos % (Auto) 2.1, Baso % (Auto) 0.4, Neut # (Auto) 10.8 H, Lymph # (Auto) 1.1, [place] # (Auto) 0.5, Eos # (Auto) 0.3, Baso # (Auto) 0.1, Total Counted 100, Neutrophils % (Manual) 87 H, Lymphocytes % (Manual) 10, Monocytes % (Manual) 3, Platelet Estimate Normal, Hypochromasia 1+, Anisocytosis 1+, Macrocytosis 1+ 12/09/21 06:35: Sodium 137, Potassium 3.8, Chloride 102, Carbon Dioxide 26, Anion Gap 12.8, BUN 14, Creatinine 0.70, Estimated Creat Clear 44, Estimated GFR 80, Est GFR ( Amer) 97, Glucose 86, Calcium 8.6, Magnesium 1.6 D, Total Bilirubin 0.6, AST 26, ALT 8 L, Alkaline Phosphatase 36 L, Total Protein 5.8 L, Albumin 3.4 L, Globulin 2.4, Albumin/Globulin Ratio 1.4 I & O for Last 24 hours: Intake & Output 12/06/21 12/07/21 12/08/21 12/09/21 23:59 23:59 23:59 23:59 Intake Total 610 / 610 370 / 370 Output Total 0 / 0 350 / 350 Balance 610 / 610 Weight 65.317 kg 65 kg 65.771 kg Constitutional Constitutional: no acute distress and cooperative *Routine HEENT Exam Head: Present normocephalic and atraumatic Eye: Present EOMI and PERRL ENT: Present mucous membranes moist and oropharynx clear *Routine Neck Exam Neck: Present supple and full ROM *Routine Respiratory Exam Respiratory: Present crackles (scant diffuse crackles); Absent accessory muscle use or respiratory distress *Routine Cardiovascular Exam Cardiovascular: Present RRR, Normal S1 and Normal S2; Absent murmur *Routine Abdominal Exam Abdominal: Present soft and normoactive bowel sounds; Absent tenderness, distended, rebound or guarding *Routine Extremities Exam Extremities: Present full ROM, pulses intact and normal capillary refill; Absent edema or tenderness *Routine Neurological Exam Neurological: Present alert, oriented X3, CN II-XII intact, moving all extremities, normal tone and normal speech; Absent sensory deficit or motor deficit Routine Psychiatric Exam Psychiatric: Present normal affect, normal thought process, cooperative, good insight and good judgment Results Data Completed and Pending Labs on day of discharge: Labs from last 24 hours 12/09/21 12/09/21 12/08/21 06:35 06:35 14:00 WBC 12.7 H D 6.8 RBC 4.14 L 4.04 L Hgb 10.6 L 10.4 L Hct 32.8 L 31.9 L MCV 79.3 L 78.9 L MCH 25.6 L 25.7 L MCHC 32.3 32.6 RDW 20.6 H 20.2 H Plt Count 439 H
[2021-12-12 12:12] LABS: H. pylori Breath Test Negative (Negative)
== END 2021-12-09 13:40 | disposition home or self-care (01) ==
LOC: ER 15:01 → 2ND 16:14
PROVIDERS: Surgery; Admitting Provider Emergency Medicine; Emergency Provider Emergency Medicine; PCP Emergency Medicine; Visit Provider Emergency Medicine
PROC: 0DJ08ZZ Inspection of Upper Intestinal Tract, Via Natural or Artificial Opening Endoscopic (ICD-10-PCS; CPT 43235; principal; 2021-12-09 07:30)
DX: D50.9 Iron deficiency anemia, unspecified (principal); I25.118 Atherosclerotic heart disease of native coronary artery with other forms of angina pectoris; E78.5 Hyperlipidemia, unspecified; I50.32 Chronic diastolic (congestive) heart failure; K92.2 Gastrointestinal hemorrhage, unspecified; G47.33 Obstructive sleep apnea (adult) (pediatric); Z95.1 Presence of aortocoronary bypass graft; I11.0 Hypertensive heart disease with heart failure; Z79.899 Other long term (current) drug therapy; Z79.01 Long term (current) use of anticoagulants; K25.9 Gastric ulcer, unspecified as acute or chronic, without hemorrhage or perforation
CPT/HCPCS: 43235; G0378; 36415; 71045; 80053; 82272; 83013; 83605; 83735; 84484; 85007; 85014; 85018; 85025; 86850; 93005; 99291; C9803; G0328; J1756; J2405; P9016; U0003; U0005

== ENCOUNTER 2021-12-11 10:30 | Inpatient (IN) | payer MEDICARE, OTHER, SELFPAY ==
[2021-12-11] VITALS (15 sets, daily range): BP systolic 84–109; BP diastolic 40–71; PULSE 94–104; RESP 16–22; TEMP 36.9–37.9; O2SAT 92–99; BMI 28.3; BMI 26.8
--- NOTE | 2021-12-11 10:34 | HMH.EDGENADL ---
Discharge Plan Disposition Chief Complaint: Nausea/Vomiting/Diarrhea Discharge ED Provider: Nya Collins General Adult HPI General Chief complaint: Nausea/Vomiting/Diarrhea Stated complaint: n/v Time Seen by Provider: 12/11/21 10:36 History of Present Illness HPI narrative: This patient is an 85-year-old female with history of CAD status post CABG, CHF, chronic anemia, and COPD 3 L nasal cannula presented to the emergency department for evaluation of generalized weakness, nausea, vomiting, and diarrhea. Patient states that since she was discharged home from the hospital on 12/09/2021 after being admitted for symptomatic anemia in the setting of upper GI bleed, she has not been able to eat or drink anything. She states she has not been able to get off the toilet. She states that she is so weak today that she is not able to get up. She states that her emesis is nonbloody and nonbilious, but she states that she is still having dark stools. She denies any other concerns, such as fever, chills, cough, shortness of breath, chest pain, abdominal pain, rashes, or swelling. Related Data Home Medications Medication Instructions Recorded Confirmed melatonin 10 mg tablet 10 mg PO HS sleep 09/26/17 12/11/21 nitroglycerin 0.4 mg sublingual 0.4 mg sublingual Q5MINP PRN Chest 12/12/19 12/11/21 tablet Pain tiotropium bromide 2.5 2 inh inhalation DAILY Breathing 08/25/20 12/11/21 mcg/actuation mist for inhalation problems furosemide 20 mg tablet 20 mg PO DAILY diuretic 12/08/21 12/11/21 isosorbide mononitrate 30 mg 30 mg PO DAILY High blood pressure 12/08/21 12/11/21 tablet,extended release 24 hr levothyroxine 75 mcg tablet 75 mcg PO DAILYDM hypothyroidism 12/08/21 12/11/21 metoprolol succinate 50 mg 50 mg PO DAILY High blood pressure 12/08/21 12/11/21 tablet,extended release 24 hr pantoprazole 40 mg tablet,delayed 40 mg PO BID acid reflux 12/08/21 12/11/21 release (Protonix) ranolazine 500 mg tablet,extended 500 mg PO BID Chest pain 12/08/21 12/11/21 release,12 hr rosuvastatin 5 mg tablet 5 mg PO HS Cholesterol 12/08/21 12/11/21 azelastine 137 mcg (0.1 %) nasal 2 spray intranasal BID allergies 12/11/21 12/11/21 spray aerosol bismuth subsalicylate 262 mg 2 tab PO QID gi issues 12/11/21 12/11/21 chewable tablet (Bismatrol) fluticasone propionate 50 1 spray intranasal DAILY allergies 12/11/21 12/11/21 mcg/actuation nasal spray,suspension (Flonase Allergy Relief) metronidazole 500 mg tablet 500 mg PO TID gastritis 12/11/21 12/11/21 tetracycline 250 mg capsule 500 mg PO QID eye 12/11/21 12/11/21 Previous Rx's Medication Instructions Recorded albuterol sulfate 90 mcg/actuation 1 inh inhalation QID PRN shortness 07/20/20 aerosol inhaler of breath or wheezing #8.5 grams cetirizine 10 mg capsule (Zyrtec) 5 mg PO HS PRN allergy symptoms 07/20/20 #30 caps lorazepam 1 mg tablet 1 mg PO TIDP PRN Anxiety #90 tabs 10/05/21 Allergies Allergy/AdvReac Type Severity Reaction Status Date / Time carisoprodol [From Soma] Allergy Intermediate itching Verified 11/29/21 14:50 meperidine Allergy Intermediate itching Verified 11/29/21 14:50 Sulfa (Sulfonamide Allergy Intermediate itching Verified 11/29/21 14:50 Antibiotics) trimethoprim Allergy Intermediate stomach Verified 11/29/21 14:50 atorvastatin [From Lipitor] AdvReac Intermediate stomach Verified 11/29/21 14:50 azithromycin AdvReac Intermediate Gastrointestinal Verified 11/29/21 14:50 Upset PFSH PFSH Medical History Ankle fracture Cataract COPD (chronic obstructive pulmonary disease) Cough Hiatal hernia History of anemia History of cataract History of heart attack Hypertension Hypothyroid Osteoarthritis Scattered respiratory crackles of right lung Sleep apnea SOB (shortness of breath) Tachycardia Surgical History H/O gastric bypass History
--- NOTE | 2021-12-11 10:42 | XR_ITS ---
PROCEDURE INFORMATION: Exam: XR Chest Exam date and time: 12/11/2021 11:01 AM Age: 85 years old Clinical indication: Shortness of breath; Additional info: Shankar BERGMAN TECHNIQUE: Imaging protocol: Radiologic exam of the chest. Views: 1 view. COMPARISON: CR XR CHEST PORTABLE 12/07/2021 2:27 PM FINDINGS: Lungs: Patchy airspace opacity at the right base, likely pneumonia. Left lung clear. Pleural spaces: Unremarkable. No pleural effusion. No pneumothorax. Heart/Mediastinum: Unremarkable. No cardiomegaly. Bones/joints: Median sternotomy wires. IMPRESSION: Patchy airspace opacity at the right base, likely pneumonia.
[2021-12-11 10:48] LABS: Basophils % 0.3 % (0.1-2.0); Eosinophils # 0.1 K/mm3 (0.0-0.4); Eosinophils % 0.8 % (0.1-12.0); Hematocrit 30.1 % (37.0-47.0); Hemoglobin 9.8 g/dL (12.2-16.2); Lymphocytes # 0.9 K/mm3 (0.7-4.5); Lymphocytes % 8.4 % (10-50); Mean Corpuscular HGB Conc 32.5 g/dL (31.8-35.4); Mean Corpuscular Hemoglobin 25.8 pg (27.0-31.2); Mean Corpuscular Volume 79.5 fl (81-99); Mean Platelet Volume 8.2 fl (7.4-10.4); Monocytes # 0.5 K/mm3 (0.1-1.0); Monocytes % 4.6 % (1.7-9.3); Neutrophils # 9.6 K/mm3 (1.8-7.8); Neutrophils % 85.9 % (37.0-80.0); Platelet Count 406 K/mm3 (142-424); Red Blood Count 3.79 M/mm3 (4.20-5.40); Red Cell Distribution Width 21.2 % (11.5-17.5); White Blood Count 11.2 K/mm3 (4.8-10.8)
[2021-12-11 10:51] LABS: MANUAL DIFFERENTIAL MANUAL DIFFERENTIAL (MANUAL DIFF)
--- NOTE | 2021-12-11 10:51 | ECG_ITS ---
APPROVED REPORT Exam: Resting ECG HR:106 bpm ECG Measurements Heart Rate 106 AXES QRSd 138 QRS -59 QT 354 T 14 QTc 416 Conclusion ATRIAL FLUTTER/TACHYCARDIA WITH RAPID VENTRICULAR RESPONSE RIGHT BUNDLE BRANCH BLOCK [120+ ms QRS DURATION, UPRIGHT V1, 40+ ms S IN I/aVL/V4/V5/V6] LEFT ANTERIOR FASCICULAR BLOCK [QRS AXIS <= -45, QR IN I, RS IN II] VOLTAGE CRITERIA FOR LVH [MEETS CRITERIA IN ONE OF: R(aVL), S(V1), R(V5), R(V5/V6)+S(V1)] POSSIBLE ANTERIOR MYOCARDIAL INFARCTION , OF INDETERMINATE AGE [30 ms Q WAVE IN V3/V4, OR R < 0.2 mV IN V4] ABNORMAL ECG UNCONFIRMED REPORT Electronically signed by : Reagan Hsieh MD 12/12/2021 21:24:59
[2021-12-11 10:57] LABS: Chloride 96 mmol/L (98-107); Potassium 3.5 mmoL/L (3.5-5.1); Sodium 133 mmol/L (136-145)
[2021-12-11 10:59] LABS: Blood Urea Nitrogen 13 mg/dl (7-17); Creatinine Clearance Estimated 44 mL/min (50-200); Estimated Glomerular Filt Rate 53 ml/min (>60); GFR (African American) 64 ML/MIN (>60)
[2021-12-11 11:00] LABS: Alanine Aminotransferase 10 U/L (12-78); Albumin Level 3.3 g/dl (3.5-5.0); Albumin/Globulin Ratio 1.2 (1.1-1.8); Alkaline Phosphatase 30 U/L (38-126); Anion Gap 12.5 mEq/L (5-15); Aspartate Amino Transferase 26 U/L (14-36); Bilirubin,Total 0.7 mg/dl (0.2-1.3); Calcium 8.4 mg/dl (8.4-10.2); Carbon Dioxide 28 mmol/L (22.0-30.0); Globulin 2.7 g/dL (1.3-3.2); Glucose 102 mg/dl (74-100); Lipase 21 U/L (23-300); Magnesium 1.5 mg/dl (1.6-2.3)
[2021-12-11 11:03] LABS: Lymphocytes % 3 % (10-50); Monocytes % 4 % (2-9); Neutrophils % 90 % (42-76); Total Cells Counted 100
[2021-12-11 11:04] LABS: Anisocytosis 1+; Hypochromasia 1+; Ovalocytes 1+; Platelet Estimate Slight Increase
[2021-12-11 11:12] LABS: Troponin I 0.04 ng/ml (0.00-0.034)
[2021-12-11 11:40] LABS: Lactic Acid 1.1 mmol/L (0.7-2.1)
[2021-12-11 11:45] LABS: Microscopic, Urine URINE MICROSCOPIC (MICROSCOPIC)
[2021-12-11 11:47] LABS: Appearance,Urine CLEAR (Clear); Blood, Urine 1+ (Negative); Color,Urine AMBER (Yellow); Glucose,Urine (UA) Negative (Negative); Ketones,Urine TRACE (Negative); Leukocyte Esterase,Urine TRACE (Negative); Nitrate,Urine POSITIVE (Negative); PH,Urine 5.5 (5.0-8.5); Protein,Urine 1+ (Negative); Specific Gravity, Urine 1.025 (1.005-1.030); Urobilinogen,Urine 0.2 EU/dl (0.2)
[2021-12-11 11:52] LABS: Bilirubin,Urine 1+ (Negative)
[2021-12-11 12:00] LABS: Bacteria,Urine Trace /lpf; Hyaline Casts,Urine Occasional #/lpf (0); RBC,Urine Occasional #/hpf (0-3); Squamous Epithelial Cell,Urine Occasional #/hpf (0-5); WBC,Urine Occasional #/hpf (0-3)
--- NOTE | 2021-12-11 12:23 | PC.NURSE ---
called hospitalist to see pt for admission
--- NOTE | 2021-12-11 13:33 | PC.NURSE ---
dr guerrero at the bedside
--- NOTE | 2021-12-11 13:56 | PC.NURSE ---
lunch tray brought to pt
[2021-12-11 14:06] LABS: Coronavirus 19, PCR Not Detected (NotDetected); Influenza A, PCR Not Detected (NotDetected); Influenza B, PCR Not Detected (NotDetected)
--- NOTE | 2021-12-11 15:26 | PC.NURSE ---
Pt arrived to the floor at this time.
[2021-12-11 15:49] LABS: Troponin I 0.06 ng/ml (0.00-0.034)
--- NOTE | 2021-12-11 16:22 | EXP.HP ---
History of Present Illness *Admission Date: 12/11/21 *Reason for visit:: fatigue, cough, shortness of breath, debility *History of present illness: Patient is an 85-year-old woman with a past medical history of CAD s/p CABG, CHF, chronic anemia, HTN, HLD, and COPD on 3L who comes to the ER for generalized weakness to the point she can't stand, melena diarrhea, vomiting, decreased appetite, and coughing. Since d/c from here on 12/09 she has been very fatigued, poor appetite, and coughing constantly according to her son. He reports she coughs less here and he's worried there may be mold in her apartment/condo. Pt was admitted here from 12/07 - 12/09 for profound anemia requiring a transfusion and EGD on 12/09 showed a shallow ulceration in gastric body. Overall she has not felt well for at least the last 3 weeks as on admission on 12/07 she reported chest pain, fatigue, and dizziness for the preceding 3 weeks.?She recently had left lower lobe pneumonia and completed a course of antibiotics for this.?Pt and family are open to pt going to a SNF when she's ready for discharge to help with rehab/deconditioning. [facility] Medical History Ankle fracture Cataract COPD (chronic obstructive pulmonary disease) Cough Hiatal hernia History of anemia History of cataract History of heart attack Hypertension Hypothyroid Osteoarthritis Scattered respiratory crackles of right lung Sleep apnea SOB (shortness of breath) Tachycardia Surgical History H/O gastric bypass History of cholecystectomy History of hysterectomy History of knee replacement Family History Other Family history of Alzheimer's disease Family history of cancer Family history of cataracts Family history of diabetes mellitus type II Family history of myocardial infarction Social History Smoking Status: Never smoker second hand exposure: No alcohol intake: never substance use type: denies use current occupational status: retired Travel in the last 8 weeks: None household members: significant other housing: house current occupational exposures/hazards: No caffeine: Yes Review of Systems Constitutional Constitutional: Denies chills, Reports fatigue, Denies fever(s), Reports poor appetite and Reports lethargy Eyes Eyes: Denies change in vision ENT Ears, Nose, Mouth, and Throat: Reports dizziness, Denies dysphagia, Denies neck pain and Denies odynophagia *Cardiovascular Cardiovascular: Denies chest pain, Denies chest pain with activity, Reports dyspnea, Reports dyspnea on exertion, Denies edema and Denies palpitations *Respiratory Respiratory: Reports cough, Reports dyspnea, Reports dyspnea on exertion and Denies hemoptysis *Gastrointestinal Gastrointestinal: Denies abdominal pain, Reports change in bowel habits, Reports coffee ground emesis, Denies constipation, Reports diarrhea, Denies dysphagia, Reports early satiety, Denies hematemesis, Denies hematochezia, Reports melena, Denies odynophagia and Denies vomiting *Genitourinary Genitourinary: Denies dysuria *Musculoskeletal Musculoskeletal: Reports arthralgias, Denies limited range of motion and Denies neck pain *Neurologic Neurologic: Reports system reviewed and no additional complaints, except as documented, Denies abnormal movements, Denies abnormal speech, Denies confusion and Reports dizziness Psychiatric Psychiatric: Denies confusion, Denies depression, Denies hopelessness and Denies panic attacks Endocrine Endocrine: Reports fatigue and Denies palpitations Meds Home Medications and Allergies Home Medications Medication Instructions Recorded Confirmed Type melatonin 10 mg tablet 10 mg PO HS sleep 09/26/17 12/11/21 History nitroglycerin 0.4 mg sublingual 0.4 mg sublingual Q5MINP PRN Chest 10/
[2021-12-11 17:09] LABS: NT Pro Brain Natriuretic Pep. 9430 pg/mL (0-450)
[2021-12-11 17:17] LABS: Procalcitonin 3.53 ng/mL (0.0-2.0)
[2021-12-11 20:43] LABS: Troponin I 0.04 ng/ml (0.00-0.034)
--- NOTE | 2021-12-11 21:01 | PC.NURSE ---
Pt is A/ox4. She had a diarrhea BM when she first got to the floor. She ate dinner and tolerated it well. She is RA. She sounded diminished. She has not complained of pain. She ambulated to the bathroom with assist x1.
[2021-12-11 22:39] LABS: Occult Blood,Stool Positive (Negative)
[2021-12-12] VITALS (7 sets, daily range): BP systolic 91–113; BP diastolic 40–58; PULSE 70–110; RESP 14–20; TEMP 36.6–37.6; O2SAT 93–97; BMI 28.6
[2021-12-12 01:46] LABS: Occult Blood,Gastric Fluid Negative (Negative)
[2021-12-12 04:25] LABS: Basophils # 0.1 K/mm3 (0-0.2); Basophils % 0.5 % (0.1-2.0); Eosinophils # 0.4 K/mm3 (0.0-0.4); Eosinophils % 4.1 % (0.1-12.0); Hemoglobin 9.1 g/dL (12.2-16.2); Lymphocytes # 1.3 K/mm3 (0.7-4.5); Lymphocytes % 13.1 % (10-50); Mean Corpuscular HGB Conc 31.7 g/dL (31.8-35.4); Mean Corpuscular Hemoglobin 25.4 pg (27.0-31.2); Mean Corpuscular Volume 80.2 fl (81-99); Mean Platelet Volume 7.9 fl (7.4-10.4); Monocytes # 0.6 K/mm3 (0.1-1.0); Neutrophils # 7.5 K/mm3 (1.8-7.8); Neutrophils % 76.3 % (37.0-80.0); Platelet Count 341 K/mm3 (142-424); Red Blood Count 3.58 M/mm3 (4.20-5.40); Red Cell Distribution Width 21.5 % (11.5-17.5); White Blood Count 9.8 K/mm3 (4.8-10.8)
[2021-12-12 04:31] LABS: Hematocrit 28.7 % (37.0-47.0)
[2021-12-12 04:35] LABS: Alanine Aminotransferase 10 U/L (12-78); Albumin Level 2.9 g/dl (3.5-5.0); Albumin/Globulin Ratio 1.1 (1.1-1.8); Alkaline Phosphatase 41 U/L (38-126); Anion Gap 12.1 mEq/L (5-15); Aspartate Amino Transferase 25 U/L (14-36); Bilirubin,Total 0.3 mg/dl (0.2-1.3); Blood Urea Nitrogen 16 mg/dl (7-17); Calcium 8.2 mg/dl (8.4-10.2); Carbon Dioxide 31 mmol/L (22.0-30.0); Chloride 97 mmol/L (98-107); Creatinine Clearance Estimated 38 mL/min (50-200); Estimated Glomerular Filt Rate 53 ml/min (>60); GFR (African American) 64 ML/MIN (>60); Globulin 2.6 g/dL (1.3-3.2); Glucose 100 mg/dl (74-100); Potassium 3.1 mmoL/L (3.5-5.1); Sodium 137 mmol/L (136-145); Total Protein,Serum 5.5 g/dl (6.3-8.2)
[2021-12-12 04:37] LABS: Magnesium 2.1 mg/dl (1.6-2.3)
[2021-12-12 04:45] LABS: Troponin I 0.04 ng/ml (0.00-0.034)
--- NOTE | 2021-12-12 06:01 | PC.NURSE ---
pt alert and oriented x4, VSS, 02 sats 96% on 2L pnc, pt states she wears 02 at home as needed, mild generalized edema 1+, pt with complaints of nausea and vomiting clear contents this shift, phenergan was administered x1 for vomiting unrelieved by zofran, lung sounds diminished with crackles noted at bases, abd soft, non distended, no other issues noted at this time, pt up to bsc with assist for mild weakness, bed alarm in place.
--- NOTE | 2021-12-12 07:34 | HMH.PHAINT1 ---
Pharmacy Intervention Comments: Home medication reconciliation completed using outpatient pharmacy list and recent discharge package.
--- NOTE | 2021-12-12 10:27 | HMH.OTEV ---
OT Inpatient Evaluation Rehab OT IP Evaluation Start: 12/12/21 08:42 Freq: ONCE Status: Complete Protocol: Document 12/12/21 10:21 [facility] (Rec: 12/12/21 10:27 [facility] [id number]) Rehab OT IP Assessment Subjective History Pt oriented x 3 on arrival. Pt was admitted via ED on due to fatigue, cough, SOB, and debility. Prior to being in the hospital, pt lived at home with her . Pt claims she was independent with feeding, dressing, and sponge bathing. However, she was dependent upon her to complete all IADLs. Pt did use a walker during ambulation. Pt has a past medical history of: Ankle fracture Cataract COPD (chronic obstructive pulmonary disease) Cough Hiatal hernia History of anemia History of cataract History of heart attack Hypertension Hypothyroid Osteoarthritis Scattered respiratory crackles of right lung Sleep apnea SOB (shortness of breath) Tachycardia Subjective I have to use the bathroom. Objective Patient Orientation Person,Place,Birthday Upper Extremity Gross ROM Min Limitation <25% Shoulder ROM Limitations Muscle Weakness Elbow ROM Limitations Muscle Weakness Wrist Limitations of Range of Motion Muscle Weakness Bed Mobility bed mobility-scooting,bed mobility - supine/sit,bed mobility - rolling Assist Level Contact Guard/Hand Hold Transfer Training Sit/Stand Transfer Assist Level Minimal x 1 (25% assist) Lower Body Dressing Ability Assistance X1 Performing Toilet Hygiene Ability Assistance X1 Overall Commode/Toilet Transfer Ability Assistance x1 Commode/Toilet Transfer Technique Sit to/from Ambulatory Rehab OT IP prob,goals,plan Problems Date of Evaluation: 12/12/21 OT IP Problems Bed Mobility,Transfers,
--- NOTE | 2021-12-12 10:43 | SW/DCPLANNER ---
Addendum entered by Angela Long 12/13/21 14:47: I spoke with patient's daughter (Martha) and she stated that she is available to transport this patient to [facility] today and will be able to bring patient back for follow up imaging tomorrow morning. I have asked that patient's nurse (Barb) to call daughter once patient is ready to leave today. COVID swab is negative. Addendum entered by Angela Long 12/13/21 10:08: The plan for this patient is to discharge to [facility] level of care pending no setbacks and pending further testing. COVID swab will be collected prior to discharge. Addendum entered by Angela Long 12/12/21 15:57: [facility]/ [facility] stated that she can accept this patient once medically stable for discharge. Original Note: I spoke with this patient regarding plans once medically stable for discharge. Patient stated that she is very weak and is open to SNF level of care at time of discharge. PT/OT will evaluate patient this AM. Patient stated that she is open to placement at [facility]: if SNF is recommended patient information will be faxed to [facility].
--- NOTE | 2021-12-12 10:50 | HMH.PTEV ---
Physical Therapy Evaluation Rehab PT IP Evaluation Start: 12/12/21 08:42 Freq: ONCE Status: Active Protocol: Document 12/12/21 10:43 [facility] (Rec: 12/12/21 10:50 [facility] [id number]) Subjective/History History History 85 yowf adm to [facility] with generalized weakness, UGIB, recent PNA. She lives with spouse, uses a RW for all ambulation, and is generally independent with all mobility and ADLs. Subjective Subjective Pt with c/o significant weakness this am with all mobility. Rehab PT IP Eval Objective Appearance Patient Behavior Appropriate Patient Orientation Person,Place,Time Difficulty following instructions none Speech Pattern Clear Ambulation Patient Able to Ambulate Yes Ambulation Observation IP General Gait Pattern Observation Wide Based Gait,Shuffling Step Ambulation Distance (feet) 5 Ambulation Assistive Device Rolling Walker Ambulation Ability Contact Guard/Hand Hold Balance Ability to Arise Able, uses arms to help Sitting Balance Steady, safe Standing Balance Steady, wide stance Dynamic Sitting Balance Ability Good Dynamic Standing Balance Ability Fair Transfers Bed Transfer Ability Contact Guard/Hand Hold Chair Transfer Ability Contact Guard/Hand Hold Sit to Stand Bed Transfer Ability Contact Guard/Hand Hold Sit to Stand Chair Transfer Ability Contact Guard/Hand Hold ROM All Extremities PT ROM Status WFL Rehab PT IP prob,goals,plan Problems Date of Evaluation: 12/12/21 PT IP Problems Bed Mobility,Transfers,Gait, Self care Rehab Potential Rehab Potential Good Plan PT Intervention Plan Bed Mobility,Transfers,Gait, Self care,Safety,Therapeutic Exercise PT Plan Frequency BID Discharge Goals Bed Transfer Ability Supervision/Stand by Sit to Stand Chair Transfer Ability Supervision/Stand by Ambulation Assistive Device Rolling Walker Ambulation Distance (feet) 25 Discharge Plan PT Discharge Plan Pt is currently most appropriate for rehab placement once medically stable. If she returne home she will need Home Health and she will be at increased risk for injury, falls, or further
--- NOTE | 2021-12-12 11:24 | PC.NURSE ---
attempted to collect sputum sample but pt is unable to produce. specimen cup at bedside
--- NOTE | 2021-12-12 11:38 | EXP.CARD.CON ---
History of Present Illness History of Present Illness Consult date: 12/12/21 Requesting physician: Virgil Woo Consult reason: known to you Chief complaint: weakness, diarrhea Additional Medical History:: 1. Coronary artery disease with prior CABG in 2005 and prior CLIFF to ostial left main in 09/2017 due to loss of the MCCARTHY to LAD graft. A. [facility], 2019 and 08/27/2020, ANGIOGRAPHIC RESULTS The left main artery Has a stent in the ostial segment which is widely patent free of in-stent restenosis with excellent proximal distal transitioning The left anterior descending artery Has an ostial hazy 10 to 20% stenosis with remaining vessel widely patent.? There is tortuosity throughout the LAD with no stenosis greater than 10% The circumflex artery Gives rise to a high first obtuse marginal artery ramus intermedius which is occluded.? The remaining circumflex artery has mild atheromatous 10 to 20% plaque The right coronary artery Small nondominant vestigial normal The CAREY ventriculogram reveals Normal 65% The left ventricular end-diastolic pressure 15 to 20 mmHg Saphenous vein graft to ramus intermedius/first high obtuse marginal arteries widely patent IMPRESSION Adequate coronary revascularization as described above Probable diastolic dysfunction as etiology for elevated LVEDP and elevated troponin PLAN 1. Treatment of diastolic dysfunction 2. Medical management of coronary disease Electronically signed by : Richard Bergeron,? 08/27/2020 13:11:28 B. Dual antiplatelet therapy discontinued 11/2021 due to GI bleed. 2. Obstructive sleep apnea-hypopnea syndrome 3. History of hypertensive heart disease with diastolic congestive heart failure 4. Hyperlipidemia 5. GERD with remote gastric surgery approximately 1999 A. Recent EGD 11/2021 showing evidence of ulceration B. Barium swallow, 04/2020, no evidence of aspiration 6. Recurrent pneumonia with concern for aspiration, 11/2021 7. GI bleed with anemia requiring blood transfusion, 11/2021 8. History of asthma with suspected bronchiectasis likely related to chronic reflux. A. Followed by Dr. Martel B. History of CTA of the chest showing fibrotic changes of the right lung in 2019 C. PFTs 04/2020 showed minimal restriction-interstitial with no obstructive component History of present illness: Patient is an 85-year-old woman with a past medical history of CAD s/p CABG, CHF, chronic anemia, HTN, HLD, and COPD on 3L who comes to the ER for generalized weakness to the point she can't stand, melena diarrhea, vomiting, decreased appetite, and coughing. Since d/c from here on 12/09 she has been very fatigued, poor appetite, and coughing constantly according to her son. He reports she coughs less here and he's worried there may be mold in her apartment/condo. Pt was admitted here from 12/07 - 12/09 for profound anemia requiring a transfusion and EGD on 12/09 showed a shallow ulceration in gastric body. Overall she has not felt well for at least the last 3 weeks as on admission on 12/07 she reported chest pain, fatigue, and dizziness for the preceding 3 weeks.?She recently had left lower lobe pneumonia and completed a course of antibiotics for this.?Pt and family are open to pt going to a SNF when she's ready for discharge to help with rehab/deconditioning. The above per Dr. Woo, Hospitalist Patient confirms history/events as noted above. Cardiology asked to see the patient regarding dual antiplatelet therapy (recently stopped last admission due to GI bleed) and history of coronary artery disease/CABG. Hemoglobin has drifted from 10.6 on discharge date 12/09/2021 (after being transfused up from 6.8 on 12/07/2021) down to 9.1 this a.m. Patient does endorse melanotic stool but states she is taking iron. Patient denies any chest pain at this time. Troponins are marginally elevated at 0.04 this admission. Most recent cardiac caths in 2019 and 08/27/2020 displayed she was adequately revascularized but did h
--- NOTE | 2021-12-12 14:55 | EXP.PN ---
Subjective *Date: 12/12/21 *Time: 16:05 Interval history: This morning patient reports she feels not good. When asked the last time she did feel good she says she has not felt well since she got pneumonia 3 times in February, 10 months ago. She has now had pneumonia at least twice over the last 3 weeks. She has no energy and no appetite, otherwise she has a hard time explaining in what way she feels bad. Exam Data for Last 24 hours Vital signs and Labs for Last 24 Hours: Temp Pulse Resp BP Pulse Ox 99.6 F 78 19 92/55 L 95 12/12/21 12:00 12/12/21 13:54 12/12/21 13:54 12/12/21 12:00 12/12/21 12:00 Laboratory Results - last 24 hr 12/11/21 15:18: Troponin I 0.06 H 12/11/21 15:18: NT-Pro-B Natriuret Pep 9430 H 12/11/21 15:18: Procalcitonin 3.53 H 12/11/21 19:58: Troponin I 0.04 H 12/11/21 22:31: Stool Occult Blood Positive A 12/12/21 00:38: Gastric Occult Blood Negative 12/12/21 04:10: WBC 9.8, RBC 3.58 L, Hgb 9.1 L, Hct 28.7 L, MCV 80.2 L, MCH 25.4 L, MCHC 31.7 L, RDW 21.5 H, Plt Count 341, MPV 7.9, Neut % (Auto) 76.3, Lymph % (Auto) 13.1, [place] % (Auto) 6.0, Eos % (Auto) 4.1, Baso % (Auto) 0.5, Neut # (Auto) 7.5, Lymph # (Auto) 1.3, [place] # (Auto) 0.6, Eos # (Auto) 0.4, Baso # (Auto) 0.1 12/12/21 04:10: Sodium 137, Potassium 3.1 L, Chloride 97 L, Carbon Dioxide 31 H, Anion Gap 12.1, BUN 16, Creatinine 1.00, Estimated Creat Clear 38, Estimated GFR 53 L, Est GFR ( Amer) 64, Glucose 100, Calcium 8.2 L, Phosphorus 3.0, Magnesium 2.1 D, Total Bilirubin 0.3, AST 25, ALT 10 L, Alkaline Phosphatase 41, Troponin I 0.04 H, Total Protein 5.5 L, Albumin 2.9 L D, Globulin 2.6, Albumin/Globulin Ratio 1.1 I & O for Last 24 hours: Intake & Output 12/09/21 12/10/21 12/11/21 12/12/21 23:59 23:59 23:59 23:59 Intake Total 320 / 320 1303 / 1303 Output Total 200 / 200 250 / 250 Balance 120 / 120 1053 / 1053 Weight 56.274 kg 60.23 kg Intake & Output Microbiology Reports for the Last 24 Hours: Microbiology 12/11/21 11:40 Urine,Clean Catch Urine Culture - Preliminary NO GROWTH AFTER 24 HOURS Constitutional Constitutional: mild distress (fatigued and weak ), chronically ill appearing and cooperative *Routine HEENT Exam Head: Present normocephalic and atraumatic Eye: Present EOMI and PERRL ENT: Present mucous membranes moist and oropharynx clear *Routine Neck Exam Neck: Present supple and full ROM *Routine Respiratory Exam Respiratory: Present crackles (scant diffuse crackles); Absent accessory muscle use or respiratory distress *Routine Cardiovascular Exam Cardiovascular: Present Normal S1, Normal S2, tachycardia and irregularly irregular; Absent murmur *Routine Abdominal Exam Abdominal: Present soft, normoactive bowel sounds and tenderness (mild diffuse tenderness ); Absent distended, rebound or guarding *Routine Extremities Exam Extremities: Present full ROM, pulses intact and normal capillary refill; Absent edema or tenderness *Routine Neurological Exam Neurological: Present alert, oriented X3, CN II-XII intact, moving all extremities and normal speech; Absent sensory deficit, motor deficit or normal tone (low muscle tone ) Routine Psychiatric Exam Psychiatric: Present normal affect, normal thought process, cooperative and depressed; Absent good insight Assessment and Plan *Assessment and plan (1) HLD (hyperlipidemia): Status: Chronic Qualifiers: Hyperlipidemia type: mixed hyperlipidemia Qualified Code(s): E78.2 - Mixed hyperlipidemia Category: Medical Code(s): E78.5 - Hyperlipidemia, unspecified Plan: At the age of 85 patient can stop rosuvastatin (2) CAD (coronary artery disease): Status: Chronic Qualifiers: Associated angina: with other forms of angina Coronary Disease-Associated Artery/Lesion type: [place] artery [place] vs. transplanted heart: [place] he
--- NOTE | 2021-12-12 15:46 | EXP.SURG.CON ---
History of Present Illness *Admission Date: 12/11/21 *History of present illness: The following is recalled from the hospitalist admission history and physical: Patient is an 85-year-old woman with a past medical history of CAD s/p CABG, CHF, chronic anemia, HTN, HLD, and COPD on 3L who comes to the ER for generalized weakness to the point she can't stand, melena diarrhea, vomiting, decreased appetite, and coughing. Since d/c from here on 12/09 she has been very fatigued, poor appetite, and coughing constantly according to her son. He reports she coughs less here and he's worried there may be mold in her apartment/condo. Pt was admitted here from 12/07 - 12/09 for profound anemia requiring a transfusion and EGD on 12/09 showed a shallow ulceration in gastric body. Overall she has not felt well for at least the last 3 weeks as on admission on 12/07 she reported chest pain, fatigue, and dizziness for the preceding 3 weeks.?She recently had left lower lobe pneumonia and completed a course of antibiotics for this.?Pt and family are open to pt going to a SNF when she's ready for discharge to help with rehab/deconditioning. Patient is an 85-year-old female who had previously undergone bariatric surgery and has a history of chronic anemia. She had been admitted to this facility recently and Dr. Paz had performed upper endoscopy on 12/09/2021. At that time she was found to have surgical changes from prior bariatric surgery, large volume of food particles within the distal esophagus and proximal gastric body, small shallow ulceration in the distal gastric body without stigmata of recent bleeding, small bowel anastomosis with no evidence of active or recent bleeding. She had been discharged on 12/09/2021 but at home has had progressive anemia, melena, diarrhea, diminished appetite, fatigue. Her hemoglobin when she was recently admitted on 12/07/2021 was 6.8 and she was transfused 2 units of packed red blood cells with hemoglobin of 10.6 when she was discharged on 12/09/2021. Hemoglobin yesterday was 9.8. [facility] Medical History Ankle fracture Cataract COPD (chronic obstructive pulmonary disease) Cough Hiatal hernia History of anemia History of cataract History of heart attack Hypertension Hypothyroid Osteoarthritis Scattered respiratory crackles of right lung Sleep apnea SOB (shortness of breath) Tachycardia Surgical History H/O gastric bypass History of cholecystectomy History of hysterectomy History of knee replacement Family History Other Family history of Alzheimer's disease Family history of cancer Family history of cataracts Family history of diabetes mellitus type II Family history of myocardial infarction Social History Smoking Status: Never smoker second hand exposure: No alcohol intake: never substance use type: denies use current occupational status: retired Travel in the last 8 weeks: None household members: significant other housing: house current occupational exposures/hazards: No caffeine: Yes Review of Systems Constitutional Constitutional: Reports weakness ENT Ears, Nose, Mouth, and Throat: Reports dizziness *Neurologic Neurologic: Reports system reviewed and no additional complaints, except as documented, Denies abnormal movements, Denies abnormal speech, Denies confusion, Reports dizziness and Reports weakness Psychiatric Psychiatric: Denies confusion Meds Home Medications and Allergies Home Medications Medication Instructions Recorded Confirmed Type melatonin 10 mg tablet 10 mg PO HS sleep 09/26/17 12/11/21 History nitroglycerin 0.4 mg sublingual 0.4 mg sublingual Q5MINP PRN Chest 12/12/19 12/11/21 History tablet Pain albuterol sulfate 90 mcg/actuation 1 inh inhalation QID
--- NOTE | 2021-12-12 17:25 | PC.NURSE ---
Pt is alert and oriented x4. She was up to the chair for several hours today and tolerated well. She remains on 2L NC with O2 sats measuring > 90%. She desats to mid 80's on RA. 1 BM today per BSC. She's an assist x1. She's denied any nausea/vomiting. No complaints verbalized. Bed is locked and in the lowest position, call light is within reach.
[2021-12-13] VITALS: BP 106/46; PULSE 72; PULSE 80; RESP 18; TEMP 37; O2SAT 97
[2021-12-13 04:00] VITALS: BP 127/59; PULSE 80; PULSE 86; RESP 18; TEMP 37.3; O2SAT 99
[2021-12-13 04:06] VITALS: BMI 29.2
[2021-12-13 06:44] LABS: Basophils % 0.5 % (0.1-2.0); Eosinophils # 0.5 K/mm3 (0.0-0.4); Eosinophils % 6.4 % (0.1-12.0); Hematocrit 27.9 % (37.0-47.0); Hemoglobin 8.7 g/dL (12.2-16.2); Lymphocytes # 0.9 K/mm3 (0.7-4.5); Lymphocytes % 12.2 % (10-50); Mean Corpuscular HGB Conc 31.3 g/dL (31.8-35.4); Mean Corpuscular Hemoglobin 25.8 pg (27.0-31.2); Mean Corpuscular Volume 82.7 fl (81-99); Mean Platelet Volume 8.8 fl (7.4-10.4); Monocytes # 0.4 K/mm3 (0.1-1.0); Monocytes % 5.3 % (1.7-9.3); Neutrophils # 5.7 K/mm3 (1.8-7.8); Neutrophils % 75.5 % (37.0-80.0); Platelet Count 375 K/mm3 (142-424); Red Blood Count 3.37 M/mm3 (4.20-5.40); Red Cell Distribution Width 21.9 % (11.5-17.5); White Blood Count 7.5 K/mm3 (4.8-10.8)
[2021-12-13 07:03] LABS: Chloride 102 mmol/L (98-107)
[2021-12-13 07:04] LABS: Potassium 3.6 mmoL/L (3.5-5.1); Sodium 138 mmol/L (136-145)
[2021-12-13 07:06] LABS: Alanine Aminotransferase 6 U/L (12-78); Anion Gap 10.6 mEq/L (5-15); Aspartate Amino Transferase 16 U/L (14-36); Blood Urea Nitrogen 10 mg/dl (7-17); Carbon Dioxide 29 mmol/L (22.0-30.0); Creatinine Clearance Estimated 41 mL/min (50-200); Estimated Glomerular Filt Rate 69 ml/min (>60); GFR (African American) 83 ML/MIN (>60)
[2021-12-13 07:07] LABS: Albumin Level 2.7 g/dl (3.5-5.0); Albumin/Globulin Ratio 1.2 (1.1-1.8); Alkaline Phosphatase 41 U/L (38-126); Bilirubin,Total 0.2 mg/dl (0.2-1.3); Globulin 2.2 g/dL (1.3-3.2); Glucose 105 mg/dl (74-100); Phosphorous 2.7 mg/dl (2.5-4.5); Total Protein,Serum 4.9 g/dl (6.3-8.2)
--- NOTE | 2021-12-13 07:19 | EXP.SURG.PN ---
Subjective Patient reports: no new complaints and feels better Narrative: She believes her bowel movements are getting more normal now . Exam Data for Last 24 hours Vital signs and Labs for Last 24 Hours: Temp Pulse Resp BP Pulse Ox 99.2 F 86 18 127/59 L 99 12/13/21 04:00 12/13/21 04:00 12/13/21 04:00 12/13/21 04:00 12/13/21 04:00 Laboratory Results - last 24 hr 12/13/21 06:16: WBC 7.5, RBC 3.37 L, Hgb 8.7 L, Hct 27.9 L, MCV 82.7, MCH 25.8 L, MCHC 31.3 L, RDW 21.9 H, Plt Count 375, MPV 8.8, Neut % (Auto) 75.5, Lymph % (Auto) 12.2, [place] % (Auto) 5.3, Eos % (Auto) 6.4, Baso % (Auto) 0.5, Neut # (Auto) 5.7, Lymph # (Auto) 0.9, [place] # (Auto) 0.4, Eos # (Auto) 0.5 H, Baso # (Auto) 0.0 12/13/21 06:16: Sodium 138, Potassium 3.6, Chloride 102, Carbon Dioxide 29, Anion Gap 10.6, BUN 10 D, Creatinine 0.80, Estimated Creat Clear 41, Estimated GFR 69, Est GFR ( Amer) 83 D, Glucose 105 H, Calcium 8.0 L, Phosphorus 2.7, Magnesium 2.0, Total Bilirubin 0.2, AST 16 D, ALT 6 L D, Alkaline Phosphatase 41, Total Protein 4.9 L, Albumin 2.7 L, Globulin 2.2, Albumin/Globulin Ratio 1.2 I & O for Last 24 hours: Intake & Output 12/10/21 12/11/21 12/12/21 12/13/21 11:59 11:59 11:59 11:59 Intake Total 903 / 903 2408 / 2408 Output Total 350 / 450 400 / 400 Balance 553 / 453 2007 Weight 145 lb 132 lb 12.551 oz 135 lb 8.009 oz Microbiology Reports for the Last 24 Hours: Microbiology 12/11/21 11:40 Urine,Clean Catch Urine Culture - Preliminary NO GROWTH AFTER 24 HOURS Narrative: Morning hemoglobin 8.7. Hemoglobin on December 07 prior to a 2 unit packed red blood cell transfusion was 6.8. *Routine Respiratory Exam Respiratory: Absent respiratory distress *Routine Cardiovascular Exam Cardiovascular: Absent tachycardia *Routine Abdominal Exam Abdominal: Present soft Progress Note: A&P Assessment and plan (1) Anemia: Status: Acute Assessment and plan: Slight decrease in hemoglobin this morning; however, current level consistent with what would be anticipated after 2 unit transfusion. (2) GI bleed: Status: Acute Assessment and plan: No definitive sign of active blood loss. Recent readmission with persistent melena could be secondary to delayed transit. UGI/SBFT ordered Likely capsule endoscopy in near future Hold off on repeat EGD for now (may benefit from repeat EGD in the near future) (3) Elevated troponin: Status: Resolved (4) UTI (urinary tract infection): Status: Resolved (5) H/O gastric bypass: Status: Acute
[2021-12-13 07:47] VITALS: BP 108/52; PULSE 95; RESP 17; TEMP 37.3; O2SAT 96
--- NOTE | 2021-12-13 09:17 | EXP.CARD.PN ---
Subjective Subjective Date: 12/13/21 Time: 09:17 Principal diagnosis: GI bleed, melanotic diarrhea Interval history: 85-year-old white female in bed in no acute distress. Denies any chest pain, pressure or tightness. Echocardiogram results pending from yesterday. She has had 2 loose BMs this morning but slightly firmer than previous. Surgery consulted yesterday with Plans for upper GI/small bowel follow-through today. Patient may need capsule endoscopy in the near future. Exam Data for Last 24 hours Vital signs and Labs for Last 24 Hours: Temp Pulse Resp BP Pulse Ox 99.1 F 95 H 17 108/52 L 96 12/13/21 07:47 12/13/21 07:47 12/13/21 07:47 12/13/21 07:47 12/13/21 07:47 Laboratory Results - last 24 hr 12/13/21 06:16: WBC 7.5, RBC 3.37 L, Hgb 8.7 L, Hct 27.9 L, MCV 82.7, MCH 25.8 L, MCHC 31.3 L, RDW 21.9 H, Plt Count 375, MPV 8.8, Neut % (Auto) 75.5, Lymph % (Auto) 12.2, [place] % (Auto) 5.3, Eos % (Auto) 6.4, Baso % (Auto) 0.5, Neut # (Auto) 5.7, Lymph # (Auto) 0.9, [place] # (Auto) 0.4, Eos # (Auto) 0.5 H, Baso # (Auto) 0.0 12/13/21 06:16: Sodium 138, Potassium 3.6, Chloride 102, Carbon Dioxide 29, Anion Gap 10.6, BUN 10 D, Creatinine 0.80, Estimated Creat Clear 41, Estimated GFR 69, Est GFR ( Amer) 83 D, Glucose 105 H, Calcium 8.0 L, Phosphorus 2.7, Magnesium 2.0, Total Bilirubin 0.2, AST 16 D, ALT 6 L D, Alkaline Phosphatase 41, Total Protein 4.9 L, Albumin 2.7 L, Globulin 2.2, Albumin/Globulin Ratio 1.2 I & O for Last 24 hours: Intake & Output 12/10/21 12/11/21 12/12/21 12/13/21 11:59 11:59 11:59 11:59 Intake Total 903 / 903 2408 / 2408 Output Total 350 / 450 400 / 400 Balance 553 / 453 2007 Weight 145 lb 132 lb 12.551 oz 135 lb 8.009 oz Microbiology Reports for the Last 24 Hours: Microbiology 12/11/21 11:40 Urine,Clean Catch Urine Culture - Preliminary NO GROWTH AFTER 24 HOURS Constitutional Constitutional: no acute distress *Routine Respiratory Exam Respiratory: Present CTA bilaterally *Routine Cardiovascular Exam Cardiovascular: Present RRR; Absent murmur, gallop or rubs *Routine Extremities Exam Extremities: Absent cyanosis, clubbing or edema *Routine Neurological Exam Neurological: Present alert and oriented X3 Progress Note: A&P Assessment and plan (1) Anemia: Status: Acute (2) GI bleed: Status: Acute (3) Elevated troponin: Status: Resolved (4) UTI (urinary tract infection): Status: Resolved (5) H/O gastric bypass: Status: Acute Assessment and Plan Assessment and Plan for All Diagnoses:: 1.? Recurrent hospitalization for weakness, fatigue in relation to pneumonia, iron deficiency anemia with recent transfusion and melanotic diarrhea.? Treatment per hospitalist and surgeon.? Patient is on antibiotic therapy and PPI. 2.? History of coronary artery disease with prior bypass and stenting.? Most recent cardiac caths in 2019 and 2020 showed stable coronary artery disease.? Mildly elevated troponins in the setting of recent severe anemia and recurrent pneumonia, no plans for invasive testing.? Echocardiogram pending.? Agree with discontinuation of dual antiplatelet therapy secondary to GI bleed at this time. 3.? History of hypertension and hypertensive heart disease with chronic diastolic congestive heart failure treated with diuretic therapy.? Continue to monitor and treat accordingly.?Continuing metoprolol for rate control. 4.? GI bleed with extensive history of GERD with prior bariatric surgery approximately 20 years ago. Hemoglobin is drifted down to 8.7 this a.m. (partly dilutional with net positive intake of 2.5 liters per chart) With patient's known ischemic heart disease, would recommend keeping her hemoglobin above 8 g/dL. Agree with need for rehab post discharge.
[2021-12-13 09:58] LABS: Coronavirus 19, PCR Not Detected (NotDetected); Influenza A, PCR Not Detected (NotDetected); Influenza B, PCR Not Detected (NotDetected)
[2021-12-13 11:30] VITALS: BP 111/50; PULSE 94; RESP 17; TEMP 37.4; O2SAT 95
--- NOTE | 2021-12-13 12:13 | EXP.DC.SUM ---
General Admission date:: 12/11/21 HPI HPI HPI: The following is recalled from the hospitalist admission history and physical: Patient is an 85-year-old woman with a past medical history of CAD s/p CABG, CHF, chronic anemia, HTN, HLD, and COPD on 3L who comes to the ER for generalized weakness to the point she can't stand, melena diarrhea, vomiting, decreased appetite, and coughing. Since d/c from here on 12/09 she has been very fatigued, poor appetite, and coughing constantly according to her son. He reports she coughs less here and he's worried there may be mold in her apartment/condo. Pt was admitted here from 12/07 - 12/09 for profound anemia requiring a transfusion and EGD on 12/09 showed a shallow ulceration in gastric body. Overall she has not felt well for at least the last 3 weeks as on admission on 12/07 she reported chest pain, fatigue, and dizziness for the preceding 3 weeks.?She recently had left lower lobe pneumonia and completed a course of antibiotics for this.?Pt and family are open to pt going to a SNF when she's ready for discharge to help with rehab/deconditioning. Patient is an 85-year-old female who had previously undergone bariatric surgery and has a history of chronic anemia. She had been admitted to this facility recently and Dr. Paz had performed upper endoscopy on 12/09/2021. At that time she was found to have surgical changes from prior bariatric surgery, large volume of food particles within the distal esophagus and proximal gastric body, small shallow ulceration in the distal gastric body without stigmata of recent bleeding, small bowel anastomosis with no evidence of active or recent bleeding. She had been discharged on 12/09/2021 but at home has had progressive anemia, melena, diarrhea, diminished appetite, fatigue. Her hemoglobin when she was recently admitted on 12/07/2021 was 6.8 and she was transfused 2 units of packed red blood cells with hemoglobin of 10.6 when she was discharged on 12/09/2021. Hemoglobin yesterday was 9.8. Hospital Course Hospital Course Hospital Course: Ms. Floyd is an 85-year-old female who was recently at admitted for GI bleed and anemia. Responded well to IV transfusion. Unfortunately after being discharged home, had concern for diarrhea with dark stools and possible continued bleeding. Was readmitted with appropriate hemoglobin, but found to have pneumonia on readmission. Surgery consulted, planning for upper GI with small bowel follow-through tomorrow as an outpatient. Initiated on antibiotics for pneumonia. Tolerating oral intake. Stools dark brown. Hemoglobin still at an appropriate level. Problems addressed as follows: Clinical debility Severe protein calorie malnutrition - Pt reports not feeling well for the past 10 months. She was Dx'd with PNA 3 times in February 2019 and has felt poorly since. This is her second Dx'd of PNA in 2-3 weeks and she also recently required a transfusion for hgb of 6.8, responded very briskly with a hemoglobin greater than 10 after only 2 units. He is now at an appropriate level in the low 9/upper 8 range. Hemoglobin has trended down somewhat during admission however she has had a drop in her white cell count as well concerning for dilutional effect given continuous IV fluids. Of concern she current lives in a condo with her who is 90. She has a difficult time getting around in her condominium. Was assessed by PT and OT during admission, concern for needing skilled therapy for rehab and nursing care. Concerned her overall debility is simply related to her being 85, having CAD s/p CABG, CHF, and recurrent PNA. HCAP - Pt recently admitted here from 12/07 -12/09 and had PNA earlier this month. Responding well to IV antibiotics. Transition to oral levofloxacin. Needs to complete 5 more days of antibiotic therapy, renally dosed after discharge. Levaquin will finish on 12/18. Upper GI Bleed - Shallow ulceration seen on EGD on 12/09. Surgery
--- NOTE | 2021-12-13 14:13 | PC.NURSE ---
REPORT CALLED TO MEGHNA AT [facility]
== END 2021-12-13 15:45 | DRG 193 ==
LOC: ER 10:57 → 2ND 15:59
PROVIDERS: Internal Medicine Adolescent Medicine; Surgery; Admitting Provider Emergency Medicine; Emergency Provider Emergency Medicine; Visit Provider Emergency Medicine
PROC: 0DJ08ZZ Inspection of Upper Intestinal Tract, Via Natural or Artificial Opening Endoscopic (ICD-10-PCS; CPT 43235; principal; 2021-12-13 12:00)
DX: J18.9 Pneumonia, unspecified organism (principal); E43 Unspecified severe protein-calorie malnutrition; I50.30 Unspecified diastolic (congestive) heart failure; K92.1 Melena; N39.0 Urinary tract infection, site not specified; Z95.1 Presence of aortocoronary bypass graft; Z68.29 Body mass index [BMI] 29.0-29.9, adult; I25.2 Old myocardial infarction; Z96.659 Presence of unspecified artificial knee joint; M19.90 Unspecified osteoarthritis, unspecified site; I25.118 Atherosclerotic heart disease of native coronary artery with other forms of angina pectoris; D50.9 Iron deficiency anemia, unspecified; Y95 Nosocomial condition; E78.5 Hyperlipidemia, unspecified; K21.9 Gastro-esophageal reflux disease without esophagitis
CPT/HCPCS: 36415; 71045; 80053; 81001; 82272; 83013; 83605; 83690; 83735; 83880; 84100; 84145; 84484; 85007; 85014; 85018; 85025; 86850; 87040; 87086; 93005; 93306; 94640; 97162; 97166; 97530; 99285; C9803; G0328; G0378; J0456; J1756; J2405; J3475; U0003; U0005

== ENCOUNTER → 2021-12-14 09:53 | Outpatient (CLI) | payer MEDICARE, OTHER, SELFPAY ==
--- NOTE | 2021-12-14 10:03 | FL_ITS ---
FINAL REPORT CLINICAL HISTORY: iron deficiency anemia. FINDINGS: UPPER GI SERIES AND SMALL BOWEL FOLLOW-THROUGH HISTORY: Iron deficiency anemia. PROCEDURE: The patient ingested thick and thin barium contrast. Spot and overhead films were performed. A total of 38 images were saved. Additional barium was administered for small bowel follow through. FINDINGS: UGI: There is a small diverticulum in the distal esophagus. There is esophageal dysmotility. There is no hiatal hernia seen. There are postoperative changes of the stomach. There is no leak or obstruction. There is delayed emptying of the stomach. There is debris in the stomach despite the patient stating that she is NPO. The duodenal bulb and sweep appear unremarkable. No episodes of gastroesophageal reflux observed. SBFT: Telephone Betting Clerk film demonstrates suture material in the left upper quadrant. Transit time of contrast is delayed. Contrast reaches the colon at 4 hours. Small bowel is unremarkable. There apppears to be nonrotation of the colon with the majority of the colon in the left abdomen. FLUOROSCOPY TIME: 3 minutes IMPRESSION: Esophageal dysmotility. Small esophageal diverticulum. Postoperative changes of the stomach. Delayed emptying of the stomach and debris in the stomach, despite patient stating NPO. Non rotation of the colon with the majority of the colon in the left abdomen. Reviewed, Interpreted and Dictated by Elias Cuba III, MD Transcribed by Patrica Delgado PA-C Authenticated and . [facility]
== END ==
PROVIDERS: PCP Emergency Medicine; Visit Provider Surgery
DX: K92.2 Gastrointestinal hemorrhage, unspecified (principal)
CPT/HCPCS: 74246; 74248

== ENCOUNTER → 2021-12-21 11:10 | Outpatient (CLI) | payer MEDICARE, OTHER, SELFPAY ==
[2021-12-21 12:04] LABS: Hematocrit 32.1 % (37.0-47.0); Hemoglobin 10.2 g/dL (12.2-16.2)
== END ==
PROVIDERS: PCP Emergency Medicine; Visit Provider Surgery
DX: D50.9 Iron deficiency anemia, unspecified (principal)
CPT/HCPCS: 36415; 85014; 85018

== ENCOUNTER 2021-12-31 09:10 | Inpatient (IN) | payer MEDICARE, OTHER, SELFPAY ==
[2021-12-31] VITALS (17 sets, daily range): BP systolic 77–127; BP diastolic 41–64; PULSE 80–114; RESP 18–20; TEMP 36.8–39.9; O2SAT 94–100; BMI 29.8; BMI 29.7
--- NOTE | 2021-12-31 09:20 | ECG_ITS ---
APPROVED REPORT Exam: Resting ECG HR:109 bpm ECG Measurements Heart Rate 109 AXES IN 140 P 69 QRSd 130 QRS -67 QT 348 T 10 QTc 412 Conclusion SINUS TACHYCARDIA RIGHT BUNDLE BRANCH BLOCK LAFB ABNORMAL ECG UNCONFIRMED REPORT Electronically signed by : Reagan Hsieh MD 01/01/2022 08:53:46
--- NOTE | 2021-12-31 09:30 | HMH.EDGENADL ---
Discharge Plan Disposition Patient Disposition: Admitted as Observation Condition: Fair Clinical Impressions Clinical Impression: Sepsis, Abdominal pain, HCAP (healthcare-associated pneumonia), Gastrointestinal bleed Discharge ED Provider: Norman Giron General Adult HPI General Chief complaint: Abdominal Pain Stated complaint: abdominal pain Time Seen by Provider: 12/31/21 10:00 History of Present Illness HPI narrative: Brought in by ambulance from residential. Patient is sent for abdominal pain, dark loose stools, vomitus of dark liquid, fever. Patient also reports dry mouth, low back pain, cough. Denies urinary symptoms. Patient had a positive test for COVID-19 on 12/22/2021. Related Data Home Medications Medication Instructions Recorded Confirmed melatonin 10 mg tablet 10 mg PO HS sleep 09/26/17 12/31/21 nitroglycerin 0.4 mg sublingual 0.4 mg sublingual Q5MINP PRN Chest 12/12/19 12/31/21 tablet Pain tiotropium bromide 2.5 2 inh inhalation DAILY Breathing 08/25/20 12/31/21 mcg/actuation mist for inhalation problems furosemide 20 mg tablet 20 mg PO DAILY diuretic 12/08/21 12/31/21 levothyroxine 75 mcg tablet 75 mcg PO DAILYDM hypothyroidism 12/08/21 12/31/21 metoprolol succinate 50 mg 50 mg PO DAILY blood pressure 12/08/21 12/31/21 tablet,extended release 24 hr rosuvastatin 5 mg tablet 5 mg PO HS Cholesterol 12/08/21 12/31/21 azelastine 137 mcg (0.1 %) nasal 2 spray intranasal BID allergies 12/11/21 12/31/21 spray aerosol fluticasone propionate 50 1 spray intranasal DAILY allergies 12/11/21 12/31/21 mcg/actuation nasal spray,suspension (Flonase Allergy Relief) L.acidophilus-L.paracasei-B.bifidum-S.thermophl 1 cap PO DAILY Supplement 12/31/21 12/31/21 8 billion cell capsule (RisaQuad) pantoprazole 40 mg tablet,delayed 40 mg PO BID Reflux/Acid reflux 12/31/21 12/31/21 release (Protonix) Previous Rx's Medication Instructions Recorded albuterol sulfate 90 mcg/actuation 1 inh inhalation QID PRN shortness 07/20/20 aerosol inhaler of breath or wheezing #8.5 grams cetirizine 10 mg capsule (Zyrtec) 5 mg PO HS PRN allergy symptoms 07/20/20 #30 caps acetaminophen 325 mg tablet 650 mg PO Q4HP PRN Fever Or Mild 12/13/21 Pain 30 days #60 tabs bismuth subsalicylate 262 mg 2 tab PO QID PRN nausea 14 days 12/13/21 chewable tablet (Bismatrol) #30 tabs lorazepam 1 mg tablet 1 mg PO TID PRN agitation #90 tabs 12/22/21 Allergies Allergy/AdvReac Type Severity Reaction Status Date / Time carisoprodol [From Soma] Allergy Intermediate itching Verified 12/21/21 12:31 meperidine Allergy Intermediate itching Verified 12/21/21 12:31 Sulfa (Sulfonamide Allergy Intermediate itching Verified 12/21/21 12:31 Antibiotics) trimethoprim Allergy Intermediate stomach Verified 12/21/21 12:31 atorvastatin [From Lipitor] AdvReac Intermediate stomach Verified 12/21/21 12:31 azithromycin AdvReac Intermediate Gastrointestinal Verified 12/21/21 12:31 Upset PFSH PFSH Medical History (Updated 12/31/21 @ 12:49 by Norman Giron MD) Ankle fracture Cataract COPD (chronic obstructive pulmonary disease) Cough Hiatal hernia History of anemia History of cataract History of heart attack Hypertension Hypothyroid Osteoarthritis Scattered respiratory crackles of right lung Sleep apnea SOB (shortness of breath) Tachycardia Surgical History (Updated 12/21/21 @ 12:32 by JOHN Hendrickson) H/O gastric bypass History of cholecystectomy History of colonoscopy History of esophagogastroduodenoscopy (EGD) History of hysterectomy History of knee replacement Family History Other Family history of Alzheimer's disease Family history of cancer Family history of cataracts Family history of diabetes mellitus type II Family history of myocardial infarction Social History Sm
--- NOTE | 2021-12-31 09:43 | CT_ITS ---
PROCEDURE INFORMATION: Exam: CT Abdomen And Pelvis With Contrast Exam date and time: 12/31/2021 10:30 AM Age: 86 years old Clinical indication: Abdominal pain; Generalized; Additional info: Abdominal pain- covid positive TECHNIQUE: Imaging protocol: Computed tomography of the abdomen and pelvis with contrast. Radiation optimization: All CT scans at this facility use at least one of these dose optimization techniques: automated exposure control; mA and/or kV adjustment per patient size (includes targeted exams where dose is matched to clinical indication); or iterative reconstruction. Contrast material: ISOVUE; Contrast volume: 75 ml; Contrast route: IV; COMPARISON: CT ABDOMEN PELVIS W CON 09/21/2020 4:31 PM and upper GI small-bowel series from 12/14/2021 FINDINGS: Lungs: Patchy opacities are seen in the lung bases. Diaphragm: Small hiatal hernia. Liver: Normal. No mass. Gallbladder and bile ducts: Cholecystectomy. Pancreas: Normal. No ductal dilation. Spleen: Normal. No splenomegaly. Adrenal glands: Normal. No mass. Kidneys and ureters: Lobulated appearance of the kidneys may reflect areas of scarring. Bilateral renal cysts. No hydronephrosis. Stomach and bowel: Postsurgical changes involving the stomach. There is mild distension of the gastric body with what appears to be an excluded portion of the stomach running along the left lateral margin. There appears to be some mild narrowing in the region of the anastomosis in the gastric antrum. This appears similar to the recent upper GI series. Small-bowel loops are of normal calibre. Non rotation of the colon. Appendix: No evidence of appendicitis. Intraperitoneal space: Unremarkable. No free air. No significant fluid collection. Vasculature: Mild burden of atherosclerotic plaque in the abdominal aorta and branch vessels. No aneurysm. Lymph nodes: Unremarkable. No enlarged lymph nodes. Urinary bladder: Unremarkable as visualized. Reproductive: Hysterectomy. Bones/joints: Unremarkable. No acute fracture. Soft tissues: Small periumbilical hernia containing a nonobstructed small bowel loop. IMPRESSION: 1. Patchy opacities in the lung bases may reflect pneumonia. 2. Postsurgical changes involving the stomach with mild distention of the gastric body , similar in appearance to recent upper GI series. There may be a mild stricture at the anastomosis in the region of the gastric antrum. COMMENTS: Consistent with the [employer]'s Incidental Findings Committee white paper (J Am Vivien Radiol 2018): Any incidental renal lesion less than 1 cm or classified as too small to characterize, or any incidental cystic renal lesion characterized as simple-appearing, is likely benign. No follow-up imaging is recommended for these lesions per consensus recommendations based on imaging criteria.
--- NOTE | 2021-12-31 09:53 | PC.NURSE ---
We spoke with PT son for an update
[2021-12-31 09:55] LABS: Basophils % 0.3 % (0.1-2.0); Eosinophils # 0.1 K/mm3 (0.0-0.4); Eosinophils % 1.1 % (0.1-12.0); Hematocrit 32.5 % (37.0-47.0); Lymphocytes # 0.4 K/mm3 (0.7-4.5); Lymphocytes % 4.8 % (10-50); Mean Corpuscular HGB Conc 30.9 g/dL (31.8-35.4); Mean Corpuscular Hemoglobin 26.1 pg (27.0-31.2); Mean Corpuscular Volume 84.7 fl (81-99); Mean Platelet Volume 8.8 fl (7.4-10.4); Monocytes # 0.4 K/mm3 (0.1-1.0); Neutrophils # 7.8 K/mm3 (1.8-7.8); Neutrophils % 88.7 % (37.0-80.0); Platelet Count 342 K/mm3 (142-424); Red Blood Count 3.84 M/mm3 (4.20-5.40); Red Cell Distribution Width 23.5 % (11.5-17.5); White Blood Count 8.8 K/mm3 (4.8-10.8)
[2021-12-31 09:58] LABS: Alanine Aminotransferase 14 U/L (12-78); Albumin Level 3.3 g/dl (3.5-5.0); Albumin/Globulin Ratio 1.2 (1.1-1.8); Alkaline Phosphatase 35 U/L (38-126); Anion Gap 11.3 mEq/L (5-15); Aspartate Amino Transferase 40 U/L (14-36); Bilirubin,Total 0.6 mg/dl (0.2-1.3); Blood Urea Nitrogen 13 mg/dl (7-17); Calcium 8.5 mg/dl (8.4-10.2); Carbon Dioxide 37 mmol/L (22.0-30.0); Chloride 93 mmol/L (98-107); Creatinine Clearance Estimated 41 mL/min (50-200); Estimated Glomerular Filt Rate 80 ml/min (>60); GFR (African American) 96 ML/MIN (>60); Globulin 2.7 g/dL (1.3-3.2); Glucose 174 mg/dl (74-100); MANUAL DIFFERENTIAL MANUAL DIFFERENTIAL (MANUAL DIFF); Potassium 3.3 mmoL/L (3.5-5.1); Sodium 138 mmol/L (136-145)
--- NOTE | 2021-12-31 10:09 | XR_ITS ---
PROCEDURE INFORMATION: Exam: XR Chest Exam date and time: 12/31/2021 10:54 AM Age: 86 years old Clinical indication: Fever TECHNIQUE: Imaging protocol: Radiologic exam of the chest. Views: 1 view. COMPARISON: CR XR CHEST PORTABLE 12/11/2021 11:01 AM FINDINGS: Lungs: Patchy bibasilar airspace opacities, overall improved from 12/11/2021. Pleural spaces: Unremarkable. No pleural effusion. No pneumothorax. Heart/Mediastinum: Unremarkable. No cardiomegaly. Bones/joints: Changes of prior median sternotomy. IMPRESSION: Patchy bibasilar airspace opacities, overall improved from 12/11/2021.
[2021-12-31 10:16] LABS: Lactic Acid 1.6 mmol/L (0.7-2.1)
--- NOTE | 2021-12-31 10:28 | PC.NURSE ---
lab notified that they are doing a QC on rapid covid/flu equipment so it'll be approx 1 hour before rapid swab is resulted. MD baxter
[2021-12-31 10:29] LABS: Eosinophils % 1 % (0-3); Lymphocytes % 4 % (10-50); Monocytes % 8 % (2-9); Neutrophils % 87 % (42-76); Total Cells Counted 100
[2021-12-31 10:30] LABS: Anisocytosis 1+; Hypochromasia 1+; Ovalocytes 1+; Platelet Estimate Normal
--- NOTE | 2021-12-31 10:31 | PC.NURSE ---
rad here for portable cxr
[2021-12-31 10:35] LABS: Occult Blood,Stool Positive (Negative)
[2021-12-31 10:38] LABS: Influenza A, PCR Not Detected (NotDetected); Influenza B, PCR Not Detected (NotDetected); Microscopic, Urine URINE MICROSCOPIC (MICROSCOPIC)
--- NOTE | 2021-12-31 10:46 | PC.NURSE ---
pt back from radiology
[2021-12-31 11:02] LABS: Lipase 59 U/L (23-300)
[2021-12-31 11:14] LABS: Troponin I 0.03 ng/ml (0.00-0.034)
[2021-12-31 11:18] LABS: Appearance,Urine CLEAR (Clear); Blood, Urine TRACE-I (Negative); Color,Urine YELLOW (Yellow); Glucose,Urine (UA) Negative (Negative); Ketones,Urine Negative (Negative); Leukocyte Esterase,Urine Negative (Negative); Nitrate,Urine Negative (Negative); Protein,Urine TRACE (Negative)
[2021-12-31 11:22] LABS: Bilirubin,Urine 1+ (Negative)
[2021-12-31 11:30] LABS: RBC,Urine Occasional #/hpf (0-3); WBC,Urine Occasional #/hpf (0-3)
[2021-12-31 11:31] LABS: Bacteria,Urine Trace /lpf; Squamous Epithelial Cell,Urine Occasional #/hpf (0-5)
--- NOTE | 2021-12-31 12:15 | PC.NURSE ---
updated arely haddad about pt care.
--- NOTE | 2021-12-31 12:18 | EXP.PHA.CONS ---
Pharmacy Consult Date: 12/31/21 Time: 12:18 Referring provider: DR TORRES Reason for Consult:: VANCOMYCIN DOSING CONSULT Allergies Allergy/AdvReac Type Severity Reaction Status Date / Time carisoprodol [From Soma] Allergy Intermediate itching Verified 12/21/21 12:31 meperidine Allergy Intermediate itching Verified 12/21/21 12:31 Sulfa (Sulfonamide Allergy Intermediate itching Verified 12/21/21 12:31 Antibiotics) trimethoprim Allergy Intermediate stomach Verified 12/21/21 12:31 atorvastatin [From Lipitor] AdvReac Intermediate stomach Verified 12/21/21 12:31 azithromycin AdvReac Intermediate Gastrointestinal Verified 12/21/21 12:31 Upset Home Medications Medication Instructions Recorded Confirmed Type melatonin 10 mg tablet 10 mg PO HS sleep 09/26/17 12/31/21 History nitroglycerin 0.4 mg sublingual 0.4 mg sublingual Q5MINP PRN Chest 12/12/19 12/31/21 History tablet Pain albuterol sulfate 90 mcg/actuation 1 inh inhalation QID PRN shortness 07/20/20 12/31/21 Rx aerosol inhaler of breath or wheezing #8.5 grams cetirizine 10 mg capsule (Zyrtec) 5 mg PO HS PRN allergy symptoms 07/20/20 12/31/21 Rx #30 caps tiotropium bromide 2.5 2 inh inhalation DAILY Breathing 08/25/20 12/31/21 History mcg/actuation mist for inhalation problems furosemide 20 mg tablet 20 mg PO DAILY diuretic 12/08/21 12/31/21 History levothyroxine 75 mcg tablet 75 mcg PO DAILYDM hypothyroidism 12/08/21 12/31/21 History metoprolol succinate 50 mg 50 mg PO DAILY blood pressure 12/08/21 12/31/21 History tablet,extended release 24 hr rosuvastatin 5 mg tablet 5 mg PO HS Cholesterol 12/08/21 12/31/21 History azelastine 137 mcg (0.1 %) nasal 2 spray intranasal BID allergies 12/11/21 12/31/21 History spray aerosol fluticasone propionate 50 1 spray intranasal DAILY allergies 12/11/21 12/31/21 History mcg/actuation nasal spray,suspension (Flonase Allergy Relief) acetaminophen 325 mg tablet 650 mg PO Q4HP PRN Fever Or Mild 12/13/21 12/31/21 Rx Pain 30 days #60 tabs bismuth subsalicylate 262 mg 2 tab PO QID PRN nausea 14 days 12/13/21 12/31/21 Rx chewable tablet (Bismatrol) #30 tabs lorazepam 1 mg tablet 1 mg PO TID PRN agitation #90 tabs 12/22/21 12/31/21 Rx L.acidophilus-L.paracasei-B.bifidum-S.thermophl 1 cap PO DAILY Supplement 12/31/21 12/31/21 History 8 billion cell capsule (RisaQuad) pantoprazole 40 mg tablet,delayed 40 mg PO BID Reflux/Acid reflux 12/31/21 12/31/21 History release (Protonix) New Prescriptions to Start Prescriptions: Height: 1.45 m Weight: 62.505 kg Laboratory Results:: Laboratory Results - last 24 hr 12/31/21 09:10: WBC 8.8, RBC 3.84 L, Hgb 10.0 L, Hct 32.5 L, MCV 84.7, MCH 26.1 L, MCHC 30.9 L, RDW 23.5 H, Plt Count 342, MPV 8.8, Neut % (Auto) 88.7 H, Lymph % (Auto) 4.8 L, [place] % (Auto) 5.0, Eos % (Auto) 1.1, Baso % (Auto) 0.3, Neut # (Auto) 7.8, Lymph # (Auto) 0.4 L, [place] # (Auto) 0.4, Eos # (Auto) 0.1, Baso # (Auto) 0.0, Total Counted 100, Neutrophils % (Manual) 87 H, Lymphocytes % (Manual) 4 L, Monocytes % (Manual) 8, Eosinophils % (Manual) 1, Platelet Estimate Normal, Hypochromasia 1+, Anisocytosis 1+, Ovalocytes 1+ 12/31/21 09:10: Sodium 138, Potassium 3.3 L, Chloride 93 L, Carbon Dioxide 37 H, Anion Gap 11.3, BUN 13, Creatinine 0.70, Estimated Creat Clear 41, Estimated GFR 80, Est GFR ( Amer) 96, Glucose 174 H, Calcium 8.5, Total Bilirubin 0.6, AST 40 H, ALT 14, Alkaline Phosphatase 35 L, Total Protein 6.0 L, Albumin 3.3 L, Globulin 2.7, Albumin/Globulin Ratio 1.2 12/31/21 09:10: Lactate 1.6 12/31/21 09:10: Troponin I 0.03, Lipase 59 12/31/21 09:43: Stool Occult Blood Positive A 12/31/21 10:25: Urine Color Yellow, Urine Appearance Clear, Urine pH 6.0, Ur Specific [place] 1.010, Urine Protein Trace, Urine Glucose (UA) Negative, Urine Ketones Negative, Urine Blood Trace-i, Urine Nitrate Negative, Urine Bilirubin 1+ A, Urine Urobilinogen 1.0, Ur Leukocyte Esterase Negative, Urine RBC Occasiona
[2021-12-31 12:20] LABS: Coronavirus 19, PCR Detected (NotDetected)
--- NOTE | 2021-12-31 13:00 | PC.NURSE ---
rounded on pt, updated on further care
--- NOTE | 2021-12-31 13:11 | EXP.HP ---
History of Present Illness *Admission Date: 12/31/21 *Reason for visit:: abdominal pain, fever *History of present illness: Patient is an 85-year-old woman with a past medical history of CAD s/p CABG, CHF, chronic anemia, HTN, HLD, Hx of bariatric surgery, and COPD on 3L who comes to the ER for fever and abdominal pain. Of note she was discharged about 2 weeks ago to [place] for SNF placement in rehab due to deconditioning and weakness. On arrival to the ER she reportedly has been having some loose stools over the past few days, abdominal discomfort, darker emesis with her nausea. Found to be frankly febrile and tachycardic on arrival. Of note was diagnosed with COVID on 12/22 at [place]. No srinivas melena noted in the ER however stool occult positive. Has had a decreased appetite and cough. Very similar to her previous presentations. Hemoglobin stable on admission, consistent with labs approximately a week ago. Kidney function stable. Potassium low. Has been participating as best as possible with PT at her long term but still remains quite weak and fatigued. Pt was admitted here from 12/07 - 12/09 for profound anemia requiring a transfusion. Overall she has not felt well for at least the last 4-6 weeks.?She recently had left lower lobe pneumonia and completed a course of antibiotics for this.? On previous admission Dr. Paz had performed upper endoscopy on 12/09/2021.? At that time she was found to have surgical changes from prior bariatric surgery, large volume of food particles within the distal esophagus and proximal gastric body, small shallow ulceration in the distal gastric body without stigmata of recent bleeding, small bowel anastomosis with no evidence of active or recent bleeding.? Re-admitted 12/11-12/13 due to anemia and similar Sx. Treated for pneumonia with DC to [facility] at that admission. Seen 12/21 by surgery for follow-up after recent EGD. Planning for EGD in approximately 4-6 weeks because of small ulceration seen on last scope. [facility] Medical History Ankle fracture Cataract COPD (chronic obstructive pulmonary disease) Cough Hiatal hernia History of anemia History of cataract History of heart attack Hypertension Hypothyroid Osteoarthritis Scattered respiratory crackles of right lung Sleep apnea SOB (shortness of breath) Tachycardia Surgical History H/O gastric bypass History of cholecystectomy History of colonoscopy History of esophagogastroduodenoscopy (EGD) History of hysterectomy History of knee replacement Family History Family history of cancer Family history of Alzheimer's disease Family history of diabetes mellitus type II Family history of myocardial infarction Family history of cataracts Social History Smoking Status: Never smoker second hand exposure: No alcohol intake: never substance use type: denies use current occupational status: retired Travel in the last 8 weeks: None household members: significant other housing: house current occupational exposures/hazards: No caffeine: Yes Review of Systems Review of Systems Review of systems (narrative): 14 point review of systems performed, pertinent positives and negatives as per HPI Constitutional Constitutional: Denies headache(s) and Denies weakness ENT Ears, Nose, Mouth, and Throat: Denies headache(s) *Musculoskeletal Musculoskeletal: Denies numbness *Neurologic Neurologic: Denies headache(s), Denies numbness and Denies weakness Meds Home Medications and Allergies Home Medications Medication Instructions Recorded Confirmed Type melatonin 10 mg tablet 10 mg PO HS sleep 09/26/17 12/31/21 History nitroglycerin 0.4 mg sublingual 0.4 mg sublingual Q5MINP PRN Chest 12/12/19 12/31/21 History tablet Miguel Angel
--- NOTE | 2021-12-31 13:15 | PC.NURSE ---
reports given to Segundo ESPOSITO
--- NOTE | 2021-12-31 13:53 | PC.NURSE ---
arrived to floor by stretcher from ED
--- NOTE | 2021-12-31 16:30 | PC.NURSE ---
Spoke to Patrica from [place], first positive COVID swab was on 12/22/21 at the care home
[2021-12-31 16:40] LABS: Chloride 93 mmol/L (98-107); Sodium 135 mmol/L (136-145)
[2021-12-31 16:43] LABS: Alanine Aminotransferase 9 U/L (12-78); Albumin Level 2.7 g/dl (3.5-5.0); Albumin/Globulin Ratio 1.2 (1.1-1.8); Alkaline Phosphatase 36 U/L (38-126); Aspartate Amino Transferase 24 U/L (14-36); Bilirubin,Total 0.3 mg/dl (0.2-1.3); Blood Urea Nitrogen 20 mg/dl (7-17); Carbon Dioxide 37 mmol/L (22.0-30.0); Creatinine Clearance Estimated 41 mL/min (50-200); Estimated Glomerular Filt Rate 80 ml/min (>60); GFR (African American) 96 ML/MIN (>60); Globulin 2.3 g/dL (1.3-3.2)
[2021-12-31 16:44] LABS: Calcium 7.8 mg/dl (8.4-10.2); Glucose 101 mg/dl (74-100)
[2022-01-01] VITALS (21 sets, daily range): BP systolic 101–139; BP diastolic 27–68; PULSE 83–113; RESP 16–21; TEMP 36.6–37.2; O2SAT 91–99; BMI 30.8
--- NOTE | 2022-01-01 05:18 | PC.NURSE ---
NO ACUTE CHANGES SINCE PREVIOUS ASSESSMENT. P THIS RESTED INTERMITTENTLY THIS SHIFT. LUNG SOUNDS ARE DIMINISHED BILATERALLY. PT'S O2 DESATED WHILE SHE WAS SLEEP TO 84-85% ON 3L. NOTIFIED HOSPITALIST. STATED OK FOR 4L NASAL CANNULA. PT HAS SATED FROM 88-92% ON 4L. NSR ON TELE. PT DID NOT TOLERATE POTASSIUM RUNS INITIALLY. HOSPITALIST STATED TO DECREASE THE RATE TO 25ML/HR TO SEE IF PT COULD TOLERATE. BOTH RUNS OF POTASSIUM HAVE INFUSED WITH NO FURTHER ISSUES. NO C/O FOLEY OR NAUSEA THIS SHIFT. VSS. CALL DE OLIVEIRA WITHIN REACH.
--- NOTE | 2022-01-01 07:22 | EXP.ACUTE.PN ---
Subjective *Date: 01/01/22 *Time: 14:40 Interval history: No complaint of shortness of breath, diarrhea, vomiting this morning. States she is spitting up some dark phlegm. Still complaining of burning in her upper abdomen/lower chest. Improves with Mylanta. She has been afebrile since admission. Vitals remained stable. Tolerating 2 L nasal cannula oxygen. Eating foods that she states do not hurt her stomach. She has been ambulating to the bathroom to urinate. Extensive discussion this morning, about goals of care. She does not want another scope. Also states she really wants to go home with family, has no desire to go back to [place] at this time. Feels her can care for her. Discussed that this was a discussion she needs to have with family. Medical Exam Vital signs and Labs for Last 24 Hours: Vital Signs Temp Pulse Pulse Resp BP BP Pulse Ox 01/01/22 04:00 100 H 01/01/22 04:00 97.8 F 102 H 18 118/59 L 94 L 01/01/22 00:00 100 H 01/01/22 00:00 98.4 F 94 H 16 101/58 L 91 L 12/31/21 20:40 90 12/31/21 20:00 98.4 F 92 H 18 100/59 L 96 12/31/21 16:00 80 12/31/21 16:37 127/61 100 12/31/21 16:00 90 83/41 L 100 12/31/21 15:30 92 H 77/48 L 97 12/31/21 14:00 86 20 84/42 L 98 12/31/21 13:53 98.2 F 96 H 19 102/46 L 12/31/21 13:00 96 H 18 102/46 L 97 12/31/21 12:37 103 H 20 114/57 L 98 12/31/21 13:13 98.2 F 12/31/21 11:39 99 H 18 113/54 L 97 12/31/21 11:30 98 H 18 97/50 L 97 12/31/21 11:00 98 H 107/64 L 98 12/31/21 10:22 101.2 F H 109 H 95 12/31/21 10:00 107 H 101/55 L 12/31/21 09:36 114 H 94/47 L 94 L 12/31/21 09:10 103.8 F H 114 H 18 106/54 L 95 Intake and Output 12/31/21 12/31/21 01/01/22 15:59 23:59 06:59 Intake Total 240 / 240 2286 / 2286 Output Total 0 / 0 0 / 0 Balance 240 / 240 2285 / 2286 Intake: Intake, Oral Amount 240 / 240 Intake, Total IV Amount 2285 / 228 0.9 % Sodium Chloride 1,000 ml 2285 / 228 @ 100 mls/hr IV .Q10H [facility] Rx#: [id number] Output: Output, Urine Amount 0 / 0 0 / 0 Other: Number of Unmeasured Voids 1 1 Weight 62.397 kg 64.864 kg Patient Weight 01/01/22 22:59 Weight 64.864 kg Laboratory Results - last 24 hr 12/31/21 09:10: WBC 8.8, RBC 3.84 L, Hgb 10.0 L, Hct 32.5 L, MCV 84.7, MCH 26.1 L, MCHC 30.9 L, RDW 23.5 H, Plt Count 342, MPV 8.8, Neut % (Auto) 88.7 H, Lymph % (Auto) 4.8 L, [place] % (Auto) 5.0, Eos % (Auto) 1.1, Baso % (Auto) 0.3, Neut # (Auto) 7.8, Lymph # (Auto) 0.4 L, [place] # (Auto) 0.4, Eos # (Auto) 0.1, Baso # (Auto) 0.0, Total Counted 100, Neutrophils % (Manual) 87 H, Lymphocytes % (Manual) 4 L, Monocytes % (Manual) 8, Eosinophils % (Manual) 1, Platelet Estimate Normal, Hypochromasia 1+, Anisocytosis 1+, Ovalocytes 1+ 12/31/21 09:10: Sodium 138, Potassium 3.3 L, Chloride 93 L, Carbon Dioxide 37 H, Anion Gap 11.3, BUN 13, Creatinine 0.70, Estimated Creat Clear 41, Estimated GFR 80, Est GFR ( Amer) 96, Glucose 174 H, Calcium 8.5, Total Bilirubin 0.6, AST 40 H, ALT 14, Alkaline Phosphatase 35 L, Total Protein 6.0 L, Albumin 3.3 L, Globulin 2.7, Albumin/Globulin Ratio 1.2 12/31/21 09:10: Lactate 1.6 12/31/21 09:10: Troponin I 0.03, Lipase 59 12/31/21 09:43: Stool Occult Blood Positive A 12/31/21 10:25: Urine Color Yellow, Urine Appearance Clear, Urine pH 6.0, Ur Specific [place] 1.010, Urine Protein Trace, Urine Glucose (UA) Negative, Urine Ketones Negative, Urine Blood Trace-i, Urine Nitrate Negative, Urine Bilirubin 1+ A, Urine Urobilinogen 1.0, Ur Leukocyte Esterase Negative, Urine RBC Occasional, Urine WBC Occasional, Ur Squamous Epith Cells Occasional, Urine Bacteria Trace 12/31/21 10:25: SARS-CoV-2 (PCR) Detected A, Influenza A Untype (PCR) Not detected, Influenza Type B (PCR) Not detected 12/31/21 16:20: Sodium 135 L, Potassium 3.0 L, Chloride 93 L, Carbon
[2022-01-01 07:34] LABS: Basophils % 0.5 % (0.1-2.0); Eosinophils # 0.2 K/mm3 (0.0-0.4); Eosinophils % 2.9 % (0.1-12.0); Hematocrit 28.2 % (37.0-47.0); Lymphocytes # 0.9 K/mm3 (0.7-4.5); Mean Corpuscular HGB Conc 31.2 g/dL (31.8-35.4); Mean Corpuscular Hemoglobin 26.2 pg (27.0-31.2); Mean Platelet Volume 8.5 fl (7.4-10.4); Monocytes # 0.3 K/mm3 (0.1-1.0); Monocytes % 4.3 % (1.7-9.3); Neutrophils # 5.8 K/mm3 (1.8-7.8); Neutrophils % 80.3 % (37.0-80.0); Platelet Count 290 K/mm3 (142-424); Red Blood Count 3.36 M/mm3 (4.20-5.40); Red Cell Distribution Width 23.3 % (11.5-17.5); White Blood Count 7.2 K/mm3 (4.8-10.8)
[2022-01-01 07:36] LABS: Alanine Aminotransferase 6 U/L (12-78); Albumin Level 2.8 g/dl (3.5-5.0); Albumin/Globulin Ratio 1.2 (1.1-1.8); Alkaline Phosphatase 43 U/L (38-126); Anion Gap 12.1 mEq/L (5-15); Aspartate Amino Transferase 22 U/L (14-36); Blood Urea Nitrogen 13 mg/dl (7-17); Calcium 8.1 mg/dl (8.4-10.2); Carbon Dioxide 33 mmol/L (22.0-30.0); Chloride 100 mmol/L (98-107); Creatinine Clearance Estimated 43 mL/min (50-200); Estimated Glomerular Filt Rate 95 ml/min (>60); GFR (African American) 115 ML/MIN (>60); Globulin 2.4 g/dL (1.3-3.2); Glucose 93 mg/dl (74-100); Hemoglobin 8.8 g/dL (12.2-16.2); Magnesium 1.3 mg/dl (1.6-2.3); Potassium 3.1 mmoL/L (3.5-5.1); Sodium 142 mmol/L (136-145); Total Protein,Serum 5.2 g/dl (6.3-8.2)
[2022-01-01 07:39] LABS: Bilirubin,Total 0.1 mg/dl (0.2-1.3)
--- NOTE | 2022-01-01 17:30 | PC.NURSE ---
Pt very anxious during shift. VS stable and patient remained of 3LNC. 1 unit of blood currently infusing with no complications noted. No bowel movements on shift. Patient only complained of slight nausea, maalox given. Lorazepam given for anxiety.
[2022-01-01 18:59] LABS: Hemoglobin 9.1 g/dL (12.2-16.2)
[2022-01-01 19:00] LABS: Hematocrit 28.2 % (37.0-47.0)
[2022-01-02 03:58] VITALS: BP 145/69; PULSE 115; RESP 20; TEMP 36.9; O2SAT 98
[2022-01-02 04:01] VITALS: BMI 30.9
--- NOTE | 2022-01-02 05:38 | PC.NURSE ---
NO ACUTE CHANGES SINCE PREVIOUS ASSESSMENT. PT HAS RESTED BETTER THIS SHIFT. LUNG SOUNDS ARE DIMINISHED. INTERMITTENT COUGHING. O2 REMAINED ABOVE 90% ON 3L. PT HAS C/O ACID REFLUX X1 THIS SHIFT. NO C/O N/V/D. PT HAS EXPRESSED HER DESIRE TO GO HOME THIS SHIFT. VSS. CALL DE OLIVEIRA WITHIN REACH.
[2022-01-02 06:15] LABS: Hematocrit 28.9 % (37.0-47.0); Hemoglobin 9.3 g/dL (12.2-16.2)
[2022-01-02 06:30] LABS: Anion Gap 9.8 mEq/L (5-15); Blood Urea Nitrogen 9 mg/dl (7-17); Calcium 8.2 mg/dl (8.4-10.2); Carbon Dioxide 34 mmol/L (22.0-30.0); Chloride 101 mmol/L (98-107); Creatinine Clearance Estimated 43 mL/min (50-200); Estimated Glomerular Filt Rate 118 ml/min (>60); GFR (African American) 142 ML/MIN (>60); Glucose 96 mg/dl (74-100); Potassium 3.8 mmoL/L (3.5-5.1); Sodium 141 mmol/L (136-145)
[2022-01-02 07:49] VITALS: BP 115/57; PULSE 87; RESP 18; TEMP 36.9; O2SAT 97
[2022-01-02 09:09] VITALS: BMI 30.8
--- NOTE | 2022-01-02 09:11 | EXP.DC.SUM ---
General Admission date:: 12/31/21 Discharge date: 01/02/22 HPI HPI HPI: Patient is an 85-year-old woman with a past medical history of CAD s/p CABG, CHF, chronic anemia, HTN, HLD, Hx of bariatric surgery, and COPD on 3L who comes to the ER for fever and abdominal pain. Of note she was discharged about 2 weeks ago to [place] for SNF placement in rehab due to deconditioning and weakness. On arrival to the ER she reportedly has been having some loose stools over the past few days, abdominal discomfort, darker emesis with her nausea. Found to be frankly febrile and tachycardic on arrival. Of note was diagnosed with COVID on 12/22 at [place]. No srinivas melena noted in the ER however stool occult positive. Has had a decreased appetite and cough. Very similar to her previous presentations. Hemoglobin stable on admission, consistent with labs approximately a week ago. Kidney function stable. Potassium low. Has been participating as best as possible with PT at her skilled nursing but still remains quite weak and fatigued. Pt was admitted here from 12/07 - 12/09 for profound anemia requiring a transfusion. Overall she has not felt well for at least the last 4-6 weeks.?She recently had left lower lobe pneumonia and completed a course of antibiotics for this.? On previous admission Dr. Paz had performed upper endoscopy on 12/09/2021.? At that time she was found to have surgical changes from prior bariatric surgery, large volume of food particles within the distal esophagus and proximal gastric body, small shallow ulceration in the distal gastric body without stigmata of recent bleeding, small bowel anastomosis with no evidence of active or recent bleeding.? Re-admitted 12/11-12/13 due to anemia and similar Sx. Treated for pneumonia with DC to [facility] at that admission. Seen 12/21 by surgery for follow-up after recent EGD. Planning for EGD in approximately 4-6 weeks because of small ulceration seen on last scope. Hospital Course Hospital Course Hospital Course: Mrs. Floyd is an 86-year-old female who was admitted for sepsis (fever, tachycardia, tachypnea, infection with pneumonia and COVID), abdominal pain, HCAP, and suspicion for GI bleed and anemia.? initiated on broad-spectrum antibiotics with cultures obtained.? Positive for COVID on nasal swab at time of admission, previously diagnosed less than 10 days ago on 12/22 per report at her skilled nursing.? Positive stool guaiac however hemoglobin stable compared to most recent labs 10 days ago.? Symptoms defervesced. Tolerating antibiotics. Will transition to oral course of Levaquin to finish 10-day antibiotics for HCAP. No specific treatment for COVID at discharge. Hemoglobin stable during admission. Adjusted regimen for GERD/gastritis. Stable for discharge back to skilled nursing to complete antibiotic therapy. Stable oxygen requirement during admission. Problems addressed during admission as follows: Sepsis, resolved COVID-19 HCAP - Pt recently admitted here from 12/07 -12/09 and had PNA earlier in November.? Consistent findings on chest x-ray, fever, positive for COVID. Started on COVID bundle including remdesivir, dexamethasone, famotidine. Initiated on broad-spectrum antibiotics for healthcare acquired pneumonia including cefepime, levofloxacin, and vancomycin. De-escalate to levofloxacin, renally dosed to complete 10-day course. Oxygen remained stable on 2 to 3 L during hospitalization with goal saturations greater 90%. No further diarrhea during admission. -Recommend incentive spirometry Clinical debility Moderate protein calorie malnutrition - Pt reports not feeling well for the past 10-12 months. She was Dx'd with PNA 3-4 times in February 2019 and has felt poorly since. This is her third Dx'd of PNA in 1mo. was previously losing weight per chart review but has gained since being at [place]. Albumin still low. Came from [place] where she was receiving PT.? Would benefit from re
--- NOTE | 2022-01-02 09:23 | SW/DCPLANNER ---
This patient currently resides at [facility] level of care. I have updated Donovan garcia/ [place] that the plan is to return today. Patient will not require a COVID swab due to being COVID positive. Patient stated that she wanted to speak with her family about possibly returning home. Family is not agreeable with this plan at this time.
--- NOTE | 2022-01-03 10:47 | CARE MANAGER ---
Contacted [facility] to follow up on patient related to hospital discharge. Patient is currently at [facility] receiving blood transfusion, otherwise she is okay. Deny any questions or concerns at this time. VAIBHAV Henderson
== END 2022-01-02 12:36 | DRG 871 ==
LOC: ER 12:49 → 2ND 13:06
PROVIDERS: Admitting Provider Internal Medicine Adolescent Medicine; Emergency Provider Emergency Medicine; PCP Emergency Medicine; Visit Provider Internal Medicine Adolescent Medicine
DX: A41.9 Sepsis, unspecified organism (principal); E43 Unspecified severe protein-calorie malnutrition; J18.9 Pneumonia, unspecified organism; U07.1 COVID-19; K92.2 Gastrointestinal hemorrhage, unspecified; J44.0 Chronic obstructive pulmonary disease with (acute) lower respiratory infection; I50.30 Unspecified diastolic (congestive) heart failure; Y95 Nosocomial condition; I25.2 Old myocardial infarction; Z68.30 Body mass index [BMI] 30.0-30.9, adult; I25.10 Atherosclerotic heart disease of native coronary artery without angina pectoris; F41.9 Anxiety disorder, unspecified; E87.6 Hypokalemia; I11.0 Hypertensive heart disease with heart failure; I50.9 Heart failure, unspecified; D64.89 Other specified anemias; Z95.1 Presence of aortocoronary bypass graft; K21.9 Gastro-esophageal reflux disease without esophagitis
CPT/HCPCS: 36415; 71045; 74177; 80048; 80053; 81001; 82272; 83605; 83690; 83735; 84484; 85007; 85014; 85018; 85025; 86850; 87040; 87070; 87205; 93005; 94640; 99285; C9803; G0328; J0692; J1956; J3370; J3475; P9016; Q9967; U0003; U0005

== ENCOUNTER 2022-01-03 09:48 | Outpatient (CLI) | payer MEDICARE, OTHER, SELFPAY ==
[2022-01-03 10:16] VITALS: BP 90/56; PULSE 98; RESP 20; TEMP 36.4; O2SAT 97
[2022-01-03 11:24] VITALS: BP 100/59; PULSE 94; RESP 20; TEMP 36.3; O2SAT 97
== END 2022-01-03 11:25 | disposition home or self-care (01) ==
LOC: INF 09:49
PROVIDERS: PCP Emergency Medicine; Visit Provider Emergency Medicine
DX: D50.9 Iron deficiency anemia, unspecified (principal)
CPT/HCPCS: 96365; J1756

== ENCOUNTER 2022-01-10 10:15 | Outpatient (CLI) | payer MEDICARE, OTHER, SELFPAY ==
[2022-01-10 10:27] VITALS: BP 132/70; PULSE 83; RESP 18; O2SAT 98
[2022-01-10 11:23] VITALS: BP 136/75; PULSE 76; RESP 18; O2SAT 97
== END 2022-01-10 11:24 | disposition home or self-care (01) ==
LOC: INF 10:16
PROVIDERS: PCP Family Medicine; Visit Provider Family Medicine
DX: D50.8 Other iron deficiency anemias (principal)
CPT/HCPCS: 96365; J1756

== ENCOUNTER → 2022-01-16 17:36 | Outpatient (REF) | payer MEDICARE, OTHER, SELFPAY | LOC: LAB.DROPOF 17:36 | PROVIDERS: Visit Provider Emergency Medicine | DX: I10 Essential (primary) hypertension (principal) ==

== ENCOUNTER 2022-01-17 10:08 | Outpatient (CLI) | payer MEDICARE, OTHER, SELFPAY ==
[2022-01-17 10:32] VITALS: BP 136/72; PULSE 71; RESP 18; O2SAT 98
[2022-01-17 11:03] VITALS: BP 138/72; PULSE 73; RESP 18; O2SAT 98
== END 2022-01-17 11:04 | disposition home or self-care (01) ==
LOC: INF 10:08
PROVIDERS: PCP Family Medicine; Visit Provider Family Medicine
DX: D50.9 Iron deficiency anemia, unspecified (principal)
CPT/HCPCS: 96365; J1756

== ENCOUNTER 2022-01-24 10:09 | Outpatient (CLI) | payer MEDICARE, OTHER, SELFPAY ==
[2022-01-24 10:33] VITALS: BP 134/63; PULSE 73; RESP 19; O2SAT 97
[2022-01-24 11:10] VITALS: BP 128/61; PULSE 70; RESP 18; O2SAT 98
== END 2022-01-24 11:10 | disposition home or self-care (01) ==
LOC: INF 10:10
PROVIDERS: PCP Emergency Medicine; Visit Provider Family Medicine
DX: D50.8 Other iron deficiency anemias (principal)
CPT/HCPCS: 96365; J1756

== ENCOUNTER 2022-01-31 09:54 | Outpatient (CLI) | payer MEDICARE, OTHER, SELFPAY ==
[2022-01-31 10:19] VITALS: BP 97/62; PULSE 59; RESP 18; TEMP 36.4; O2SAT 95
[2022-01-31 11:09] VITALS: BP 90/64; PULSE 57; RESP 18; O2SAT 96
== END 2022-01-31 11:10 | disposition home or self-care (01) ==
LOC: INF 09:55
PROVIDERS: PCP Family Medicine; Visit Provider Family Medicine
DX: D50.8 Other iron deficiency anemias (principal)
CPT/HCPCS: 96365; J1756

== ENCOUNTER → 2022-05-25 14:13 | Outpatient (CLI) | payer MEDICARE, OTHER, SELFPAY ==
[2022-05-25 16:04] LABS: Basophils % 0.9 % (0.1-2.0); Eosinophils # 0.1 K/mm3 (0.0-0.4); Eosinophils % 2.7 % (0.1-12.0); Hematocrit 42.5 % (37.0-47.0); Hemoglobin 13.2 g/dL (12.2-16.2); Lymphocytes # 1.2 K/mm3 (0.7-4.5); Lymphocytes % 24.7 % (10-50); Mean Corpuscular HGB Conc 31.1 g/dL (31.8-35.4); Mean Corpuscular Hemoglobin 31.6 pg (27.0-31.2); Mean Corpuscular Volume 101.5 fl (81-99); Mean Platelet Volume 8.2 fl (7.4-10.4); Monocytes # 0.3 K/mm3 (0.1-1.0); Monocytes % 6.1 % (1.7-9.3); Neutrophils # 3.2 K/mm3 (1.8-7.8); Neutrophils % 65.5 % (37.0-80.0); Platelet Count 270 K/mm3 (142-424); Red Blood Count 4.18 M/mm3 (4.20-5.40); Red Cell Distribution Width 13.7 % (11.5-17.5); White Blood Count 4.8 K/mm3 (4.8-10.8)
[2022-05-25 16:57] LABS: Alanine Aminotransferase 10 U/L (12-78); Albumin Level 3.7 g/dl (3.5-5.0); Albumin/Globulin Ratio 1.5 (1.1-1.8); Alkaline Phosphatase 56 U/L (38-126); Aspartate Amino Transferase 25 U/L (14-36); Bilirubin,Total 0.5 mg/dl (0.2-1.3); Blood Urea Nitrogen 21 mg/dl (7-17); Carbon Dioxide 31 mmol/L (22.0-30.0); Chloride 103 mmol/L (98-107); Chol/HDL Ratio 4.2 (1-3.5); Cholesterol 233 mg/dl (140-200); Estimated Glomerular Filt Rate 53 ml/min (>60); GFR (African American) 64 ML/MIN (>60); Globulin 2.5 g/dL (1.3-3.2); Glucose 88 mg/dl (74-100); HDL Cholesterol 55 mg/dl (40-60); Sodium 137 mmol/L (136-145); Total Protein,Serum 6.2 g/dl (6.3-8.2); Triglycerides 142 mg/dl (30-150); VLDL Cholesterol 28 mg/dL (0-40)
[2022-05-25 17:13] LABS: 25-OH Vitamin D, Total 25.2 ng/mL (30-100)
[2022-05-25 17:26] LABS: Thyroid Stimulating Hormone 1.22 uIU/mL (0.465-4.68)
== END ==
PROVIDERS: PCP Nurse Practitioner Family; Visit Provider Nurse Practitioner Family
DX: I25.118 Atherosclerotic heart disease of native coronary artery with other forms of angina pectoris (principal); D64.9 Anemia, unspecified; I10 Essential (primary) hypertension; E43 Unspecified severe protein-calorie malnutrition; E55.9 Vitamin D deficiency, unspecified
CPT/HCPCS: 80053; 80061; 82306; 84443; 85025

== ENCOUNTER → 2022-08-18 14:04 | Outpatient (CLI) | payer MEDICARE, OTHER, SELFPAY ==
[2022-08-18 14:54] LABS: Basophils % 0.3 % (0.1-2.0); Eosinophils # 0.2 K/mm3 (0.0-0.4); Eosinophils % 4.1 % (0.1-12.0); Hematocrit 41.1 % (37.0-47.0); Hemoglobin 13.3 g/dL (12.2-16.2); Lymphocytes # 1.4 K/mm3 (0.7-4.5); Lymphocytes % 32.6 % (10-50); Mean Corpuscular HGB Conc 32.3 g/dL (31.8-35.4); Mean Corpuscular Hemoglobin 30.5 pg (27.0-31.2); Mean Corpuscular Volume 94.6 fl (81-99); Mean Platelet Volume 8.5 fl (7.4-10.4); Monocytes # 0.3 K/mm3 (0.1-1.0); Monocytes % 7.5 % (1.7-9.3); Neutrophils # 2.5 K/mm3 (1.8-7.8); Neutrophils % 55.6 % (37.0-80.0); Platelet Count 252 K/mm3 (142-424); Red Blood Count 4.34 M/mm3 (4.20-5.40); Red Cell Distribution Width 13.4 % (11.5-17.5); White Blood Count 4.4 K/mm3 (4.8-10.8)
[2022-08-18 15:17] LABS: Chloride 98 mmol/L (98-107); Sodium 136 mmol/L (136-145)
[2022-08-18 15:19] LABS: Blood Urea Nitrogen 20 mg/dl (7-17); Estimated Glomerular Filt Rate 53 ml/min (>60); GFR (African American) 64 ML/MIN (>60)
[2022-08-18 15:20] LABS: Alanine Aminotransferase 12 U/L (12-78); Albumin Level 3.7 g/dl (3.5-5.0); Albumin/Globulin Ratio 1.3 (1.1-1.8); Alkaline Phosphatase 43 U/L (38-126); Aspartate Amino Transferase 29 U/L (14-36); Bilirubin,Total 0.3 mg/dl (0.2-1.3); Calcium 9.1 mg/dl (8.4-10.2); Carbon Dioxide 30 mmol/L (22.0-30.0); Chol/HDL Ratio 4.1 (1-3.5); Cholesterol 261 mg/dl (140-200); Globulin 2.8 g/dL (1.3-3.2); Glucose 104 mg/dl (74-100); HDL Cholesterol 63 mg/dl (40-60); Iron 85 ug/dL (37-170); Total Protein,Serum 6.5 g/dl (6.3-8.2); Triglycerides 144 mg/dl (30-150); VLDL Cholesterol 29 mg/dL (0-40)
[2022-08-18 15:30] LABS: Total Iron Binding Capacity 222 ug/dL (265-497)
[2022-08-18 15:31] LABS: Direct LDL Cholesterol 136.54 mg/dL (100-129)
[2022-08-18 15:36] LABS: 25-OH Vitamin D, Total 49.4 ng/mL (30-100)
[2022-08-18 15:37] LABS: T4 (Thyroxine) 9.4 ug/dl (5.53-11.0)
[2022-08-18 15:51] LABS: Thyroid Stimulating Hormone 1.02 uIU/mL (0.465-4.68)
== END ==
PROVIDERS: PCP Nurse Practitioner Family; Visit Provider Nurse Practitioner Family
DX: D64.9 Anemia, unspecified (principal); I25.118 Atherosclerotic heart disease of native coronary artery with other forms of angina pectoris; D50.9 Iron deficiency anemia, unspecified; I25.10 Atherosclerotic heart disease of native coronary artery without angina pectoris; E43 Unspecified severe protein-calorie malnutrition
CPT/HCPCS: 36415; 80053; 80061; 82306; 83540; 83550; 84436; 84443; 85025

== ENCOUNTER 2022-10-04 12:05 | Day surgery (SDC) | payer MEDICARE, OTHER, SELFPAY ==
[2022-09-21 13:50] VITALS: BMI 28.0
[2022-10-04 12:26] VITALS: BP 107/70; PULSE 87; RESP 17; TEMP 36.2; O2SAT 97
--- NOTE | 2022-10-04 14:00 | EXP.ANES.CKL ---
[facility] Disclaimer: The information contained in this section may have been updated after the patient was seen, as this information can be updated by other users. Medical History Ankle fracture Cataract COPD (chronic obstructive pulmonary disease) Cough Hiatal hernia History of anemia History of cataract History of heart attack Hypertension Hypothyroid Osteoarthritis Scattered respiratory crackles of right lung Sleep apnea SOB (shortness of breath) Tachycardia Surgical History (Updated 09/21/22 @ 13:47 by Kaylen Meyers RN) History of cholecystectomy History of colonoscopy History of esophagogastroduodenoscopy (EGD) History of hysterectomy History of knee replacement Personal history of gastric banding Family History Other Family history of Alzheimer's disease Family history of cancer Family history of cataracts Family history of diabetes mellitus type II Family history of myocardial infarction Social History (Updated 09/21/22 @ 13:39 by Kaylen Meyers RN) Smoking Status: Never smoker second hand exposure: No alcohol intake: never substance use type: denies use current occupational status: retired Travel in the last 8 weeks: None household members: spouse housing: house lives independently: No marital status: education level: high school service: No snf: No current occupational exposures/hazards: No caffeine: Yes special niels needs: No agree to transfusion: No do you feel safe at home: Yes victim of physical abuse: No victim of emotional abuse: No victim of sexual abuse: No would you like helpful sources: No [facility] Anesthesia Checklist Patient Identification Patient Identification: Arm Band Structural Data Admitted From: Home Planned Operative Procedure/s: EGD Consent for Planned Operative Procedure(s) Verified: Yes Verified Documents: Surgical Consent and History and Physical NPO Status Verified Time NPO: 00:00 Additional verifications Anesthesia Reactions: No Airway Assessment Mallampati Score:: Class II C-Spine Mobility Assessed: Yes TMJ Mobility Assessed: Yes Neurological Assessment Level of Consciousness: Awake and Alert Anesthesia Plan Anesthesia Risk discussed: Yes Anesthesia Plan: Verified ASA Class: II Anesthesia Type: MAC
[2022-10-04 14:15] VITALS: O2SAT 98
--- NOTE | 2022-10-04 14:23 | HMH.SCOPE ---
Procedure: Date: 10/04/22 Patient Date of :: 1935 Procedure Performed:: EGD Indications:: The patient is an 86 year old who presents for EGD evaluation of abdominal pain and heartburn. The patient has history of gastric ulcer. There is a history of vertical banded gastroplasty 20 years ago. The patient relates possibly having some type of revision of her bariatric surgery many years ago. She had SBFT and CT abdomen and pelvis in November 2021 for same symptoms she is experiencing currently. Performing Provider:: Tom Coyle MD Referring Provider:: Juan Carlos Hand PA-C Sedation:: See RN records Procedure:: The gastroscope was gently passed through the incisoral orifice into the oral cavity and under direct visualization the esophagus was intubated. The endoscope was passed down the esophagus, through the stomach, and into the duodenum. Color, texture, mucosa, and anatomy of the esophagus, stomach, and duodenum were carefully examined with the scope. Findings:: Oropharynx: normal Esophagus: small food material adherent to distal eosphagus, tortuousity of distal esophagus. EG Junction: measured at 34 cm Cardia: normal Fundus: retained food material Body: retained food material. Within mid body there is narrowing related to vertical banded gastroplasty. Gastritis. Biopsies obtained Antrum: normal Duodenal bulb: normal Duodenum (second and third portion): normal Recommendations:: Await pathology results Her clinical symptoms would seem to be related to her vertical banded gastroplasty. Will discuss with patient surgical options for reversal, but this option may be difficult with her advanced age, comorbid conditions, and may have already had some type of revision in the past. Will recommend dietary management with smaller portion meals, optimize medical therapy with PPI and H2RA's Complications:: none Estimated blood obtained (mL): 0 Colonoscopy Component Colonoscopy Component Was a colonoscopy performed during today's procedure?: No
[2022-10-04 14:25] VITALS: BP 100/64; PULSE 104; RESP 16; TEMP 36.2; O2SAT 96
[2022-10-04 14:35] VITALS: BP 104/68; PULSE 111; RESP 16; O2SAT 96
[2022-10-04 14:45] VITALS: BP 100/71; PULSE 108; RESP 16; O2SAT 99
--- NOTE | 2022-10-04 14:52 | HMH.SCOPE ---
Procedure: Patient Date of :: 1935 Performing Provider:: Tom Coyle MD
[2022-10-04 14:55] VITALS: BP 110/79; PULSE 95; RESP 16; O2SAT 99
== END 2022-10-04 14:58 | disposition home or self-care (01) ==
PROVIDERS: PCP Nurse Practitioner Family; Visit Provider Internal Medicine
PROC: 0DJ08ZZ Inspection of Upper Intestinal Tract, Via Natural or Artificial Opening Endoscopic (ICD-10-PCS; CPT 43235; principal; 2022-10-04 13:00)
DX: K25.9 Gastric ulcer, unspecified as acute or chronic, without hemorrhage or perforation (principal); K51.90 Ulcerative colitis, unspecified, without complications; Z98.84 Bariatric surgery status; K22.89 Other specified disease of esophagus; K29.70 Gastritis, unspecified, without bleeding
CPT/HCPCS: 43239; 88305

== ENCOUNTER 2022-11-08 10:41 | Emergency (ER) | payer MEDICARE, OTHER, SELFPAY ==
[2022-11-08] VITALS (7 sets, daily range): BP systolic 119–148; BP diastolic 63–100; PULSE 100–108; RESP 16–19; TEMP 36.7–36.9; O2SAT 94–96; BMI 27.7
--- NOTE | 2022-11-08 10:43 | XR_ITS ---
FINAL REPORT CLINICAL HISTORY: fall, R hip pain COMPARISON: None FINDINGS: Two views of the right femur were obtained. There are postoperative changes from right knee arthroplasty. There is no acute fracture or dislocation. The joint spaces are well preserved. Vascular calcifications are noted. There is no acute soft tissue abnormality. IMPRESSION: No acute abnormality identified. Reviewed, Interpreted and Dictated by Elias Cuba III, MD Transcribed by Yudy Tanner Authenticated and [facility]
--- NOTE | 2022-11-08 10:43 | XR_ITS ---
FINAL REPORT CLINICAL HISTORY: fall, R hip pain COMPARISON: None FINDINGS: RIGHT HIP 3 views of the right hip including an AP view of the pelvis demonstrate no acute fracture or dislocation. There is mild degenerative change in both hips. The visualized bony structures are well aligned. Mild vascular calcifications are noted. No soft tissue abnormality is seen. IMPRESSION: No acute bony abnormality. Reviewed, Interpreted and Dictated by Elias Cuba III, MD Transcribed by Yudy Tanner Authenticated and . [facility]
--- NOTE | 2022-11-08 10:43 | CT_ITS ---
FINAL REPORT TECHNIQUE: Axial images through the pelvis were performed by computed tomography. Sagittal and coronal reformatted images were obtained and reviewed. This study was performed with techniques to keep radiation doses as low as reasonably achievable (ALARA). Individualized dose reduction techniques using automated exposure control or adjustment of mA and/or kV according to the patient's size were employed. CLINICAL HISTORY: concern for fx, rt hip pain FINDINGS: There are moderate degenerative changes in both hips and in the lower lumbar spine. There is no fracture or dislocation. IMPRESSION: Moderate degenerative changes without acute bony abnormality. Reviewed, Interpreted and Dictated by Elias Cuba III, MD Transcribed by Edwige Hamilton Authenticated and [facility]
--- NOTE | 2022-11-08 10:53 | CT_ITS ---
FINAL REPORT CLINICAL HISTORY: fall, struck head FINDINGS: Axial images of the head were obtained without contrast. Coronal reformatted images were also obtained. This study was performed with techniques to keep radiation doses as low as reasonably achievable (ALARA). Individualized dose reduction techniques using automated exposure control or adjustment of mA and/or kV according to the patient's size were employed. There is generalized age-appropriate atrophy. Periventricular low-attenuation areas are seen consistent with mild chronic ischemic changes. There is no evidence of intracranial hemorrhage or mass. There is no evidence of acute infarct. There is no evidence of shift of the midline structures. No skull abnormality is seen on the bone window images. IMPRESSION: Atrophy and mild periventricular chronic ischemic changes. No acute intracranial abnormality identified. Reviewed, Interpreted and Dictated by Elias Cuba III, MD Transcribed by Edwige Hamilton Authenticated and [facility]
--- NOTE | 2022-11-08 10:54 | HMH.EDGENADL ---
Discharge Plan Disposition Patient Disposition: Home, Self-Care Chief Complaint: Fall Prescriptions Prescriptions: No Action melatonin 10 mg tablet 10 mg PO HS albuterol sulfate [ProAir HFA] 90 mcg/actuation HFA aerosol inhaler 1 inh INHALATION QIDP PRN (Reason: Shortness Of Breath) Qty: 6.7 1RF metoprolol tartrate 25 mg tablet 12.5 mg PO BID 90 Days Qty: 90 0RF Spiriva Respimat 2.5 mcg/actuation mist 2 puff INHALATION DAILY Qty: 4 2RF lorazepam 1 mg tablet 1 mg PO TID PRN (Reason: Anxiety) Qty: 90 2RF omeprazole 40 mg capsule,delayed release(DR/EC) 40 mg PO DAILY Qty: 90 0RF levothyroxine 75 mcg tablet 75 mcg PO DAILYDM 90 Days Qty: 90 2RF furosemide 20 mg tablet 20 mg PO DAILY ranolazine 500 mg tablet extended release 12 hr 500 mg PO BID nitroglycerin 0.4 MG tablet, sublingual 0.4 mg SL Q5MINP PRN (Reason: Chest Pain) Referrals Follow up/Referrals: Juan Carlos Hnad APRN [Primary Care Provider] - See instructions Activity Restrictions/Add. Instructions Additional Instructions/Restrictions: Call your family doctor to establish care for this visit to the emergency department and schedule follow-up within 48 hours to ensure improvement. If you have any worsening of your condition or any other concerning signs or symptoms, return to the emergency department or your primary care doctor for further evaluation. Take Tylenol 1000 mg every 6 hours (4 times daily) and ibuprofen 400 mg every 6 hours (4 times daily) as needed with food and water to prevent GI upset and kidney damage. Clinical Impressions Clinical Impression: Pain in right buttock, Fall Discharge ED Provider: John Dupree General Adult HPI General Chief complaint: Fall Stated complaint: fall Time Seen by Provider: 11/08/22 10:42 Mode of Arrival: EMS Source of Information: Patient and EMS Limitations: No Limitations Description of Symptoms (Recalled from ER Triage Doc. by RN): 86 yo F brought to ED with c/o fall. pt reports that she was walking to bathroom and had a fall. pt reports right hip and lower back pain. no LOC and pt did not hit head. History of Present Illness HPI narrative: 86-year-old history of hypertension, hyperlipidemia, CAD, GERD, CHF presenting with fall. Patient states that just before arrival, she stood up from bed, fell and landed on her right hip on the carpet. Struck the back of her head on a mattress on the way down. No loss of consciousness. Patient having significant pain right hip and difficulty ambulating secondary to pain in her right buttock. No range of motion difficulties, numbness or tingling or weakness, or any other concerns. Neurologically intact. Related Data Home Medications Medication Instructions Recorded Confirmed melatonin 10 mg tablet 10 mg PO HS sleep 09/26/17 10/04/22 nitroglycerin 0.4 mg sublingual 0.4 mg sublingual Q5MINP PRN Chest 12/12/19 10/04/22 tablet Pain furosemide 20 mg tablet 20 mg PO DAILY Fluid 10/04/22 10/04/22 ranolazine 500 mg tablet,extended 500 mg PO BID . 10/04/22 10/04/22 release,12 hr Previous Rx's Medication Instructions Recorded albuterol sulfate 90 mcg/actuation 1 inh inhalation QIDP PRN 08/16/22 aerosol inhaler (ProAir HFA) Shortness Of Breath #6.7 grams metoprolol tartrate 25 mg tablet 12.5 mg PO BID Hypertension 90 08/16/22 days #90 tabs tiotropium bromide 2.5 2 puff inhalation DAILY COPD #4 08/16/22 mcg/actuation mist for inhalation grams (Spiriva Respimat) lorazepam 1 mg tablet 1 mg PO TID PRN Anxiety #90 tabs 09/18/22 omeprazole 40 mg capsule,delayed 40 mg PO DAILY GERD #90 caps 10/05/22 release levothyroxine 75 mcg tablet 75 mcg PO DAILYDM hypothyroidism 11/02/22 90 days #90 tabs Allergies Allergy/AdvReac Type Severity Reaction Status Date / Time carisoprodol [From Soma] Allergy Intermediate itching Verified 10/04/22 12:26 meperidine Allergy Intermediate itching Verified 10/04/22 12:26 Sulfa
--- NOTE | 2022-11-08 10:56 | CT_ITS ---
FINAL REPORT CLINICAL HISTORY: fall, neck pain FINDINGS: Axial CT images of the cervical spine were obtained without contrast. Sagittal and coronal reformatted images were also obtained. This study was performed with techniques to keep radiation doses as low as reasonably achievable (ALARA). Individualized dose reduction techniques using automated exposure control or adjustment of mA and/or kV according to the patient''s size were employed. There is no evidence of fracture or dislocation. There are moderate degenerative changes. There is mild anterolisthesis of C3 on 4. IMPRESSION: Degenerative changes without acute bony abnormality. Reviewed, Interpreted and Dictated by Elias Cuba III, MD Transcribed by Edwige Hamilton Authenticated and [facility]
--- NOTE | 2022-11-08 12:03 | PC.NURSE ---
rounded on patient nurse at bed side at time of round.
[2022-11-08 13:33] LABS: Basophils % 0.2 % (0.1-2.0); Eosinophils # 0.1 K/mm3 (0.0-0.4); Eosinophils % 0.6 % (0.1-12.0); Hematocrit 44.6 % (37.0-47.0); Hemoglobin 14.1 g/dL (12.2-16.2); Lymphocytes # 0.9 K/mm3 (0.7-4.5); Lymphocytes % 7.8 % (10-50); Mean Corpuscular HGB Conc 31.6 g/dL (31.8-35.4); Mean Corpuscular Hemoglobin 30.9 pg (27.0-31.2); Mean Corpuscular Volume 97.8 fl (81-99); Mean Platelet Volume 8.3 fl (7.4-10.4); Monocytes # 0.4 K/mm3 (0.1-1.0); Monocytes % 3.1 % (1.7-9.3); Neutrophils # 10.5 K/mm3 (1.8-7.8); Neutrophils % 88.3 % (37.0-80.0); Platelet Count 266 K/mm3 (142-424); Red Blood Count 4.56 M/mm3 (4.20-5.40); Red Cell Distribution Width 13.3 % (11.5-17.5); White Blood Count 11.9 K/mm3 (4.8-10.8)
[2022-11-08 13:41] LABS: MANUAL DIFFERENTIAL MANUAL DIFFERENTIAL (MANUAL DIFF)
[2022-11-08 13:51] LABS: Lymphocytes % 4 % (10-50); Monocytes % 3 % (2-9); Neutrophils % 93 % (42-76); Platelet Estimate Normal; RBC Morphology Normal; Total Cells Counted 100
--- NOTE | 2022-11-08 13:52 | PC.NURSE ---
pt asked for a couple of blankets to prop underneath of her to help keep her rolled over on her side.
[2022-11-08 13:55] LABS: Chloride 101 mmol/L (98-107)
[2022-11-08 13:56] LABS: Potassium 4.4 mmoL/L (3.5-5.1); Sodium 136 mmol/L (136-145)
[2022-11-08 13:58] LABS: Blood Urea Nitrogen 18 mg/dl (7-17); Creatinine Clearance Estimated 43 mL/min (50-200); Estimated Glomerular Filt Rate 53 ml/min (>60); GFR (African American) 64 ML/MIN (>60)
[2022-11-08 13:59] LABS: Anion Gap 12.4 mEq/L (5-15); Calcium 9.7 mg/dl (8.4-10.2); Carbon Dioxide 27 mmol/L (22.0-30.0); Glucose 133 mg/dl (74-100)
--- NOTE | 2022-11-08 14:58 | PC.NURSE ---
pt states she needs assistance getting into her home. States no one can help her get into the home. Called care management, they are working on arranging assistance. Per Care management, EMS will give assistance to get in her home. EMS notified that pt was discharged and just needs x1 assistance.
== END 2022-11-08 15:03 | disposition home or self-care (01) ==
PROVIDERS: Emergency Provider Emergency Medicine; PCP Nurse Practitioner Family
DX: M25.551 Pain in right hip (principal); M54.50 Low back pain, unspecified; I11.0 Hypertensive heart disease with heart failure; I50.9 Heart failure, unspecified; I25.10 Atherosclerotic heart disease of native coronary artery without angina pectoris; E78.5 Hyperlipidemia, unspecified; K21.9 Gastro-esophageal reflux disease without esophagitis; J44.9 Chronic obstructive pulmonary disease, unspecified; G47.30 Sleep apnea, unspecified; E03.9 Hypothyroidism, unspecified; I25.2 Old myocardial infarction; Z87.891 Personal history of nicotine dependence; W18.30XA Fall on same level, unspecified, initial encounter
CPT/HCPCS: 36415; 70450; 72125; 72192; 73502; 73552; 80048; 85007; 85025; 96374; 96375; 99285; J0131; J2405

== ENCOUNTER → 2022-12-01 11:16 | Outpatient (CLI) | payer MEDICARE, OTHER, SELFPAY | PROVIDERS: PCP Emergency Medicine; Visit Provider Nurse Practitioner Family | DX: R82.90 Unspecified abnormal findings in urine (principal) | CPT/HCPCS: 87086 ==

== ENCOUNTER → 2022-12-12 14:53 | Outpatient (POV) | payer MEDICARE, OTHER, SELFPAY | PROVIDERS: Visit Provider Dermatology | DX: Z00.00 Encounter for general adult medical examination without abnormal findings (principal) ==

== ENCOUNTER 2023-03-19 15:07 | Outpatient (CLI) | payer MEDICARE, OTHER, SELFPAY ==
--- NOTE | 2023-03-19 15:25 | XR_ITS ---
FINAL REPORT TECHNIQUE: Chest PA & Lateral CLINICAL HISTORY: cough, chills, sob COMPARISON: 12/31/2021 FINDINGS: 2 views of the chest were performed. The patient has undergone a prior midline sternotomy, and displays an unfolded aorta. The right lower lobe airspace infiltrate noted on the prior chest x-ray of 2021 has resolved. No confluent infiltrates or effusions are identified. The heart size is normal. There is no acute cardiopulmonary process. There are no pleural effusions. There is no pneumothorax. The bony thorax appears intact. IMPRESSION: No acute cardiopulmonary process. The right lower lobe airspace infiltrate noted in 2021 has resolved. Reviewed, Interpreted and Dictated by Jose Antonio Pruitt MD Transcribed by Zora Dawn Authenticated and . [facility]
[2023-03-19 15:40] LABS: Basophils % 0.5 % (0.1-2.0); Eosinophils # 0.1 K/mm3 (0.0-0.4); Eosinophils % 1.8 % (0.1-12.0); Hematocrit 40.1 % (37.0-47.0); Hemoglobin 13.2 g/dL (12.2-16.2); Lymphocytes # 1.5 K/mm3 (0.7-4.5); Mean Corpuscular HGB Conc 32.9 g/dL (31.8-35.4); Mean Corpuscular Hemoglobin 32.4 pg (27.0-31.2); Mean Corpuscular Volume 98.4 fl (81-99); Mean Platelet Volume 7.9 fl (7.4-10.4); Monocytes # 0.4 K/mm3 (0.1-1.0); Monocytes % 6.3 % (1.7-9.3); Neutrophils # 4.9 K/mm3 (1.8-7.8); Neutrophils % 69.4 % (37.0-80.0); Platelet Count 303 K/mm3 (142-424); Red Blood Count 4.08 M/mm3 (4.20-5.40); Red Cell Distribution Width 13.5 % (11.5-17.5)
[2023-03-19 16:27] LABS: Alanine Aminotransferase 10 U/L (12-78); Albumin Level 3.6 g/dl (3.5-5.0); Alkaline Phosphatase 47 U/L (38-126); Anion Gap 9.6 mEq/L (5-15); Aspartate Amino Transferase 24 U/L (14-36); Bilirubin,Direct 0.2 mg/dl (0.0-0.4); Bilirubin,Indirect 0.2 mg/dL (0.0-0.9); Bilirubin,Total 0.4 mg/dl (0.2-1.3); Bilirubin,Unconjugated 0.3 mg/dL (0.0-1.1); Blood Urea Nitrogen 22 mg/dl (7-17); Calcium 8.9 mg/dl (8.4-10.2); Carbon Dioxide 33 mmol/L (22.0-30.0); Chloride 98 mmol/L (98-107); Chol/HDL Ratio 4.8 (1-3.5); Cholesterol 247 mg/dl (140-200); Estimated Glomerular Filt Rate 43 ml/min (>60); GFR (African American) 52 ML/MIN (>60); Glucose 99 mg/dl (74-100); HDL Cholesterol 51 mg/dl (40-60); Potassium 4.6 mmoL/L (3.5-5.1); Sodium 136 mmol/L (136-145); Total Protein,Serum 6.3 g/dl (6.3-8.2); Triglycerides 141 mg/dl (30-150); VLDL Cholesterol 28 mg/dL (0-40)
[2023-03-19 16:43] LABS: Direct LDL Cholesterol 141.61 mg/dL (100-129)
== END 2023-03-19 23:59 ==
LOC: LAB 15:10
PROVIDERS: PCP Nurse Practitioner Family; Visit Provider Nurse Practitioner
DX: E78.5 Hyperlipidemia, unspecified (principal); I25.10 Atherosclerotic heart disease of native coronary artery without angina pectoris; Z87.891 Personal history of nicotine dependence
CPT/HCPCS: 36415; 71046; 80048; 80061; 80076; 85025

== ENCOUNTER 2023-04-02 15:17 | Emergency (ER) | payer MEDICARE, OTHER, SELFPAY ==
[2023-04-02] VITALS (11 sets, daily range): BP systolic 92–130; BP diastolic 48–86; PULSE 74–96; RESP 18–20; TEMP 36.4–36.9; O2SAT 84–100; BMI 28.3
--- NOTE | 2023-04-02 15:45 | PC.NURSE ---
DR GLORIA AT BEDSIDE
--- NOTE | 2023-04-02 15:52 | XR_ITS ---
FINAL REPORT CLINICAL HISTORY: right shoudler pain COMPARISON: None FINDINGS: RIGHT SHOULDER: 3 views of the right shoulder were obtained. Mild degenerative changes present. There is irregularity of the glenoid and the coracoid process of the right shoulder, and a small nondisplaced fracture cannot be excluded. The joint spaces are intact. There is no soft tissue abnormality. IMPRESSION: Irregularity of the glenoid and coracoid process of the right shoulder,, displaced fracture cannot be excluded. Would consider CT of the right shoulder for further valuation. Reviewed, Interpreted and Dictated by Elias Cuba III, MD Transcribed by Zora Dawn Authenticated and [facility]
--- NOTE | 2023-04-02 15:52 | XR_ITS ---
FINAL REPORT CLINICAL HISTORY: fall, pain COMPARISON: None FINDINGS: RIGHT HUMERUS: 3 views of the right humerus failed to reveal any evidence of actual or dislocation of the humerus. No radiopaque foreign body is seen. IMPRESSION: Unremarkable right humerus. Reviewed, Interpreted and Dictated by Elias Cuba III, MD Transcribed by Zora Dawn Authenticated and [facility]
--- NOTE | 2023-04-02 15:53 | XR_ITS ---
FINAL REPORT CLINICAL HISTORY: dyspnea COMPARISON: None FINDINGS: A single portable view of the chest was obtained. The patient has undergone a prior midline sternotomy. The heart size and pulmonary vascularity are within normal limits. The mediastinum is within normal limits. There is a right base opacity present, favor atelectasis. The bony thorax is intact. IMPRESSION: Prior midline sternotomy. Right base opacity, favor atelectasis. Reviewed, Interpreted and Dictated by Elias Cuba III, MD Transcribed by Zora Dawn Authenticated and [facility]
--- NOTE | 2023-04-02 15:54 | ED_ITS ---
Discharge Plan Disposition Patient Disposition: Home, Self-Care Condition: Good Prescriptions Prescriptions: New doxycycline hyclate 100 mg capsule 100 mg PO BID 10 Days Qty: 20 0RF amoxicillin-pot clavulanate 875-125 mg tablet 1 tab PO BID 10 Days Qty: 20 0RF No Action melatonin 10 mg tablet 10 mg PO HS albuterol sulfate [ProAir HFA] 90 mcg/actuation HFA aerosol inhaler 1 inh INHALATION QIDP PRN (Reason: Shortness Of Breath) Qty: 6.7 1RF Spiriva Respimat 2.5 mcg/actuation mist 2 puff INHALATION DAILY Qty: 4 2RF pantoprazole 40 mg tablet,delayed release (DR/EC) PO Probiotic Formula (inulin) 1 billion-250 cell-mg capsule PO levothyroxine 75 mcg tablet 75 mcg PO DAILYDM 90 Days Qty: 90 2RF nitroglycerin 0.4 mg tablet, sublingual See Rx Instructions .ROUTE .COMPLEX Qty: 25 0RF Dose Instruction: DISSOLVE 1 TAB UNDER TONGUE AT ONSET OF CHEST PAIN. REPEAT EVERY 5 MINUTES FO R 3 DOSES IF NEEDED. IF NO RELIEF CALL 911. Rx Instructions: DISSOLVE 1 TAB UNDER TONGUE AT ONSET OF CHEST PAIN. REPEAT EVERY 5 MINUTES FOR 3 DOSES IF NEEDED. IF NO RELIEF CALL 911. ranolazine 500 mg tablet extended release 12 hr 500 mg PO BID Qty: 180 1RF furosemide 20 mg tablet See Rx Instructions .ROUTE .COMPLEX Qty: 30 1RF Dose Instruction: TAKE ONE TABLET BY MOUTH ONCE A DAY Rx Instructions: TAKE ONE TABLET BY MOUTH ONCE A DAY metoprolol tartrate 25 mg tablet See Rx Instructions .ROUTE .COMPLEX Qty: 30 2RF Dose Instruction: TAKE 1/2 TABLET BY MOUTH 2 TIMES A DAY FOR HYPERTENSION Rx Instructions: TAKE 1/2 TABLET BY MOUTH 2 TIMES A DAY FOR HYPERTENSION lorazepam 1 mg tablet 1 mg PO TID PRN (Reason: Anxiety) Qty: 90 0RF Referrals Follow up/Referrals: Juan Carlos Hand APRN [Primary Care Provider] - See instructions Activity Restrictions/Add. Instructions Additional Instructions/Restrictions: You are high risk for decompensation in the setting of pneumonia. Please take antibiotics as prescribed and follow-up with primary care doctor in 1 to 2 days and return to emergency department any worsening of her symptoms including high fevers inability tolerate fluids by mouth worsening shortness of breath or other concerns. Clinical Impressions Clinical Impression: Pain in right shoulder, Multifocal pneumonia Discharge ED Provider: Hilario Potts General Adult HPI General Chief complaint: Upper Respiratory Infection Stated complaint: soa fever cough congestion Time Seen by Provider: 04/02/23 15:44 Mode of Arrival: Wheelchair Source of Information: Patient Limitations: No Limitations Description of Symptoms (Recalled from ER Triage Doc. by RN): PT C/O RIGHT ARM PAIN AFTER A FALL IN , EVALUATED IN THIS ED. REPORTS NAUSEA, CONGESTION, HEADACHE AND COUGH THAT STARTED YESTERDAY History of Present Illness HPI narrative: Patient is an 87-year-old female present today with multiple complaints. Primarily she is here for right arm and lateral chest wall discomfort. States that she fell several months ago and has had pain in that arm since that time located in the right shoulder humerus and right lateral aspect of her chest wall. Worse with any type of movement. However she also states she has been short of breath and has had an cold for the last 2 weeks. She does have a history of COPD is on 3 L nasal cannula at home and has not had to escalate that. She states she has had some chills no objective fever. No significant chest pain associated with this. Related Data Home Medications Medication Instructions Recorded Confirmed melatonin 10 mg tablet 10 mg PO HS sleep 09/26/17 03/19/23 Bacillus coagulans-inulin 1 cap PO 03/19/23 03/19/23 billion cell-250 mg capsule (Probiotic Formula (inulin)) pantoprazole 40 mg tablet,delayed mg PO 03/19/23 03/19/23 release Previous Rx's Medication Instructions Recorded albuterol sulfate 90 mcg/actuation 1 inh inhalation QIDP PRN 08/16/22 aerosol inhaler (ProAir HFA) Shortness Of Breath #6.7 grams tiotropium bromide 2.5 2 puff inhalation DAILY COPD #4 08/16/22 mcg/actuation mist for inhalation grams (Spiriva Respimat) levothyroxine 75 mcg tablet 75 mcg PO DAILYDM hypothyroidism 11/02/22 90 days #90 tabs nitroglycerin 0.4 mg sublingual See Rx Instructions .Route 11/23/22 tablet .COMPLEX #25 tabs ranolazine 500 mg tablet,extended 500 mg PO BID . #180 tabs 01/10/23 release,12 hr furosemide 20 mg tablet See Rx Instructions .Route 02/27/23 .COMPLEX #30 tabs metoprolol tartrate 25 mg tablet See Rx Instructions .Route 03/05/23 .COMPLEX #30 tabs lorazepam 1 mg tablet 1 mg PO TID PRN Anxiety #90 tabs 03/19/23 amoxicillin 875 mg-potassium 1 tab PO BID 10 days #20 tabs 04/02/23 clavulanate 125 mg tablet doxycycline hyclate 100 mg capsule 100 mg PO BID 10 days #20 caps 04/02/23 Allergies Allergy/AdvReac Type Severity Reaction Status Date / Time carisoprodol [From Soma] Allergy Intermediate itching Verified 03/19/23 14:11 meperidine Allergy Intermediate itching Verified 03/19/23 14:11 Sulfa (Sulfonamide Allergy Intermediate itching Verified 03/19/23 14:11 Antibiotics) trimethoprim Allergy Intermediate stomach Verified 03/19/23 14:11 atorvastatin [From Lipitor] AdvReac Intermediate stomach Verified 03/19/23 14:11 azithromycin AdvReac Intermediate Gastrointestinal Verified 03/19/23 14:11 Upset PFS PFS Disclaimer: The information contained in this section may have been updated after the patient was seen, as this information can be updated by other users. Medical History Ankle fracture Cataract COPD (chronic obstructive pulmonary disease) Cough Hiatal hernia History of anemia History of cataract History of heart attack Hypertension Hypothyroid Osteoarthritis Scattered respiratory crackles of right lung Sleep apnea SOB (shortness of breath) Tachycardia Surgical History History of cholecystectomy History of colonoscopy History of esophagogastroduodenoscopy (EGD) History of hysterectomy History of knee replacement Personal history of gastric banding vertical banding Family History Other Family history of Alzheimer's disease Family history of cancer Family history of cataracts Family history of diabetes mellitus type II Family history of myocardial infarction Social History Smoking Status: Former smoker second hand exposure: No alcohol intake: never substance use type: denies use current occupational status: retired Travel in the last 8 weeks: None household members: spouse housing: house lives independently: No marital status: education level: high school service: No usp: No current occupational exposures/hazards: No caffeine: Yes special niels needs: No agree to transfusion: No do you feel safe at home: Yes victim of physical abuse: No victim of emotional abuse: No victim of sexual abuse: No would you like helpful sources: No ROS Obtained: Yes All systems reviewed & no additional complaints except as d ocumented Physical Exam General General appearance: alert Respiratory Respiratory exam: Present other (No significant distress oxygen saturations normal on 4 L nasal cannula which is her baseline, she does have right basilar crackles which are focal the remainder of her lung exam is normal) Cardiovascular Cardiovascular exam: Present regular rate and normal rhythm Neurological Exam Neurological exam: Present alert Medical Decision Making Robert Inquiry Pt receiving controlled substance: No Vital Signs: 04/02/23 15:19 04/02/23 16:00 04/02/23 16:30 Temperature 98.4 F Temperature Source Oral Pulse Rate 88 82 Pulse Rate [Radial] 90 Respiratory Rate 18 20 20 Blood Pressure 106/56 L 95/48 L Blood Pressure [Left Arm] 102/64 L Blood Pressure Mean 79 76 Blood Pressure Mean [Left Arm] 76 Blood Pressure Source [Left Arm] Automatic Cuff Blood Pressure Position [Left Arm] Sitting 02 Sat by Pulse Oximetry 98 100 100 Oxygen Delivery Method Nasal Cannula 04/02/23 17:00 04/02/23 17:30 04/02/23 18:00 Temperature Temperature Source Pulse Rate 84 88 82 Pulse Rate [Radial] Respiratory Rate 18 18 18 Blood Pressure 101/51 L 99/67 L 104/86 L Blood Pressure [Left Arm] Blood Pressure Mean 67 77 90 Blood Pressure Mean [Left Arm] Blood Pressure Source [Left Arm] Blood Pressure Position [Left Arm] 02 Sat by Pulse Oximetry 100 84 L 99 Oxygen Delivery Method 04/02/23 19:42 04/02/23 20:00 04/02/23 20:30 Temperature Temperature Source Pulse Rate 76 74 85 Pulse Rate [Radial] Respiratory Rate 20 18 20 Blood Pressure 114/48 L 92/54 L 116/62 Blood Pressure [Left Arm] Blood Pressure Mean 70 67 65 Blood Pressure Mean [Left Arm] Blood Pressure Source [Left Arm] Blood Pressure Position [Left Arm] 02 Sat by Pulse Oximetry 100 99 98 Oxygen Delivery Method Nasal Cannula Nasal Cannula Nasal Cannula 04/02/23 21:00 Temperature Temperature Source Pulse Rate 86 Pulse Rate [Radial] Respiratory Rate 20 Blood Pressure 103/61 L Blood Pressure [Left Arm] Blood Pressure Mean 67 Blood Pressure Mean [Left Arm] Blood Pressure Source [Left Arm] Blood Pressure Position [Left Arm] 02 Sat by Pulse Oximetry 99 Oxygen Delivery Method Nasal Cannula Lab Data Lab results reviewed: Yes I reviewed the patient's lab results. Lab Results 04/02/23 15:30: SARS-CoV-2 (PCR) Not detected, Influenza A Untype (PCR) Not detected, Influenza Type B (PCR) Not detected 04/02/23 16:16: Sodium 133 L, Potassium 4.6, Chloride 98, Carbon Dioxide 30, Anion Gap 9.6, BUN 23 H, Creatinine 1.10 H, Estimated Creat Clear 37, Estimated GFR 47 L, Est GFR ( Amer) 57 L, Glucose 141 H, Calcium 9.3, Total Bilirubin 0.7, AST 35, ALT 16, Alkaline Phosphatase 39, Troponin I < 0.01, NT-Pro-B Natriuret Pep 2240 H, Total Protein 6.7, Albumin 3.7, Globulin 3.0, Albumin/Globulin Ratio 1.2 04/02/23 17:35: WBC 14.4 H, RBC 4.45, Hgb 14.6, Hct 44.3, MCV 99.5 H, MCH 32.9 H , MCHC 33.1, RDW 13.3, Plt Count 240, MPV 8.5, Neut % (Auto) 87.5 H, Lymph % (Auto) 8.3 L, [place] % (Auto) 3.2, Eos % (Auto) 0.7, Baso % (Auto) 0.2, Neut # (Auto) 12.6 H, Lymph # (Auto) 1.2, [place] # (Auto) 0.5, Eos # (Auto) 0.1, Baso # (Auto) 0.0, Total Counted 100, Neutrophils % (Manual) 88 H, Lymphocytes % (Manual) 10, Monocytes % (Manual) 2, Platelet Estimate Normal, RBC Morphology Normal, D-Dimer 2.63 H 04/02/23 17:35 04/02/23 16:16 Orders (Tests/Meds): ED MEDICATIONS Discontinued Medications Generic Name Dose Route Start Last Admin Trade Name Freq PRN Reason Stop Dose Admin Iopamidol 70 ml 04/02/23 20:29 04/02/23 20:29 Iopamidol-370 (76%);100ml Bottle IV 04/02/23 20:30 70 ml ONCE ONE Administration Sodium Chloride 10 ml 04/02/23 20:29 04/02/23 20:30 Sodium Chloride 0.9% 10ml Syr (Rad Only) IV 04/02/23 20:30 10 ml ONCE ONE Administration ORDERS Category Date Time Status CTA Chest [CT angio chest PE protocol] Stat Cat Scan 04/02/23 18:17 Completed CXR --portable [XR chest portable] Stat Exams 04/02/23 15:53 Completed Humerus XR right [XR humerus RT] Stat Exams 04/02/23 15:52 Completed Shoulder XR right miminum 2 views [XR shoulder RT min Exams 04/02/23 15:52 Completed 2V] Stat BNP [Brain Natriuretic Peptide] Stat Lab 04/02/23 16:16 Completed CBC w/Auto Diff [Complete Blood Count Auto Diff] Stat Lab 04/02/23 17:35 Completed CMP [Comprehensive Metabolic Panel] Stat Lab 04/02/23 16:16 Completed D-Dimer Stat Lab 04/02/23 17:35 Completed Rapid PCR Covid and Flu A/B Stat Lab 04/02/23 15:30 Completed Trop I [Troponin I] Stat Lab 04/02/23 16:16 Completed Troponin I Q3H Lab 04/02/23 22:00 [facility] 04/02/23 17:46 Completed Medical Decision Narrative: 87-year-old female with above history and physical. She has right basilar crackles also has pain in her right shoulder and humerus area with palpation. Will get a plain film of her shoulder humerus chest x-ray to possible she has pneumonia or pulmonary embolism or heart failure. She is very well-appearing her symptoms may also be chronic pain associated with this fall that she had recently with a viral URI superimposed on the symptoms. Will reassess after this initial workup is complete. Reassessment 910 patient still very stable oxygen saturations 100% on her home oxygen requirement. D-dimer significant elevated chest x-ray performed which I first interpreted shows a right lower lobe consolidation versus atelectasis in the setting of an elevated D-dimer got a CT PE which showed right upper lobe groundglass opacities and right lower lobe consolidations with multifocal pneumonia. There is also heterogenously enhancing splenic lesion which will need outpatient follow-up. I advised that she follow-up with primary care doctor in 1 to 2 days. I entertained putting her in the hospital in the setting of an 87-year-old with multifocal pneumonia but she has no increased oxygen requirement is very well-appearing clinically and she desires to go home. She understands that she is very high risk and advised that she follow-up with her primary care doctor in 1 to 2 days to be adherent to her antibiotic regimen which includes doxycycline for atypical coverage as well as Augmentin. She has been advised to return the emergency room with any worsening symptoms including worsening shortness of breath high fevers decreased p.o. intake etc. She was discharged in stable but guarded condition. Critical Care Critical Care Time Critical Care Time: No
[2023-04-02 16:01] LABS: Coronavirus 19, PCR Not Detected (NotDetected); Influenza A, PCR Not Detected (NotDetected); Influenza B, PCR Not Detected (NotDetected)
--- NOTE | 2023-04-02 16:09 | PC.NURSE ---
XR AT BEDSIDE
[2023-04-02 16:33] LABS: Alanine Aminotransferase 16 U/L (12-78); Albumin Level 3.7 g/dl (3.5-5.0); Albumin/Globulin Ratio 1.2 (1.1-1.8); Alkaline Phosphatase 39 U/L (38-126); Anion Gap 9.6 mEq/L (5-15); Aspartate Amino Transferase 35 U/L (14-36); Bilirubin,Total 0.7 mg/dl (0.2-1.3); Blood Urea Nitrogen 23 mg/dl (7-17); Calcium 9.3 mg/dl (8.4-10.2); Carbon Dioxide 30 mmol/L (22.0-30.0); Chloride 98 mmol/L (98-107); Creatinine Clearance Estimated 37 mL/min (50-200); Estimated Glomerular Filt Rate 47 ml/min (>60); GFR (African American) 57 ML/MIN (>60); Glucose 141 mg/dl (74-100); Potassium 4.6 mmoL/L (3.5-5.1); Sodium 133 mmol/L (136-145); Total Protein,Serum 6.7 g/dl (6.3-8.2)
[2023-04-02 16:44] LABS: NT Pro Brain Natriuretic Pep. 2240 pg/mL (0-450)
[2023-04-02 16:46] LABS: Troponin I < 0.01 ng/ml (0.00-0.034)
[2023-04-02 17:42] LABS: Basophils % 0.2 % (0.1-2.0); Eosinophils # 0.1 K/mm3 (0.0-0.4); Eosinophils % 0.7 % (0.1-12.0); Hematocrit 44.3 % (37.0-47.0); Hemoglobin 14.6 g/dL (12.2-16.2); Lymphocytes # 1.2 K/mm3 (0.7-4.5); Lymphocytes % 8.3 % (10-50); Mean Corpuscular HGB Conc 33.1 g/dL (31.8-35.4); Mean Corpuscular Hemoglobin 32.9 pg (27.0-31.2); Mean Corpuscular Volume 99.5 fl (81-99); Mean Platelet Volume 8.5 fl (7.4-10.4); Monocytes # 0.5 K/mm3 (0.1-1.0); Monocytes % 3.2 % (1.7-9.3); Neutrophils # 12.6 K/mm3 (1.8-7.8); Neutrophils % 87.5 % (37.0-80.0); Platelet Count 240 K/mm3 (142-424); Red Blood Count 4.45 M/mm3 (4.20-5.40); Red Cell Distribution Width 13.3 % (11.5-17.5); White Blood Count 14.4 K/mm3 (4.8-10.8)
[2023-04-02 17:46] LABS: MANUAL DIFFERENTIAL MANUAL DIFFERENTIAL (MANUAL DIFF)
--- NOTE | 2023-04-02 17:46 | ECG_ITS ---
APPROVED REPORT Exam: Resting ECG HR:83 bpm ECG Measurements Heart Rate 83 AXES NJ 156 P 88 QRSd 122 QRS -30 QT 371 T -12 QTc 410 Conclusion SINUS RHYTHM BORDERLINE LEFT AXIS DEVIATION [QRS AXIS < -20] RIGHT BUNDLE BRANCH BLOCK [120+ ms QRS DURATION, UPRIGHT V1, 40+ ms S IN I/aVL/V4/V5/V6] ABNORMAL ECG UNCONFIRMED REPORT Electronically signed by : eRagan Hsieh MD 04/04/2023 21:48:15
[2023-04-02 18:01] LABS: D-Dimer 2.63 ug/mL (0.0-0.5)
[2023-04-02 18:14] LABS: Lymphocytes % 10 % (10-50); Monocytes % 2 % (2-9); Neutrophils % 88 % (42-76); Total Cells Counted 100
[2023-04-02 18:15] LABS: Platelet Estimate Normal; RBC Morphology Normal
--- NOTE | 2023-04-02 18:17 | CT_ITS ---
PROCEDURE INFORMATION: Exam: CTA Chest With Contrast Exam date and time: 04/02/2023 8:24 PM Age: 87 years old Clinical indication: Other: Elevated d-dimer TECHNIQUE: Imaging protocol: Computed tomographic angiography of the chest with contrast. Exam focused on the arteries. 3D rendering (Not supervised by radiologist): MIP and/or 3D reconstructed images were created by the technologist. Radiation optimization: All CT scans at this facility use at least one of these dose optimization techniques: automated exposure control; mA and/or kV adjustment per patient size (includes targeted exams where dose is matched to clinical indication); or iterative reconstruction. Contrast material: ISOVUE; Contrast volume: 70 ml; Contrast route: INTRAVENOUS (IV); COMPARISON: CT ANGIO CHEST 12/11/2019 6:55 PM FINDINGS: Pulmonary arteries: Normal. No pulmonary emboli. Aorta: There is moderate calcific atherosclerotic disease of the thoracic aorta without aneurysmal dilatation. Lungs: Right upper lobe centrilobular ground-glass opacities, and right lower lobe consolidation with air bronchograms compatible with multifocal pneumonia in the appropriate clinical setting. Pleural spaces: Unremarkable. No pneumothorax. No pleural effusion. Heart: Unremarkable. No cardiomegaly. No pericardial effusion. Lymph nodes: Unremarkable. No enlarged lymph nodes. Gallbladder and bile ducts: There are surgical clips within the gallbladder fossa. Spleen: Indeterminate heterogeneously enhancing splenic lesion measuring 3.9 x 3.3 x 3.9 cm. Stomach and bowel: Postsurgical changes compatible with gastric sleeve bariatric surgery with chain suture at the greater curvature. Bones/joints: Unremarkable. No acute fracture. Soft tissues: Unremarkable. IMPRESSION: 1. Right upper lobe centrilobular ground-glass opacities, and right lower lobe consolidation with air bronchograms compatible with multifocal pneumonia in the appropriate clinical setting. 2. Indeterminate heterogeneously enhancing splenic lesion measuring 3.9 x 3.3 x 3.9 cm. Recommend further evaluation with nonurgent three-phase abdominal CT. 3. No CT angiography evidence of pulmonary embolism.
--- NOTE | 2023-04-02 18:30 | PC.NURSE ---
Multiple attempts to start IV. US guided IV attempted and was unsuccessful. aware.
--- NOTE | 2023-04-02 18:48 | PC.NURSE ---
PT VERY DIFFICULT IV START, ATTEMPTED MULTIPLE TIMES PER DIFFERENT NURSES, REQUESTED MD ASSISTANCE WITH US IV. UNABLE TO ASSIST PT CENSUS DEMANDING.
--- NOTE | 2023-04-02 18:51 | PC.NURSE ---
AWARE THAT PT DOES NOT HAVE IV ACCESS FOR CT PE.
--- NOTE | 2023-04-02 19:31 | PC.NURSE ---
at bedside for US guided IV
--- NOTE | 2023-04-02 20:17 | PC.NURSE ---
Patient to CT at this time
--- NOTE | 2023-04-02 20:19 | PC.NURSE ---
pt to CT
--- NOTE | 2023-04-02 20:27 | PC.NURSE ---
Pt to CT at this time
[2023-04-02] MEDS: IOPAMIDOL-370 (76%);100ML BOTTLE 70 ML IV (20:29)
--- NOTE | 2023-04-02 20:29 | PC.NURSE ---
patient back from CT
[2023-04-02] MEDS: SODIUM CHLORIDE 0.9% 10ML SYR (RAD ONLY) 10 ML IV (20:30)
== END 2023-04-02 21:15 | disposition home or self-care (01) ==
PROVIDERS: Emergency Provider Student in an Organized Health Care Education/Training Program; PCP Nurse Practitioner Family
DX: J18.9 Pneumonia, unspecified organism (principal); E87.1 Hypo-osmolality and hyponatremia; I45.19 Other right bundle-branch block; M25.511 Pain in right shoulder; J44.9 Chronic obstructive pulmonary disease, unspecified; I10 Essential (primary) hypertension; E03.9 Hypothyroidism, unspecified; Z87.891 Personal history of nicotine dependence
CPT/HCPCS: 36415; 71045; 71275; 73030; 73060; 80053; 83880; 84484; 85007; 85025; 85378; 87636; 93005; 99285; Q9967

== ENCOUNTER 2023-05-09 20:46 | Outpatient (CLI) | payer MEDICARE, OTHER, SELFPAY ==
[2023-05-09 18:09] LABS: Coronavirus 19, PCR Not Detected (NotDetected); Influenza A, PCR Not Detected (NotDetected); Influenza B, PCR Not Detected (NotDetected)
== END 2023-05-09 23:59 ==
PROVIDERS: PCP Nurse Practitioner Family; Visit Provider Nurse Practitioner Family
DX: R06.02 Shortness of breath (principal); R50.9 Fever, unspecified; R53.83 Other fatigue; R11.2 Nausea with vomiting, unspecified; R19.7 Diarrhea, unspecified; M54.50 Low back pain, unspecified
CPT/HCPCS: 87636

== ENCOUNTER 2023-08-27 14:30 | Outpatient (CLI) | payer MEDICARE, OTHER, SELFPAY ==
[2023-08-27 15:00] LABS: Basophils % 0.7 % (0.1-2.0); Eosinophils # 0.2 K/mm3 (0.0-0.4); Eosinophils % 2.4 % (0.1-12.0); Hematocrit 36.6 % (37.0-47.0); Hemoglobin 11.8 g/dL (12.2-16.2); Lymphocytes # 1.1 K/mm3 (0.7-4.5); Lymphocytes % 18.8 % (10-50); Mean Corpuscular HGB Conc 32.1 g/dL (31.8-35.4); Mean Corpuscular Hemoglobin 30.7 pg (27.0-31.2); Mean Corpuscular Volume 95.8 fl (81-99); Mean Platelet Volume 7.7 fl (7.4-10.4); Monocytes # 0.4 K/mm3 (0.1-1.0); Monocytes % 6.2 % (1.7-9.3); Neutrophils # 4.3 K/mm3 (1.8-7.8); Neutrophils % 71.9 % (37.0-80.0); Platelet Count 358 K/mm3 (142-424); Red Blood Count 3.82 M/mm3 (4.20-5.40); Red Cell Distribution Width 14.5 % (11.5-17.5)
[2023-08-27 15:09] LABS: Chloride 101 mmol/L (98-107)
[2023-08-27 15:10] LABS: Potassium 4.4 mmoL/L (3.5-5.1); Sodium 137 mmol/L (136-145)
[2023-08-27 15:12] LABS: Blood Urea Nitrogen 24 mg/dl (7-17); Estimated Glomerular Filt Rate 43 ml/min (>60); GFR (African American) 52 ML/MIN (>60)
[2023-08-27 15:13] LABS: Alanine Aminotransferase 9 U/L (12-78); Albumin Level 3.5 g/dl (3.5-5.0); Alkaline Phosphatase 44 U/L (38-126); Anion Gap 9.4 mEq/L (5-15); Aspartate Amino Transferase 23 U/L (14-36); Bilirubin,Indirect 0.2 mg/dL (0.0-0.9); Bilirubin,Total 0.2 mg/dl (0.2-1.3); Bilirubin,Unconjugated 0.3 mg/dL (0.0-1.1); Calcium 9.4 mg/dl (8.4-10.2); Carbon Dioxide 31 mmol/L (22.0-30.0); Chol/HDL Ratio 4.9 (1-3.5); Cholesterol 256 mg/dl (140-200); Glucose 109 mg/dl (74-100); HDL Cholesterol 52 mg/dl (40-60); Magnesium 1.8 mg/dl (1.6-2.3); Total Protein,Serum 6.1 g/dl (6.3-8.2); Triglycerides 199 mg/dl (30-150); VLDL Cholesterol 40 mg/dL (0-40)
[2023-08-27 15:24] LABS: Direct LDL Cholesterol 137.13 mg/dL (100-129)
[2023-08-27 15:30] LABS: Free T4 (Free Thyroxine) 1.36 ng/dl (0.78-2.19)
[2023-08-27 16:17] LABS: Thyroid Stimulating Hormone 1.66 uIU/mL (0.465-4.68)
== END 2023-08-27 23:59 | disposition home or self-care (01) ==
LOC: LAB 14:32
PROVIDERS: Visit Provider Physician Assistant
DX: I25.118 Atherosclerotic heart disease of native coronary artery with other forms of angina pectoris (principal); E78.2 Mixed hyperlipidemia; I11.9 Hypertensive heart disease without heart failure; Z95.1 Presence of aortocoronary bypass graft; K21.9 Gastro-esophageal reflux disease without esophagitis
CPT/HCPCS: 36415; 80048; 80061; 80076; 83735; 84439; 84443; 85025

== ENCOUNTER 2023-11-28 13:31 | Outpatient (CLI) | payer MEDICARE, OTHER, SELFPAY ==
[2023-11-28 13:38] LABS: Microscopic, Urine URINE MICROSCOPIC (MICROSCOPIC)
[2023-11-28 13:43] LABS: Appearance,Urine CLEAR (Clear); Blood, Urine Negative (Negative); Color,Urine YELLOW (Yellow); Glucose,Urine (UA) Negative (Negative); Ketones,Urine Negative (Negative); Leukocyte Esterase,Urine TRACE (Negative); Nitrate,Urine Negative (Negative); Protein,Urine TRACE (Negative); Specific Gravity, Urine >= 1.030 (1.005-1.030); Urobilinogen,Urine 0.2 EU/dl (0.2)
[2023-11-28 14:09] LABS: Bilirubin,Urine 1+ (Negative)
[2023-11-28 14:10] LABS: Bacteria,Urine Trace /lpf; Hyaline Casts,Urine OCC #/lpf (0)
== END 2023-11-28 23:59 | disposition home or self-care (01) ==
LOC: LAB.DROPOF 13:32
PROVIDERS: PCP Nurse Practitioner Family; Visit Provider Nurse Practitioner Family
DX: R30.0 Dysuria (principal)
CPT/HCPCS: 81001

== ENCOUNTER 2024-04-01 14:47 | Outpatient (CLI) | payer MEDICARE, OTHER, SELFPAY ==
[2024-04-01 15:46] LABS: Basophils % 0.4 % (0.1-2.0); Eosinophils # 0.2 K/mm3 (0.0-0.4); Eosinophils % 2.1 % (0.1-12.0); Hematocrit 30.5 % (37.0-47.0); Hemoglobin 9.2 g/dL (12.2-16.2); Lymphocytes # 1.1 K/mm3 (0.7-4.5); Lymphocytes % 11.5 % (10-50); Mean Corpuscular HGB Conc 30.2 g/dL (31.8-35.4); Mean Corpuscular Volume 82.9 fl (81-99); Mean Platelet Volume 9.8 fl (7.4-10.4); Monocytes # 0.6 K/mm3 (0.1-1.0); Monocytes % 6.1 % (1.7-9.3); Neutrophils # 7.3 K/mm3 (1.8-7.8); Neutrophils % 79.6 % (37.0-80.0); Platelet Count 464 K/mm3 (142-424); Red Blood Count 3.68 M/mm3 (4.20-5.40); Red Cell Distribution Width 17.2 % (11.5-17.5); White Blood Count 9.2 K/mm3 (4.8-10.8)
[2024-04-01 16:02] LABS: Alanine Aminotransferase 11 U/L (12-78); Albumin Level 3.8 g/dl (3.5-5.0); Alkaline Phosphatase 49 U/L (38-126); Anion Gap 11.5 mEq/L (5-15); Aspartate Amino Transferase 26 U/L (14-36); Bilirubin,Direct 0.1 mg/dl (0.0-0.4); Blood Urea Nitrogen 16 mg/dl (7-17); Calcium 9.4 mg/dl (8.4-10.2); Carbon Dioxide 29 mmol/L (22.0-30.0); Chloride 100 mmol/L (98-107); Chol/HDL Ratio 4.4 (1-3.5); Cholesterol 230 mg/dl (140-200); Estimated Glomerular Filt Rate 53 ml/min (>60); GFR (African American) 64 ML/MIN (>60); Glucose 80 mg/dl (74-100); HDL Cholesterol 52 mg/dl (40-60); Magnesium 1.9 mg/dl (1.6-2.3); Potassium 4.5 mmoL/L (3.5-5.1); Sodium 136 mmol/L (136-145); Total Protein,Serum 6.3 g/dl (6.3-8.2); Triglycerides 182 mg/dl (30-150); VLDL Cholesterol 36 mg/dL (0-40)
[2024-04-01 16:11] LABS: NT Pro Brain Natriuretic Pep. 4080 pg/mL (0-450)
[2024-04-01 16:13] LABS: Bilirubin,Total 0.1 mg/dl (0.2-1.3); Direct LDL Cholesterol 120.96 mg/dL (100-129)
[2024-04-01 16:17] LABS: Free T4 (Free Thyroxine) 1.41 ng/dl (0.78-2.19)
[2024-04-01 16:33] LABS: Thyroid Stimulating Hormone 2.33 uIU/mL (0.465-4.68)
== END 2024-04-01 23:59 | disposition home or self-care (01) ==
LOC: LAB 14:50
PROVIDERS: PCP Nurse Practitioner Family; Visit Provider Physician Assistant
DX: I25.118 Atherosclerotic heart disease of native coronary artery with other forms of angina pectoris (principal); E78.2 Mixed hyperlipidemia; I11.9 Hypertensive heart disease without heart failure; Z95.1 Presence of aortocoronary bypass graft; K21.9 Gastro-esophageal reflux disease without esophagitis; R60.0 Localized edema; R06.00 Dyspnea, unspecified
CPT/HCPCS: 36415; 80048; 80061; 80076; 83735; 83880; 84439; 84443; 85025

== ENCOUNTER 2024-04-06 16:30 | Inpatient (IN) | payer MEDICARE, OTHER, SELFPAY ==
[2024-04-06] VITALS (18 sets, daily range): BP systolic 94–165; BP diastolic 57–95; PULSE 80–117; RESP 13–22; TEMP 36.9–37; O2SAT 94–100; BMI 25.6; BMI 27.3
--- NOTE | 2024-04-06 | IR_ITS ---
APPROVED REPORT Patient Location: [facility] Manager: Yung Rondon, RT (R) PROCEDURES Left heart catheterization Left ventriculogram Selective coronary angiogram Selective engagement left internal mammary artery Selective engagement of saphenous vein graft to the ramus intermedius Attempted thrombectomy to the distal LAD Angioplasty to the distal LAD INDICATION Acute anterior ST elevation myocardial infarction, Coronary artery disease, History of coronary bypass surgery Informed consent was obtained prior to the procedure. COMPLICATIONS none Estimated Blood Loss: less than 10ml TECHNIQUE 1% lidocaine used anesthetize right groin the right femoral artery was accessed via the central technique and a 6 [place] sheath displaced in the right femoral artery. A JL 4 guide catheter was used to perform left coronary angiography. MCCARTHY guide catheter was used to perform selective left internal mammary angiography as well as engage the right coronary artery and the saphenous vein graft to the ramus intermedius. The same catheter was used to perform left heart catheterization and left ventriculogram. Following this a 6 [place] JL 3 guide catheter was placed in the left main artery followed by a choice floppy wire placed distally. Therapeutic heparin had already been administered giving a therapeutic ACT. A mechanical penumbra aspiration thrombectomy catheter was advanced however could not make it beyond the tortuous area. A 1.5 x 12 mm compliant balloon was then inflated distally on 4 occasions which failed to reduce the thrombotic distal LAD. 10 cc of intracoronary Integrilin was administered the apparatus was removed the groin is reprepped closure change sheath was removed good hemostasis was achieved using Perclose device patient was transferred to the postop holding area in stable condition on an Integrilin and heparin drip ANGIOGRAPHIC RESULTS The left main artery Patent with a stent in the ostial segment which extends into the LAD The left anterior descending artery Is proximally patent with mid vessel 20 and 30% stenosis. The mid portion is highly tortuous and then thrombosed in the distal segment. The ramus intermedius is subtotally occluded proximally The circumflex artery Is patent dominant and does not give rise to any proximal obtuse marginal arteries but gives rise to a terminal obtuse marginal artery. The vessel is patent with minimal disease The right coronary artery Nondominant with an ostial 90% stenosis The CAREY ventriculogram reveals Reduced ejection fraction estimated 45% with apical hypokinesis The left ventricular end-diastolic pressure Elevated at 25 mmHg MCCARTHY to LAD is proximally occluded Saphenous to ramus intermedius is widely patent IMPRESSION Distal LAD thrombosis which did not respond mechanical thrombectomy aspiration or angioplasty Patent saphenous to ramus intermedius Occluded MCCARTHY to mid LAD Ejection fraction 45% with distal regional wall motion abnormality involving the apex PLAN 1. Continue Integrilin drip for 18 hours 2. Continue heparin drip for 48 hours 3. Echocardiogram in the morning 4. Supportive care for myocardial infarction. The vessel is too small for any additional percutaneous intervention. Fortunately the thrombosis is distal which should have minimal impact on patient's outcome 5. TERRANCE inhibitor's beta-blockers 6. Avoidance of copious fluids given the elevated LVEDP 7. LDL less than 55 to achieve that high intensity statin Electronically signed by : Richard Bergeron MD 04/06/2024 18:16:08
--- NOTE | 2024-04-06 16:26 | PC.NURSE ---
DR GROSS AT BEDSIDE
--- NOTE | 2024-04-06 16:27 | ECG_ITS ---
APPROVED REPORT Exam: Resting ECG HR:88 bpm ECG Measurements Heart Rate 88 AXES MI 136 P -17 QRSd 117 QRS -39 QT 356 T 14 QTc 401 Conclusion SINUS RHYTHM LEFT AXIS DEVIATION [QRS AXIS < -30] RIGHT BUNDLE BRANCH BLOCK [120+ ms QRS DURATION, UPRIGHT V1, 40+ ms S IN I/aVL/V4/V5/V6] POSSIBLE ANTERIOR MYOCARDIAL INFARCTION , OF INDETERMINATE AGE [30 ms Q WAVE IN V3/V4, OR R < 0.2 mV IN V4] ST elevation V2, concerning for acute ischemia Electronically signed by : EULALIA GROSS, 04/06/2024 23:13:04
--- NOTE | 2024-04-06 16:28 | XR_ITS ---
PROCEDURE INFORMATION: Exam: XR Chest Exam date and time: 04/06/2024 4:44 PM Age: 88 years old Clinical indication: Pain; Chest pressure; Additional info: Chest pain TECHNIQUE: Imaging protocol: Radiologic exam of the chest. Views: 1 view. COMPARISON: CT ANGIO CHEST PE PROTOCOL 04/02/2023 8:24 PM FINDINGS: Lungs: Lung volumes are mildly diminished. Pleural spaces: No pleural effusions. Negative for pneumothorax. There are mildly increased patchy opacities in the left lower lobe costophrenic angle since prior exam. Right basilar opacity previously seen appears mildly improved. Heart/Mediastinum: Cardiac silhouette and pulmonary vasculature are within range of normal. Sternal suture wires are in place suggesting prior median sternotomy and postoperative changes are present involving the mediastinum. Vasculature: Vascular calcifications are seen overlying the left upper quadrant. The descending thoracic aorta is mildly unfolded and tortuous, as before.The aortic arch demonstrates mild atherosclerotic calcification. Bones/joints: There is no evidence of acute fracture. Intraperitoneal space: Postsurgical changes are present in the left upper quadrant. Other findings: Extrinsic overlying artifact limits evaluation. IMPRESSION: 1. Limited study. 2. Mildly diminished lung volumes. 3. Mildly improved aeration to the right lower lobe. 4. Slight increase in linear and patchy markings in the left lower lobe since prior exam.
--- NOTE | 2024-04-06 16:30 | PC.NURSE ---
[facility] ALERT CALLED PER DR BARNES, ALL STAFF NOTIFIED
[2024-04-06 16:36] LABS: Basophils % 0.1 % (0.1-2.0); Hematocrit 33.4 % (37.0-47.0); Hemoglobin 10.3 g/dL (12.2-16.2); Lymphocytes # 0.9 K/mm3 (0.7-4.5); Mean Corpuscular HGB Conc 30.8 g/dL (31.8-35.4); Mean Corpuscular Hemoglobin 24.8 pg (27.0-31.2); Mean Corpuscular Volume 80.3 fl (81-99); Mean Platelet Volume 10.3 fl (7.4-10.4); Monocytes # 0.6 K/mm3 (0.1-1.0); Monocytes % 3.3 % (1.7-9.3); Neutrophils # 15.5 K/mm3 (1.8-7.8); Neutrophils % 91.1 % (37.0-80.0); Platelet Count 487 K/mm3 (142-424); Red Blood Count 4.16 M/mm3 (4.20-5.40); Red Cell Distribution Width 17.1 % (11.5-17.5); White Blood Count 17.1 K/mm3 (4.8-10.8)
[2024-04-06] MEDS: TICAGRELOR 90MG TABLET 180 MG PO (16:36)
[2024-04-06] MEDS: HEPARIN SODIUM 5,000 UNIT/ML VIAL 6300 UNIT IV (16:36)
--- NOTE | 2024-04-06 16:37 | PC.NURSE ---
Lab states they do not have a phelbotomist to send. Gave lab the name of stemi pt and asked to run labs STAT.
--- NOTE | 2024-04-06 16:38 | PC.NURSE ---
pt has been placed on zoll monitor, cardiac/hemodynamic monitoring, groin and r wrist clipped, and pt placed in a gown. Consent signed and reviewed with pt.
[2024-04-06 16:42] LABS: Albumin Level 3.8 g/dl (3.5-5.0); Chloride 96 mmol/L (98-107); MANUAL DIFFERENTIAL MANUAL DIFFERENTIAL (MANUAL DIFF); Sodium 135 mmol/L (136-145)
--- NOTE | 2024-04-06 16:42 | PC.NURSE ---
PER EMS 324MG asa AND TWO 0.4 SL NITRO WAS GIVEN EN ROUTE
[2024-04-06 16:43] LABS: Potassium 4.5 mmoL/L (3.5-5.1)
--- NOTE | 2024-04-06 16:44 | PC.NURSE ---
DR GROSS SPOKE WITH DR ROQUE FOR ADMISSION AFTER [facility]
[2024-04-06 16:45] LABS: Alanine Aminotransferase 21 U/L (12-78); Albumin/Globulin Ratio 1.4 (1.1-1.8); Alkaline Phosphatase 45 U/L (38-126); Anion Gap 13.5 mEq/L (5-15); Aspartate Amino Transferase 29 U/L (14-36); Bilirubin,Total 0.2 mg/dl (0.2-1.3); Blood Urea Nitrogen 24 mg/dl (7-17); Carbon Dioxide 30 mmol/L (22.0-30.0); Creatinine Clearance Estimated 40 mL/min (50-200); Estimated Glomerular Filt Rate 53 ml/min (>60); GFR (African American) 64 ML/MIN (>60); Globulin 2.7 g/dL (1.3-3.2); Lipase 368 U/L (23-300); Total Protein,Serum 6.5 g/dl (6.3-8.2)
[2024-04-06 16:45] LABS: VBG Base Excess 2.8 mmol/L (-2.4-2.3); VBG HCO3 27.3 mmol/L (23-30); VBG Oxygen Saturation 92.2 % (50-70); VBG PCO2 43.1 mmol/L (35-51); VBG PH 7.42 mmol/L (7.31-7.41); VBG Total CO2 28.6 mmol/L (23-27)
[2024-04-06 16:46] LABS: Calcium 9.1 mg/dl (8.4-10.2); Glucose 206 mg/dl (74-100)
[2024-04-06 16:46] LABS: Lactate Venous 3.2 mmol/L (0.4-2.0)
--- NOTE | 2024-04-06 16:47 | [facility].EDCP ---
Discharge Plan Disposition Patient Disposition: Admitted Condition: Fair Clinical Impressions Clinical Impression: ST elevation (STEMI) myocardial infarction, Chest pain Discharge ED Provider: Nya Collins HPI General Chief Complaint: Chest Pain Stated Complaint: CHEST PAIN Time Seen by Provider: 04/06/24 16:33 Mode of Arrival: EMS Source of Information: Patient and EMS Limitations: No Limitations Description of Symptoms (Recalled from ER Triage Doc. by RN): PT CAME IN FOR CHEST PAIN VIA EMS , DUE TO HAVE CATH ON SUNDAY, PT HAS LEFT SIDE CHEST PRESSURE THAT STARTED TODAY AT 1600, EMS SENT PICTURE TO [facility], PT STATES SHE FEELS PAIN IN BOTH ARMS AND SOA History of Present Illness HPI narrative: This patient is an 88-year-old female with a history of COPD, hiatal hernia, GERD, hypertension or hyperlipidemia, CAD with prior NC status post CABG and stenting, DONOVAN, diastolic heart failure, history of gastric bypass presenting to the emergency department with concern for chest pain. Patient states that she has been sick with the flu for a while now, saw her PCP 04/01/24 after several symptoms, was prescribed steroids and antibiotics. She states she is getting better with concerns to that illness, but today just prior to arrival she called EMS for chest pain that had just started. She states that it substernal and radiated down both arms initially, but now is going down her right arm. She states it feels like a very intense pressure. She denies ever experiencing chest pain this severe in the past. EMS tells provide a history and that she had ST changes in V2 so they contacted Dr. Bergeron, who recommended repeating EKG upon arrival to the ED because her EKG is concerning. They gave the patient aspirin and nitro prior to arrival, but she still has continued pain. Related Data Home Medications ?Medication ?Instructions ?Recorded ?Confirmed melatonin 10 mg tablet 10 mg PO HS sleep 09/26/17 04/06/24 metoprolol tartrate 25 mg tablet 12.5 mg PO DAILY 04/01/24 04/06/24 Previous Rx's ?Medication ?Instructions ?Recorded albuterol sulfate 90 mcg/actuation 1 inh inhalation QIDP PRN 08/16/22 aerosol inhaler (ProAir HFA) Shortness Of Breath #6.7 grams nitroglycerin 0.4 mg sublingual See Rx Instructions .Route 11/23/22 tablet .COMPLEX #25 tabs ranolazine 500 mg tablet,extended See Rx Instructions .Route 07/09/23 release,12 hr .COMPLEX #180 tabs blood pressure monitor #1 ea 08/27/23 triamcinolone acetonide 0.5 % 1 applic topical BID #15 grams 10/17/23 topical cream lorazepam 0.5 mg tablet 0.5 mg PO BID PRN anxiety #60 tabs 11/16/23 dextromethorphan-guaifenesin 10 1 tab-cap PO Q8H PRN cough and 01/11/24 mg-200 mg capsule (Mucinex congestion #30 caps Cough-Chest Congestion HBP) benzonatate 100 mg capsule 100 mg PO TID PRN cough #30 caps 04/01/24 furosemide 20 mg tablet See Rx Instructions .Route 04/02/24 .COMPLEX #30 tabs spironolactone 25 mg tablet 25 mg PO DAILY #30 tabs 04/02/24 levothyroxine 75 mcg tablet See Rx Instructions .Route 04/03/24 .COMPLEX #90 tabs pantoprazole 40 mg tablet,delayed See Rx Instructions .Route 04/03/24 release .COMPLEX #60 tabs Allergies Allergy/AdvReac Type Severity Reaction Status Date / Time carisoprodol (From Soma) Allergy Intermediate itching Verified 04/06/24 19:08 meperidine Allergy Intermediate itching Verified 04/06/24 19:08 Sulfa (Sulfonamide Allergy Intermediate itching Verified 04/06/24 19:08 Antibiotics) trimethoprim Allergy Intermediate stomach Verified 04/06/24 19:08 atorvastatin (From Lipitor) AdvReac Intermediate stomach Verified 04/06/24 19:08 azithromycin AdvReac Intermediate Gastrointestinal Verified 04/06/24 19:08 Upset PFS PFS Disclaimer: The information contained in this section may have been updated after the patient was seen, as this information can be updated by other users. Medical History Sleep apnea COPD (chronic obstructive pulmonary disease) Osteoarthritis Hypothyroid History of cataract History of heart attack Hypertension History of anemia Ankle fracture Cataract Cough Tachycardia Hiatal hernia SOB (shortness of breath) Scattered respiratory crackles of right lung Surgical History Personal history of gastric banding History of esophagogastroduodenoscopy (EGD) History of colonoscopy History of cholecystectomy History of hysterectomy History of knee replacement Family History Other Family history of Alzheimer's disease Family history of cancer Family history of cataracts Family history of diabetes mellitus type II Family history of myocardial infarction Social History Smoking Status: Never smoker second hand exposure: No alcohol intake: never substance use type: denies use current occupational status: retired Travel in the last 8 weeks: None household members: spouse housing: house lives independently: No marital status: education level: high school service: No detention: No current occupational exposures/hazards: No caffeine: Yes special niels needs: No agree to transfusion: No do you feel safe at home: Yes victim of physical abuse: No victim of emotional abuse: No victim of sexual abuse: No would you like helpful sources: No Have you lived/traveled outside [place] in past 30 days?: No Contact w/someone who lives/traveled outside [place] past 30 days?: No Exposure to someone with infectious disease in past 14 days?: No Do you have a fever (greater than 100.4 F or 38 C)?: No Have you tested positive for COVID-19: No Exposed to someone with COVID-19 in past 14 days?: No Do you have a sore throat?: No Do you have a cough?: No Do you have any weakness?: No Do you have any diarrhea?: No Are you experiencing any unusual bleeding?: No Do you have any muscle aches/pain?: No Do you have any abdominal pain?: No Are you experiencing loss of taste or smell?: No Other Medical History Have you received the Flu Vaccine for this season: No Have you received the Pneumonia Vaccine: No ROS Obtained: Yes All systems reviewed & no additional complaints except as documented Physical Exam General General appearance: alert and in distress Comment: Uncomfortable appearing Head Head exam: atraumatic and normocephalic Eye Eye exam: Present normal appearance, PERRL and EOMI ENT ENT exam: Present normal exam, normal oropharynx, mucous membranes moist and normal external ear exam Neck Neck exam: Present normal inspection, full ROM and trachea midline; Absent tenderness Chest Chest inspection: Present normal inspection and symmetric chest wall rise; Absent tenderness Respiratory Respiratory exam: Present normal lung sounds bilaterally; Absent respiratory distress, wheezes, stridor or accessory muscle use Cardiovascular Cardiovascular exam: Present regular rate and normal rhythm Abdominal Exam Abdominal exam: Present soft; Absent distention, tenderness or guarding Extremities Exam Extremities exam: Present normal inspection, full ROM and normal capillary refill; Absent tenderness or edema Back Exam Back exam: Present normal inspection and full ROM; Absent tenderness Neurological Exam Neurological exam: Present alert, oriented X3, CN II-XII intact and normal gait; Absent motor sensory deficit Psychiatric Psychiatric exam: Present normal affect and normal mood Skin Skin exam: Present warm and dry HEART Score HEART Score HEART Score assessment performed?: Yes History (anamnesis): Highly suspicious ECG: Significant ST-deviation Age: >65 years Risk factors: Atherosclerosis history Troponin: </= normal limit HEART Score: 8 Critical Care Critical Care Time Critical Care Time: Yes Attestation: On 04/06/24, the high probability of a clinically significant, sudden or life threatening deterioration of the following system(s) required my full and direct attention, intervention and personal management. The time I documented below is in addition to time spent performing reported procedures but includes the following listed in this critical care notation. Total Time Total Critical Care Time: 30 Medical Decision Making Robert Inquiry Pt receiving controlled substance: No Vital Signs Vital Signs: 04/06/24 16:30 04/06/24 16:43 04/06/24 17:00 Temperature 98.6 F 98.5 F Temperature Source Oral Pulse Rate 86 80 Pulse Rate [Left Radial] 86 Respiratory Rate 20 13 Blood Pressure 131/79 Blood Pressure [Right Arm] 131/79 Blood Pressure Mean [Right Arm] 96 02 Sat by Pulse Oximetry 99 98 Oxygen Delivery Method Nasal Cannula Oxygen Flow Rate (LPM) 2 Lab Data Labs: Lab Results 04/06/24 14:20: WBC 17.1 H, RBC 4.16 L, Hgb 10.3 L, Hct 33.4 L, MCV 80.3 L, MCH 24.8 L, MCHC 30.8 L, RDW 17.1, Plt Count 487 H, MPV 10.3, Neut % (Auto) 91.1 H, Lymph % (Auto) 5.0 L, Walsh % (Auto) 3.3, Eos % (Auto) 0.0 L, Baso % (Auto) 0.1, Neut # (Auto) 15.5 H, Lymph # (Auto) 0.9, Walsh # (Auto) 0.6, Eos # (Auto) 0.0, Baso # (Auto) 0.0, Total Counted 100, Neutrophils % (Manual) 96 H, Lymphocytes % (Manual) 3 L, Monocytes % (Manual) 1 L, Platelet Estimate Slight increase, Stomatocytes 1+, PT 9.9, INR 0.89 L, APTT 20.5 L, D-Dimer 0.92 H, Sodium 135 L, Potassium 4.5, Chloride 96 L, Carbon Dioxide 30, Anion Gap 13.5, BUN 24 H, Creatinine 1.00, Estimated Creat Clear 40, Estimated GFR 53 L, Est GFR ( Amer) 64, Glucose 206 H, Calcium 9.1, Total Bilirubin 0.2, AST 29, ALT 21, Alkaline Phosphatase 45, Troponin I 0.02, Total Protein 6.5, Albumin 3.8, Globulin 2.7, Albumin/Globulin Ratio 1.4, Lipase 368 H, HCV Ab AKUA w/Rflx PCR Qn Negative, HIV Ag/Ab Combo Qual Negative 04/06/24 16:41: VBG pH 7.42 H, VBG pCO2 43.1, VBG pO2 65.0 H, VBG HCO3 27.3, VBG Total CO2 28.6 H, VBG O2 Saturation 92.2 H, VBG Base Excess 2.8 H, VBG Lactic Acid 3.2 H 04/06/24 14:20 04/06/24 14:20 Response Orders (Tests/Meds): ED MEDICATIONS Generic Name Dose Route Start Last Admin Trade Name Waylonq PRN Reason Stop Dose Admin Benzonatate 100 mg 04/06/24 18:39 Benzonatate 100mg Capsule PO 05/06/24 18:38 TID PRN cough Furosemide 40 mg 04/07/24 09:00 Furosemide 40mg/4ml Vial IV 05/07/24 08:59 DAILY LIZBET Eptifibatide 75 mg in 100 mls @ 10.16 mls/hr 04/06/24 18:38 Integrilin 75mg/100ml Bottle IV 04/07/24 18:37 .[id number] LIZBET 2 MCG/KG/MIN Levothyroxine Sodium 75 mcg 04/07/24 07:00 Levothyroxine 75mcg (0.075mg) Tab PO 05/07/24 06:59 DAILYDM LIZBET Lorazepam 0.5 mg 04/06/24 18:39 Lorazepam 0.5mg Tablet PO 05/06/24 18:38 BID PRN anxiety Metoprolol Tartrate 12.5 mg 04/07/24 09:00 Metoprolol Tartrate 25mg Tablet PO 05/07/24 08:59 DAILY LIZBET Morphine Sulfate 1 mg 04/06/24 18:35 04/06/24 20:11 Morphine 2mg/Ml Syringe IV 05/06/24 18:34 1 mg Q2HP PRN Administration Severe Pain (7-10) Ondansetron HCl 4 mg 04/06/24 18:35 Ondansetron 4mg/2ml Vial IV 05/06/24 18:34 Q8HP PRN Nausea Pantoprazole Sodium 40 mg 04/06/24 21:00 Pantoprazole 40mg Vial IV 05/06/24 20:59 HS LIZBET Ranolazine 500 mg 04/06/24 21:00 Ranolazine 500mg Er Tablet PO 05/06/24 20:59 BID LIZBET Sodium Chloride 10 ml 04/06/24 18:35 Sodium Chloride 0.9% 10ml Vial IV 05/06/24 18:34 NEEDED PRN dilute protonix Spironolactone 25 mg 04/07/24 09:00 Spironolactone 25mg Tablet PO 05/07/24 08:59 DAILY LIZBET Discontinued Medications Generic Name Dose Route Start Last Admin Trade Name Freq PRN Reason Stop Dose Admin Heparin Sodium (Porcine) 6,300 unit 04/06/24 16:29 04/06/24 16:36 Heparin Sodium 5,000 Unit/Ml Vial 100 unit/kg (6300 unit) 04/06/24 16:30 6,300 unit IV Administration ONCE ONE Ticagrelor 180 mg 04/06/24 16:29 04/06/24 16:36 Ticagrelor 90mg Tablet PO 04/06/24 16:30 180 mg ONCE ONE Administration ORDERS Category Date Time Status Cardiology Consult [Consult to Cardiology] [CONS] Cons 04/06/24 16:53 Active Routine CXR --portable [XR chest portable] Stat Exams 04/06/24 16:28 Completed Complete Blood Count Auto Diff Stat Lab 04/06/24 14:20 Completed Comprehensive Metabolic Panel Stat Lab 04/06/24 14:20 Completed D-Dimer Stat Lab 04/06/24 14:20 Completed Lipase Stat Lab 04/06/24 14:20 Completed PT INR [Prothrombin Time INR] Stat Lab 04/06/24 14:20 Completed PTT [Activated Partial Thrombo Time] Stat Lab 04/06/24 14:20 Completed Trop I [Troponin I] Stat Lab 04/06/24 14:20 Completed Venous Blood Gas Routine RT 04/06/24 16:41 Completed ECG Data Tracing #1: Attestation: I reviewed this ECG and interpreted as documented below: ECG Narrative: Normal sinus rhythm with a ventricular rate of 88 bpm. Right bundle branch block. Left axis deviation. ST elevation in V2 with some subtle changes noted in V3 and possibly V4. Discussed with Dr. Bergeron immediately upon obtaining and STEMI alert activated per his recommendation. ECG initial impression date: 04/06/24 ECG initial impression time: 16:27 MDM Narrative Medical Decision Narrative: In summary, this patient is a 88-year-old female presenting to the Emergency Department for evaluation of chest pain. Differential diagnoses considered include but are not limited to ACS, PE, aortic pathology, pneumonia, dysrhythmia, GERD. Ruling out the most morbid conditions drove assessment. It should be noted patient's history includes CAD, hypertension, hyperlipidemia, hypertensive heart disease which may or may not be at goal therapy. This complicates all aspects of care by increasing patient's risk for morbidity. I reviewed patient's past medical records and noted previous cardiology evaluations with extensive history of CAD as detailed in HPI. On exam, the patient is uncomfortable appearing, lying in bed in mild distress secondary to pain. Vitals are reassuring on cardiac telemetry with normal heart rate and O2 saturation. Initial EKG obtained, concerning for some ST elevations. I had an interactive discussion with Dr. Bergeron with cardiology who recommended activation of [facility] with concern for STEMI. [facility] was activated, patient was loaded with heparin and Brilinta. She received aspirin and nitro prior to arrival with EMS. Preliminary labs demonstrated leukocytosis, likely related to steroid use with her URI. She also has chronic anemia. She has mildly elevated lactic acid. Chemistry demonstrates a negative initial troponin. Symptoms started just prior to arrival, so I feel he likely has not had time to become elevated yet. Lipase is mildly elevated without significant epigastric tenderness. Patient was taken to the [facility] in stable condition. I called and had an interactive discussion with the hospitalist who accepted the patient for post-cath care
[2024-04-06 16:51] LABS: Lymphocytes % 3 % (10-50); Monocytes % 1 % (2-9); Neutrophils % 96 % (42-76); Total Cells Counted 100
[2024-04-06 16:52] LABS: Stomatocytes 1+
[2024-04-06 16:54] LABS: Platelet Estimate Slight Increase
[2024-04-06 16:58] LABS: Activated Partial Thrombo Time 20.5 seconds (22.5-28.5); INR 0.89 (0.9-1.1); Prothrombin Time 9.9 seconds (9.2-12.1)
--- NOTE | 2024-04-06 16:58 | PC.NURSE ---
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
[2024-04-06 16:59] LABS: Troponin I 0.02 ng/ml (0.00-0.034)
--- NOTE | 2024-04-06 17:07 | PC.NURSE ---
PT TO BOOM MASTER
[2024-04-06 17:24] LABS: D-Dimer 0.92 ug/mL (0.0-0.5)
--- NOTE | 2024-04-06 18:30 | EXP.HP ---
History of Present Illness *Admission Date: 04/06/24 *Reason for visit:: chest pain, STEMI *History of present illness: Ms. Floyd is an 88-year-old female who presented to the ER due to complaint of chest pain. Presented via EMS. She was scheduled to have an outpatient heart cath on Sunday. Presents with complaint of left-sided chest pressure that began mid afternoon. EKG obtained showing ST elevation in V2. Body Recall Instructor activated and patient taken for intervention. Patient has a history of COPD, hiatal hernia, GERD, hypertension or hyperlipidemia, CAD with prior DC status post CABG and stenting, DONOVAN, diastolic heart failure, history of gastric bypass. Medicine was consulted for admission after left heart cath. Patient found to have occlusion of distal LAD. Not amenable to stenting. Cardiology recommends admission for treatment for at least 48 hours and initiation of Integrilin drip. Patient stable on room air. Of note, has history of flu diagnosed on 04/01 by her PCP. Was completing a course of antibiotics and steroids. Patient was loaded with aspirin and Brilinta in the ER. Started on heparin drip. [facility] Disclaimer: The information contained in this section may have been updated after the patient was seen, as this information can be updated by other users. Medical History Sleep apnea COPD (chronic obstructive pulmonary disease) Osteoarthritis Hypothyroid History of cataract History of heart attack Hypertension History of anemia Ankle fracture Cataract Cough Tachycardia Hiatal hernia SOB (shortness of breath) Scattered respiratory crackles of right lung Surgical History Personal history of gastric banding History of esophagogastroduodenoscopy (EGD) History of colonoscopy History of cholecystectomy History of hysterectomy History of knee replacement Family History Other Family history of Alzheimer's disease Family history of cancer Family history of cataracts Family history of diabetes mellitus type II Family history of myocardial infarction Social History Smoking Status: Never smoker second hand exposure: No alcohol intake: never substance use type: denies use current occupational status: retired Travel in the last 8 weeks: None household members: spouse housing: house lives independently: No marital status: education level: high school service: No chcf: No current occupational exposures/hazards: No caffeine: Yes special niels needs: No agree to transfusion: No do you feel safe at home: Yes victim of physical abuse: No victim of emotional abuse: No victim of sexual abuse: No would you like helpful sources: No Have you lived/traveled outside [place] in past 30 days?: No Contact w/someone who lives/traveled outside US past 30 days?: No Exposure to someone with infectious disease in past 14 days?: No Do you have a fever (greater than 100.4 F or 38 C)?: No Have you tested positive for COVID-19: No Exposed to someone with COVID-19 in past 14 days?: No Do you have a sore throat?: No Do you have a cough?: No Do you have any weakness?: No Do you have any diarrhea?: No Are you experiencing any unusual bleeding?: No Do you have any muscle aches/pain?: No Do you have any abdominal pain?: No Are you experiencing loss of taste or smell?: No Other Medical History Have you received the Flu Vaccine for this season: No Have you received the Pneumonia Vaccine: No Review of Systems Review of Systems Review of systems:: unable to obtain (evaluated after sedation for heart cath) Meds Home Medications and Allergies Home Medications ?Medication ?Instructions ?Recorded ?Confirmed ?Type melatonin 10 mg tablet 10 mg PO HS sleep 09/26/17 04/06/24 History albuterol sulfate 90 mcg/actuation 1 inh inhalation QIDP PRN 08/16/22 04/06/24 Rx aerosol inhaler (ProAir HFA) Shortness Of Breath #6.7 grams nitroglycerin 0.4 mg sublingual See Rx Instructions .Route 11/23/22 04/06/24 Rx tablet .COMPLEX #25 tabs ranolazine 500 mg tablet,extended See Rx Instructions .Route 07/09/23 04/06/24 Rx release,12 hr .COMPLEX #180 tabs blood pressure monitor #1 ea 08/27/23 04/06/24 Rx triamcinolone acetonide 0.5 % 1 applic topical BID #15 grams 10/17/23 04/06/24 Rx topical cream lorazepam 0.5 mg tablet 0.5 mg PO BID PRN anxiety #60 tabs 11/16/23 04/06/24 Rx dextromethorphan-guaifenesin 10 1 tab-cap PO Q8H PRN cough and 01/11/24 04/06/24 Rx mg-200 mg capsule (Mucinex congestion #30 caps Cough-Chest Congestion HBP) benzonatate 100 mg capsule 100 mg PO TID PRN cough #30 caps 04/01/24 04/06/24 Rx metoprolol tartrate 25 mg tablet 12.5 mg PO DAILY 04/01/24 04/06/24 History furosemide 20 mg tablet See Rx Instructions .Route 04/02/24 04/06/24 Rx .COMPLEX #30 tabs spironolactone 25 mg tablet 25 mg PO DAILY #30 tabs 04/02/24 04/06/24 Rx levothyroxine 75 mcg tablet See Rx Instructions .Route 04/03/24 04/06/24 Rx .COMPLEX #90 tabs pantoprazole 40 mg tablet,delayed See Rx Instructions .Route 04/03/24 04/06/24 Rx release .COMPLEX #60 tabs New Prescriptions to Start Prescriptions: Allergies Allergy/AdvReac Type Severity Reaction Status Date / Time carisoprodol (From Soma) Allergy Intermediate itching Verified 04/06/24 19:08 meperidine Allergy Intermediate itching Verified 04/06/24 19:08 Sulfa (Sulfonamide Allergy Intermediate itching Verified 04/06/24 19:08 Antibiotics) trimethoprim Allergy Intermediate stomach Verified 04/06/24 19:08 atorvastatin (From Lipitor) AdvReac Intermediate stomach Verified 04/06/24 19:08 azithromycin AdvReac Intermediate Gastrointestinal Verified 04/06/24 19:08 Upset Exam Data for Last 24 hours Vital signs and Labs for Last 24 Hours: Temp Pulse Resp BP Pulse Ox O2 Del Method O2 Flow Rate 98.6 F 80 18 148/80 H 98 Room Air 2 04/06/24 17:09 04/06/24 17:04/06/24 17:04/06/24 17:04/06/24 17:00 04/06/24 17:04/06/24 16:30 Laboratory Results - last 24 hr 04/06/24 14:20: WBC 17.1 H, RBC 4.16 L, Hgb 10.3 L, Hct 33.4 L, MCV 80.3 L, MCH 24.8 L, MCHC 30.8 L, RDW 17.1, Plt Count 487 H, MPV 10.3, Neut % (Auto) 91.1 H, Lymph % (Auto) 5.0 L, [place] % (Auto) 3.3, Eos % (Auto) 0.0 L, Baso % (Auto) 0.1, Neut # (Auto) 15.5 H, Lymph # (Auto) 0.9, [place] # (Auto) 0.6, Eos # (Auto) 0.0, Baso # (Auto) 0.0, Total Counted 100, Neutrophils % (Manual) 96 H, Lymphocytes % (Manual) 3 L, Monocytes % (Manual) 1 L, Platelet Estimate Slight increase, Stomatocytes 1+, PT 9.9, INR 0.89 L, APTT 20.5 L, D-Dimer 0.92 H, Sodium 135 L, Potassium 4.5, Chloride 96 L, Carbon Dioxide 30, Anion Gap 13.5, BUN 24 H, Creatinine 1.00, Estimated Creat Clear 40, Estimated GFR 53 L, Est GFR ( Amer) 64, Glucose 206 H, Calcium 9.1, Total Bilirubin 0.2, AST 29, ALT 21, Alkaline Phosphatase 45, Troponin I 0.02, Total Protein 6.5, Albumin 3.8, Globulin 2.7, Albumin/Globulin Ratio 1.4, Lipase 368 H 04/06/24 16:41: VBG pH 7.42 H, VBG pCO2 43.1, VBG pO2 65.0 H, VBG HCO3 27.3, VBG Total CO2 28.6 H, VBG O2 Saturation 92.2 H, VBG Base Excess 2.8 H, VBG Lactic Acid 3.2 H I & O for Last 24 hours: Intake & Output 04/03/24 04/04/24 04/05/24 04/06/24 23:59 23:59 23:59 23:59 Weight 63.503 kg Constitutional Constitutional: mild distress, average body habitus, chronically ill appearing and somnolent *Routine HEENT Exam Head: Present normocephalic and atraumatic Eye: Present EOMI and PERRL; Absent conjunctivae pink (pale) ENT: Present mucous membranes moist *Routine Neck Exam Neck: Present supple and full ROM; Absent lymphadenopathy *Routine Respiratory Exam Respiratory: Present rhonchi and diminished air movement; Absent accessory muscle use, respiratory distress or crackles Comments: Rhonchorous cough *Routine Cardiovascular Exam Cardiovascular: Present irregular rhythm; Absent murmur *Routine Abdominal Exam Abdominal: Present soft and normoactive bowel sounds; Absent tenderness *Routine Rectal Exam Rectal:: deferred *Routine Genitalia Exam Genitalia:: deferred *Routine Extremities Exam Extremities: Present edema (Trace); Absent cyanosis or clubbing *Routine Skin Exam Skin: Present pallor and warm; Absent rash *Routine Neurological Exam Neurological: Present alert, altered mental status, moving all extremities and normal tone; Absent motor deficit Comments: Examined after heart cath, awake but not able to answer questions meaningfully. Somewhat sedated Assessment and Plan *Assessment and plan (1) ST elevation (STEMI) myocardial infarction: Status: Acute Category: Medical Code(s): I21.3 - ST elevation (STEMI) myocardial infarction of unspecified site (2) Chest pain: Status: Acute Category: Medical Code(s): R07.9 - Chest pain, unspecified (3) Flu: Status: Acute Category: Medical Code(s): J11.1 - Influenza due to unidentified influenza virus with other respiratory manifestations (4) Anxiety: Status: Acute Category: Medical Code(s): F41.9 - Anxiety disorder, unspecified (5) Multifocal pneumonia: Status: Acute Category: Medical Code(s): J18.9 - Pneumonia, unspecified organism (6) CAD (coronary artery disease): Status: Chronic Qualifiers: Associated angina: with other forms of angina Coronary Disease-Associated Artery/Lesion type: [place] artery [place] vs. transplanted heart: [place] heart Qualified Code(s): I25.118 - Atherosclerotic heart disease of [place] coronary artery with other forms of angina pectoris Category: Medical Code(s): I25.10 - Atherosclerotic heart disease of [place] coronary artery without angina pectoris (7) GERD (gastroesophageal reflux disease): Status: Chronic Qualifiers: Esophagitis presence: esophagitis presence not specified Qualified Code(s): K21.9 - Gastro-esophageal reflux disease without esophagitis Category: Medical Code(s): K21.9 - Gastro-esophageal reflux disease without esophagitis (8) History of coronary artery bypass graft: Status: Chronic Category: Surgical Code(s): Z95.1 - Presence of aortocoronary bypass graft (9) HLD (hyperlipidemia): Status: Chronic Qualifiers: Hyperlipidemia type: mixed hyperlipidemia Qualified Code(s): E78.2 - Mixed hyperlipidemia Category: Medical Code(s): E78.5 - Hyperlipidemia, unspecified (10) HHD (hypertensive heart disease): Status: Chronic Qualifiers: Heart failure presence: without heart failure Qualified Code(s): I11.9 - Hypertensive heart disease without heart failure Category: Medical Code(s): I11.9 - Hypertensive heart disease without heart failure (11) Obesity (BMI 30-39.9): Status: Chronic Category: Medical Code(s): E66.9 - Obesity, unspecified (12) Anemia: Status: Acute Qualifiers: Anemia type: unspecified type Qualified Code(s): D64.9 - Anemia, unspecified Category: Medical Code(s): D64.9 - Anemia, unspecified (13) Diastolic heart failure: Status: Chronic Category: Medical Code(s): I50.30 - Unspecified diastolic (congestive) heart failure (14) COPD (chronic obstructive pulmonary disease): Status: Chronic Category: Medical Code(s): J44.9 - Chronic obstructive pulmonary disease, unspecified (15) Hypothyroid: Status: Chronic Category: Medical Code(s): E03.9 - Hypothyroidism, unspecified Plan 88-year-old female with significant past medical history of multiple comorbidities including history of CABG and CAD. Presented with chest pain. Found to have STEMI. Taken to Body Recall Instructor emergently. Discussed case with ER physician, request admission after heart cath. Discussed case with support representative, patient found to have occlusion of distal LAD. Will manage medically as the vessel is too narrow for stenting. Will admit to ICU to monitor overnight. Initiated on Integrilin drip. Cardiology assisting with management. Problems addressed as follows: STEMI History of CABG CAD History of HFpEF Hyperlipidemia/hypertension -Discussed case with cardiology, distal lesion in LAD. Initiate Integrilin drip at 2 mcg/kg/min hold to initiate statin in the morning. -Echo ordered for the morning -Continue aspirin 81 mg daily and Brilinta 90 mg twice daily -LDL on 04/01, previous intolerance of Lipitor -Resume Lasix 40 mg IV daily. -BNP elevated at 4000 days ago initial troponin 0.02 -Continue metoprolol tartrate 12.5 mg daily -Continue ranolazine 500 mg twice daily -Continue spironolactone 25mg daily COPD Flu - Diagnosed with flu 5 days ago. Completed 5 days of antibiotics with azithromycin. Completed steroids. No indication for further Tamiflu at this time. Stable on room air. - White count elevated at 17, hemoglobin 10. -Tessalon Perles for cough 100 mg 3 times a day as needed Kidney function normal BUN 24, creatinine 1. Repeat CBC, CMP, magnesium ordered for the morning. Hypothyroid: TSH controlled at 2.33, continue levothyroxine 75 mcg daily Continue home Ativan 0.5mg twice daily as needed did Full code Heparin drip/Integrilin drip Cardiac diet
[2024-04-06 19:34] LABS: HIV Combo NEGATIVE (Negative)
[2024-04-06 19:42] LABS: Hepatitis C Ab Qual. W/ RFX NEGATIVE (Negative)
--- NOTE | 2024-04-06 20:00 | PC.NURSE ---
Notified pt bleeding from cath site in right femoral area after applying manual pressure for 10 mins. Dressing saturated sanguineous fluid. MD at bedside applied manual pressure for an additional 10 mins and new dressing applied.
--- NOTE | 2024-04-06 20:10 | PC.NURSE ---
Morphine administered to pt in left wrist iv. Pt complaining of pain in left mid arm at bruising site. brought iv ultrasound to bedside and attempted iv in the right upper arm. not successful. Pt refusing more sticks at this time. notified assisted living housekeeper of need for iv.
[2024-04-06] MEDS: MORPHINE 2MG/ML SYRINGE 1 MG IV (20:11)
[2024-04-06 20:42] LABS: Reflex Lactic Add Lactic Reflex
--- NOTE | 2024-04-06 20:45 | PC.NURSE ---
Dressing to cath insertion site noted to be saturated again. Manual pressure applied for an additonal 10 mins. New dressing applied and MD notified
--- NOTE | 2024-04-06 21:00 | PC.NURSE ---
finishing range supervisor at bedside attempting ultrasound iv in the right upper arm not successful. MD notified unable to get labs and iv access at this time.
--- NOTE | 2024-04-06 21:30 | PC.NURSE ---
Dressing at cath site saturated MD notified, states to apply surgicel to the area manual pressure applied for 10 minutes. New dressing with surgicel applied at this time.
--- NOTE | 2024-04-06 22:00 | PC.NURSE ---
Richard ORTIZ RN at bedside attempting ultrasound iv. IV placed to right upper arm unable to draw labs from iv. notified.
--- NOTE | 2024-04-06 22:15 | PC.NURSE ---
Dressing to cath site noted to be saturated MD notified. states he will notify circular sawyer stone. New dressing with surgicel to site.
[2024-04-06] MEDS: PANTOPRAZOLE 40MG VIAL 40 MG IV (23:00)
--- NOTE | 2024-04-06 23:00 | PC.NURSE ---
Notified MD dressing saturated again. MD to bedside to administer xylocaine to the site. Pt tolerated well new dressing applied to site with surgicel.
--- NOTE | 2024-04-06 23:15 | PC.NURSE ---
Pt complaining of feeling short of air, headache, stomach pain, and feeling like she had pressure on her chest. Pt requesting ativan. MD notified. pt was given iv zofran, iv ativan, and iv morphine per md order.
--- NOTE | 2024-04-06 23:50 | PC.NURSE ---
Pt continues to complain of chest pain. Unable to get accurate oxygen saturation. MD states to get EKG. EKG performed at 2354 and read by MD. attempted to stick pt for labs by mutliple staff unsuccessful at this time. MD aware.
[2024-04-06] MEDS: LORazepam 2MG/ML VIAL 0.5 MG IV (23:53)
[2024-04-06] MEDS: SODIUM CHLORIDE 0.9% 10ML VIAL 10 ML IV (23:53)
[2024-04-07] VITALS (14 sets, daily range): BP systolic 68–112; BP diastolic 24–53; PULSE 101–120; RESP 16–24; TEMP 36.3–36.8; O2SAT 89–100; BMI 28.1
[2024-04-07] MEDS: ONDANSETRON 4MG/2ML VIAL 4 MG IV
[2024-04-07] MEDS: MORPHINE 2MG/ML SYRINGE 1 MG IV (00:08)
[2024-04-07] MEDS: EPTIFIBATIDE 75 MG/100 ML VIAL 10.16 MG IV (00:14)
--- NOTE | 2024-04-07 00:36 | XR_ITS ---
PROCEDURE INFORMATION: Exam: XR Chest Exam date and time: 04/07/2024 12:56 AM Age: 88 years old Clinical indication: Other: Desaturation TECHNIQUE: Imaging protocol: Radiologic exam of the chest. Views: 1 view. COMPARISON: CR XR CHEST PORTABLE 04/06/2024 4:44 PM FINDINGS: Lungs: There is improved aeration to both lung bases with mildly increased lung volumes. Minimal residual opacities are present at the left lateral costophrenic angle region. The lungs appear otherwise clear. Pleural spaces: No pleural effusions. Negative for pneumothorax. Heart/Mediastinum: Cardiac silhouette and pulmonary vasculature are within range of normal. Bones/joints: Sternal suture wires are in place suggesting prior median sternotomy and postoperative changes are present involving the mediastinum. There is no evidence of acute fracture. Intraperitoneal space: Postsurgical changes are present in the left upper quadrant. IMPRESSION: 1. Improved aeration of both lung bases with mildly improved lung volumes. 2. Minimal residual opacity is present at the left lateral costophrenic angle region.
--- NOTE | 2024-04-07 01:00 | PC.NURSE ---
Pt 1 oclock blood pressure 84/40. notified and came to bedside. Orders to start LR bolus. Pt was also placed in trendelenburg position to try and get the blood pressure up. Pt tachycardiac with heart rate 100-115 bpm. Pt now complaining of feeling weird all over and not sure whats wrong.
[2024-04-07 01:02] LABS: Basophils % 0.2 % (0.1-2.0); Eosinophils % 0.1 % (0.1-12.0); Hematocrit 31.2 % (37.0-47.0); Hemoglobin 9.6 g/dL (12.2-16.2); Lymphocytes # 2.1 K/mm3 (0.7-4.5); Lymphocytes % 10.9 % (10-50); Mean Corpuscular HGB Conc 30.8 g/dL (31.8-35.4); Mean Corpuscular Volume 81.3 fl (81-99); Mean Platelet Volume 9.6 fl (7.4-10.4); Monocytes # 2.2 K/mm3 (0.1-1.0); Neutrophils # 15.1 K/mm3 (1.8-7.8); Neutrophils % 77.1 % (37.0-80.0); Platelet Count 588 K/mm3 (142-424); Red Blood Count 3.84 M/mm3 (4.20-5.40); Red Cell Distribution Width 17.2 % (11.5-17.5); White Blood Count 19.5 K/mm3 (4.8-10.8)
[2024-04-07 01:06] LABS: MANUAL DIFFERENTIAL MANUAL DIFFERENTIAL (MANUAL DIFF)
--- NOTE | 2024-04-07 01:15 | PC.NURSE ---
Pt requesting daughter be called to come and sit with her, Daughter notified and states she will be here shortly.
[2024-04-07 01:30] LABS: Lymphocytes % 8 % (10-50); Monocytes % 9 % (2-9); Neutrophils % 83 % (42-76); Total Cells Counted 100
--- NOTE | 2024-04-07 01:30 | PC.NURSE ---
MD advised to stop bolus at this time to see how pts blood pressure did. ER MD to bedside to assess for central line. IV to right forearm and right upper arm noted to be infiltrated. Pt no longer has any iv access at this time and MD is aware. Pt noted to be confused. Kept trying to get out of the bed, pulling gown off, unable to answer orientation questions.
[2024-04-07 01:31] LABS: Hypochromasia 1+; Platelet Estimate Moderate Increase
--- NOTE | 2024-04-07 01:40 | PC.NURSE ---
Pts daughter at bedside. Notified of patients condition. ER MD explains procedure and potential risk and complications of doing the central line. Daughter states she will call other family members at this time.
--- NOTE | 2024-04-07 02:00 | PC.NURSE ---
Pts daughter and 2 sons at bedside. Updated on condition, family agrees to patient being DNR comfort care.
--- NOTE | 2024-04-07 02:01 | EXP.EVENT.NO ---
On 04/07/2024 I was called to bedside by hospitalistBenito, to evaluate the patient for central line placement. I briefly reviewed records which demonstrate patient is an 88-year-old female admitted to the hospital for STEMI. She underwent cardiac catheterization. Review of catheterization note demonstrates patient's lesion was not amenable to mechanical thrombectomy or angioplasty. Patient had occluded MCCARTHY to mid LAD as well as distal LAD lesion. EF 45%. Plan from cardiology was to continue anticoagulation with heparin and Integrilin and supportive care for NE. Patient was under the care of the hospitalist receiving these treatments. Unfortunately due to her anticoagulation and poor vasculature at baseline, they had many difficulties with IV access, IVs they did obtain easily blew, and she had multiple areas of bruising and hematoma as a result. They also had difficulty controlling bleeding at the right groin site. As a result of these complications, hospitalist asked me to evaluate for central line placement since they had no more options for peripheral IV access and the patient was becoming progressively more unstable. I evaluated the patient at bedside and on my arrival she was mildly tachycardic and hypotensive in the 70s, transiently confused. She had hematoma and ecchymosis of her left upper extremity, bruising of her right upper extremity, as well as controlled bleeding at her right groin access site. I evaluated her left femoral site as well as bilateral IJ sites for possible central venous catheter placement with ultrasound. Patient has poor vasculature throughout, there were no appropriate vessels available in the left groin, left IJ was extremely small and tortuous around the carotid artery. The best option is the right IJ, however this vein also is tortuous with calcifications in the bruner and overlaps the carotid artery. With patient being heavily anticoagulated and demonstrating notable bleeding from even small caliber peripheral IV placement, she is a poor candidate for central line placement with high risk of complication. As I was evaluating the patient, patient's daughter who was listed as decision-maker for the patient presented to bedside. The hospitalist and I had a discussion with the patient's daughter about the patient's ongoing problems, bleeding, and option of central line placement but the high risks that come with it. We also reviewed that even with central line placement which would allow us to draw labs and give additional medications, the patient has persistent cardiac lesions that were unable to be significantly modified in Scheduling Coordinator. The patient had previously been full code, but the daughter was considering comfort care due to the high risk of central line placement and the patient's worsening condition. She explained that the patient never wanted to be in pain. With this being the thoughts of the patient's medical decision-maker, did not place IO for resuscitation though I did consider it. Patient's daughter called additional family members. 2 of the patient's sons were quickly available at bedside. Patient continued to have a heart rate in the low 100s and blood pressure in the mid 70s. Transiently confused. The hospitalist and I again explained to each of these family members the patient's current situation and ongoing problems as well as the options of central line placement, potential complications associated with that, ongoing bleeding sites, and her persistent cardiac problems even if central line placement is successful. Family witnessed the patient becoming progressively more confused and her blood pressure continuing to worsen. Ultimately all of the family made the decision to transition to comfort care. They made the patient DNR/DNI, they do not want any further procedures, they only want medications for comfort. Hospitalist will proceed with this. Central line was not placed.
--- NOTE | 2024-04-07 04:34 | P.EN_ITS ---
At approximately 2000 hours, I was contacted regarding Ms. Floyd, who was admitted earlier today for STEMI and underwent emergent cardiac catheterization under the care of Dr. Bergeron. Post-procedure, she was stable but experiencing persistent oozing from the catheter insertion site, requiring multiple dressing changes due to rapid saturation. She had a percutaneous closure device placed during the procedure and was receiving Integrilin and heparin drip, contributing to expected oozing. Upon evaluation, direct pressure was applied for 30 minutes using Surgicel and a sandbag, but significant oozing persisted requiring additional dressing changes. At 2200, Dr. Bergeron was contacted, and the decision was made to attempt hemostasis using a 10cc subcutaneous injection of 1% lidocaine with 1:100,000 epinephrine, creating a wheal at the site. Despite this, slow saturation continued, necessitating two additional dressing changes. During this period, the patient developed IV access complications. Her left forearm IV had infiltrated at the level left AC from what appeared to be a previous or blood draw location, causing discomfort and initially small but progressively larger site of edema/hematoma. Her right forearm IV, administering the Integrilin and heparin infusions, also extravasated. Multiple attempts by the fire[facility] and ER nursing staff, including ultrasound-guided placement, were unsuccessful due to poor vascular status. A right AC IV was briefly obtained but failed within an hour, requiring placement of a new right brachiocephalic IV by the ER nurse. At this time, the patient began feeling generally unwell, with sinus tachycardia at 110 bpm, mild substernal chest discomfort, and increasing anxiety. Her blood pressure dropped to 85/50, and peripheral pulse oximetry readings fluctuated between 80-95% on 5L nasal cannula, with forehead and earlobe monitoring also inconsistent. A 12-lead ECG was obtained, showing no acute changes compared to prior but with possible QRS elongation from 30 to 40. Due to her discomfort, she was given 1 mg IV morphine, but she remained anxious and specifically requested Ativan and she was given 0.5 mg IV Ativan. A moderate gravity drip of LR was initiated but discontinued within minutes after her BP improved to 110/68 due to concerns regarding her valvular dysfunction. However, within 20 minutes, her BP again declined to the 80s, ultimately reaching a peng of 75 systolic. She remained alert but became intermittently unintelligible in her speech. She was placed in Trendelenburg and IV fluids were restarted, but her remaining IV also extravasated. Given the severity of the situation and the continued inability to establish reliable IV access, I personally contacted Dr. Tonya Nassar in the ED who gra ciously agreed attempt central line placement. Unfortunately, left femoral access was not viable, the right femoral site had been used for catheterization, and ultrasound evaluation of the internal jugular veins revealed challenging anatomy, with bifurcations close to the carotid arteries. Given her anticoagulated status, earlier infiltration and bleeding of small peripheral IVs, and the high risk of complications, both Dr. Nassar and I agreed that central line placement carried a high degree of risk. Given the progressive hypotension, refractory IV access issues, and worsening clinical status, I contacted her next of kin to discuss goals of care. Her daughter arrived at the bedside shortly thereafter but wished to consult her brothers and Ms. Floyd' significant other before making a decision. The family arrived at the bedside at approximately 0230 hours. After a detailed discussion of the patient?s deteriorating condition with daughter and 2 sons and , poor prognosis, and risks associated with further aggressive interventions, the family collectively chose to transition the patient to comfort care. Dr. Bergeron was informed of the decision and is in agreement with the plan. The patient remains in the ICU on comfort care, with a last recorded BP of 68/24. She is currently not in distress, not complaining of pain or dyspnea, but IM/PO comfort medications have been ordered as needed. Her mentation appears improved answering questions appropriately and the family is present at the bedside. Plan: * Transition to comfort care per family wishes * Continue IM comfort medications as needed for symptom management * Monitor for signs of distress, adjusting care to ensure patient comfort * Ongoing family support, updates as needed * No further invasive interventions planned Total critical care time 60 minutes spent on patient care, provider consultation, review of patient records, updating patient chart discussion ofCODE STATUS with family.
--- NOTE | 2024-04-07 07:30 | PC.NURSE ---
Neeraj in cardiology called and stated that he would have Dr. Bergeron come and get IV access on the patient for a possible need for blood and have Dr. Stewart consult on the patient as well. Dr. Schwartz notified.
--- NOTE | 2024-04-07 07:35 | PC.NURSE ---
In pt care handoff i received report that the patient had no patient IVs but that they had not been discontinued yet because of the patients risk for further bleeding. On my assessment of the patients IV's i found that the 20g in the right AC and 20g in the right upper arm were infiltrated and discontinued them at this time. However, the 22g IV in the left wrist flushed without pain and would draw blood at this time. I informed Dr. Schwartz who stated to not use that IV at this time and that he was switching her meds to PO until Cardiology decided what they were doing.
--- NOTE | 2024-04-07 08:32 | SW/DCPLANNER ---
Addendum entered by [facility] 04/08/24 15:11: Per Kaylah garcia/ Hospice DME will be set up in home at 3:30 today. I have updated patient's nurse. Addendum entered by [facility] 04/08/24 10:03: I spoke w/ patient and her daughter regarding discharge today. Daughter will arrange for hospital bed to be able to be set up in home today and patient to return home today. I will update and Kaylah garcia/ Hospice. Addendum entered by [facility] 04/08/24 08:28: Per Kaylah garcia/ [facility] Candace Mccarthy patient was evaluated at bedside by Hospice nurse yesterday and has everything set up to discharge home w/ Hospice once medically stable for discharge. Addendum entered by [facility] 04/07/24 14:15: Brittany spoke w/ patient and family at bedside. The plan per patient/family is to return home w/ patient and appropriate DME. Brittany stated that she will order a hospital bed, mattress and home O2 to be set up in home. I will continue to follow up w/ MD, patient/family and Hospice. Discharge date is unknown at this time. Addendum entered by [facility] 04/07/24 13:42: AD w/ Hospice is at bedside w/ patient and family. Addendum entered by [facility] 04/07/24 09:57: Per Kaylah garcia/ [facility] a Hospice nurse and family will meet at bedside at 1:30PM today. Original Note: Per MD request patient information has been faxed to [facility] for Hospice consult. Patient's family did step out for a couple hours this AM. I will continue to follow up once they return. I will also follow up w/ Ruthie at [facility] once information is reviewed.
--- NOTE | 2024-04-07 09:11 | EXP.ACUTE.PN ---
Subjective *Date: 04/07/24 *Time: 21:40 Interval history: On 2 L oxygen this morning. Appears more distressed today. Ill-appearing. Afebrile. No nausea or vomiting. Complaining of intermittent chest pain. Medical Exam Vital signs and Labs for Last 24 Hours: Vital Signs Temp Pulse Pulse Pulse Resp BP BP 04/07/24 07:28 98.0 F 104 H 22 86/42 L 04/07/24 06:28 04/07/24 05:00 04/07/24 03:00 103 H 24 04/07/24 02:55 04/07/24 02:00 114 H 16 68/24 L 04/07/24 01:15 101 H 20 74/46 L 04/07/24 01:00 04/07/24 01:00 112 H 21 84/40 L 04/07/24 00:15 106 H 20 91/47 L 04/07/24 00:00 110 H 04/07/24 00:00 97.3 F L 104 H 20 91/47 L 04/07/24 00:00 105 H 04/06/24 23:15 100 H 17 116/57 L 04/06/24 23:00 04/06/24 22:15 89 17 115/68 04/06/24 22:00 102 H 20 94/64 L 04/06/24 21:15 93 H 20 113/68 04/06/24 21:00 04/06/24 20:45 84 18 130/74 04/06/24 20:15 84 22 143/74 H 04/06/24 20:00 04/06/24 20:00 87 18 156/82 H 04/06/24 20:00 88 04/06/24 19:45 82 20 150/83 H 04/06/24 19:15 84 165/90 H 04/06/24 19:00 85 19 154/88 H 04/06/24 18:15 04/06/24 17:09 98.6 F 80 18 148/80 H 04/06/24 17:00 98.5 F 80 13 131/79 04/06/24 16:43 86 04/06/24 16:30 98.6 F 86 20 131/79 Pulse Ox O2 Del Method O2 Flow Rate 04/07/24 07:28 98 Nasal Cannula 2 04/07/24 06:28 Nasal Cannula 2 04/07/24 05:00 Nasal Cannula 4 04/07/24 03:00 Nasal Cannula 4 04/07/24 02:55 Nasal Cannula 4 04/07/24 02:00 04/07/24 01:15 Nasal Cannula 4 04/07/24 01:00 Nasal Cannula 3 04/07/24 01:00 Nasal Cannula 3 04/07/24 00:15 89 L Nasal Cannula 4 04/07/24 00:00 93 L Nasal Cannula 4 04/07/24 00:00 91 L Nasal Cannula 3 04/07/24 00:00 04/06/24 23:15 100 Nasal Cannula 3 04/06/24 23:00 Nasal Cannula 3 04/06/24 22:15 94 L Nasal Cannula 3 04/06/24 22:00 100 04/06/24 21:15 98 Nasal Cannula 3 04/06/24 21:00 Nasal Cannula 3 04/06/24 20:45 99 Nasal Cannula 3 04/06/24 20:15 97 Nasal Cannula 3 04/06/24 20:00 97 Nasal Cannula 3 04/06/24 20:00 98 Nasal Cannula 3 04/06/24 20:00 04/06/24 19:45 97 Nasal Cannula 3 04/06/24 19:15 98 Nasal Cannula 3 04/06/24 19:00 99 Nasal Cannula 3 04/06/24 18:15 99 Nasal Cannula 3 04/06/24 17:09 Room Air 04/06/24 17:00 98 04/06/24 16:43 04/06/24 16:30 99 Nasal Cannula 2 Intake and Output 04/06/24 04/07/24 04/07/24 23:59 07:59 15:59 Intake Total 0 / 60 60 / 60 Output Total 0 / 0 0 / 0 Balance 0 / 60 60 / 60 Intake: Intake, Oral Amount 0 / 60 60 / 60 Output: Output, Urine Amount 0 / 0 0 / 0 Other: Number of Unmeasured Voids 1 1 Number of Bowel Movements 1 1 Weight 63.503 kg Laboratory Results - last 24 hr 04/06/24 14:20: WBC 17.1 H, RBC 4.16 L, Hgb 10.3 L, Hct 33.4 L, MCV 80.3 L, MCH 24.8 L, MCHC 30.8 L, RDW 17.1, Plt Count 487 H, MPV 10.3, Neut % (Auto) 91.1 H, Lymph % (Auto) 5.0 L, [place] % (Auto) 3.3, Eos % (Auto) 0.0 L, Baso % (Auto) 0.1, Neut # (Auto) 15.5 H, Lymph # (Auto) 0.9, [place] # (Auto) 0.6, Eos # (Auto) 0.0, Baso # (Auto) 0.0, Total Counted 100, Neutrophils % (Manual) 96 H, Lymphocytes % (Manual) 3 L, Monocytes % (Manual) 1 L, Platelet Estimate Slight increase, Stomatocytes 1+, PT 9.9, INR 0.89 L, APTT 20.5 L, D-Dimer 0.92 H, Sodium 135 L, Potassium 4.5, Chloride 96 L, Carbon Dioxide 30, Anion Gap 13.5, BUN 24 H, Creatinine 1.00, Estimated Creat Clear 40, Estimated GFR 53 L, Est GFR ( Amer) 64, Glucose 206 H, Calcium 9.1, Total Bilirubin 0.2, AST 29, ALT 21, Alkaline Phosphatase 45, Troponin I 0.02, Total Protein 6.5, Albumin 3.8, Globulin 2.7, Albumin/Globulin Ratio 1.4, Lipase 368 H, HCV Ab AKUA w/Rflx PCR Qn Negative, HIV Ag/Ab Combo Qual Negative 04/06/24 16:41: VBG pH 7.42 H, VBG pCO2 43.1, VBG pO2 65.0 H, VBG HCO3 27.3, VBG Total CO2 28.6 H, VBG O2 Saturation 92.2 H, VBG Base Excess 2.8 H, VBG Lactic Acid 3.2 H 04/07/24 00:50: WBC 19.5 H, RBC 3.84 L, Hgb 9.6 L, Hct 31.2 L, MCV 81.3, MCH 25.0 L, MCHC 30.8 L, RDW 17.2, Plt Count 588 H, MPV 9.6, Neut % (Auto) 77.1, Lymph % (Auto) 10.9, [place] % (Auto) 11.0 H, Eos % (Auto) 0.1, Baso % (Auto) 0.2, Neut # (Auto) 15.1 H, Lymph # (Auto) 2.1, [place] # (Auto) 2.2 H, Eos # (Auto) 0.0, Baso # (Auto) 0.0, Total Counted 100, Neutrophils % (Manual) 83 H, Lymphocytes % (Manual) 8 L, Monocytes % (Manual) 9, Platelet Estimate Moderate increase, Hypochromasia 1+ I & O for Labs for Last 24 Hours: Intake & Output 04/04/24 04/05/24 04/06/24 04/07/24 23:59 23:59 23:59 23:59 Intake Total Output Total 0 / 0 Balance Weight 63.503 kg Constitutional: Present mild distress, average body habitus, chronically ill appearing and cooperative Head: Present atraumatic and normocephalic ENT: Present normal exam and normal oropharynx Neck: Present normal inspection Respiratory: Present normal respiratory effort; Absent accessory muscle use, rhonchi, wheezes or crackles Cardiac: Present Reg Rate and Rhythm; Absent No Murmur GI: Present soft and normal bowel sounds; Absent distention or tenderness Extremities: Present full ROM; Absent normal inspection or tenderness Comment:: Swollen left upper extremity with significant hematoma and edema Skin: Present intact and dry; Absent erythema or pallor Neuro: Present Grossly Intact, alert, awake, oriented x 3 and moves all extremities Assessment and Plan *Assessment and plan (1) ST elevation (STEMI) myocardial infarction: Status: Acute Category: Medical Code(s): I21.3 - ST elevation (STEMI) myocardial infarction of unspecified site (2) Chest pain: Status: Acute Category: Medical Code(s): R07.9 - Chest pain, unspecified (3) Flu: Status: Acute Category: Medical Code(s): J11.1 - Influenza due to unidentified influenza virus with other respiratory manifestations (4) Anxiety: Status: Acute Category: Medical Code(s): F41.9 - Anxiety disorder, unspecified (5) Multifocal pneumonia: Status: Acute Category: Medical Code(s): J18.9 - Pneumonia, unspecified organism (6) CAD (coronary artery disease): Status: Chronic Qualifiers: Associated angina: with other forms of angina Coronary Disease-Associated Artery/Lesion type: [place] artery [place] vs. transplanted heart: [place] heart Qualified Code(s): I25.118 - Atherosclerotic heart disease of [place] coronary artery with other forms of angina pectoris Category: Medical Code(s): I25.10 - Atherosclerotic heart disease of [place] coronary artery without angina pectoris (7) GERD (gastroesophageal reflux disease): Status: Chronic Qualifiers: Esophagitis presence: esophagitis presence not specified Qualified Code(s): K21.9 - Gastro-esophageal reflux disease without esophagitis Category: Medical Code(s): K21.9 - Gastro-esophageal reflux disease without esophagitis (8) History of coronary artery bypass graft: Status: Chronic Category: Surgical Code(s): Z95.1 - Presence of aortocoronary bypass graft (9) HLD (hyperlipidemia): Status: Chronic Qualifiers: Hyperlipidemia type: mixed hyperlipidemia Qualified Code(s): E78.2 - Mixed hyperlipidemia Category: Medical Code(s): E78.5 - Hyperlipidemia, unspecified (10) HHD (hypertensive heart disease): Status: Chronic Qualifiers: Heart failure presence: without heart failure Qualified Code(s): I11.9 - Hypertensive heart disease without heart failure Category: Medical Code(s): I11.9 - Hypertensive heart disease without heart failure (11) Obesity (BMI 30-39.9): Status: Chronic Category: Medical Code(s): E66.9 - Obesity, unspecified (12) Anemia: Status: Acute Qualifiers: Anemia type: unspecified type Qualified Code(s): D64.9 - Anemia, unspecified Category: Medical Code(s): D64.9 - Anemia, unspecified (13) Diastolic heart failure: Status: Chronic Category: Medical Code(s): I50.30 - Unspecified diastolic (congestive) heart failure (14) COPD (chronic obstructive pulmonary disease): Status: Chronic Category: Medical Code(s): J44.9 - Chronic obstructive pulmonary disease, unspecified (15) Hypothyroid: Status: Chronic Category: Medical Code(s): E03.9 - Hypothyroidism, unspecified Plan 88-year-old female with significant past medical history of multiple comorbidities including history of CABG and CAD. Presented with chest pain. Found to have STEMI. Taken to [facility] emerg[facility]. Discussed case with ER physician, request admission after heart cath. Discussed case with pond supervisor, patient found to have occlusion of distal LAD. Continue medical management of STEMI. Admitted to ICU. Overnight family decided to proceed with comfort care as they did not want to cause patient any more pain or discomfort. Requested hospice consult today. Continues to require patient management. Cardiology assisting with care. Problems addressed as follows: STEMI History of CABG CAD History of HFpEF Hyperlipidemia/hypertension -Discussed case with cardiology, distal lesion in LAD. Robert bleeding with Integrilin. Discontinued overnight. Will continue aspirin 81 mg daily and Brilinta 90 mg twice daily -Echo with EF 45% -Hold beta-princess for MAP less than 65 -LDL on 04/01, previous intolerance of Lipitor -Resume Lasix 40 mg IV daily. -BNP elevated at 4000 days ago initial troponin 0.02 -Continue ranolazine 500 mg twice daily -Continue spironolactone 25mg daily LUE Hematoma - blown IV with Integrilin, warm compress, elevation. Monitoring pulses with ultrasound. No signs of compartment syndrome at this time. COPD Flu - Diagnosed with flu 5 days ago. Completed 5 days of antibiotics with azithromycin. Completed steroids. No indication for further Tamiflu at this time. Stable on room air. - White count elevated at 19.5. Hemoglobin 9.6 -Tessalon Perles for cough 100 mg 3 times a day as needed Hypothyroid: TSH controlled at 2.33, continue levothyroxine 75 mcg daily Continue home Ativan 0.5mg twice daily as needed did Comfort care Cardiac diet Hospice consulted. Patient meeting admission criteria. Given patient and family wish, will discharge home with hospice in the next day or 2.
[2024-04-07] MEDS: RANOLAZINE 500MG ER TABLET 500 MG PO ×2 (09:35→20:27)
[2024-04-07] MEDS: TICAGRELOR 90MG TABLET 90 MG PO ×2 (11:31→20:27)
[2024-04-07] MEDS: PIPERCILLIN/TAZO 3.375 GM in 0.9 % SODIUM CHLORIDE 50 ML IV ×2 (11:33→17:54)
[2024-04-07] MEDS: ASPIRIN EC 81MG TABLET 81 MG PO (11:33)
--- NOTE | 2024-04-07 12:04 | P.CONCA_ITS ---
History of Present Illness History of Present Illness Consult date: 04/06/24 Requesting physician: Erick Schwartz Consult reason: chest pain Chief complaint: chest pain History of present illness: 88 yo WF established pt of our practice with a history of CAD s/p CABG. Recently seen in office on 04/01 with c/o worsening DYE. Due to high pretest probability and suspicion she was set up for elective LHC. In the interim patient dx with flu. 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 A distal LAD thrombus was noted but was nonamenable to PCI so she was admitted on Integrillin and Heparin. Overnight patient's LUE IV infiltrated and she had ongoing bleeding from femoral site. BP eventually dropped to 60s and pt had AMS. Apparent difficulty maintaining any IVS. ED physician called overnight to place IJ was was very tortuous vessel and deemed high risk of complication especially with ongoing bleeding from femoral site and LUE. IO was reportedly offered but declined by family who elected for comfort care. I am seeing pt in ICU next morning and she is A/O with MAP of 55. Her LUE is extremely swollen and ecchymotic but left hand appears NV intact. Right groin femoral site has mild dried blood and is soft to palpation. Pt denies CP. [facility] Disclaimer: The information contained in this section may have been updated after the patient was seen, as this information can be updated by other users. Medical History Sleep apnea COPD (chronic obstructive pulmonary disease) Osteoarthritis Hypothyroid History of cataract History of heart attack Hypertension History of anemia Ankle fracture Cataract Cough Tachycardia Hiatal hernia SOB (shortness of breath) Scattered respiratory crackles of right lung Surgical History Personal history of gastric banding History of esophagogastroduodenoscopy (EGD) History of colonoscopy History of cholecystectomy History of hysterectomy History of knee replacement Family History Other Family history of Alzheimer's disease Family history of cancer Family history of cataracts Family history of diabetes mellitus type II Family history of myocardial infarction Social History Smoking Status: Never smoker second hand exposure: No alcohol intake: never substance use type: denies use current occupational status: retired Travel in the last 8 weeks: None household members: spouse housing: house lives independently: No marital status: education level: high school service: No jail: No current occupational exposures/hazards: No caffeine: Yes special niels needs: No agree to transfusion: No do you feel safe at home: Yes victim of physical abuse: No victim of emotional abuse: No victim of sexual abuse: No would you like helpful sources: No Have you lived/traveled outside [place] in past 30 days?: No Contact w/someone who lives/traveled outside US past 30 days?: No Exposure to someone with infectious disease in past 14 days?: No Do you have a fever (greater than 100.4 F or 38 C)?: No Have you tested positive for COVID-19: No Exposed to someone with COVID-19 in past 14 days?: No Do you have a sore throat?: No Do you have a cough?: No Do you have any weakness?: No Do you have any diarrhea?: No Are you experiencing any unusual bleeding?: No Do you have any muscle aches/pain?: No Do you have any abdominal pain?: No Are you experiencing loss of taste or smell?: No Review of Systems Constitutional Constitutional: Denies fatigue and Denies weakness Eyes Eyes: Denies loss of vision ENT Ears, Nose, Mouth, and Throat: Denies hearing loss and Denies vertigo *Cardiovascular Cardiovascular: Reports chest pain, Denies dyspnea and Denies syncope *Respiratory Respiratory: Denies cough and Denies dyspnea *Gastrointestinal Gastrointestinal: Denies change in stool character, Denies nausea and Denies vomiting *Musculoskeletal Musculoskeletal: Denies muscle weakness Comments: left arm pain, right groin pain Integumentary/Breasts Skin/Breast: Denies changing lesions *Neurologic Neurologic: Denies loss of vision, Denies syncope, Denies vertigo and Denies weakness Endocrine Endocrine: Denies fatigue Exam Data for Last 24 hours Vital signs and Labs for Last 24 Hours: Temp Pulse Resp BP Pulse Ox O2 Del Method O2 Flow Rate 98.0 F 111 H 22 86/42 L 97 Nasal Cannula 2 04/07/24 07:28 04/07/24 08:00 04/07/24 07:28 04/07/24 07:28 04/07/24 08:00 04/07/24 08:00 04/07/24 08:00 Laboratory Results - last 24 hr 04/06/24 14:20: WBC 17.1 H, RBC 4.16 L, Hgb 10.3 L, Hct 33.4 L, MCV 80.3 L, MCH 24.8 L, MCHC 30.8 L, RDW 17.1, Plt Count 487 H, MPV 10.3, Neut % (Auto) 91.1 H, Lymph % (Auto) 5.0 L, [place] % (Auto) 3.3, Eos % (Auto) 0.0 L, Baso % (Auto) 0.1, Neut # (Auto) 15.5 H, Lymph # (Auto) 0.9, [place] # (Auto) 0.6, Eos # (Auto) 0.0, Baso # (Auto) 0.0, Total Counted 100, Neutrophils % (Manual) 96 H, Lymphocytes % (Manual) 3 L, Monocytes % (Manual) 1 L, Platelet Estimate Slight increase, Stomatocytes 1+, PT 9.9, INR 0.89 L, APTT 20.5 L, D-Dimer 0.92 H, Sodium 135 L, Potassium 4.5, Chloride 96 L, Carbon Dioxide 30, Anion Gap 13.5, BUN 24 H, Creatinine 1.00, Estimated Creat Clear 40, Estimated GFR 53 L, Est GFR ( Amer) 64, Glucose 206 H, Calcium 9.1, Total Bilirubin 0.2, AST 29, ALT 21, Alkaline Phosphatase 45, Troponin I 0.02, Total Protein 6.5, Albumin 3.8, Globulin 2.7, Albumin/Globulin Ratio 1.4, Lipase 368 H, HCV Ab AKUA w/Rflx PCR Qn Negative, HIV Ag/Ab Combo Qual Negative 04/06/24 16:41: VBG pH 7.42 H, VBG pCO2 43.1, VBG pO2 65.0 H, VBG HCO3 27.3, VBG Total CO2 28.6 H, VBG O2 Saturation 92.2 H, VBG Base Excess 2.8 H, VBG Lactic Acid 3.2 H 04/07/24 00:50: WBC 19.5 H, RBC 3.84 L, Hgb 9.6 L, Hct 31.2 L, MCV 81.3, MCH 25.0 L, MCHC 30.8 L, RDW 17.2, Plt Count 588 H, MPV 9.6, Neut % (Auto) 77.1, Lymph % (Auto) 10.9, [place] % (Auto) 11.0 H, Eos % (Auto) 0.1, Baso % (Auto) 0.2, Neut # (Auto) 15.1 H, Lymph # (Auto) 2.1, [place] # (Auto) 2.2 H, Eos # (Auto) 0.0, Baso # (Auto) 0.0, Total Counted 100, Neutrophils % (Manual) 83 H, Lymphocytes % (Manual) 8 L, Monocytes % (Manual) 9, Platelet Estimate Moderate increase, Hypochromasia 1+ I & O for Last 24 hours: Intake & Output 04/04/24 04/05/24 04/06/24 04/07/24 23:59 23:59 23:59 23:59 Intake Total 60 / 60 Output Total 0 / 0 Balance 60 / Weight 140 lb 143 lb 4 oz *Routine Cardiovascular Exam Comments: Extreme swelling/ecchymosis of LUE - primarily forearm. Appears approx double the size of RUE. Tender to palpation. She maintains movement/warmth/pulse of right hand. Right groin femoral site has a mild amount of blood on bandage but overall soft, nontender, no bruit. Meds Home Medications and Allergies Home Medications ?Medication ?Instructions ?Recorded ?Confirmed ?Type melatonin 10 mg tablet 10 mg PO HS sleep 09/26/17 04/06/24 History albuterol sulfate 90 mcg/actuation 1 inh inhalation QIDP PRN 08/16/22 04/06/24 Rx aerosol inhaler (ProAir HFA) Shortness Of Breath #6.7 grams blood pressure monitor #1 ea 08/27/23 04/06/24 Rx triamcinolone acetonide 0.5 % 1 applic topical BID #15 grams 10/17/23 04/06/24 Rx topical cream lorazepam 0.5 mg tablet 0.5 mg PO BID PRN anxiety #60 tabs 11/16/23 04/06/24 Rx metoprolol tartrate 25 mg tablet 12.5 mg PO BID 04/01/24 04/07/24 History spironolactone 25 mg tablet 25 mg PO DAILY #30 tabs 04/02/24 04/06/24 Rx furosemide 20 mg tablet 20 mg PO DAILY 04/07/24 04/07/24 History levothyroxine 75 mcg tablet 75 mcg PO DAILY 04/07/24 04/07/24 History nitroglycerin 0.4 mg sublingual 0.4 mg sublingual Q5M PRN Chest 04/07/24 04/07/24 History tablet (Nitrostat) Pain pantoprazole 40 mg tablet,delayed 40 mg PO BID 04/07/24 04/07/24 History release ranolazine 500 mg tablet,extended 500 mg PO BID 04/07/24 04/07/24 History release,12 hr New Prescriptions to Start Prescriptions: Allergies Allergy/AdvReac Type Severity Reaction Status Date / Time carisoprodol (From Soma) Allergy Intermediate itching Verified 04/06/24 19:08 meperidine Allergy Intermediate itching Verified 04/06/24 19:08 Sulfa (Sulfonamide Allergy Intermediate itching Verified 04/06/24 19:08 Antibiotics) trimethoprim Allergy Intermediate stomach Verified 04/06/24 19:08 atorvastatin (From Lipitor) AdvReac Intermediate stomach Verified 04/06/24 19:08 azithromycin AdvReac Intermediate Gastrointestinal Verified 04/06/24 19:08 Upset Assessment and Plan *Assessment and plan (1) ST elevation (STEMI) myocardial infarction: Status: Acute Category: Medical Code(s): I21.3 - ST elevation (STEMI) myocardial infarction of unspecified site (2) Flu: Status: Acute Category: Medical Code(s): J11.1 - Influenza due to unidentified influenza virus with other respiratory manifestations (3) Traumatic hematoma of left upper arm: Status: Acute Category: Medical Code(s): S40.022A - Contusion of left upper arm, initial encounter Plan AW-STEMI 04/06 - known MV-CAD s/p CABG and prior stenting - [facility] here: thrombus distal LAD, non amenable, EF 45% - DC'd Integrilin/Heparin overnight due to bleeding - Cont DAPT, Statin - Hold BB for MAP <65 Hypotensive Shock - resolving - Systolic BP was 60s with AMS in setting of acute bleeding LUE, RLE post cath on Integrilin - BP up to 80s with trendelenberg and hemostasis - consider transfusion/fluids based on morning labs and once good IV reestablished LUE Hematoma - blown IV with Integrilin - IV removed, Integrillin off - monitor closely for compartment syndrome *It was reported was opting for Comfort Care measures overnight due to loss of IV, ongoing bleeding, and they declined I/O. Pt is stable/improving from CV standpoint. Dr. Bergeron will get IV access today and discuss further with family. She is not at end of life from CV standpoint.
--- NOTE | 2024-04-07 12:26 | CA_ITS ---
APPROVED REPORT EXAM: Comprehensive 2D, Doppler, and color-flow Echocardiogram Donor Technician: Vi Pelletier RDCS Ht: 4 ft 11 in Wt: 143lbs BSA: 1.60 BP: 86/42 mmHg Indications: STEMI,CAD TDS M-Mode Dimensions RVDd 1.75 cm (0.9-2.6) LA Diam 4.88 cm (1.9-4.0) LVDd 3.92 cm (3.5-5.7) LVDs 2.87 cm (3.5-5.7) IVSd 0.49 cm (0.6-1.1) PWd 0.63 cm (0.6-1.1) EF (Teich) 52.90% FS 26.80% EDV (Teich) 66.70 mL ESV (Teich) 31.40 mL LV Diastology E Decel Time 177 (160-240 msec) E/A Ratio 0.5 Mitral Valve MV E Max Tino. 37.0 (40-130 cm/s) MV A Velocity 73.0 (40-130 cm/s) E/A Ratio 0.50 MV PHT 52.0 ms Left Ventricle The left ventricle is normal size. The left ventricular systolic function is hyperdynamic. There is increased LV wall thickness. Diastolic function is indeterminate. LVEF is 70%. Right Ventricle Right ventricle is mildly dilated. The right ventricular systolic function is low normal. Atria Left atrium is mildly dilated. Right atrium is mildly dilated. There is no Doppler evidence of interatrial shunt. Aortic Valve The aortic valve is mildly thickened. There is no aortic valvular stenosis. Trace aortic regurgitation. Mitral Valve Mild mitral annular calcification. The mitral valve leaflets are mildly thickened. No evidence of mitral valve stenosis. Trace mitral regurgitation. Tricuspid Valve Tricuspid valve is grossly normal in structure and function. There is insufficient TR jet to estimate RVSP. Pulmonic Valve The pulmonary valve is normal in structure. Trace pulmonic regurgitation. The ascending aorta is not well-visualized. Great Vessels The aortic root is normal in size. The IVC is not well-visualized. Pericardium There is no pericardial effusion. Other Information Study Quality: Technically Difficult Conclusion Technically difficult study due to poor accoustic windows. Hyperdynamic LV systolic function (LVEF 70%). Mild RV dilation with low-normal RV function. Mild biatrial dilation. No significant valvular stenosis or regurgitation. Electronically signed by : Arianna Xie MD 04/07/2024 13:35:23
--- NOTE | 2024-04-07 13:34 | PC.NURSE ---
Loren potter at bedside
--- NOTE | 2024-04-07 16:31 | INFXCTL.NOTE ---
pt downgraded to medsurg per Hospitalist. Daughter called and notified of change and new room #.
--- NOTE | 2024-04-07 16:49 | PC.NURSE ---
pt complains of midsternal chest pain at this time with no radiation location. MD notified at this time. no new orders
[2024-04-07] MEDS: LORazepam 2MG/ML VIAL 0.5 MG IV (17:29)
[2024-04-08] VITALS (7 sets, daily range): BP systolic 98–127; BP diastolic 43–54; PULSE 62–117; RESP 16–18; TEMP 36.8–36.9; O2SAT 100; BMI 28.3
--- NOTE | 2024-04-08 04:43 | PC.NURSE ---
Pt alert and oriented and has tolerated 2l NC with o2 sats >95%. Lung sounds diminished and bowel sounds active. She has denied any chest pain or shortness of breath this shift. Bruising noted to left upper arm and right upper arm. Dressing over right femoral artery c/d/i with bruising around the area. She remains on droplet precautions for Flu A. She has remained sinus tach on tele. Currently resting in bed with call light within reach.
[2024-04-08] MEDS: LEVOTHYROXINE 75MCG (0.075MG) TAB 75 MCG PO (06:16)
[2024-04-08] MEDS: ASPIRIN EC 81MG TABLET 81 MG PO (08:18)
[2024-04-08] MEDS: RANOLAZINE 500MG ER TABLET 500 MG PO (08:18)
[2024-04-08] MEDS: TICAGRELOR 90MG TABLET 90 MG PO (08:19)
[2024-04-08] MEDS: LORazepam 0.5MG TABLET 0.5 MG PO (08:19)
--- NOTE | 2024-04-08 11:30 | EXP.CARD.PN ---
Subjective Subjective Date: 04/08/24 Time: 09:00 Interval history: Stable overnight. Transferred to [facility] floor. Denies chest pain. Morning labs are pending. She has no pain in her left hand. She is still interested in pursuing hospice. Exam Data for Last 24 hours Vital signs and Labs for Last 24 Hours: Temp Pulse Resp BP Pulse Ox O2 Del Method O2 Flow Rate 98.4 F 95 H 18 98/50 L 100 Nasal Cannula 2 04/08/24 08:00 04/08/24 08:00 04/08/24 08:00 04/08/24 08:00 04/08/24 08:00 04/08/24 08:00 04/08/24 08:00 Temp Pulse Resp BP Pulse Ox O2 Del Method O2 Flow Rate 98.0 F 111 H 22 86/42 L 97 Nasal Cannula 2 04/07/24 07:28 04/07/24 08:00 04/07/24 07:28 04/07/24 07:28 04/07/24 08:00 04/07/24 08:00 04/07/24 08:00 Laboratory Results - last 24 hr 04/06/24 14:20: WBC 17.1 H, RBC 4.16 L, Hgb 10.3 L, Hct 33.4 L, MCV 80.3 L, MCH 24.8 L, MCHC 30.8 L, RDW 17.1, Plt Count 487 H, MPV 10.3, Neut % (Auto) 91.1 H, Lymph % (Auto) 5.0 L, [place] % (Auto) 3.3, Eos % (Auto) 0.0 L, Baso % (Auto) 0.1, Neut # (Auto) 15.5 H, Lymph # (Auto) 0.9, [place] # (Auto) 0.6, Eos # (Auto) 0.0, Baso # (Auto) 0.0, Total Counted 100, Neutrophils % (Manual) 96 H, Lymphocytes % (Manual) 3 L, Monocytes % (Manual) 1 L, Platelet Estimate Slight increase, Stomatocytes 1+, PT 9.9, INR 0.89 L, APTT 20.5 L, D-Dimer 0.92 H, Sodium 135 L, Potassium 4.5, Chloride 96 L, Carbon Dioxide 30, Anion Gap 13.5, BUN 24 H, Creatinine 1.00, Estimated Creat Clear 40, Estimated GFR 53 L, Est GFR ( Amer) 64, Glucose 206 H, Calcium 9.1, Total Bilirubin 0.2, AST 29, ALT 21, Alkaline Phosphatase 45, Troponin I 0.02, Total Protein 6.5, Albumin 3.8, Globulin 2.7, Albumin/Globulin Ratio 1.4, Lipase 368 H, HCV Ab AKUA w/Rflx PCR Qn Negative, HIV Ag/Ab Combo Qual Negative 04/06/24 16:41: VBG pH 7.42 H, VBG pCO2 43.1, VBG pO2 65.0 H, VBG HCO3 27.3, VBG Total CO2 28.6 H, VBG O2 Saturation 92.2 H, VBG Base Excess 2.8 H, VBG Lactic Acid 3.2 H 04/07/24 00:50: WBC 19.5 H, RBC 3.84 L, Hgb 9.6 L, Hct 31.2 L, MCV 81.3, MCH 25.0 L, MCHC 30.8 L, RDW 17.2, Plt Count 588 H, MPV 9.6, Neut % (Auto) 77.1, Lymph % (Auto) 10.9, [place] % (Auto) 11.0 H, Eos % (Auto) 0.1, Baso % (Auto) 0.2, Neut # (Auto) 15.1 H, Lymph # (Auto) 2.1, [place] # (Auto) 2.2 H, Eos # (Auto) 0.0, Baso # (Auto) 0.0, Total Counted 100, Neutrophils % (Manual) 83 H, Lymphocytes % (Manual) 8 L, Monocytes % (Manual) 9, Platelet Estimate Moderate increase, Hypochromasia 1+ I & O for Last 24 hours: Intake & Output 04/05/24 04/06/24 04/07/24 04/08/24 23:59 23:59 23:59 23:59 Intake Total 300 / 350 290 / 290 Output Total 450 / 450 0 / 0 Balance -150 / -100 290 / 290 Weight 140 lb 143 lb 4 oz 144 lb Intake & Output 04/04/24 04/05/24 04/06/24 04/07/24 23:59 23:59 23:59 23:59 Intake Total 60 / 60 Output Total 0 / 0 Balance 60 / 60 Weight 140 lb 143 lb 4 oz *Routine Cardiovascular Exam Comments: Extreme swelling/ecchymosis of LUE - primarily forearm. Appears approx double the size of RUE. Tender to palpation. She maintains movement/warmth/pulse of right hand. Right groin femoral site has a mild amount of blood on bandage but overall soft, nontender, no bruit. Progress Note: A&P Assessment and plan (1) ST elevation (STEMI) myocardial infarction: Status: Acute (2) Chest pain: Status: Acute (3) Flu: Status: Acute (4) Anxiety: Status: Acute (5) Multifocal pneumonia: Status: Acute (6) CAD (coronary artery disease): Status: Chronic (7) GERD (gastroesophageal reflux disease): Status: Chronic (8) History of coronary artery bypass graft: Status: Chronic (9) HLD (hyperlipidemia): Status: Chronic (10) HHD (hypertensive heart disease): Status: Chronic (11) Obesity (BMI 30-39.9): Status: Chronic (12) Anemia: Status: Acute (13) Diastolic heart failure: Status: Chronic (14) COPD (chronic obstructive pulmonary disease): Status: Chronic (15) Hypothyroid: Status: Chronic Assessment and Plan Assessment and Plan for All Diagnoses:: AW-STEMI 04/06 - known MV-CAD s/p CABG and prior stenting - [facility] here: thrombus distal LAD, non amenable, EF 70% on ECHO - DC'd Integrilin/Heparin overnight due to bleeding - CCS = 0 - Cont DAPT, Statin, BB. Hypotensive Shock - resolving - Systolic BP was 60s with AMS in setting of acute bleeding LUE, RLE post cath on Integrilin - BP up to 80s with trendelenberg and hemostasis - consider transfusion/fluids based on morning labs and once good IV reestablished LUE Hematoma - blown IV with Integrilin - IV removed, Integrillin off - No worse overnight. Pt's left hand is NV in tact. *Pt is CV stable for discharge. She has chronic nonamenable CAD but is symptom free. She has normal EF. I do not see Hospice criteria from CV standpoint. CV DC Meds: Aspirin 81 mg 1 p.o. daily Brilinta 90 mg 1 p.o. twice daily Pravastatin 40 mg 1 p.o. nightly Metoprolol 12.5 mg twice daily Ranexa 500 mg 1 p.o. twice daily DC spironolactone due to hypotension Reduce Lasix to as needed use only. CV follow-up: 1 to 2 weeks in our office with Sulaiman
--- NOTE | 2024-04-08 11:48 | EXP.DC.SUM ---
General Admission date:: 04/06/24 HPI HPI HPI: Ms. Floyd is an 88-year-old female who presented to the ER due to complaint of chest pain. Presented via EMS. She was scheduled to have an outpatient heart cath on Sunday. Presents with complaint of left-sided chest pressure that began mid afternoon. EKG obtained showing ST elevation in V2. Consultant Nurse activated and patient taken for intervention. Patient has a history of COPD, hiatal hernia, GERD, hypertension or hyperlipidemia, CAD with prior AR status post CABG and stenting, DONOVAN, diastolic heart failure, history of gastric bypass. Medicine was consulted for admission after left heart cath. Patient found to have occlusion of distal LAD. Not amenable to stenting. Cardiology recommends admission for treatment for at least 48 hours and initiation of Integrilin drip. Patient stable on room air. Of note, has history of flu diagnosed on 04/01 by her PCP. Was completing a course of antibiotics and steroids. Patient was loaded with aspirin and Brilinta in the ER. Started on heparin drip. Hospital Course Hospital Course Hospital Course: Patient is a 88-year-old female with significant past medical history of multiple comorbidities including history of CABG and CAD. Presented with chest pain. Found to have STEMI. Taken to Consultant Nurse emergently. Discussed case with ER physician, request admission after heart cath. #STEMI #CAD #Hyperlipidemia/hypertension #History of CABG #History of HFpEF ? Presented with chest pain and significant malaise, found to have ST elevations on EKG. - Cardiology consulted, [facility] revealing distal lesion in LAD that was not an nonamenable to stenting. Initially initiated on Integrilin drip for medical management of occlusion, however left upper extremity hematoma developed and it was discontinued discontinued. Will continue aspirin 81 mg daily and Brilinta 90 mg twice daily. ? Initial BNP 4000 with volume overload, treated with IV Lasix. - ECHO with EF 45%. LDL 120. ? Given LAD occlusion that is not amenable to stenting, and the risk of another STEMI patient was interested in hospice care. Hospice care services were consulted, accepted to home with hospice. ? Discharged with aspirin 81 mg, Brilinta 90 mg twice daily, metoprolol succinate 25 mg, pravastatin 40 mg. ? Continue ranolazine 500 mg twice daily, spironolactone 25 mg daily. Can use Lasix 20 mg as needed. #LUE Hematoma - Blown IV with Integrilin, warm compress, elevation. Monitored pulses with ultrasound. No signs of compartment syndrome at this time. #COPD #Flu ? Improved with breathing treatments, azithromycin, steroids. ? Diagnosed with flu 5 days ago, Tamiflu not indicated at this time. Stable on room air. ? Bump in WBC likely from steroids. No signs of active infection. #Hypothyroid ? TSH controlled at 2.33, continue levothyroxine 75 mcg daily. #Anxiety ? Continue home Ativan 0.5mg twice daily as needed. Total time spent on discharge: 32 minutes on chart review, counseling, documentation, and direct care with patient. Exam Data for Last 24 hours Vital signs and Labs for Last 24 Hours: Temp Pulse Resp BP Pulse Ox O2 Del Method O2 Flow Rate 98.4 F 95 H 18 98/50 L 100 Nasal Cannula 2 04/08/24 08:00 04/08/24 08:00 04/08/24 08:00 04/08/24 08:00 04/08/24 08:00 04/08/24 08:00 04/08/24 08:00 Temp Pulse Resp BP Pulse Ox O2 Del Method O2 Flow Rate 98.0 F 111 H 22 86/42 L 97 Nasal Cannula 2 04/07/24 07:28 04/07/24 08:00 04/07/24 07:28 04/07/24 07:28 04/07/24 08:00 04/07/24 08:00 04/07/24 08:00 Laboratory Results - last 24 hr 04/06/24 14:20: WBC 17.1 H, RBC 4.16 L, Hgb 10.3 L, Hct 33.4 L, MCV 80.3 L, MCH 24.8 L, MCHC 30.8 L, RDW 17.1, Plt Count 487 H, MPV 10.3, Neut % (Auto) 91.1 H, Lymph % (Auto) 5.0 L, Williams % (Auto) 3.3, Eos % (Auto) 0.0 L, Baso % (Auto) 0.1, Neut # (Auto) 15.5 H, Lymph # (Auto) 0.9, Williams # (Auto) 0.6, Eos # (Auto) 0.0, Baso # (Auto) 0.0, Total Counted 100, Neutrophils % (Manual) 96 H, Lymphocytes % (Manual) 3 L, Monocytes % (Manual) 1 L, Platelet Estimate Slight increase, Stomatocytes 1+, PT 9.9, INR 0.89 L, APTT 20.5 L, D-Dimer 0.92 H, Sodium 135 L, Potassium 4.5, Chloride 96 L, Carbon Dioxide 30, Anion Gap 13.5, BUN 24 H, Creatinine 1.00, Estimated Creat Clear 40, Estimated GFR 53 L, Est GFR ( Amer) 64, Glucose 206 H, Calcium 9.1, Total Bilirubin 0.2, AST 29, ALT 21, Alkaline Phosphatase 45, Troponin I 0.02, Total Protein 6.5, Albumin 3.8, Globulin 2.7, Albumin/Globulin Ratio 1.4, Lipase 368 H, HCV Ab AKUA w/Rflx PCR Qn Negative, HIV Ag/Ab Combo Qual Negative 04/06/24 16:41: VBG pH 7.42 H, VBG pCO2 43.1, VBG pO2 65.0 H, VBG HCO3 27.3, VBG Total CO2 28.6 H, VBG O2 Saturation 92.2 H, VBG Base Excess 2.8 H, VBG Lactic Acid 3.2 H 04/07/24 00:50: WBC 19.5 H, RBC 3.84 L, Hgb 9.6 L, Hct 31.2 L, MCV 81.3, MCH 25.0 L, MCHC 30.8 L, RDW 17.2, Plt Count 588 H, MPV 9.6, Neut % (Auto) 77.1, Lymph % (Auto) 10.9, Williams % (Auto) 11.0 H, Eos % (Auto) 0.1, Baso % (Auto) 0.2, Neut # (Auto) 15.1 H, Lymph # (Auto) 2.1, Williams # (Auto) 2.2 H, Eos # (Auto) 0.0, Baso # (Auto) 0.0, Total Counted 100, Neutrophils % (Manual) 83 H, Lymphocytes % (Manual) 8 L, Monocytes % (Manual) 9, Platelet Estimate Moderate increase, Hypochromasia 1+ I & O for Last 24 hours: Intake & Output 04/05/24 04/06/24 04/07/24 04/08/24 23:59 23:59 23:59 23:59 Intake Total 300 / 350 290 / 290 Output Total 450 / 450 0 / 0 Balance -150 / -100 290 / 290 Weight 63.503 kg 64.977 kg 65.317 kg Intake & Output 04/04/24 04/05/24 04/06/24 04/07/24 23:59 23:59 23:59 23:59 Intake Total 60 / 60 Output Total 0 / 0 Balance 60 / 60 Weight 140 lb 143 lb 4 oz *Routine Cardiovascular Exam Comments: Extreme swelling/ecchymosis of LUE - primarily forearm. Appears approx double the size of RUE. Tender to palpation. She maintains movement/warmth/pulse of right hand. Right groin femoral site has a mild amount of blood on bandage but overall soft, nontender, no bruit. DS: Diagnosis Discharge Diagnosis (1) ST elevation (STEMI) myocardial infarction: Status: Acute Code(s): I21.3 - ST elevation (STEMI) myocardial infarction of unspecified site (2) Chest pain: Status: Acute Code(s): R07.9 - Chest pain, unspecified (3) Flu: Status: Acute Code(s): J11.1 - Influenza due to unidentified influenza virus with other respiratory manifestations (4) Anxiety: Status: Acute Code(s): F41.9 - Anxiety disorder, unspecified (5) Multifocal pneumonia: Status: Acute Code(s): J18.9 - Pneumonia, unspecified organism (6) CAD (coronary artery disease): Status: Chronic Code(s): I25.10 - Atherosclerotic heart disease of [place] coronary artery without angina pectoris Qualifiers: Associated angina: with other forms of angina Coronary Disease-Associated Artery/Lesion type: [place] artery [place] vs. transplanted heart: [place] heart Qualified Code(s): I25.118 - Atherosclerotic heart disease of [place] coronary artery with other forms of angina pectoris (7) GERD (gastroesophageal reflux disease): Status: Chronic Code(s): K21.9 - Gastro-esophageal reflux disease without esophagitis Qualifiers: Esophagitis presence: esophagitis presence not specified Qualified Code(s): K21.9 - Gastro-esophageal reflux disease without esophagitis (8) History of coronary artery bypass graft: Status: Chronic Code(s): Z95.1 - Presence of aortocoronary bypass graft (9) HLD (hyperlipidemia): Status: Chronic Code(s): E78.5 - Hyperlipidemia, unspecified Qualifiers: Hyperlipidemia type: mixed hyperlipidemia Qualified Code(s): E78.2 - Mixed hyperlipidemia (10) HHD (hypertensive heart disease): Status: Chronic Code(s): I11.9 - Hypertensive heart disease without heart failure Qualifiers: Heart failure presence: without heart failure Qualified Code(s): I11.9 - Hypertensive heart disease without heart failure (11) Obesity (BMI 30-39.9): Status: Chronic Code(s): E66.9 - Obesity, unspecified (12) Anemia: Status: Acute Code(s): D64.9 - Anemia, unspecified Qualifiers: Anemia type: unspecified type Qualified Code(s): D64.9 - Anemia, unspecified (13) Diastolic heart failure: Status: Chronic Code(s): I50.30 - Unspecified diastolic (congestive) heart failure (14) COPD (chronic obstructive pulmonary disease): Status: Chronic Code(s): J44.9 - Chronic obstructive pulmonary disease, unspecified (15) Hypothyroid: Status: Chronic Code(s): E03.9 - Hypothyroidism, unspecified Meds Home Medications and Allergies Home Medications ?Medication ?Instructions ?Recorded ?Confirmed ?Type melatonin 10 mg tablet 10 mg PO HS sleep 09/26/17 04/06/24 History albuterol sulfate 90 mcg/actuation 1 inh inhalation QIDP PRN 08/16/22 04/06/24 Rx aerosol inhaler (ProAir HFA) Shortness Of Breath #6.7 grams blood pressure monitor #1 ea 08/27/23 04/06/24 Rx triamcinolone acetonide 0.5 % 1 applic topical BID #15 grams 10/17/23 04/06/24 Rx topical cream lorazepam 0.5 mg tablet 0.5 mg PO BID PRN anxiety #60 tabs 11/16/23 04/06/24 Rx metoprolol tartrate 25 mg tablet 12.5 mg PO BID 04/01/24 04/07/24 History spironolactone 25 mg tablet 25 mg PO DAILY #30 tabs 04/02/24 04/06/24 Rx levothyroxine 75 mcg tablet 75 mcg PO DAILY 04/07/24 04/07/24 History nitroglycerin 0.4 mg sublingual 0.4 mg sublingual Q5M PRN Chest 04/07/24 04/07/24 History tablet (Nitrostat) Pain ranolazine 500 mg tablet,extended 500 mg PO BID 04/07/24 04/07/24 History release,12 hr aspirin 81 mg tablet,delayed 81 mg PO DAILY 30 days #30 tabs 04/08/24 Rx release furosemide 20 mg tablet 20 mg PO DAILY PRN Lower extremity 04/08/24 04/07/24 Rx swelling 30 days #0 tabs pantoprazole 40 mg tablet,delayed 40 mg PO DAILY 30 days #0 tabs 04/08/24 04/07/24 Rx release pravastatin 40 mg tablet 40 mg PO HS 30 days #30 tabs 04/08/24 Rx ticagrelor 90 mg tablet (Brilinta) 90 mg PO BID #60 tabs 04/09/24 Rx New Prescriptions to Start Prescriptions: Segundo Chatman pravastatin Segundo Smith Allergies Allergy/AdvReac Type Severity Reaction Status Date / Time carisoprodol (From Soma) Allergy Intermediate itching Verified 04/06/24 19:08 meperidine Allergy Intermediate itching Verified 04/06/24 19:08 Sulfa (Sulfonamide Allergy Intermediate itching Verified 04/06/24 19:08 Antibiotics) trimethoprim Allergy Intermediate stomach Verified 04/06/24 19:08 atorvastatin (From Lipitor) AdvReac Intermediate stomach Verified 04/06/24 19:08 azithromycin AdvReac Intermediate Gastrointestinal Verified 04/06/24 19:08 Upset Discharge Plan Disposition Patient Disposition: Hospice - Home Condition: Fair Discharge Order Discharge Orders: Discharge Order (Routine); Ordered 04/08/24 Ordered By: Segundo Smith Follow up Plan Follow up with: Neeraj Lundberg PA [Physician Family [facility] Counsellor] - 04/22/24 10:30 am Segundo King DO [Staff Physician] - 04/15/24 10:00 am Prescriptions/Medication Reconciliation: New aspirin 81 mg Tablet,Delayed Release (Dr/Ec) 81 mg PO DAILY 30 Days Qty: 30 0RF pravastatin 40 mg Tablet 40 mg PO HS 30 Days Qty: 30 0RF Continued melatonin 10 mg tablet 10 mg PO HS albuterol sulfate [ProAir HFA] 90 mcg/actuation HFA aerosol inhaler 1 inh INHALATION QIDP PRN (Reason: Shortness Of Breath) Qty: 6.7 1RF metoprolol tartrate 25 mg tablet 12.5 mg PO BID (DME) blood pressure monitor Kit See Rx Instructions .ROUTE .MEDSUPPLY Qty: 1 0RF Rx Instructions: As directed triamcinolone acetonide 0.5 % cream 1 applic topical BID Qty: 15 1RF lorazepam 0.5 mg tablet 0.5 mg PO BID PRN (Reason: anxiety) Qty: 60 2RF spironolactone 25 mg tablet 25 mg PO DAILY Qty: 30 2RF levothyroxine 75 mcg tablet 75 mcg PO DAILY nitroglycerin [Nitrostat] 0.4 mg Tablet, Sublingual 0.4 mg SUBLINGUAL Q5M PRN (Reason: Chest Pain) Rx Instructions: do not exceed 3 doses per episode ranolazine 500 mg tablet extended release 12 hr 500 mg PO BID Changed pantoprazole 40 mg tablet,delayed release (DR/EC) 40 mg PO DAILY 30 Days Qty: 0 0RF furosemide 20 mg tablet 20 mg PO DAILY PRN (Reason: Lower extremity swelling) 30 Days Qty: 0 0RF No Action Brilinta 90 mg tablet 90 mg PO BID Qty: 60 2RF Problem Reconciliation Problems Reviewed?: Yes Patient Discharge Instructions Patient Instructions: DI for Heart Attack, DI for Cardiac Catheterization, DI for Surgical Site Infection Print Language: [place] Providers Primary Care Provider: Juan Calros Hand Admit Provider: Erick Schwartz Attending Provider: Erick Schwartz
[2024-04-08] MEDS: SODIUM CHLORIDE 3% 15ML NEB 3 ML IH (13:55)
[2024-04-08 14:47] LABS: CATHL Activated Clotting Time 279 SEC (74-125)
--- NOTE | 2024-04-09 10:11 | SW/DCPLANNER ---
Spoke with patient then patient gave phone to daughter. Patients daughter stated that hospice came late last night and that they are checking on her mothers medicine. Patients daughter stated that they went to [facility] her mothers medicine and it was $400.00 and they didnt get it and that hospice gave them 2 pills to get by today till they can figure it out. Patients daughter stated that her mother is bedridden and that they cant get her to and from her DR appointments. Patient's daughter stated they have no concerns or questions at this time. Aryan Levine
== END 2024-04-08 16:47 | disposition hospice, home (50) | DRG 250 ==
LOC: ER 16:57 → CATHLAB 17:08 → ICU 18:13 → 2ND 04-07 16:33
PROVIDERS: Internal Medicine; Nurse Practitioner Family; Admitting Provider Internal Medicine Adolescent Medicine; Emergency Provider Emergency Medicine; PCP Nurse Practitioner Family; Visit Provider Internal Medicine Adolescent Medicine
PROC: 02703ZZ Dilation of Coronary Artery, One Artery, Percutaneous Approach (ICD-10-PCS; principal; 2024-04-06 16:30)
DX: I21.02 ST elevation (STEMI) myocardial infarction involving left anterior descending coronary artery (principal); J18.9 Pneumonia, unspecified organism; T81.19XA Other postprocedural shock, initial encounter; I50.32 Chronic diastolic (congestive) heart failure; I97.630 Postprocedural hematoma of a circulatory system organ or structure following a cardiac catheterization; J44.0 Chronic obstructive pulmonary disease with (acute) lower respiratory infection; T80.1XXA Vascular complications following infusion, transfusion and therapeutic injection, initial encounter; I11.0 Hypertensive heart disease with heart failure; I77.1 Stricture of artery; J11.1 Influenza due to unidentified influenza virus with other respiratory manifestations; E03.9 Hypothyroidism, unspecified; I25.10 Atherosclerotic heart disease of native coronary artery without angina pectoris; Z95.1 Presence of aortocoronary bypass graft; Z79.899 Other long term (current) drug therapy; Z51.5 Encounter for palliative care
CPT/HCPCS: 71045; 80053; 82803; 83690; 84484; 85007; 85025; 85347; 85378; 85610; 85730; 86803; 87389; 92941; 93005; 93306; 93459; 94640; 99152; 99153; 99291; C1725; C1760; C1769; C1894; C9606; J1327; J1644; J2060; J2250; J2270; J2310; J2405; J2543; J3010; Q9967

== ENCOUNTER 2024-05-28 15:14 | Outpatient (CLI) | payer OTHER, SELFPAY | END 2024-05-28 23:59 | disposition home or self-care (01) | LOC: LAB 15:16 | PROVIDERS: PCP Internal Medicine; Visit Provider Family Medicine Hospice and Palliative Medicine | DX: I11.0 Hypertensive heart disease with heart failure (principal); I50.30 Unspecified diastolic (congestive) heart failure; J44.9 Chronic obstructive pulmonary disease, unspecified | CPT/HCPCS: 87086 ==

== ENCOUNTER 2024-05-30 14:56 | Outpatient (CLI) | payer OTHER, SELFPAY ==
[2024-05-30 15:00] LABS: Microscopic, Urine URINE MICROSCOPIC (MICROSCOPIC)
[2024-05-30 15:09] LABS: Appearance,Urine CLEAR (Clear); Bilirubin,Urine Negative (Negative); Blood, Urine Negative (Negative); Color,Urine YELLOW (Yellow); Glucose,Urine (UA) Negative (Negative); Ketones,Urine Negative (Negative); Leukocyte Esterase,Urine Negative (Negative); Nitrate,Urine Negative (Negative); Protein,Urine Negative (Negative); Specific Gravity, Urine <= 1.005 (1.005-1.030); Urobilinogen,Urine 0.2 EU/dl (0.2)
[2024-05-30 15:23] LABS: Squamous Epithelial Cell,Urine Occasional #/hpf (0-5)
[2024-05-30 15:24] LABS: Bacteria,Urine Trace /lpf
== END 2024-05-30 23:59 | disposition home or self-care (01) ==
LOC: LAB.DROPOF 14:57
PROVIDERS: PCP Family Medicine Hospice and Palliative Medicine; Visit Provider Family Medicine Hospice and Palliative Medicine
DX: I11.0 Hypertensive heart disease with heart failure (principal); J44.9 Chronic obstructive pulmonary disease, unspecified
CPT/HCPCS: 81001